=== PATIENT | male | born 1975 | race Caucasian/White ===

== ENCOUNTER 2023-09-27 09:54 | Emergency (ER) | payer MEDICARE, MEDICAID, SELFPAY ==
[2023-09-27 10:00] VITALS: PULSE 101; RESP 18; TEMP 37; O2SAT 95; BMI 47.5
--- NOTE | 2023-09-27 10:05 | ED_ITS ---
HPI - Nausea/Vomiting/Diarrhea General Chief complaint: Nausea/Vomiting/Diarrhea Stated complaint: FLU SYMPTOMS Time Seen by Provider: 09/27/23 09:57 Source: patient Mode of arrival: walk-in Limitations: no limitations History of Present Illness HPI Narrative: 48-year-old male presents for nausea vomiting and diarrhea which began this morning. He's had no fever or hematemesis. His has not been ill. He ate be ef stew but his didn't get sick and she needed as well. Related Data Home Medications Medication Instructions Recorded Confirmed albuterol sulfate 2.5 mg/3 mL mg 09/27/23 (0.083 %) solution for nebulization benztropine 1 mg tablet mg 09/27/23 cariprazine 6 mg capsule (Vraylar) mg 09/27/23 lamotrigine 150 mg tablet mg 09/27/23 levothyroxine 150 mcg tablet mcg 09/27/23 levothyroxine 200 mcg tablet mcg 09/27/23 meloxicam 15 mg tablet mg 09/27/23 mirtazapine 45 mg tablet mg 09/27/23 mometasone-formoterol HFA 100 inhalation 09/27/23 mcg-5 mcg/actuation aerosol inhaler (Dulera) omeprazole 20 mg capsule,delayed mg 09/27/23 release prazosin 5 mg capsule mg 09/27/23 quetiapine 100 mg tablet mg 09/27/23 quetiapine 200 mg tablet mg 09/27/23 quetiapine 50 mg tablet mg 09/27/23 semaglutide 1 mg/dose (4 mg/3 mL) mg subcut 09/27/23 subcutaneous pen injector (Ozempic) trazodone 100 mg tablet mg 09/27/23 zolpidem 5 mg tablet mg 09/27/23 Previous Rx's Medication Instructions Recorded ondansetron 4 mg disintegrating 4 mg PO Q6H PRN nausea and 09/27/23 tablet vomiting #20 tabs Allergies Allergy/AdvReac Type Severity Reaction Status Date / Time No Known Drug Allergies Allergy Verified 09/27/23 10:00 Review of Systems ROS Narrative A ten point review of systems is negative except as noted above. Exam Narrative Exam Narrative: Nurses note and vital signs reviewed and patient is not hypoxic. General: The patient appears well and in no apparent distress. Patient is resting comfortably on cart. Skin: Warm, dry, no pallor noted. There is no rash noted. Head: Normocephalic, atraumatic Eye: Normal conjunctiva, no drainage Ears, Nose, Mouth, and Throat: oral mucosa is moist. Nares patent. Cardiovascular: Regular Rate and Rhythm Respiratory: Patient is in no distress, no accessory muscle use, lungs are clear to auscultation, no wheezing, rales or rhonchi Back: non-tender GI: Normal bowel sounds, no tenderness to palpation, no masses appreciated. No rebound, guarding, or rigidity noted. Musculoskeletal: The patient has no evidence of calf tenderness, no pitting edema, symmetrical pulses noted bilaterally Neurological: A&O, normal speech Psychiatric: Cooperative Constitutional Vital Signs, click to edit/add: Last Vital Signs Temp 98.6 F 09/27/23 10:00 Pulse 85 09/27/23 11:19 Resp 18 09/27/23 11:19 BP 119/76 09/27/23 11:19 Pulse Ox 97 09/27/23 11:19 O2 Del Method Room Air 09/27/23 10:00 Course Vital Signs Vital signs: Vital Signs Temperature 98.6 F 09/27/23 10:00 Pulse Rate 101 H 09/27/23 10:00 Respiratory Rate 18 09/27/23 10:00 Pulse Oximetry 95 09/27/23 10:00 Oxygen Delivery Method Room Air 09/27/23 10:00 Temperature 98.6 F 09/27/23 10:00 Pulse Rate 85 09/27/23 11:19 Respiratory Rate 18 09/27/23 11:19 Blood Pressure 119/76 09/27/23 11:19 Pulse Oximetry 97 09/27/23 11:19 Oxygen Delivery Method Room Air 09/27/23 10:00 MDM - Nausea/Vomiting/Diarrhea MDM Narrative Medical decision making narrative: Covid an influenza test are negative. These were performed his request. WBC mildly elevated and he is feeling much better after being given IV fluids and IV Zofran and he is now tolerating by mouth liquids. I've no clinical suspicion of appendicitis. Treatment diagnosis and follow-up were discussed with the patient. Differential Diagnosis Differential diagnosis: Likely food poisoning, gastroenteritis and dehydration Lab Data Attestation: I reviewed the patient's lab results. Labs: Lab Results 09/27/23 09/27/23 Range/Units 10:09 10:15 WBC 15.2 H (4.0-11.0) 10^3/uL RBC 5.22 (4.70-6.10) 10^6/uL Hgb 14.7 (14.0-18.0) g/dL Hct 45.4 (42.0-54.0) % MCV 87.0 (80.0-94.0) fL MCH 28.2 (25.9-34.0) pg MCHC 32.4 (29.9-35.2) g/dL RDW 14.6 (11.0-15.0) % Plt Count 378 (150-450) 10^3/uL MPV 9.5 (9.5-13.5) fL Neut % (Auto) 82.5 H (43.0-75.0) % Lymph % (Auto) 8.7 L (20.5-60.0) % [place] % (Auto) 6.7 (1.7-12.0) % Eos % (Auto) 0.9 (0.9-7.0) % Baso % (Auto) 0.5 (0.2-2.0) % Neut # (Auto) 12.5 H (1.4-6.5) 10^3/uL Lymph # (Auto) 1.3 (1.2-3.8) 10^3/uL [place] # (Auto) 1.0 H (0.3-0.8) 10^3/uL Eos # (Auto) 0.1 (0.0-0.7) 10^3/uL Baso # (Auto) 0.1 (0.0-0.1) 10^3/uL Abs Immat Gran (auto) 0.10 H (0.00-0.03) 10^3/uL Imm/Tot Granulo (auto) 0.7 H (0.0-0.5) % Sodium 138 (136-145) mmol/L Potassium 4.0 (3.5-5.1) mmol/L Chloride 99 (98-107) mmol/L Carbon Dioxide 29.5 (21.0-32.0) mmol/L Anion Gap 13.5 BUN 16.0 (7.0-18.0) mg/dL Creatinine 1.16 (0.70-1.30) mg/dL Est GFR ( Amer) >60 (>=60) Est GFR (Non-Af Amer) >60 (>=60) BUN/Creatinine Ratio 13.8 Glucose 143 H (74-106) mg/dL Calcium 9.4 (8.5-10.1) mg/dL SARS-CoV-2 (PCR) Negative (NEGATIVE) Influenza Type A Ag Negative Influenza Type B Ag Negative Discharge Plan Discharge Chief Complaint: Nausea/Vomiting/Diarrhea Clinical Impression: Nausea & vomiting Patient Disposition: Home, Self-Care Time of Disposition Decision: 12:37 Condition: Good Mode of Transportation: Private Vehicle Prescriptions / Home Meds: New ondansetron 4 mg tablet,disintegrating 4 mg PO Q6H PRN (Reason: nausea and vomiting) Qty: 20 0RF No Action lamotrigine 150 mg tablet albuterol sulfate 2.5 mg /3 mL (0.083 %) solution for nebulization meloxicam 15 mg tablet quetiapine 200 mg tablet quetiapine 100 mg tablet prazosin 5 mg capsule trazodone 100 mg tablet levothyroxine 150 mcg tablet benztropine 1 mg tablet omeprazole 20 mg capsule,delayed release(DR/EC) mirtazapine 45 mg tablet levothyroxine 200 mcg tablet zolpidem 5 mg tablet quetiapine 50 mg tablet Dulera 100-5 mcg/actuation HFA aerosol inhaler INHALATION Vraylar 6 mg capsule Ozempic 1 mg/dose (4 mg/3 mL) pen injector SUBCUT Instructions: Acute Nausea and Vomiting (ED) Stand Alone Forms: Portal Instructions Referrals: MEGAN BIRD [Primary Care Provider] - 1 week
[2023-09-27] MEDS: ONDANSETRON PF 4 MG/2 ML VIAL IV (10:13)
[2023-09-27] MEDS: 0.9 % SODIUM CHLORIDE 1,000 ML 1000 ML IV (10:14)
[2023-09-27 10:18] LABS: Basophils Absolute Auto 0.1 10^3/uL (0.0-0.1); Basophils Percent Auto 0.5 % (0.2-2.0); Eosinophils Absolute Auto 0.1 10^3/uL (0.0-0.7); Eosinophils Percent Auto 0.9 % (0.9-7.0); Hematocrit 45.4 % (42.0-54.0); Hemoglobin 14.7 g/dL (14.0-18.0); Immature Granulocytes Pct Auto 0.7 % (0.0-0.5); Lymphocytes Absolute Auto 1.3 10^3/uL (1.2-3.8); Lymphocytes Percent Auto 8.7 % (20.5-60.0); Mean Corpuscular HGB Conc 32.4 g/dL (29.9-35.2); Mean Corpuscular Hemoglobin 28.2 pg (25.9-34.0); Mean Platelet Volume 9.5 fL (9.5-13.5); Monocytes Percent Auto 6.7 % (1.7-12.0); Neutrophils Absolute Auto 12.5 10^3/uL (1.4-6.5); Neutrophils Percent Auto 82.5 % (43.0-75.0); Platelet Count 378 10^3/uL (150-450); Red Blood Count 5.22 10^6/uL (4.70-6.10); Red Cell Distribution Width 14.6 % (11.0-15.0); White Blood Count 15.2 10^3/uL (4.0-11.0)
[2023-09-27 10:29] LABS: Anion Gap 13.5; BUN Creatinine Ratio 13.8; Calcium 9.4 mg/dL (8.5-10.1); Carbon Dioxide 29.5 mmol/L (21.0-32.0); Chloride 99 mmol/L (98-107); Estimated GFR (African America >60 (>=60); Estimated GFR (Non-African Ame >60 (>=60); Glucose 143 mg/dL (74-106); Sodium 138 mmol/L (136-145)
[2023-09-27 10:41] LABS: Influenza Virus A Antigen Negative; Influenza Virus B Antigen Negative; Internal Control Within Normal Limits; SARS-CoV-2 Ag NEGATIVE (NEGATIVE)
[2023-09-27 11:19] VITALS: BP 119/76; PULSE 85; RESP 18; O2SAT 97
[2023-09-27 13:17] LABS: SARS-CoV-2 NAA NOT DETECTED (NOT DETECTE)
== END 2023-09-27 12:49 | disposition home or self-care (01) ==
PROVIDERS: Emergency Provider Emergency Medicine; PCP Internal Medicine
DX: R11.2 Nausea with vomiting, unspecified (principal); Z20.822 Contact with and (suspected) exposure to COVID-19; Z79.899 Other long term (current) drug therapy; Z79.890 Hormone replacement therapy
CPT/HCPCS: 36415; 80048; 85025; 87635; 87804; 87811; 96361; 96374; 99284

== ENCOUNTER 2024-09-20 10:25 | Outpatient (OUT) | payer OTHER, SELFPAY ==
[2024-09-20 11:32] LABS: Free T4 0.36 ng/dL (0.76-1.46)
[2024-09-20 11:35] LABS: Thyroid Stimulating Hormone 62.852 uIU/mL (0.358-3.740)
[2024-09-21 04:07] LABS: Triiodothyronine (T3) 70 ng/dL (71-180)
== END 2024-09-20 10:26 | disposition home or self-care (01) ==
LOC: LAB 10:31
PROVIDERS: PCP Internal Medicine; Visit Provider Internal Medicine
DX: E06.3 Autoimmune thyroiditis (principal)
CPT/HCPCS: 36415; 84439; 84443; 84480

== ENCOUNTER 2024-11-01 20:51 | Outpatient (OUT) | payer OTHER, SELFPAY ==
--- OUTSIDE RECORDS SUMMARY | 2024-11-01 20:54 | XMS_ITS | CCD ---
Author Organization [facility] Inform ion [facility] Care Team Providers Care Sweat Box Attendant Name Role Phone MARGE, DR GUZMAN Primary Care Unavailable YUHAS, DR GUZMAN Attending Unavailable YUHAS, DR GUZMAN Admitting Unavailable YUHAS, DR GUZMAN Primary Care Unavailable YUHAS, DR GUZMAN Consulting Unavailable YUHAS, DR GUZMAN Attending Unavailable YUHAS, DR GUZMAN Admitting Unavailable [place], DR VAISHNAVI Mercado Consulting Unavailable Yuhas , Megan Bowman Primary Care Provider [phone] Megan Bird MD Primary Care Provider [phone] JOMAR MERCADO Attending Unavailable DOLCE, JOMAR Rodriguez Attending Unavailable DOLCE, JOMAR Rodriguez Attending Unavailable DOLCEJOMAR Referring Unavailable DOLCE, JOMAR Rodriguez Attending Unavailable DOLJASMINA, JOMAR Rodriguez Attending Unavailable Nabeel Alicea Attending Unavailab Nabeel Pena Admitting Unavailab moses LOPEZ STAFF Primary Care Unavailable YUHAS, MEGAN Bowman Attending Unavailable YUHAS, MEGAN L Referring Unavailable YUHAS, MEGAN L Primary Care Unavailable YUHAS, MEGAN Bowman Attending Unavailable CODIEHASMEGAN Referring Unavailable YUHAS, MEAGN L Primary Care Unavailable YUHAS, MEGAN L Primary Care Unavailable YUHAS, MEGAN L Referring Unavailable YUHAS, MEGAN L Attending Unavailable YUHAS, MEGAN L Referring Unavailable YUHAS, MEGAN L Primary Care Unavailable YUHAS, MEGAN L Referring Unavailable YUHAS, MEGAN L Primary Care Unavailable YUHAS, MEGAN L Referring Unavailable YUHAS, MEGAN L Primary Care Unavailable Allergies Allergy Classification Reported Allergen(s) Allergy Type Date of Onset Reaction(s) Facility (3 sources) Codeine; Translations: [CODEINE] Drug Allergy 5 [facility] (4 sources) Codeine Drug Allergy 3 Unknown [facility] (5 sources) Pollen; Translations: [POLLEN EXTRACTS] Propensity to adverse reactions to drug 3 [facility] Medications Current Medications Medication Drug Class(es) Dates Sig (Normalized) Sig (Original) albuterol 0.83 mg/ml inhalation solution (5 sources) beta2-Adrenergic Agonist Start: 12-10-2023 take 3 mL by inhalation four times daily as needed for wheezing albuterol (PROVENTIL,VENTOLIN ) 2.5 mg /3 mL (0.083 %) nebulizer solution Indications: Mild persistent asthma without complication Inhale 3 mL (2.5 mg total) by nebulization 4 (four) times a day as needed for wheezing. 84 mL 3 12/10/2023 Active Start: 10-10-2022 End: 10-29-2023 take 3 mL by inhalation four times daily albuterol (PROVENTIL,VENTOLIN) 2.5 mg /3 mL (0.083 %) nebulizer solution Indications: Mild persistent asthma without complication Inhale 3 mL (2.5 mg total) by nebulization 4 (four) times a day. 84 mL 1 10/29/2023 Active albuterol (2.5 M G/3ML) 0.083% nebulizer solution INHALE 1 (ONE) VIAL via NEBULIZER THREE TIMES DAILY NEEDED Inhalation for 10 0 Active benzonatate 200 mg oral capsule (1 source) Non-narcotic Antitussive Start: 10-29-2023 take 1 capsule by mouth three times daily as needed for cough benzonatate (TESSALON PERLES) 200 mg capsule Indications: Mild persistent asthma without complication Take 1 capsule (200 mg total) by mouth 3 (three) times a day as needed for cough. 20 capsule 0 10/29/2023 Active benztropine mesylate 1 mg oral tablet (4 sources) Anticholinergic, Antihistamine Start: 09-26-2022 benztropine (COGENTIN) 1 mg tablet 09/26/2022 Active cariprazine 6 mg oral capsule (4 sources) Atypical Antipsychotic Start: 09-26-2022 VRAYLAR 6 mg capsule 09/26/2022 Active 14 actuat fluticasone furoate 0.1 mg/actuat / vilanterol 0.025 mg/actuat dry powder inhaler (2 sources) Corticosteroid, beta2-Adrenergic Agonist Start: 06-16-2024 take 1 puff(s) by inhalation in the morning fluticasone furoate-vilanteroL (BREO ELLIPTA) 100-25 mcg/dose blister with device Indications: Mild persistent asthma, uncomplicated Inhale 1 puff in the morning. 90 each 1 06/16/2024 Active 60 actuat formoterol fumarate 0.005 mg/actuat / mometasone furoate 0.1 mg/actuat metered dose inhaler (2 sources) Corticosteroid, beta2-Adrenergic Agonist Start: 10-21-2023 take 2 puff(s) by mouth twice daily DULERA 100-5 mcg/actuation inhaler Indications: Mild persistent asthma, uncomplicated INHALE 2 PUFFS BY MOUTH TWICE DAILY 39 g 1 10/21/2023 Active take 2 puff(s) by inhalation in the morning Dulera 100-5 MCG/ACT inhaler Inhale 2 puffs in the morning and 2 puffs before bedtime. 0 Active ketoconazole 20 mg/ml medicated shampoo (4 sources) Azole Antifungal Start: 02-21-2023 ketoconazole (NIZOral) 2 % shampoo LATHER ON SCALP, LEAVE ON 3-5 MINUTES BEFORE RINSING. 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 0 07/29/2023 Active Start: 02-21-2023 take 1 tablet by juan th in the morning levothyroxine (Synthroid, Levoxyl) 200 MCG tablet Take 200 mcg by mouth in the morning. 0 02/21/2023 Active meloxicam 15 mg oral tablet (7 sources) Nonsteroidal Anti-inflammatory Drug Start: 10-14-2024 End: 10-20-2024 take 1 tablet by mouth once daily in the morning meloxicam (MOBIC) 15 mg tablet Indications: Pain in unspecified wrist TAKE ONE TABLET BY MOUTH DAILY AT 9 AM 90 tablet 1 10/20/2024 Active Start: 06-16-2024 End: 10-14-2024 take 1 tablet by mouth once daily in the morning meloxicam (MOBIC) 15 mg tablet Indications: Pain in unspecified wrist TAKE ONE TABLET BY MOUTH DAILY AT 9 AM 90 tablet 1 06/16/2024 10/14/2024 Discontinued (Reorder) Start: 02-21-2023 End: 11-19-2023 take 1 tablet by mouth in the morning meloxicam (Mobic) 15 MG tablet Indications: Pain in right ankle and joints of right foot TAKE 1 TABLET BY MOUTH IN THE MORNING 30 tablet 0 11/19/2023 Active mirtazapine 30 mg oral tablet (5 sources) Start: 09-18-2024 take 1 tablet by mouth once daily at bedtime mirtazapine (REMERON) 30 mg tablet TAKE 1 TABLET BY MOUTH DAILY before bedtime 09/18/2024 Active Start: 09-26-2022 mirtazapine (R EMERON) 45 MG tablet 09/26/2022 Active omeprazole 20 mg delayed release oral capsule (5 sources) Proton Pump Inhibitor Start: 10-14-2024 take 1 capsule by mouth once daily in the morning omeprazole (PriLOSEC) 20 mg capsule Indications: Gastro-esophageal reflux disease with esophagitis, without bleeding TAKE ONE CAPSULE BY MOUTH DAILY AT 9 AM 90 capsule 1 10/14/2024 Active Start: 06-16-2024 End: 10-14-2024 take 1 capsule by mouth once daily in the morning omeprazole (PriLOSEC) 20 mg capsule Indications: Gastro-esophageal reflux disease with esophagitis, without bleeding TAKE ONE CAPSULE BY MOUTH DAILY AT 9 AM 90 capsule 1 06/16/2024 10/14/2024 Discontinued (Reorder) Start: 08-20-2023 take 1 capsule by [facility] once daily omeprazole (PriLOSEC) 20 mg capsule Indications: Gastro-esophageal reflux disease with esophagitis, without bleeding TAKE 1 CAPSULE BY MOUTH DAILY 90 capsule 1 08/20/2023 Active Ozempic, 1 MG/DOSE, 4 MG/3ML solution pen-injector (1 source) Start: 02-21-2023 inject 1 mg by subcutaneous injection every week Ozempic, 1 MG/DOSE, 4 MG/3ML solution pen-injector INJECT 1mg SUBCUTANEOUSLY EVERY week 0 02/21/2023 Active prazosin 5 mg oral capsule (4 sources) alpha-Adrenergic Ernie Start: 09-26-2022 prazosin (MINIPRESS) 5 mg capsule 09/26/2022 Active QUEtiapine 200 mg oral tablet (4 sources) Atypical Antipsychotic Start: 02-21-2023 QUEtiapine (SEROquel) 200 MG tablet TAKE 1/2 (ONE-HALF) OF A TABLET BY MOUTH IN THE MORNING then TAKE 1 TABLET BY MOUTH at night 0 02/21/2023 Active Start: 09-26-2022 QUEtiapine (SE ROquel) 200 mg tablet 09/26/2022 Active semaglutide (OZEMPIC) 2 mg/dose (8 mg/3 mL) pen injector (3 sources) Start: 10-14-2024 inject 2 mg by subcutaneous injection every week semaglutide (OZEMPIC) 2 mg/dose (8 mg/3 mL) pen injector Indications: Impaired fasting glucose Inject 2 mg under the skin once a week. 9 mL 1 10/14/2024 Active Start: 06-21-2024 End: 10-14-2024 inject 2 mg by subcutaneous injection every week semaglutide (OZEMPIC) 2 mg/dose (8 mg/3 mL) pen injector Indications: Impaired fasting glucose Inject 2 mg under the skin once a week. 9 mL 1 06/21/2024 10/14/2024 Discontinued (Reorder) semaglutide 2 mg/dose (8 mg/3 mL) pen injector (1 source) Start: 07-28-2023 semaglutide 2 mg/dose (8 mg/3 mL) pen injector Indications: Impaired fasting glucose Inject 2 mg under the skin every 7 days. 0 07/28/2023 Active sertraline 100 mg oral tablet (4 sources) Serotonin Reuptake Inhibitor Start: 08-18-2023 take 2 tablets by mouth in the morning sertraline (ZOLOFT) 100 mg tablet Take 2 tablets (200 mg total) by mouth in the morning. 08/18/2023 Active Start: 02-21-2023 take 1 tablet by juan th in the morning sertraline (Zoloft) 100 MG tablet Take 100 mg by mouth in the morning. 0 02/21/2023 Active traZODone hydrochloride 100 mg oral tablet (3 sources) Serotonin Reuptake Inhibitor Start: 09-26-2022 traZODone (DESYREL) 100 mg tablet 09/26/2022 Active zolpidem tartrate 5 mg oral tablet (4 sources) gamma-Aminobutyri c Acid-ergic Agonist Start: 09-01-2022 take 1 tablet by mouth once daily zolpidem (AMBIEN) 5 mg tablet Take 1 tablet (5 mg total) by mouth nightly. 09/01/2022 Active Completed/Discontinued Medications Medication Drug Class(es) Dates Sig (Normalized) Sig (Original) dextromethorphan hydrobromide 2 mg/ml / guaiFENesin 20 mg/ml oral solution (1 source) Uncompetitive G-qshrqx-J-aspartat e Receptor Antagonist, Sigma-1 Agonist Start: 08-18-2023 End: 10-29-2023 take 5 mL by mouth every twelve hours dextromethorphan- guaiFENesin (ROBITUSSIN-DM) 10-100 mg/5 mL liquid Take 5 mL by mouth every 12 (twelve) hours. 120 mL 1 08/18/2023 10/29/2023 Discontinued (Therapy completed) diclofenac sodium 0.01 mg/mg topical gel (1 source) Nonsteroidal Anti-inflammatory Drug Start: 10-13-2022 End: 10-29-2023 diclofenac sodium (VOLTAREN) 1 % gel Indications: Strain of lumbar region, initial encounter APPLY 2 (TWO) grams TO THE AFFECTED AREA(S) IN THE MORNING then APPLY 2 (TWO) grams TO THE AFFECTED AREA(S) at noon then APPLY 2 (TWO) grams TO THE AFFECTED AREA(S) IN THE EVENING then APPLY 2 (TWO) grams TO THE AFFECTED AREA(S) BEFORE bedtime 100 g 1 10/13/2022 10/29/2023 Discontinued (Therapy completed) Problems Active Problems Problem Classification Problem Date Documented Date Episodic/Chronic Anxiety disorders (3 sources) Posttraumatic stress disorder; Translations: [Post-traumatic stress disorder, unspecified] Onset: 08-18-2023 08-18-2023 Chronic Asthma (5 sources) Uncomplicated mild persistent asthma; Translations: [Mild persistent asthma, uncomplicated] Onset: 10-09-2022 10-29-2023 Chronic Diabetes mellitus with complications (4 sources) Disorder of nervous system due to type 2 diabetes mellitus; Translations: [Type 2 diabetes mellitus with other diabetic neurological complication] Onset: 10-20-2024 10-20-2024 Chronic Diabetes mellitus without complication (1 source) Diabetes mellitus Onset: 10-29-2023 Chronic Disorders of lipid metabolism (3 sources) Hyperlipidemia; Translations: [Hyperlipidemia, unspecified] Onset: 05-05-2024 10-29-2023 Chronic Esophageal disorders (1 source) Gastro-esophageal reflux disease with esophagitis; Translations: [Gastro-esophageal reflux disease with esophagitis, without bleeding] 10-14-2024 Chronic Essential hypertension (3 sources) Essential hypertension; Translations: [Essential (primary) hypertension] Onset: 10-09-2022 10-09-2022 Chronic Immunizations and screening for infectious disease (2 sources) Patient encounter status; Translations: [Encounter for immunization] Onset: 10-20-2024 10-20-2024 Episodic Osteoarthritis (3 sources) Osteoarthritis of joint of left ankle; Translations: [Primary osteoarthritis, left ankle and foot] Onset: 09-01-2023 09-01-2023 Chronic Other connective tissue disease (1 source) Abnormal posture; Translations: [ABNORMAL POSTURE] Onset: 12-04-2022 Episodic Other nervous system disorders (1 source) Other chronic pain; Translations: [OTHER CHRONIC PAIN] Onset: 12-08-2022 Chronic Other nervous system disorders (1 source) Other abnormalities of gait and mobility; Translations: [OTHER ABNORMALITIES GAIT AND MOBILITY] Onset: 12-04-2022 Episodic Other nervous system disorders (1 source) Unspecified abnormalities of gait and mobility; Translations: [UNS ABNORMALITIES GAIT AND MOBILITY] Onset: 12-04-2022 Episodic Other non-traumatic joint disorders (1 source) Pain in left knee; Translations: [PAIN IN LEFT KNEE] Onset: 12-08-2022 Episodic Other non-traumatic joint disorders (5 sources) Pain in right knee; Translations: [PAIN IN RIGHT KNEE] Onset: 11-27-2022 Episodic Other non-traumatic joint disorders (1 source) Sinus tarsi syndrome; Translations: [Pain in right ankle and joints of right foot] 10-29-2023 Episodic Other non-traumatic joint disorders (1 source) Arthralgia of the ankle and/or foot; Translations: [Pain in right ankle and joints of right foot] 11-19-2023 Episodic Other non-traumatic joint disorders (2 sources) Pain in wrist; Translations: [Pain in unspecified wrist] 10-14-2024 Episodic Other non-traumatic joint disorders (1 source) Pain in unspecified wrist; Translations: [Pain in unspecified wrist] Onset: 10-20-2024 Episodic Other nutritional; endocrine; and metabolic disorders (5 sources) Drug-induced obesity; 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] Onset: 10-09-2022 10-29-2023 Chronic Other nutritional; endocrine; and metabolic disorders (1 source) Drug-induced obesity; 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] Onset: 10-29-2023 Chronic Other nutritional; endocrine; and metabolic disorders (1 source) Body mass index (BMI) 45.0-49.9, adult; Translations: [Body mass index (BMI) 45.0-49.9, adult] Onset: 10-29-2023 Chronic Residual codes; unclassified (1 source) Obstructive sleep apnea syndrome; Translations: [Obstructive sleep apnea (adult) (pediatric)] 10-20-2024 Chronic Residual codes; unclassified (1 source) Obstructive sleep apnea (adult) (pediatric); Translations: [Obstructive sleep apnea (adult) (pediatric)] Onset: 10-20-2024 Chronic Sprains and strains (5 sources) Strain of muscle, fascia and tendon of lower back, initial encounter; Translations: [Strain of muscle, fascia and tendon of lower back, subsequent encounter] Onset: 11-27-2022 Episodic Thyroid disorders (9 sources) 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; Translations: [Other specified hypothyroidism] Onset: 10-09-2022 10-29-2023 Chronic Unclassified (1 source) Obesity, class 3; Translations: [Obesity, class 3] Onset: 10-29-2023 Unclassified (1 source) 6 month check up Onset: 05-05-2024 Past or Other Problems Problem Classification Problem Date Documented Da te Episodic/Chronic Diabetes mellitus without complication (7 sources) Impaired fasting glycemia; Translations: [Impaired fasting glucose] Onset: 10-09-2022 10-29-2023 Episodic Mood disorders (3 sources) Mood disorders Onset: 08-18-2023 Resolved: 10-20-2024 08-18-2023 Other non-traumatic joint disorders (1 source) Pain in right ankle and joints of right foot; Translations: [Pain in right ankle and joints of right foot] Onset: 10-29-2023 Episodic Results Test Name Value Interpretation Reference Range Facility COMPREHENSIVE METABOLIC PANE [facility] 10-20-2024 Albumin [Mass/Vol] 4.3 g/dL Normal 3.2-5.3 [facility] Comment on above: Performed By: #### C MANJINDER NICE HA1C #### [facility] ([id number]) [address], [address] [place] [address] ALP [Catalytic activity/Vol] 71 U/L Normal 39-130 [facility] Comment on above: Performed By: #### C MANJINDER NICE HA1C #### [facility] ([id number]) [address], [address] [place] [address] ALT [Catalytic activity/Vol] 21 U/L Normal 0-40 [facility] Comment on above: Performed By: #### C MANJINDER NICE HA1C #### [facility] ([id number]) [address], [address] [place] [address] Anion gap [Moles/Vol] 7 mmol/L Normal 5-15 [facility] Comment on above: Performed By: #### C MANJINDER NICE, HA1C #### [facility] ([id number]) [address], [address] [place] [address] AST [Catalytic activity/Vol] 21 U/L Normal 0-41 [facility] Comment on above: Performed By: #### C MANJINDER NICE HA1C #### [facility] ([id number]) [address] [address] [place] [address] Bilirubin [Mass/Vol] 0.2 mg/dL Low 0.3-1.2 [facility] Comment on above: Performed By: #### C MANJINDER NICE HA1C #### [facility] ([id number]) [address] [address] [place] [address] Calcium [Mass/Vol] 9.5 mg/dL Normal 8.5-10.5 [facility] Comment on above: Performed By: #### C MANJINDER NICE HA1C #### [facility] ([id number]) [address] [address] [place] [address] Chloride [Moles/Vol] 102 mmol/L Normal 98-109 [facility] Comment on above: Performed By: #### C MANJINDER NICE HA1C #### [facility] ([id number]) [address] [address] [place] [address] CO2 [Moles/Vol] 32 mmol/L Normal 22-32 [facility] Comment on above: Performed By: #### C MANJINDER NICE HA1C #### [facility] ([id number]) [address] [address] [place] [address] Creatinine [Mass/Vol] 1.05 mg/dL Normal 0.60-1.30 [facility] Comment on above: Result Comment: METH OD TRACEABLE TO IDMS STANDARD Performed By: #### C MANJINDER NICE HA1C #### [facility] ([id number]) [address] [address] [place] [address] GFR/1.73 sq M.predicted among non-blacks MDRD (S/P/Bld) [Vol rate/Area] 86 mL/min/{1.73_m2} Normal >59 [facility] Comment on above: Result Comment: Reported eGFR is based on the CKD-EPI 2020 equation that does not use a race coefficient. Performed By: #### C MANJINDER NICE HA1C #### [facility] ([id number]) [address], [address] [place] [address] Glucose [Mass/Vol] 88 mg/dL Normal 65-99 [facility] Comment on above: Performed By: #### C MANJINDER NICE HA1C #### [facility] ([id number]) [address], [address] [place] [address] Potassium [Moles/Vol] 4.3 mmol/L Normal 3.5-5.0 [facility] Comment on above: Performed By: #### MANJINDER Jaimes MP, HA1C #### [facility] ([id number]) [address], [address] [place] [address] Protein [Mass/Vol] 7.8 g/dL Normal 6.0-8.0 [facility] Comment on above: Performed By: #### C MANJINDER NICE HA1C #### [facility] ([id number]) [address], [address] [place] [address] Sodium [Moles/Vol] 141 mmol/L Normal 134-146 [facility] Comment on above: Performed By: #### C MANJINDER NICE HA1C #### [facility] ([id number]) [address], [address] [place] [address] Urea nitrogen [Mass/Vol] 18 mg/dL Normal 5-23 [facility] Comment on above: Performed By: #### MANJINDER Jaimes MP, HA1C #### [facility] ([id number]) [address], [address] [place] [address] HGB A1C (GLYCO-HGB)on 2024 Glucose [Mass/Vol] 117 mg/dL Normal [facility] Comment on above: Performed By: #### Fiona NICE, 09529-6, THYR #### [facility] ([id number]) [address] [facility] [address] [place] [address] HbA1c (Bld) [Mass fraction] 5.7 % High 4.4-5.6 [facility] Comment on above: Result Comment: NOTE ADA Guidelines Result HgbA1c Normal : less than 5.7 % Prediabetes : 5.7 % to 6.4 % Diabetes : > 6.4 % Use with caution in patients with abnormal hemoglobin variants as the half-life of red blood cells and in vivo glycation rates are affected. Performed By: #### Fiona NICE, 73330-2, THYR #### [facility] ([id number]) [address], [address] [address] MICROALBUMIN - ALBUMIN:CREAT ININE URINE RATIOon 10-20-2024 ALB/CREAT RATIO NOT CALCULATED Normal 0.0-30.0 [facility] Comment on above: Result Comment: Result for Albumin/Creatinine Ratio cannot be reliably calculated because urine albumin and or urine creatinine is below the detection limit of the assay. Performed By: #### Fiona NICE, 71946-4, THYR #### [facility] ([id number]) [address], [address] [address] Albumin DL <= 20 mg/L (U) [Mass/Vol] mg/dL Normal 0.0-1.9 [facility] Comment on above: Performed By: #### Fiona NICE, 01174-2, THYR #### [facility] ([id number]) [address], [address] [address] URINE CREAT 138.17 mg/dL Normal [facility] Comment on above: Performed By: #### Fiona NICE, 36382-6, THYR #### [facility] ([id number]) [address], [address] [place] [address] THYROID PROFILEon 10-20-2024 Free T4 [Mass/Vol] 0.64 ng/dL Normal 0.61-1.60 [facility] Comment on above: Performed By: #### C MP, THYR, HA1C #### [facility] ([id number]) [address], [address] [place] [address] TSH 14.27 uIU/mL High 0.49-4.67 [facility] Comment on above: Performed By: #### C ARLET THYR, HA1C #### [facility] ([id number]) [address], [address] [place] [address] COMPREHENSIVE METABOLIC PANE Trung 05-05-2024 Albumin [Mass/Vol] 4.1 g/dL Normal 3.2-5.3 [facility] Comment on above: Performed By: #### C ARLET, 21215-5, THYR, HA1C #### [facility] ([id number]) [address], [address] [place] [address] ALP [Catalytic activity/Vol] 75 U/L Normal 39-130 [facility] Comment on above: Performed By: #### C ARLET, 03965-9, THYR, HA1C #### [facility] ([id number]) [address], [address] [place] [address] ALT [Catalytic activity/Vol] 23 U/L Normal 0-40 [facility] Comment on above: Performed By: #### C ARLET, 85836-8, THYR, HA1C #### [facility] ([id number]) [address], [address] [place] [address] Anion gap [Moles/Vol] 8 mmol/L Normal 5-15 [facility] Comment on above: Performed By: #### C ARLET, 76839-5, THYR, HA1C #### [place] [facility] ([id number]) [address], [address] [place] [address] AST [Catalytic activity/Vol] 18 U/L Normal 0-41 [facility] Comment on above: Performed By: #### C ARLET, 57667-8, THYR, HA1C #### [facility] ([id number]) [address], [address] [place] [address] Bilirubin [Mass/Vol] 0.3 mg/dL Normal 0.3-1.2 [facility] Comment on above: Performed By: #### C ARLET 76657-3, THYZaina, HA1C #### [facility] ([id number]) [address], [address] [place] [address] Calcium [Mass/Vol] 9.4 mg/dL Normal 8.5-10.5 [facility] Comment on above: Performed By: #### C ARLET, 46818-8, THYR, HAPaty #### [facility] ([id number]) [address], [address] [place] [address] Chloride [Moles/Vol] 105 mmol/L Normal 98-109 [facility] Comment on above: Performed By: #### C ARLET, 57843-4, THYR, HA1C #### [facility] ([id number]) [address], [address] [place] [address] CO2 [Moles/Vol] 27 mmol/L Normal 22-32 [facility] Comment on above: Performed By: #### C ARLET, 59383-3, THYR, HA1C #### [facility] ([id number]) [address], [address] [place] [address] Creatinine [Mass/Vol] 0.96 mg/dL Normal 0.60-1.30 [facility] [facility] Comment on above: Result Comment: METH OD TRACEABLE TO IDMS STANDARD Performed By: #### C ARLET, 76828-4, MANJINDER HAPaty #### [facility] ([id number]) [address], [address] [place] [address] eGFR (CKD-EPI) NON-RACE DEPENDENT >90 Normal >59 [facility] Comment on above: Result Comment: Reported eGFR is based on the CKD-EPI 2020 equation that does not use a race coefficient. Performed By: #### C ARLET, 81842-0, THYR, HA1C #### [facility] ([id number]) [address], [address] [place] [address] Glucose [Mass/Vol] 98 mg/dL Normal 65-99 [facility] Comment on above: Performed By: #### C ARLET, 17509-5, THYZaina, HA1C #### [facility] ([id number]) [address], [address] [place] [address] Potassium [Moles/Vol] 4.3 mmol/L Normal 3.5-5.0 [facility] Comment on above: Performed By: #### C ARLET, 73219-4, THYR, HA1C #### [facility] ([id number]) [address], [address] [place] [address] Protein [Mass/Vol] 7.3 g/dL Normal 6.0-8.0 [facility] Comment on above: Performed By: #### C ARLET, 48483-0, THYR, HA1C #### [facility] ([id number]) [address], [address] [place] [address] Sodium [Moles/Vol] 140 mmol/L Normal 134-146 [facility] Comment on above: Performed By: #### C ARLET, 29892-0, THYR, HA1C #### [facility] ([id number]) [address], [address] [place] [address] Urea nitrogen [Mass/Vol] 17 mg/dL Normal 5-23 [facility] Comment on above: Performed By: #### Fiona NICE, 59715-5, NAT DUNBAR #### [facility] ([id number]) [address] [address] HGB A1C (GLYCO-HGB)on 2023 Glucose [Mass/Vol] 117 mg/dL Normal [facility] Comment on above: Performed By: #### Fiona NICE, 75850-1, NAT DUNBAR #### [facility] ([id number]) [address] [address] HbA1c (Bld) [Mass fraction] 5.7 % High 4.4-5.6 [facility] Comment on above: Result Comment: NOTE ADA Guidelines Result HgbA1c Normal : less than 5.7 % Prediabetes : 5.7 % to 6.4 % Diabetes : > 6.4 % Use with caution in patients with abnormal hemoglobin variants as the half-life of red blood cells and in vivo glycation rates are affected. Performed By: #### Fiona NICE, 76329-4, NAT DUNBAR #### [facility] ([id number]) [address] [address] Lipid 1996 panelon Cholesterol [Mass/Vol] 143 mg/dL Low 150-200 [facility] Comment on above: Performed By: #### Fiona NICE, 69149-2, NAT DUNBAR #### [facility] ([id number]) [address] [address] Cholesterol in HDL [Mass/Vol] 35 mg/dL Low >39 [facility] Comment on above: Result Comment: HDL <40 mg/dL - High Risk HDL > or = 40mg/dL- Desirable HDL >60 mg/dL - Negative Risk Performed By: #### C ARLET, 59550-4, THYR, HAPaty #### [facility] ([id number]) [address], [address] [place] [address] Cholesterol in LDL [Mass/Vol] 67 mg/dL Normal <130 [facility] Comment on above: Result Comment: LDL <100 mg/dL - Desirable LDL >160 mg/dL - High Risk Performed By: #### Fiona NICE, 92665-4, THYR, HAPaty #### [facility] ([id number]) [address], [facility] [address] [place] [address] Cholesterol in VLDL [Mass/Vol] 41 mg/dL High 0-30 [facility] Comment on above: Performed By: #### Fiona NICE, 90125-4, THYR, HAPaty #### [facility] ([id number]) [address], [facility] [address] [place] [address] CHOLESTEROL:HDL 4.1 Normal 1.0-5.0 [facility] Comment on above: Performed By: #### Fiona NICE, 33958-2, THYR, HAPaty #### [facility] ([id number]) [address], [facility] [address] [place] [address] Triglyceride [Mass/Vol] 204 mg/dL High 27-150 [facility] Comment on above: Performed By: #### Fiona NICE, 61674-1, THYR, HA1C #### [facility] ([id number]) [address], [facility] [address] [place] [address] THYROID PROFILEon 05-05-2024 Free T4 [Mass/Vol] 1.52 ng/dL Normal 0.61-1.60 [facility] Comment on above: Performed By: #### Fiona NICE, 27671-3, THYR, HA1C #### [facility] ([id number]) [address], [address] [place] [address] TSH 0.05 uIU/mL Low 0.49-4.67 [facility] Comment on above: Performed By: #### C ARLET, 53798-3, THYR, HA1C #### [facility] ([id number]) [address], [address] [place] [address] COMPREHENSIVE METABOLIC PANE Trung 10-29-2023 Albumin [Mass/Vol] 4.1 g/dL Normal 3.2-5.3 [facility] Comment on above: Performed By: #### C ARLET, 56243-6, THYR #### [facility] ([id number]) [address], [address] [place] [address] ALP [Catalytic activity/Vol] 70 U/L Normal 39-130 [facility] Comment on above: Performed By: #### C ARLET, 33709-7, THYR #### [facility] ([id number]) [address], [address] [place] [address] ALT [Catalytic activity/Vol] 29 U/L Normal 0-40 [facility] Comment on above: Performed By: #### Fiona NICE, 20971-5, THYR #### [facility] ([id number]) [address], [address] [place] [address] Anion gap [Moles/Vol] 8 mmol/L Normal 5-15 [facility] Comment on above: Performed By: #### C ARLET, 21430-9, THYR #### [facility] ([id number]) [address], [address] [place] [address] AST [Catalytic activity/Vol] 21 U/L Normal 0-41 [facility] Comment on above: Performed By: #### Fiona NICE, 73468-0, THYR #### [facility] ([id number]) [address], [address] [place] [address] Bilirubin [Mass/Vol] 0.2 mg/dL Low 0.3-1.2 [facility] Comment on above: Performed By: #### Fiona NICE, 43064-7, THYR #### [facility] ([id number]) [address], [address] [place] [address] Calcium [Mass/Vol] 9.1 mg/dL Normal 8.5-10.5 [facility] Comment on above: Performed By: #### Fiona NICE, 29190-2, THYR #### [facility] ([id number]) [address], [address] [place] [address] Chloride [Moles/Vol] 103 mmol/L Normal 98-109 [facility] Comment on above: Performed By: #### Fiona NICE, 77983-3, THYR #### [facility] ([id number]) [address], [address] [place] [address] CO2 [Moles/Vol] 28 mmol/L Normal 22-32 [facility] Comment on above: Performed By: #### Fiona NICE, 86558-4, THYR #### [facility] ([id number]) [address], [address] [place] [address] Creatinine [Mass/Vol] 1.02 mg/dL Normal 0.60-1.30 [facility] Comment on above: Result Comment: METH OD TRACEABLE TO IDMS STANDARD Performed By: #### Fiona NICE, 55197-1, THYR #### [facility] ([id number]) [address], [address] [place] [address] GFR/1.73 sq M.predicted among non-blacks MDRD (S/P/Bld) [Vol rate/Area] 90 mL/min/{1.73_m2} Normal >59 [facility] Comment on above: Result Comment: Reported eGFR is based on the CKD-EPI 2020 equation that does not use a race coefficient. Performed By: #### Fiona NICE, 57889-7, THYR #### [facility] ([id number]) [address], [address] [place] [address] Glucose [Mass/Vol] 88 mg/dL Normal 65-99 [facility] Comment on above: Performed By: #### Fiona NICE, 17103-5, THYR #### [facility] ([id number]) [address], [address] [place] [address] Potassium [Moles/Vol] 4.0 mmol/L Normal 3.5-5.0 [facility] Comment on above: Performed By: #### Fiona NICE, 49143-0, THYR #### [facility] ([id number]) [address], [address] [place] [address] Protein [Mass/Vol] 7.2 g/dL Normal 6.0-8.0 [facility] Comment on above: Performed By: #### Fiona NICE 50819-2, THYR #### [facility] ([id number]) [address], [address] [place] [address] Sodium [Moles/Vol] 139 mmol/L Normal 134-146 [facility] Comment on above: Performed By: #### Fiona NICE 20208-2, THYR #### [facility] ([id number]) [address], [address] [place] [address] Urea nitrogen [Mass/Vol] 14 mg/dL Normal 5-23 [facility] Comment on above: Performed By: #### Fiona NICE, 18171-4, THYR #### [facility] ([id number]) [address], [address] [place] [address] Comprehensive metabolic pane trung 10-29-2023 Albumin [Mass/Vol] 4.1 g/dL 3.2 - 5.3 g/dL [facility] ALP [Catalytic activity/Vol] 70 U/L 39 - 130 U/L [facility] ALT No additional P-5'-P [Catalytic activity/Vol] 29 U/L 0 - 40 U/L [facility] Anion gap [Moles/Vol] 8 mmol/L 5 - 15 mmol/L [facility] AST [Catalytic activity/Vol] 21 U/L 0 - 41 U/L [facility] Bilirubin [Mass/Vol] 0.2 mg/dL Low 0.3 - 1 .2 mg/dL [facility] Calcium [Mass/Vol] 9.1 mg/dL 8.5 - 10. 5 mg/dL [facility] Chloride [Moles/Vol] 103 mmol/L 98 - 10 9 mmol/L [facility] CO2 [Moles/Vol] 28 mmol/L 22 - 32 mmol/L [facility] Creatinine [Mass/Vol] 1.02 mg/dL 0.60 - 1.30 mg/dL [facility] Comment on above: METHOD TRACEABLE TO [facility] STANDARD eGFR (CKD-EPI)non-race dependent 90 - PINF [facility] Comment on above: Reported eGFR is based on the CKD-EPI 2020 equation that does not use a race coefficient. Glucose [Mass/Vol] 88 mg/dL 65 - 99 mg/dL [facility] Potassium [Moles/Vol] 4.0 mmol/L 3.5 - 5.0 mmol/L [facility] Protein [Mass/Vol] 7.2 g/dL 6.0 - 8.0 g/dL [facility] Sodium [Moles/Vol] 139 mmol/L 134 - 146 mmol/L [facility] Urea nitrogen [Mass/Vol] 14 mg/dL 5 - 23 mg/dL [facility] HGB A1C (GLYCO-HGB)on 2023 Glucose [Mass/Vol] 126 mg/dL Normal [facility] Comment on above: Performed By: #### C ARLET, 84300-5, THYR #### [facility] ([id number]) [address] [facility], [address] [place] [address] HbA1c (Bld) [Mass fraction] 6.0 % High 4.4-5.6 [facility] Comment on above: Result Comment: NOTE ADA Guidelines Result HgbA1c Normal : less than 5.7 % Prediabetes : 5.7 % to 6.4 % Diabetes : > 6.4 % Use with caution in patients with abnormal hemoglobin variants as the half-life of red blood cells and in vivo glycation rates are affected. Performed By: #### C ARLET, 19160-3, THYR #### [facility] ([id number]) [address] [place] [address], [address] [place] [address] Lipid 1996 panelon 4 Cholesterol [Mass/Vol] 165 mg/dL 150 - 200 mg/dL [facility] Cholesterol in HDL [Mass/Vol] 43 mg/dL 39 - PINF mg/dL [facility] Comment on above: HDL <40 mg/dL - High Risk HDL > or = 40mg/dL- Desirable HDL >60 mg/dL - Negative Risk Cholesterol in LDL [Mass/Vol] 71 mg/dL NINF - 130 mg/dL [facility] Comment on above: LDL <100 mg/dL - Desirable LDL >160 mg/dL - High Risk Cholesterol in VLDL [Mass/Vol] 51 mg/dL High 0 - 30 mg/dL [facility] Cholesterol.total/Cho lesterol in HDL [Mass ratio] 3.8 {ratio} 1.0 - 5.0 [facility] Triglyceride [Mass/Vol] 257 mg/dL High 27 - 150 mg/dL [facility] Cholesterol [Mass/Vol] 165 mg/dL Normal 150-200 [facility] Comment on above: Performed By: #### C ARLET, 30695-7, THYR #### [facility] ([id number]) [address], [address] [place] [address] Cholesterol in HDL [Mass/Vol] 43 mg/dL Normal >39 [facility] Comment on above: Result Comment: HDL <40 mg/dL - High Risk HDL > or = 40mg/dL- Desirable HDL >60 mg/dL - Negative Risk Performed By: #### Fiona NICE, 92189-0, THYR #### [facility] ([id number]) [address], [address] [place] [address] Cholesterol in LDL [Mass/Vol] 71 mg/dL Normal <130 [facility] Comment on above: Result Comment: LDL <100 mg/dL - Desirable LDL >160 mg/dL - High Risk Performed By: #### Fiona NICE, 54954-1, THYR #### [facility] ([id number]) [address], [address] [place] [address] Cholesterol in VLDL [Mass/Vol] 51 mg/dL High 0-30 [facility] Comment on above: Performed By: #### Fiona NICE, 60178-8, THYR #### [facility] ([id number]) [address], [address] [place] [address] CHOLESTEROL:HDL 3.8 Normal 1.0-5.0 [facility] Comment on above: Performed By: #### Fiona NICE, 01677-9, THYR #### [facility] ([id number]) [address], [address] [place] [address] Triglyceride [Mass/Vol] 257 mg/dL High 27-150 [facility] Comment on above: Performed By: #### C ARLET, 36398-4, THYR #### [facility] ([id number]) [address], [address] [place] [address] No Panel Informationon 10-29 Interpretation and review of laboratory results Abnormal [facility] THYROID PROFILEon 10-29-2023 Free T4 [Mass/Vol] 0.80 ng/dL Normal 0.61-1.60 [facility] Comment on above: Performed By: #### C ARLET, 85687-5, THYR #### [facility] ([id number]) [address] [facility], [address] [place] [address] TSH 9.30 uIU/mL High 0.49-4.67 [facility] Comment on above: Performed By: #### C ARLET, 97313-3, THYR #### [facility] ([id number]) [address] [facility], [address] [place] [address] Thyroid profile includes TSH FT4on 10-29-2023 Free T4 [Mass/Vol] 0.80 ng/dL 0.61 - 1. 60 ng/dL [facility] Interpretation and review of laboratory results Abnormal [facility] TSH Qn 9.30 m[IU]/L [facility] XR LSPINE 2_3 VIEWSon 2022 XR LSPINE 2_3 VIEWS EXAMINATION: XR LSPINE 2_3 VIEWS HISTORY: Low back strain COMPARISON: No relevant comparison available. FINDINGS: BONES: Normal. No significant spondylosis, scoliosis, fracture, or visible bony lesion. DISC SPACES: Normal. No significant disc height narrowing, subluxation, or endplate abnormality. PARASPINOUS: Negative. No paraspinous abnormality is seen. OTHER: Negative. IMPRESSION: No acute disease. Electronically authenticated by: VAISHNAVI JOHNSON Date: 2022-12-04 18:08 Normal [facility] BASIC METABOLIC PANELon 05- BUN/CREATININE RATIO NOT APPLICABLE Normal 6-22 [facility] Comment on above: Performed By: #### 5 8984, 27841 #### [facility] of [address], [address] [place] [address] [employer] Worker Helper: Andrew Watts MD Calcium [Mass/Vol] 9.3 mg/dL Normal 8.6-10.3 [facility] Comment on above: Performed By: #### 5 8984, 22434 #### [facility] of [address], [address] [place] [address] [employer] Worker Helper: Andrew Watts MD Chloride [Moles/Vol] 106 mmol/L Normal 98-110 [facility] Comment on above: Performed By: #### 5 8984, 36486 #### [facility] of [place] [address] [employer] Work[employer] Helper: Andrew Watts MD CO2 [Moles/Vol] 25 mmol/L Normal 20-32 [facility] Comment on above: Performed By: #### 5 8984, 39202 #### [facility] of [address], [address] [place] [address] [employer] Worker Helper: Andrew Watts MD Creatinine [Mass/Vol] 1.09 mg/dL Normal 0.60-1.[address] [facility] Comment on above: Performed By: #### 5 8984, 05020 #### [facility] of [place] [address] [employer] Work[employer] Helper: Andrew Watts MD eGFR NON-AFR. JORDANIAN 80 mL/min/1.73m2 Normal > OR = 60 [facility] Comment on above: Performed By: #### 5 8984, 74816 #### [facility] of [address], [address] [place] [address] [employer] Worker Helper: Andrew Watts MD GFR/1.73 sq M.predicted among blacks MDRD (S/P/Bld) [Vol rate/Area] 93 mL/min/{1.73_m2} Normal > OR = 60 [facility] Comment on above: Performed By: #### 5 8984, 50203 #### [facility] of [place] [address] [employer] Work[employer] Helper: Andrew Watts MD Glucose [Mass/Vol] 102 mg/dL High 65-99 [facility] Comment on above: Result Comment: Fasting reference interval For someone without known diabetes, a glucose value between 100 and 125 mg/dL is consistent with prediabetes and should be confirmed with a follow-up test. Performed By: #### 5 8984, 92596 #### [facility] [address], [address] [place] [address] [employer] Worker Helper: Andrew Watts MD Potassium [Moles/Vol] 4.4 mmol/L Normal 3.5-5.[address] [facility] Comment on above: Performed By: #### 5 8984, 84588 #### [facility] [place] [address] [employer] Worker Helper: Andrew Watts MD Sodium [Moles/Vol] 138 mmol/L Normal 135-146 [facility] Comment on above: Performed By: #### 5 8984, 80248 #### [facility] [place] [address] [employer] Work[employer] Helper: Andrew Watts MD Urea nitrogen [Mass/Vol] 14 mg/dL Normal 7-25 [facility] Comment on above: Performed By: #### 5 8984, 52773 #### [facility] [place] [address] [employer] Worker Helper: Andrew Watts MD TSH+FREE T4on 02-21-2022 Free T4 [Mass/Vol] 1.2 ng/dL Normal 0.8-1.8 [facility] Comment on above: Order Comment: FASTI NG:YES FASTING: YES Performed By: #### 5 8984, 41135 #### [facility] [place] [address] [employer] Work[employer] Helper: Andrew Watts MD TSH Qn 1.95 m[IU]/L Normal 0.40-4.50 [facility] Comment on above: Order Comment: FASTI NG:YES FASTING: YES Performed By: #### 5 8984, 09062 #### [facility] of [address], [address] [place] [address] [employer] Worker Helper: Andrew Watts MD [facility] METABOLIC PANE [facility] 11-17-2021 Albumin [Mass/Vol] 4.2 g/dL Normal 3.6-5.1 [facility] Comment on above: Performed By: #### 1 0231, 7600 #### [facility] of [address], [address] [place] [address] [employer] Worker Helper: Andrew Watts MD Albumin/Globulin [Mass ratio] 1.4 {ratio} Normal 1.0-2.5 [facility] Comment on above: Performed By: #### 1 0231, 7600 #### [facility] of [address], [address] [place] [address] [employer] Worker Helper: Andrew Watts MD ALP [Catalytic activity/Vol] 77 U/L Normal 36-130 [facility] Comment on above: Performed By: #### 1 0231, 7600 #### [facility] of [address], [address] [place] [address] [employer] Worker Helper: Andrew Watts MD ALT [Catalytic activity/Vol] 51 U/L High 9-46 [facility] Comment on above: Performed By: #### 1 0231, 7600 #### [facility] of [address], [address] [place] [address] [employer] Worker Helper: Andrew Watts MD AST [Catalytic activity/Vol] 36 U/L Normal 10-40 [facility] Comment on above: Performed By: #### 1 0231, 7600 #### [facility] of [address], [address] [place] [address] [employer] Worker Helper: Andrew Watts MD Bilirubin [Mass/Vol] 0.4 mg/dL Normal 0.2-1.2 [facility] Comment on above: Performed By: #### 1 0231, 7600 #### [facility] of [address], [address] [place] [address] [employer] Worker Helper: Andrew Watts MD BUN/CREATININE RATIO NOT APPLICABLE Normal 6-22 [facility] Comment on above: Performed By: #### 1 0231, 7600 #### [facility] [place] [address] [employer] Worker Helper: Andrew Watts MD Calcium [Mass/Vol] 9.4 mg/dL Normal 8.6-10.3 [facility] Comment on above: Performed By: #### 1 023, 7600 #### [facility] of [address], [address] [place] [address] [employer] Worker Helper: Andrew Watts MD Chloride [Moles/Vol] 103 mmol/L Normal 98-110 [facility] Comment on above: Performed By: #### 1 023, 7600 #### [facility] [place] [address] [employer] Worker Helper: Andrew Watts MD CO2 [Moles/Vol] 29 mmol/L Normal 20-32 [facility] Comment on above: Performed By: #### 1 023, 7600 #### [facility] [place] [address] [employer] Worker Helper: Andrew Watts MD Creatinine [Mass/Vol] 0.95 mg/dL Normal 0.60-1.[address] [facility] Comment on above: Performed By: #### 1 023, 7600 #### [facility] [place] [address] [employer] Worker Helper: Andrew Watts MD eGFR NON-AFR. JORDANIAN 94 mL/min/1.73m2 Normal > OR = 60 [facility] Comment on above: Performed By: #### 1 0231, 7600 #### [facility] of [place] [address] [employer] Worker Helper: Andrew Watts MD GFR/1.73 sq M.predicted among blacks MDRD (S/P/Bld) [Vol rate/Area] 109 mL/min/{1.73_m2} Normal > OR = 60 [facility] Comment on above: Performed By: #### 1 023, 7600 #### [facility] [place] [address] [employer] Worker Helper: Andrew Watts MD Globulin (S) [Mass/Vol] 3.1 g/dL Normal 1.9-3.7 [facility] Comment on above: Performed By: #### 1 023, 7600 #### [facility] [place] [address] [employer] Worker Helper: Andrew Watts MD Glucose [Mass/Vol] 128 mg/dL High 65-99 [facility] Comment on above: Result Comment: Fasting reference interval For someone without known diabetes, a glucose value >125 mg/dL indicates that they may have diabetes and this should be confirmed with a follow-up test. Performed By: #### 1 023, 0 #### [facility] [place] [address] [employer] Worker Helper: Andrew Watts MD Potassium [Moles/Vol] 4.4 mmol/L Normal 3.5-5.[address] [facility] Comment on above: Performed By: #### 1 023, 7600 #### [facility] [place] [address] [employer] Worker Helper: Andrew Watts MD Protein [Mass/Vol] 7.3 g/dL Normal 6.1-8.1 [facility] Comment on above: Performed By: #### 1 023, 7600 #### [facility] [place] [address] [employer] Worker Helper: Andrew Watts MD Sodium [Moles/Vol] 139 mmol/L Normal 135-146 [facility] Comment on above: Performed By: #### 1 023, 7600 #### [facility] [place] [address] [employer] Worker Helper: Andrew Watts MD Urea nitrogen [Mass/Vol] 17 mg/dL Normal 7-25 [facility] Comment on above: Performed By: #### 1 0231, 7600 #### [facility] [address], [address] [place] [address] [employer] Worker Helper: Andrew Watts MD LIPID PANEL, [facility] 11-06 Cholesterol [Mass/Vol] 193 mg/dL Normal <200 [facility] Comment on above: Order Comment: FASTI NG:YES FASTING: YES Performed By: #### 1 0231, 7600 #### [facility] [address], [address] [place] [address] [employer] Worker Helper: Andrew Watts MD Cholesterol in HDL [Mass/Vol] 47 mg/dL Normal > OR = 40 [facility] Comment on above: Order Comment: FASTI NG:YES FASTING: YES Performed By: #### 1 023, 7600 #### [facility] [address], [address] [place] [address] [employer] Worker Helper: Andrew Watts MD Cholesterol in LDL [Mass/Vol] 110 mg/dL High [facility] Comment on above: Order Comment: FASTI NG:YES FASTING: YES Result Comment: Refe rence range: <100 Desirable range <100 mg/dL for primary prevention; <70 mg/dL for patients with CHD or diabetic patients with > or = 2 CHD risk factors. LDL-C is now calculated using the Hiram-Elia calculation, which is a validated novel method providing better accuracy than the Friedewald equation in the estimation of LDL-C. Hiram BAZAN et al. XIN. 2013;310(19): 5453-6680 (http://education.Maluuba.Xi3/faq/JUM948) Performed By: #### 1 023, 0 #### [facility] of [address], [address] [place] [address] [employer] Worker Helper: Andrew Watts MD Cholesterol.total/Cho lesterol in HDL [Mass ratio] 4.1 {ratio} Normal <5.0 [facility] Comment on above: Order Comment: FASTI NG:YES FASTING: YES Performed By: #### 1 0231, 7600 #### [facility] [address], [address] [place] [address] [employer] Worker Helper: Andrew Watts MD NON HDL CHOLESTEROL 146 mg/dL (calc) High <130 [facility] Comment on above: Order Comment: FASTI NG:YES FASTING: YES Result Comment: For patients with diabetes plus 1 major ASCVD risk factor, treating to a non-HDL-C goal of <100 mg/dL (LDL-C of <70 mg/dL) is considered a therapeutic option. Performed By: #### 1 0231, 7600 #### [facility] [place] [address] [employer] Worker Helper: Andrew Watts MD Triglyceride [Mass/Vol] 238 mg/dL High <150 [facility] Comment on above: Order Comment: FASTI NG:YES FASTING: YES Result Comment: If a non-fasting specimen was collected, consider repeat triglyceride testing on a fasting specimen if clinically indicated. Valerie et al. J. of Clin. Lipidol. 2015;9:129-169. Performed By: #### 1 0231, 7600 #### [facility] [address], [address] [place] [address] Terrazzo Worker Helper: Andrew Watts MD BASIC METABOLIC PANEL 08-3 BUN/CREATININE RATIO NOT APPLICABLE Normal 6-22 [facility] Comment on above: Performed By: #### 1 0165, 52830, 496 #### [facility] [place] [address] [employer]ra[employer] Worker Helper: Andrew Watts MD Calcium [Mass/Vol] 9.1 mg/dL Normal 8.6-10.3 [facility] Comment on above: Performed By: #### 1 0165, 03300, 496 #### [facility] [place] [address] [employer] Worker Helper: Andrew Watts MD Chloride [Moles/Vol] 104 mmol/L Normal 98-110 [facility] Comment on above: Performed By: #### 1 0165, 22284, 496 #### [facility] [address], [address] [place] [address] Terrazzo Worker Helper: Andrew Watts MD CO2 [Moles/Vol] 24 mmol/L Normal 20-32 [facility] Comment on above: Performed By: #### 1 0165, 23146, 496 #### [facility] [address], [address] [place] [address] Terrazzo Worker Helper: Andrew Watts MD Creatinine [Mass/Vol] 0.94 mg/dL Normal 0.60-1.[address] [facility] [address] [facility] Comment on above: Performed By: #### 1 0165, 67302, 496 #### [facility] [address], [address] [place] [address] Terrazzo Worker Helper: Andrew Watts MD eGFR NON-AFR. JORDANIAN 96 mL/min/1.73m2 Normal > OR = 60 [facility] Comment on above: Performed By: #### 1 0165, 79313, 496 #### [facility] [address], [address] [place] [address] Terrazzo Worker Helper: Andrew Watts MD GFR/1.73 sq M.predicted among blacks MDRD (S/P/Bld) [Vol rate/Area] 111 mL/min/{1.73_m2} Normal > OR = 60 [facility] Comment on above: Performed By: #### 1 0165, 62888, 496 #### [facility] [place] [address] [employer] Worker Helper: Andrew Watts MD Glucose [Mass/Vol] 114 mg/dL High 65-99 [facility] Comment on above: Result Comment: Fasting reference interval For someone without known diabetes, a glucose value between 100 and 125 mg/dL is consistent with prediabetes and should be confirmed with a follow-up test. Performed By: #### 1 0165, 86656, 496 #### [facility] [place] [address] [employer] Worker Helper: Andrew Watts MD Potassium [Moles/Vol] 4.5 mmol/L Normal 3.5-5.[address] [facility] [address] [facility] Comment on above: Performed By: #### 1 016, 36660, 496 #### [facility] [address], [address] [place] [address] [employer]ra[employer] Worker Helper: Andrew Watts MD Sodium [Moles/Vol] 139 mmol/L Normal 135-146 [facility] Comment on above: Performed By: #### 1 0165, 93376, 496 #### [facility] [address], [address] [place] [address] [employer]razzo Worker Helper: Andrew Watts MD Urea nitrogen [Mass/Vol] 18 mg/dL Normal 7-25 [facility] Comment on above: Performed By: #### 1 0165, 35475, 496 #### [facility] [address], [address] [place] [address] [employer]ra[employer] Worker Helper: Andrew Watts MD HEMOGLOBIN A1con 06-05-2021 HEMOGLOBIN A1c 5.8 % of total Hgb High <5.7 [facility] Comment on above: Result Comment: For someone without known diabetes, a hemoglobin A1c value between 5.7% and 6.4% is consistent with prediabetes and should be confirmed with a follow-up test. For someone with known diabetes, a value <7% indicates that their diabetes is well controlled. A1c targets should be individualized based on duration of diabetes, age, comorbid conditions, and other considerations. This assay result is consistent with an increased risk of diabetes. Currently, no consensus exists regarding use of hemoglobin A1c for diagnosis of diabetes for children. Performed By: #### 1 0165, 66069, 496 #### [facility] [address], [address] [place] [address] [employer]ra[employer] Worker Helper: Andrew Watts MD TSH+FREE T4on 06-05-2021 Free T4 [Mass/Vol] 1.2 ng/dL Normal 0.8-1.8 [facility] Comment on above: Order Comment: FASTI NG:YES FASTING: YES Performed By: #### 1 0165, 86791, 496 #### [facility] [address], [address] [place] [address] [employer]ra[employer] Worker Helper: Andrew Watts MD TSH Qn 2.88 m[IU]/L Normal 0.40-4.50 [facility] Comment on above: Order Comment: FASTI NG:YES FASTING: YES Performed By: #### 1 0165, 21239, 496 #### [facility] [address], [address] [place] [address] [employer]ra[employer] Worker Helper: Andrew Watts MD TSH+FREE T4on 03-09-2021 Free T4 [Mass/Vol] 1.3 ng/dL Normal 0.8-1.8 [facility] Comment on above: Performed By: #### 5 8984 #### [facility] [address], [address] [place] [address] Terrazzo Worker Helper: Andrew Watts MD TSH Qn 3.66 m[IU]/L Normal 0.40-4.50 [facility] Comment on above: Performed By: #### 5 8984 #### [facility] [address], [address] [place] [address] [employer] Worker Helper: Andrew Watts MD Coding Summary.on 06-03-2019 Coding Summary. CODING DATE: 06/03/2019 FINAL [facility] STATUS: Home (Routine DC) PAYOR: Medicaid EA DESCRIPTION 0604 CHEST PAIN ADMIT DX: REASON FOR VISIT DX: R07.9 Chest pain, unspecified FINAL DX: PRINCIPAL: R07.9 Chest pain, unspecified SECONDARY: K21.9 Gastro-esophageal reflux disease without esophagitis G47.30 Sleep apnea, unspecified J45.909 Unspecified asthma, uncomplicated E03.9 Hypothyroidism, unspecified Z87.891 Personal history of nicotine dependence PYMT PROC EAPG STAT DESCRIPTION DOCTOR NAME DATE NOTE: The code number assigned matches the documented diagnosis and / or procedure in the patient's chart. However, the narrative phrase printed from the coding software may appear abbreviated, or result in slightly different terminology. Coded By: Madonna Martinez CphT Date Saved: 06/03/2019 11:00 am Normal [facility] Coding Summary.on 04-21-2019 Coding Summary. CODING DATE: 04/21/2019 FINAL [facility] STATUS: Home (Routine DC) PAYOR: Medicaid EAPG DESCRIPTION 0496 MINOR PHARMACOTHERAPY 0490 INCIDENTAL TO MEDICAL, SIGNIFICANT PROCEDURE OR THERAPY VISIT 0495 MINOR CHEMOTHERAPY DRUGS 0435 CLASS I PHARMACOTHERAPY 0390 LEVEL I PATHOLOGY 0031 LEVEL II MUSCULOSKELETAL PROCEDURES EXCLUDING HAND AND FOOT 0035 LEVEL I FOOT PROCEDURES 0220 LEVEL II NERVOUS SYSTEM INJECTIONS, STIMULATIONS OR CRANIAL TAP 0380 ANESTHESIA ADMIT DX: REASON FOR VISIT DX: M25.371 Other instability, right ankle FINAL DX: PRINCIPAL: M25.371 Other instability, right ankle SECONDARY: M65.871 Other synovitis and tenosynovitis, right ankle and foot M60.261 Foreign body granuloma of soft tissue, not elsewhere classified, right lower leg Z18.89 Other specified retained foreign body fragments J45.909 Unspecified asthma, uncomplicated G47.30 Sleep apnea, unspecified K21.9 Gastro-esophageal reflux disease without esophagitis I10 Essential (primary) hypertension E06.3 Autoimmune thyroiditis G47.33 Obstructive sleep apnea (adult) (pediatric) PYMT PROC [facility] STAT DESCRIPTION DOCTOR NAME DATE [id number] Repair, secondary, Jomar Mercado DPM 04/15/2019 disrupted ligament, ankle, collateral (eg, Calabrese-Evans procedure) RT Right side (used to identify procedures performed on the right side of the body) 65210 0035 Synovectomy, tendon Jomar Mercado DPM 04/15/2019 sheath, foot; flexor RT Right side (used to identify procedures performed on the right side of the body) 11982 Injection, anesthetic Vincenzo Kim JR, DO 04/15/2019 agent; sciatic nerve, single RT Right side (used to identify procedures performed on the right side of the body) XP Separate practitioner, a service that is distinct because it was performed by a different practitioner [id number] 0380 Anesthesia for Vincenzo Kim JR, DO 04/15/2019 procedures on nerves, muscles, tendons, and fascia of lower leg, ankle, and foot; not otherwise specified NOTE: The code number assigned matches the documented diagnosis and / or procedure in the patient's chart. However, the narrative phrase printed from the coding software may appear abbreviated, or result in slightly different terminology. Revised Coded By: Fabiola Raymond Revised Date Saved: 04/21/2019 11:02 am Normal [facility] Main OR Intraoperative Recor agueda 04-19-2019 Main OR Intraoperative Record IntraOp Document Type FT Summary Primary Physician: Jomar Mercado DPM Finalized Date/Time: 04/19/19 11:26:10 Pt. Name: JOSE ROLDAN /Sex: 1975 Male Med Rec #: [id number] Physician: Jomar Mercado DPM Financial #: [id number] Pt. Type: A Room/Bed: Admit/Disch: 04/15/19 07:59:00 - 04/15/19 13:40:00 Institution: Case Times FT Entry 1 Patient Times In Room 04/15/19 10:01:00 Out Room 04/15/19 11:32:00 Procedure Times Start 04/15/19 10:32:00 Stop 04/15/19 11:27:00 Anesthesia Times Start 04/15/19 10:01:00 Stop 04/15/19 11:32:00 Block Timeout w/ 04/15/19 09:18:00 Anesthesia Last Modified By: Merari SILVA, CNOR, Lanie Oliveros 04/15/19 11:32:35 General Comments: 0911 PATIENT TRANSPORTED VIA CART ALL RAILS UP TO BLOCK ROOM BY SHIRA CASE. 0918 BLOCK TIMEOUT PERFOMED WITH DR KIM AND SHIRA CASE PRESENT. HR 95 SPO2 92% ON ROOM AIR. 0920 START OF BLOCK. 0928 END OF BLOCK. PATIENT TOLERATED WELL. 0929 PATIENT TRANSPORTED VIA CART ALL RAILS UP BACK TO ASU BY SHIRA CASE. SHIRA AGUDELO 04/19/19 chart open to review charges. Gracie Gage RN Case Attendance FT Entry 1 Entry 2 Entry 3 Case Attendee Mandy Hendrix DPM, Marc D Dolce DPM, Kareem R Role Performed Anesthesiologist Surgeon - Primary Surgeon - Assist 1 Drapery Supervisor Time In 04/15/19 10:01:00 04/15/19 10:01:00 04/15/19 10:01:00 Time Out 04/15/19 11:32:00 04/15/19 11:12:00 04/15/19 11:32:00 Procedure ANKLE LATERAL ANKLE LATERAL ANKLE LATERAL STABILIZATION(Right), STABILIZATION(Right), STABILIZATION(Right), ANKLE ANKLE ANKLE MANIPULATION(Right) MANIPULATION(Right) MANIPULATION(Right) Comments DR KIM SUPERVISING Last Modified By: Jessie RN, Kiki Roman RN, Kiki Hill RN 04/19/19 11:26:05 04/15/19 11:32:37 04/15/19 11:32:37 Entry 4 Entry 5 Entry 6 Case Attendee Gena CAMPOS, Lisha Prasad RN, Jaiden Roman RN, Kiki Jordan Role Performed Scrub - Primary Video Editing Intern - Primary Video Editing Intern - Primary Time In 04/15/19 10:01:00 04/15/19 10:01:00 04/15/19 10:01:00 Time Out 04/15/19 11:32:00 04/15/19 11:00:00 04/15/19 11:32:00 Procedure ANKLE LATERAL ANKLE LATERAL ANKLE LATERAL STABILIZATION(Right), STABILIZATION(Right), STABILIZATION(Right), ANKLE ANKLE ANKLE MANIPULATION(Right) MANIPULATION(Right) MANIPULATION(Right) Comments Last Modified By: Jessie RN, Kiki Roman RN, Kiki Roman RNKiki 04/15/19 11:32:37 04/15/19 11:32:37 04/15/19 11:32:37 Entry 7 Entry 8 Case Attendee Josue CAMPOS, Xu Gomez RN, Jaziel Bowman Role Performed Scrub - Primary Video Editing Intern - Relief Time In 04/15/19 10:01:00 04/15/19 11:00:00 Time Out 04/15/19 10:25:00 04/15/19 11:32:00 Procedure ANKLE LATERAL ANKLE LATERAL STABILIZATION(Right), STABILIZATION(Right), ANKLE ANKLE MANIPULATION(Right) MANIPULATION(Right) Comments assisting at start LUNCH RELIEF Last Modified By: Jessie SILVA, Kiki Hill RN 04/15/19 11:32:37 04/15/19 11:32:37 General Comments: [facility] - MAKEUP 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 SHIRA AGUDELOcrystal evaluator Protocols FT Pre-Care Text: Implements protective measures prior to operative or invasive procedure, confirms identity before the operative or invasive procedure, verifies operative procedure, surgical site, and laterality Entry 1 Procedure(s) ANKLE LATERAL Patient Identity Birthday, ID Band STABILIZATION(Right), Verified (select at Check, Patient ANKLE least 2): Participation MANIPULATION(Right) Consents / H and P Anesthesia Consent, Operative Site Present Verified HandP, Surgery/Procedure Marking Verified Consent Surgical Site Yes Laterality Verified Yes Verified Procedure Verified Yes Correct Patient Yes Position Verified Availability Equipment, Medication, Prep Dry n/a Verified (If X-ray Applicable) PreOp Antibiotic Yes Time Out Mandy Hendrix, Given Participants Faith CUADRA, Jomar Rodriguez, Faith CUADRA, Gena Zuleta CST, Shanice Christine RN, Jaiden Bowman, Kiki Roman RN Time Out Complete 04/15/19 10:28:00 Outcomes Met? Yes Last Modified By: Kiki Roman RN 04/15/19 11:19:30 Post-Care Text: The patient is free from signs and symptoms of injury caused by extraneous objects Allergy Information FT Pre-Care Text: Verifies allergies Entry 1 Allergies Reviewed? Yes Allergies Reviewed Self/Patient With Outcomes Met? Yes Last Modified By: Kiki Roman RN 04/15/19 10:37:28 Post-Care Text: The patient received appropriate medication(s) safely administered during the perioperative period Surgical Procedures FT Entry 1 Entry 2 Procedure Description Procedure ANKLE LATERAL ANKLE MANIPULATION STABILIZATION Modifiers Right Right Surgeon Description RIGHT ANKLE TENDON RIGHT ANKLE TENDON TRANSFER, RIGHT LATERAL TRANSFER, RIGHT LATERAL ANKLE STABILIZATION, ANKLE STABILIZATION, MANIPULATION MANIPULATION Primary Procedure Yes No Primary Surgeon Jomar Mercado DPM, DPM, Marc D Start 04/15/19 10:32:00 04/15/19 10:32:00 Stop 04/15/19 11:27:00 04/15/19 11:27:00 Anesthesia Type General General Surgical Service Podiatry Podiatry Wound Class 1 - Clean 1 - Clean Last Modified By: Kiki Roman RN, RN, Kimberly Y 04/15/19 11:32:20 04/15/19 11:32:20 General Case Data FT Pre-Care Text: Classifies surgical wound, implements aseptic technique, initiates traffic control Entry 1 Case Information OR OR 4 FT Case Level Level 4 Wound Class 1 - Clean Specialty Podiatry ASA Class 3 Preop Diagnosis RIGHT ANKLE INSTABILITY Postop Same As Preop Yes Postop Diagnosis RIGHT ANKLE INSTABILITY Outcomes Met? Yes Last Modified By: Kiki Roman RN 04/15/19 10:38:42 Post-Care Text: The patient is free from signs and symptoms of infection Skin Assessment (Pre Procedure) FT Pre-Care Text: Implements protective measures to prevent skin/ tissue injury due to thermal or mechanical sources Evaluates for signs and symptoms of physical injury to skin and tissue Entry 1 Skin Integrity Dry, Warm, Intact Skin Abnormality No Outcomes Met? Yes Last Modified By: Kiki Roman RN 04/15/19 10:51:33 Post-Care Text: The patient is free from signs and symptoms of injury caused by extraneous objects Patient Positioning FT Pre-Care Text: Identifies physical alterations that require additional precautions for procedure-specific positioning, verifies presence of prosthetics or corrective devices, positions the patient, evaluates the patient for signs and symptoms of injury as a result of positioning Entry 1 Procedure ANKLE LATERAL Body Position Supine STABILIZATION(Right), ANKLE MANIPULATION(Right) Feet Uncrossed? Yes Left Arm Position Extended on Padded Arm Board Right Arm Position Extended on Padded Arm Left Leg Position Extended Board Right Leg Position Extended Positioning Device Safety Strap, Pillow Under Head Large, Sandbag Press Points Checked Yes By Shanice SILVA, Martínez Johnson Nicole M, Barbee RN, Josue Ordoñez CST, Benjamin Outcomes Met? Yes Last Modified By: Kiki Roman RN 04/15/19 10:52:14 Post-Care Text: The patient is free from signs and symptoms of injury related to positioning General Comments: SANDBAG PLACED UNDER RIGHT HIP. SHIRA AGUDELO Patient Care Devices FT Pre-Care Text: Implements protective measures to prevent skin/ tissue injury due to thermal or mechanical sources Entry 1 Entry 2 Entry 3 Equipment Type CAUTERY UNIT[F] MISTRAL FORCED AIR MONITOR CHARGE SURGERY WARMING SYSTEM UNIT[F] [F] Equipment Number BOOM OR 4 M6 OR 4 Equipment Setting 35 CUT/ 35 COAG HIGH/43C Outcomes Met? Yes Yes Yes Last Modified By: Kiki Roman RN, RN, Kimberly Y Barbee RN, Kimberly Y 04/15/19 10:51:08 04/15/19 10:51:08 04/15/19 10:51:08 Entry 4 Entry 5 Entry 6 Equipment Type TOURNIQUET ILAN [F] SONOSITE ULTRASOUND GLIDESCOPE, UNIT[F] INTUBATING[F] Equipment Number D Equipment Setting 350 mmHg Outcomes Met? Yes Yes Yes Last Modified By: Kiki Roman RN, RN, Kimberly Y Barbee RN, Kimberly Y 04/15/19 10:51:08 04/15/19 10:51:08 04/15/19 10:51:08 Entry 7 Equipment Type MINI C-ARM[F] Equipment Number Equipment Setting Outcomes Met? Yes Last Modified By: Kiki Roman RN 04/15/19 10:53:48 Post-Care Text: The patient is free from signs and symptoms of injury caused by extraneous objects Transport To OR FT Pre-Care Text: Transports according to individual needs. Evaluates for signs and symptoms of skin and tissue injury as a result of transfer or transport Entry 1 Via Cart By Jaiden Prasad RN Safety Precautions Side Rails Up Outcomes Met? Yes Last Modified By: Kiki Roman RN 04/15/19 10:49:54 Post-Care Text: The patient is free from signs and symptoms of injury related to transfer/transport Cautery FT Pre-Care Text: Implements protective measures to prevent injury due to electrical sources, and evaluates for signs and symptoms of electrical injury Entry 1 ESU Identification ESU Type CAUTERY UNIT[F] Equipment Number BOOM OR 4 ESU Settings Cut 35 Coag 35 ESU Grounding Pad Site Left Thigh Hair Removal Pad No Site Pre Pad Site Clear and Intact Post Pad Site Clear and Intact Condition Condition Grounding Pad Xu Salas CST By Outcomes Met? Yes Last Modified By: Kiki Roman RN 04/15/19 10:49:44 Post-Care Text: The patient if free from signs and symptoms of electrical injury Counts Verification FT Pre-Care Text: Performs required counts Entry 1 Entry 2 Procedure(s) ANKLE LATERAL ANKLE LATERAL STABILIZATION(Right), STABILIZATION(Right), ANKLE ANKLE MANIPULATION(Right) MANIPULATION(Right) Type Initial Final Items Sponges, Sharps, Sponges, Sharps, Other/See Comments Other/See Comments Status Correct Correct Time 04/15/19 10:20:00 04/15/19 11:17:00 By Lisha Avery CST, Ruffing CST, Amy E, Barbee RN, Kimberly Y Woodworth RN, Jaziel Bowman Outcomes Met? Yes Yes Last Modified By: Kiki Roman RN, RN, Kimberly Y 04/15/19 10:43:03 04/15/19 11:17:22 Post-Care Text: The patient is free from signs and symptoms of injury caused by extraneous objects General Comments: OTHER/SEE COMMENTS - LOOPS X 2. SHIRA AGUDLEO Skin Prep FT Pre-Care Text: Performs skin preparations Entry 1 Procedure ANKLE LATERAL Prep Area right foot to upper STABILIZATION(Right), thigh (tourniquet) ANKLE MANIPULATION(Right) Prep Agents Betadine Scrub and Solution Hair Removal Methods Not Indicated By Xu Salas CST Outcomes Met? Yes Last Modified By: Kiki Roman RN 04/15/19 10:47:33 Post-Care Text: The patient is free from signs and symptoms of infection Departure From OR FT Pre-Care Text: Transports according to individual needs. Evaluates for signs and symptoms of skin and tissue injury as a result of transfer or transport. Entry 1 Via Cart Safety Precautions Side Rails Up PostOp Destination PACU Transported By Kiki Roman RN, Jason SILVA, Jaziel Bowman Patient Status Stable Skin. Condition Other/See Comments Description SKIN CONDITION SAME PREOP Airway Maintenance Oxygen in Use? Yes Airway Device Simple Mask Flow Rate 8 L Outcomes Met? Yes Last Modified By: Kiki Roman RN 04/15/19 11:59:25 Post-Care Text: The patient is free from signs and symptoms of injury related to transfer/transport General Comments: REPORT GIVEN TO PACU NURSE. SHIRA AGUDELO Dressing/Packing FT Pre-Care Text: Administers care to wound sites Entry 1 Type Dressing Items DRESSING ADAPTIC 3 X 3 [6112][F] Site and Details RIGHT ANKLE - adaptic Outcomes Met? Yes soaked in betadine, 4x4`s 3 inch dustin, 2 4incast padding, one step splint and double 4 jones Last Modified By: Kiki Roman RN 04/15/19 11:19:59 Post-Care Text: The patient is free from signs and symptoms of infection Medication Administration FT Pre-Care Text: Verifies allergies, administers prescribed medications and solutions, administers prescribed antibiotic therapy and immunizing agents as ordered, evaluates response to medications Administers prescribed medications and solutions Entry 1 Route of Admin Field Expiration Date Yes Verified Ordered By Jomar Mercado DPM Transcribed/To Jaiden Prasad RN Field By Administered By Jomar Mercado DPM Outcomes Met? Yes Last Modified By: Kiki Roman RN 04/15/19 10:36:40 Post-Care Text: The patient received appropriate medication(s) safely administered during the perioperative period For Palmer-Blair please see scanned medication reconcilliation form for medications used at the field during the procedure. Tourniquet FT Pre-Care Text: Implements protective measures to prevent skin/tissue injury due to mechanical sources Entry 1 Tourniquet Type TOURNIQUET CUFF NAV[employer] Setting 350 mmHg BLUE 44 X 4 [[id number]][F] Equipment Number D Placement Right Upper Thigh Cuff Size 44 Padding Under Cuff Yes Applied Applied By Jaiden Prasad RN Skin Assessment Unremarkable Before Inflation Skin Assessment Unremarkable After Inflation Tourniquet Times Inflated 04/15/19 10:29:00 Deflated 04/15/19 11:18:00 Total Time 48 minute(s) Outcomes Met? Yes Last Modified By: Kiki Roman RN 04/15/19 11:18:17 Post-Care Text: The patient is free from signs and symptoms of injury caused by extraneous objects Cultures and Specimens FT Pre-Care Text: Manages specimen handling and disposition Manages culture specimen collection Entry 1 Cultures Ordered No Specimens Ordered Yes Specimen Disposition Designated OR Area Frozen Section Times Outcomes Met? Yes Last Modified By: Kiki Roman RN 04/15/19 10:48:39 Post-Care Text: The patient is free from signs and symptoms of injury caused by extraneous objects The patient is free from signs and symptoms of infection General Comments: SPECIMEN ORDERED - RIGHT ANKLE SYNOVIUM AND SUTURE ANCHOR - SENT SEPARATE. BOTH TAKEN TO DESIGNATED OR AREA. SHIRA AGUDELO X-Rays and Images FT Pre-Care Text: Assess history of previous radiation exposure and implements protective measures Entry 1 X-Ray Type Mini C-Arm Contrast Used? No Cumulative 0.0188 Outcomes Met? Yes Dose/MGym2 Last Modified By: Kiki Roman RN 04/15/19 11:14:38 Post-Care Text: The patient is free from signs and symptoms of radiation injury Temperature Control Entry 1 Temperature Control BLANKET MISTRAL AIR Quantity 1 Aid TORSO [[id number]][F] Fluid/Hudson Unit Mistral warming system Setting HIGH/43C Body Site Upper anterior torso Last Modified By: Kiki Roman RN 04/15/19 10:36:21 Case Comments Finalized By: Kiki Roman RN Document Signatures Signed By: Kiki Roman RN 04/15/19 11:33 Kiki Roman RN 04/15/19 11:59 Merari SILVA, Lanie MARY 04/19/19 08:42 Merari SILVA, TYRA, Lanie Oliveros 04/19/19 08:53 Kiki Roman RN 04/19/19 11:26 Normal [facility] Operative Reporton 07- 9 Operative Report Date of Surgery: 04/15/2019 SURGEON: Vincenzo Kim Jr., D.O. PREOPERATIVE DIAGNOSIS: Control of postoperative pain POSTOPERATIVE DIAGNOSIS: Control of postoperative pain OPERATION: Right popliteal (sciatic) peripheral nerve block, utilizing ultrasound guidance and nerve stimulator ANESTHESIA: Local with monitored anesthesia care PROCEDURE: The patient was interviewed and examined. The anesthesia options were discussed for a popliteal (sciatic) nerve block for postoperative analgesia. The discussion included the procedure, risks, benefits, and alternatives to the procedure. The patient's questions were all answered and the patient elected to proceed with the sciatic nerve block for postoperative pain relief. The patient was placed on the monitors including electrocardiogram, noninvasive blood pressure machine and pulse oximetry. I.V. sedation was then administered with a total of Midazolam 2 mg. The lateral thigh area was prepped with Chloraprep and sterilely draped. The anatomy was identified with ultrasound and then under ultrasound guidance with concomitant use of a nerve stimulator the sciatic nerve was identified with a 21 gauge 100 mm Pajunk needle. Loss of twitch was observed at 0.5 milliamps. After attempted aspiration for blood a solution of an equal mixture of Naropin 0.5 and Xylocaine 2% containing 3 mg of Decadron, total volume of 20 mL was slowly injected with frequent aspirations without signs or symptoms of intravascular injection. After the procedure there were signs and symptoms that the block was becoming effective. The patient then proceeded to undergo general anesthesia for the proposed procedure. Vincenzo Kim Jr., Jennifer.O. lkr Dictated: 04/15/2019 #[id number] Typed: 04/15/2019 #[id number] cc: Vincenzo Kim Jr., Lizzie [facility] Comment on above: Result Comment: Elec tronically Signed By: Julio TURCIOS DO, Vincenzo Vela.br\Date and Time Signed: 04/17/19 09:47 EDT Operative Reporton Operative Report Date of Surgery: 04/15/2019 SURGEON: Jomar Mercado DPM,FACFAS BRAKE DRUM LATHE OPERATOR: Gokul Mercado DPM PREOPERATIVE DIAGNOSIS: 1. Lateral instability, right 2. Synovitis peroneal tendons 3. Foreign body suture, suture anchors right POSTOPERATIVE DIAGNOSIS: 1. Lateral instability, right 2. Synovitis peroneal tendons 3. Foreign body suture, suture anchor right OPERATION: 1. Lateral ankle stabilization with peroneal brevis tendon transfer, right; Des modification of the [place], right 2. Removal of foreign body suture, suture anchors, right 3. Synovectomy peroneal tendon, right 4. Manipulation of ankle under anesthesia, right ANESTHESIA: Popliteal block MATERIALS: 2-0 FiberWire, 3-0 Vicryl, 4-0 Vicryl, 2-0 Vicryl SPECIMEN: Soft tissue; suture, suture anchors HEMOSTASIS: Left thigh tourniquet inflated to 350 mm Hg DEEP VEIN THROMBOSIS PROPHYLAXIS: 40 mg Lovenox subcutaneous postoperatively, compression COMPLICATIONS: None INDICATIONS FOR PROCEDURE: The patient has had a lateral ankle stabilization procedure, internal brace performed by myself as well as Dr. Thomson. Dr. Thomson's procedure failed and he still has significant instability of the ankle as noted in the manipulation of the ankle under anesthesia. The ankle was placed in an anterior to posterior view, stressed and there was significant talar tilt noted. Anterior Drawer was difficult to elicit at that time. He still has quite amount of instability. He uses a brace. Has difficulty walking on uneven terrain. Has attempted more bracing, anti-inflammatory medications to no avail. Planning to perform the above stated procedure. All possible risks and complications were explained to the patient including but not limited to pain, swelling, numbness, tingling, infection, need for additional surgery, recurrence of the condition, deep vein thrombosis, development of complex regional pain syndrome. The patient understood all possible risks and complications and has consented for the above stated procedure. DESCRIPTION OF OPERATION: The patient was taken from the Preoperative Holding Area and placed on the Operating Room table in the supine position after the administration of a popliteal block. The right foot and leg were prepped and draped in the usual sterile manner. A well padded pneumatic thigh tourniquet was placed around the patient's high thigh but not yet inflated. An Esmarch bandage was used to exsanguinate the limb and the tourniquet was inflated to 350 mm Hg. Attention was directed to the lateral ankle region where a 12 cm curvilinear incision was made along the course of the peroneal brevis and longus tendon and carried onto the distal aspect of the peroneal brevis at is passes around the lateral malleoli. Dissection was carried down through the subcutaneous tissues where all superficial venous structures that were encountered were clamped and meticulously electrocauterized. All neurovascular structures were atraumatically retracted. Dissection was carried down to the level of the peroneal tendon sheath. It had significant synovitis and hypertrophic synovitis noted which was removed and sent for pathological examination. We incised the tendon sheath. We identified the peroneal brevis tendon. We tagged the peroneal longus tendon at this time. The peroneal brevis tendon appeared to be thin and there was not a significant amount of tendon in that region, however, it was enough to perform the transfer. At this time we addressed the lateral malleolar region where there was significant suture and suture anchors noted in that region. There was a free floating suture anchor noted which appeared to be granulomatous in nature and was sent for pathological examination. We reflected the periosteum dorsally from the lateral malleolus. At this time we created a drill hole 4.5 mm and using a 4.5 mm drill starting with small 2 mm drill and going to a 3 mm drill and ending up with a 4.5 mm drill from anterior to posterior. They were cannulated drills and this will allow our tendon to pass through this area. At this time we tenodesed the peroneal brevis and peroneal longus tendon. We transected the peroneal brevis tendon proximally and reflected the muscle belly from the underside of the peroneal brevis tendon. We then used a tendon passer to pass the peroneal brevis tendon through the drill hole from posterior to anterior. We maximally everted the foot and then sutured the distal portion of the peroneal brevis tendon to the remaining portion of the peroneal brevis tendon with maximum eversion noted of the ankle. This was used with 2-0 FiberWire. It was quite stable at that time. We copiously lavaged the area with Normal Sterile Saline. The ankle appeared to be quite stable. We then reapproximated the peroneal sheath over the longus tendon and we also reapproximated the peroneal retinaculum with 2-0 and 3-0 Vicryl. Subcutaneous tissues and deep structures were closed with 2-0 and 3-0 Vicryl respectively and the skin was closed with chris. Dressing consisted of Betadine soaked Adaptic, 4 x 4s, Dustin, Kerlix and a Evans posterior splint. The patient tolerated the procedure and anesthesia well, transferred to the Post-Anesthesia Care Unit with vital signs stable and vascular status intact. In the Post-Anesthesia Care Unit the patient was given both written and oral home going instructions and will follow up with me in the office in four days. Jomar Mercado DPM, FACFAS lkr Dictated: 04/15/2019 #[id number] Typed: 04/15/2019 #[id number] cc: Jomar Mercado DPM, FACFAS [facility] Comment on above: Result Comment: Elec tronically Signed By: Jomar Mercado DPM\.br\Date and Time Signed: 04/16/19 08:44 EDT Inpatient Patient Summaryon 04-15-2019 Inpatient Patient Summary [facility] Clinical Discharge Instructions PERSON INFORMATION Name: [facility] Admitting Physician: Jomar Mercado DPM Attending Physician: Jomar Mercado DPM PCP: MEGAN BIRD DO Discharge Diagnosis: Comment: PATIENT EDUCATION INFORMATION Instructions: Foot Cryocuff Patient Instructions - FT (CUSTOM); Faith - Post Operative Instructions (Revised 06/02/14) (Custom) Medication Leaflets: Follow up: With: Address: When: Jomar Mercado [facility], [facility], [facility] [address], [place] [address] 0 Business (1) Within 3 to 5 days Type Location Start Finish State Cardiology Follow Up (FT) FT.Cardiology Clinic 04/23/2019 2:45 PM 04/23/2019 3:00 PM Confirmed MEDICATION LIST Comment: [facility] Main OR PACU I Recordon 04-05 Main OR PACU I Record PACU Phase I Docum ent Type FT Summary Primary Physician: Jomar Mercado DPM Finalized Date/Time: 04/15/19 12:13:38 Pt. Name: JOSE ROLDAN./Sex: 1975 Male Med Rec #: [id number] Physician: Jomar Mercado DPM Financial #: [id number] Pt. Type: A Room/Bed: [facility] Admit/Disch: 04/15/19 07:59:08 - Institution: Case Times PACU I FT Pre-Care Text: Identifies barriers to communication and implements measures to provide psychological support Develops individualized plan of care, and ensures continuity of care Maintains patient's dignity and privacy, and maintains patient confidentiality Identifies and reports philosophical, cultural, and spiritual beliefs and values Identifies individual values and wishes concerning care Implements aseptic technique, and administers prescribed antibiotic therapy and immunizing agents as ordered Evaluates postoperative tissue perfusion Implements thermoregulation measures, and monitors body temperature Evaluates postoperative respiratory status Evaluates postoperative cardiac status Evaluates postoperative neurological status Assesses pain control, collaborated in initiating patient-controlled analgesia and implements alternative methods of pain control Verifies allergies, administers prescribed medications and solutions, evaluates response to medications Entry 1 In PACU I 04/15/19 11:33:00 Discharge from PACU 04/15/19 12:03:00 I Outcomes Met? Yes Last Modified By: Alanis Ghosh RN 04/15/19 12:13:36 Post-Care Text: The patient demonstrates knowledge of the expected response to the operative or invasive procedure The patient's care is consistent with the individualized perioperative plan of care The patient's right to privacy is maintained The patient's value system, lifestyle, ethnicity, and culture are considered, respected, and incorporated into the perioperative plan of care The patient participates in decisions affecting his or her perioperative plan of care The patient is free from signs and symptoms of infection The patient has wound/tissue perfusion consistent with or improved from baseline levels established preoperatively The patient is at or returning to normothermia at the conclusion of the immediate postoperative period The patient's respiratory function is consistent with or improved from baseline levels established preoperatively The patient's cardiovascular status is consistent with or improved from baseline levels established preoperatively The patient's cardiovascular status is consistent with or improved from baseline levels established preoperatively The patient demonstrates and/or reports adequate pain control throughout the perioperative period The patient received appropriate medication(s), safely administered during the perioperative period Acuity Level PACU I FT Entry 1 Start Time 04/15/19 11:33:00 Stop Time 04/15/19 12:03:00 Acuity Level Acuity Level I Last Modified By: Alanis Ghosh RN 04/15/19 12:13:14 Finalized By: Alanis Ghosh RN Document Signatures Signed By: Alanis Ghosh RN 04/15/19 12:13 Normal [facility] Main OR PACU II Recordon Main OR PACU II Record PACU Phase II Document Type FT Summary Primary Physician: Jomar Mercado DPM Finalized Date/Time: 04/15/19 13:49:29 Pt. Name: JOSE ROLDAN./Sex: 1975 Male Med Rec #: [id number] Physician: Jomar Mercado DPM Financial #: [id number] Pt. Type: A Room/Bed: [place] [address] Admit/Disch: 04/15/19 07:59:08 - Institution: Case Times PACU II FT Pre-Care Text: Identifies barriers to communication and implements measures to provide psychological support and determines knowledge level Develops individualized plan of care, and ensures continuity of care Maintains patient's dignity and privacy, and maintains patient confidentiality Identifies and reports philosophical, cultural, and spiritual beliefs and values Identifies individual values and wishes concerning care administers prescribed antibiotic therapy and immunizing agents as ordered, Evaluates postoperative tissue perfusion Implements thermoregulation measures, and monitors body temperature Evaluates postoperative respiratory status Evaluates postoperative cardiac status Evaluates postoperative neurological status Assesses pain control, collaborated in initiating patient-controlled analgesia and implements alternative methods of pain control Verifies allergies, administers prescribed medications and solutions, evaluates response to medications Entry 1 In PACU II 04/15/19 12:05:00 Discharge from PACU 04/15/19 13:40:00 II Outcomes Met? Yes Last Modified By: Eufemia Pelayo RN 04/15/19 13:49:25 Post-Care Text: The patient demonstrates knowledge of the expected response to the operative or invasive procedure The patient's care is consistent with the individualized perioperative plan of care The patient's right to privacy is maintained The patient's value system, lifestyle, ethnicity, and culture are considered, respected, and incorporated into the perioperative plan of care The patient participates in decisions affecting his or her perioperative plan of care. The patient is free from signs and symptoms of infection The patient has wound/tissue perfusion consistent with or improved from baseline levels established preoperatively The patient is at or returning to normothermia at the conclusion of the immediate postoperative period The patient's respiratory function is consistent with or improved from baseline levels established preoperatively The patient's cardiovascular status is consistent with or improved from baseline levels established preoperatively The patient's neurological status is consistent with or improved from baseline levels established preoperatively The patient demonstrates and/or reports adequate pain control throughout the perioperative period The patient received appropriate medication(s), safely administered during the perioperative period Finalized By: Eufemia Pelayo RN Document Signatures Signed By: Eufemia Pelayo RN 04/15/19 13:49 Normal [facility] Main OR Preoperative Recordo n 04-15-2019 Main OR Preoperative Record PreOp Document Type FT Summary Primary Physician: Jomar Mercado DPM Finalized Date/Time: 04/15/19 10:19:53 Pt. Name: JOSE ROLDAN/Sex: 1975 Male Med Rec #: [id number] Physician: Jomar Mercado DPM Financial #: [id number] Pt. Type: A Room/Bed: 10/06 Admit/Disch: 04/15/19 07:59:08 - Institution: Case Times PreOp FT Pre-Care Text: Verifies consent for planned procedure, identifies individual values and wishes concerning care, includes family members in perioperative teaching Entry 1 Patient Times. In Pre Surgery 04/15/19 08:10:00 Out Pre Surgery 04/15/19 09:59:00 Outcomes Met? Yes Last Modified By: Kiki Roman RN 04/15/19 10:19:48 Post-Care Text: The patient participates in decisions affecting his or her perioperative plan of care Finalized By: Kiki Roman RN Document Signatures Signed By: Kiki Roman RN 04/15/19 10:19 Normal [facility] Patient Education - Texton 0 04-15-2019 Patient Education - Text [place], [place] Jomar Mercado DPM, FACFAS POST OPERATIVE INSTRUCTIONS Keep bandage clean and dry and DO NOT REMOVE Keep foot elevated on white foam pillow Apply cryocuff to top of ankle, one hour on one hour off, until first office visit Non weight bearing on operative foot. Take pain medications as directed Do not be alarmed if you notice slight bleeding on the bandage, this is normal Report any increase in swelling to Dr. Mercado immediately Resume regular diet. Call the office if you develop: persistent bleeding temperature above 100 degrees persistent vomiting calf pain or shortness of breath redness or pus at operative site Call the office tomorrow for 1st post-operative dressing change appointment. If you have any problems or questions, feel free to call the doctor at: [phone] or [phone] Mercado paged. Patient signature Date Dr. Jomar Mercado DPM, FACFAS Date Revised: 11-13 Normal [facility] Progress Note-Physicianon Progress Note-Physician Patient: JOSE ROLDAN Age: 43 years Sex: Male : 1975 Associated Diagnoses: None Author: Vincenzo Kim JR, DO Preoperative Information Anesthesia history: Patient History: Pt./ family denies any personal or family hx of problems/difficulties with anesthesia.. Re-eval prior to induction: Inital eval reviewed: No significant interval change, NPO 10 hours.. Review of Systems Constitutional: See nursing assessment.. Cardiovascular: Cardiac risk assessment performed. Pt. denies any significant change in their cv hx.. Respiratory: Pt. denies any signicant change in their respiratory status.. Neurologic: Pt. denies any acute neurological changes.. Health Status Allergies: Allergic Reactions (Selected) Severe Codeine- Codeine and violent. Moderate Pollen- Hayfever., Allergies (2) Active Reaction codeine Violent Pollen Hayfever Current medications: (Selected) Inpatient Medications Ordered Cefazolin 3 gram IVPB: 3 gram = 100 mL, Soln-IV, IV Piggyback, PREOP, Routine, Start date 04/15/19 8:15:00 EDT, 200 mL/hr, Infuse over 30 minute(s) Dilaudid 2 mg Injection: 0.4 mg = 0.2 mL, Injection, IV Push, q4min PRN Pain for 8 hour(s), Stop date 04/15/19 16:39:00 EDT, Routine, Start date 04/15/19 8:40:00 EDT Lactated Ringers IV Praevena 1000 mL 1,000 mL: 1,000 mL, IV, 100 mL/hr, Routine, Start date 04/15/19 8:40:00 EDT, 10 hour(s), Total volume (mL): 1,000 Lactated Ringers IV Praveena 1000 mL 1,000 mL: 1,000 mL, IV, 150 mL/hr, Routine, Start date 04/15/19 8:15:00 EDT, 6.7 hour(s), Total volume (mL): 1,000 Phenergan 25 mg/mL Injection: 12.5 mg = 0.5 mL, Injection, IV Push, q2min PRN Other (see comment) for 2 dose(s), Stop date Limited # of times, Routine, Start date 04/15/19 8:40:00 EDT Prescriptions Prescribed aspirin 81 mg Oral EC Tab: 81 mg = 1 tab(s), Oral, Daily, X 30 day(s), # 30 tab(s), Refills(s) 0, Pharmacy: [facility] Documented Medications Documented Dulera 100 mcg-5 mcg/inh inhalation aerosol: 2 puff(s), Inhalation, BID, 13 gram, Refill(s) 0, Asthma ProAir HFA 90 mcg/inh inhalation aerosol: 2 puff(s), Inhalation, q4hr Shortness of breath or wheezing, Refill(s) 0, Asthma Vraylar 6 mg oral capsule: 6 mg = 1 cap(s), Oral, Daily, Refills(s) 0, Other (see comment) albuterol 0.083% Inh Praveena 3 mL UD: 2.5 mg = 3 mL, NEB, q6hr, PRN for wheezing, Asthma benztropine 1 mg Tab: 1 mg = 1 tab(s), Oral, BID, Refills(s) 0, Other (see comment) ciclopirox topical 8% solution: 1 igor, Topical, Bedtime, Refill(s) 0 lamotrigine 100 mg Tab: 100 mg = 1 tab(s), Oral, q5am, Refills(s) 0, Depression lamotrigine 200 mg Tab: 200 mg = 1 tab(s), Oral, Once a day (at bedtime), Refills(s) 0, Depression levothyroxine 175 mcg (0.175 mg) Tab: 175 microgram = 1 tab(s), Oral, Daily, Refills(s) 0, Thyroid lisinopril: 10 mg, Oral, Daily, High blood pressure meloxicam 15 mg Tab: 15 mg = 1 tab(s), Oral, Daily, Refills(s) 0, Inflammation mirtazapine 30 mg Tab: 30 mg = 1 tab(s), Oral, Once a day (at bedtime), Refills(s) 0, Depression omeprazole 20 mg Cap-DR: = 1 cap(s), Oral, Daily, Refills(s) 0, Control of stomach acid prazosin 2 mg oral capsule: 4 mg = 2 cap(s), Oral, Bedtime, Refills(s) 0, High blood pressure quetiapine 200 mg Tab: 100 mg = 0.5 tab(s), Oral, TID, Refills(s) 0, Depression traZODONE 100 mg Tab: 200 mg = 2 tab(s), Oral, Once a day (at bedtime), Refills(s) 0, Depression, Medications (5) Active Scheduled: (1) ceFAZolin 3 gram 100 mL, IV Piggyback, PREOP Continuous: (2) Lactated Ringers 1,000 mL 1,000 mL, IV, 150 mL/hr Lactated Ringers 1,000 mL 1,000 mL, IV, 100 mL/hr PRN: (2) HYDROmorphone 2 mg/mL Inj [F] 0.4 mg 0.2 mL, IV Push, q4min promethazine 25 mg/mL Inj [F] 12.5 mg 0.5 mL, IV Push, q2min Problem list: All Problems Apnea, sleep / SNOMED CT 931494144 / Confirmed Ankle instability / SNOMED CT 9781100 / Confirmed right Asthma / SNOMED CT 9999186760 / Confirmed Back pain / SNOMED CT 785246147 / Confirmed Acid reflux / SNOMED CT 8296288173 / Confirmed Pleurisy / SNOMED CT 683467441 / Confirmed Prediabetes / SNOMED CT 2890941931 / Confirmed Knee pain / SNOMED CT 727527341 / Confirmed Hypothyroidism / SNOMED CT 686811333 / Confirmed Chest pain / SNOMED CT 63616702 / Confirmed center of chest- feels like a bruise/ 4/10 on pain scale - reminds him of the pain he had when he had Pleurisy. Instructed to go to ER- wants to finish PST testing first stated pain down to 2/10, Active Problems (10) Acid reflux Ankle instability Apnea, sleep Asthma Back pain Chest pain Hypothyroidism Knee pain Pleurisy Prediabetes Histories Past Medical History: No active or resolved past medical history items have been selected or recorded. Family History: No family history items have been selected or recorded. Procedure history: 1. Brostrom repair with Arthrex internal brace, right on 12/19/2016 at 41 Years. Appendectomy ([id number]). bilateral carpal tunnel release. removal foreign body (bb) rt hand- cyst formedaround. cyst excision above right eye. excision rt neck cyst- benign. Social History Social & Psychosocial Habits Alcohol 12/09/2016 Risk Assessment: Denies Alcohol Use Comment: tomas - 04/05/2019 17:03 - Camacho Soraya SILVA Substance Abuse 12/09/2016 Risk Assessment: Denies Substance Abuse Comment: tomas - 04/05/2019 17:03 - Camacho Soraya SILVA Tobacco 12/09/2016 Risk Assessment: Denies Tobacco Use 04/05/2019 Tobacco Use: Never (less than 100 in l Comment: denies - 04/05/2019 17:03 - Camacho Soraya SILVA. Physical Examination Vital Signs (last 24 hrs) Last Charted Temp Oral 37.2 DegC (APR 15:18) Heart Rate Apical 96 bpm (APR 15:18) Resp Rate 20 br/min (APR 15:18) SBP 105 mmHg (APR 15:19) DBP 70 mmHg (APR 15:) SpO2 93 % (APR 15:18) Airway: Normal oral/pharyngeal anatomy.. Respiratory: Adequate air exchange.. Cardiovascular: Adequate perfusion and function. Review / Management Results review: No qualifying data available. Plan [place] [employer] (ASA) physical status classification: Class III. Anesthetic Preoperative Plan Anesthesia: General. , Regional ATTEMPT POPLITEAL BLOCK. ANATOMY MAY LIMIT ABILITY. Anesthetic plan, risks, benefits, and alternatives discussed with the patient and/or family. Pt. and/or family present and agree to proceed as planned.. Discussed the importance of abstaining from tobacco products, and offered counseling if desired. [facility] Comment on above: Result Comment: Elec tronically Signed By: Vincenzo Kim JR, DO\.br\Date and Time Signed: 04/15/19 09:07 EDT Progress Note-Physician Patient: JOSE ROLDAN Age: 43 years Sex: Male : 1975 Associated Diagnoses: None Author: Vincenzo Kim JR, DO Preoperative Information Anesthesia history: Patient History: Pt./ family denies any personal or family hx of problems/difficulties with anesthesia.. Re-eval prior to induction: Inital eval reviewed: No significant interval change, NPO 10 hours.. Review of Systems Constitutional: See nursing assessment.. Cardiovascular: Cardiac risk assessment performed. Pt. denies any significant change in their cv hx.. Respiratory: Pt. denies any signicant change in their respiratory status.. Neurologic: Pt. denies any acute neurological changes.. Health Status Allergies: Allergic Reactions (Selected) Severe Codeine- Codeine and violent. Moderate Pollen- Hayfever., Allergies (2) Active Reaction codeine Violent Pollen Hayfever Current medications: (Selected) Inpatient Medications Ordered Cefazolin 3 gram IVPB: 3 gram = 100 mL, Soln-IV, IV Piggyback, PREOP, Routine, Start date 04/15/19 8:15:00 EDT, 200 mL/hr, Infuse over 30 minute(s) Dilaudid 2 mg Injection: 0.4 mg = 0.2 mL, Injection, IV Push, q4min PRN Pain for 8 hour(s), Stop date 04/15/19 16:39:00 EDT, Routine, Start date 04/15/19 8:40:00 EDT Lactated Ringers IV Praveena 1000 mL 1,000 mL: 1,000 mL, IV, 100 mL/hr, Routine, Start date 04/15/19 8:40:00 EDT, 10 hour(s), Total volume (mL): 1,000 Lactated Ringers IV Praveena 1000 mL 1,000 mL: 1,000 mL, IV, 150 mL/hr, Routine, Start date 04/15/19 8:15:00 EDT, 6.7 hour(s), Total volume (mL): 1,000 Phenergan 25 mg/mL Injection: 12.5 mg = 0.5 mL, Injection, IV Push, q2min PRN Other (see comment) for 2 dose(s), Stop date Limited # of times, Routine, Start date 04/15/19 8:40:00 EDT Prescriptions Prescribed aspirin 81 mg Oral EC Tab: 81 mg = 1 tab(s), Oral, Daily, X 30 day(s), # 30 tab(s), Refills(s) 0, Pharmacy: [facility] #72 Documented Medications Documented Dulera 100 mcg-5 mcg/inh inhalation aerosol: 2 puff(s), Inhalation, BID, 13 gram, Refill(s) 0, Asthma ProAir HFA 90 mcg/inh inhalation aerosol: 2 puff(s), Inhalation, q4hr Shortness of breath or wheezing, Refill(s) 0, Asthma Vraylar 6 mg oral capsule: 6 mg = 1 cap(s), Oral, Daily, Refills(s) 0, Other (see comment) albuterol 0.083% Inh Praveena 3 mL UD: 2.5 mg = 3 mL, NEB, q6hr, PRN for wheezing, Asthma benztropine 1 mg Tab: 1 mg = 1 tab(s), Oral, BID, Refills(s) 0, Other (see comment) ciclopirox topical 8% solution: 1 igor, Topical, Bedtime, Refill(s) 0 lamotrigine 100 mg Tab: 100 mg = 1 tab(s), Oral, q5am, Refills(s) 0, Depression lamotrigine 200 mg Tab: 200 mg = 1 tab(s), Oral, Once a day (at bedtime), Refills(s) 0, Depression levothyroxine 175 mcg (0.175 mg) Tab: 175 microgram = 1 tab(s), Oral, Daily, Refills(s) 0, Thyroid lisinopril: 10 mg, Oral, Daily, High blood pressure meloxicam 15 mg Tab: 15 mg = 1 tab(s), Oral, Daily, Refills(s) 0, Inflammation mirtazapine 30 mg Tab: 30 mg = 1 tab(s), Oral, Once a day (at bedtime), Refills(s) 0, Depression omeprazole 20 mg Cap-DR: = 1 cap(s), Oral, Daily, Refills(s) 0, Control of stomach acid prazosin 2 mg oral capsule: 4 mg = 2 cap(s), Oral, Bedtime, Refills(s) 0, High blood pressure quetiapine 200 mg Tab: 100 mg = 0.5 tab(s), Oral, TID, Refills(s) 0, Depression traZODONE 100 mg Tab: 200 mg = 2 tab(s), Oral, Once a day (at bedtime), Refills(s) 0, Depression, Medications (5) Active Scheduled: (1) ceFAZolin 3 gram 100 mL, IV Piggyback, PREOP Continuous: (2) Lactated Ringers 1,000 mL 1,000 mL, IV, 150 mL/hr Lactated Ringers 1,000 mL 1,000 mL, IV, 100 mL/hr PRN: (2) HYDROmorphone 2 mg/mL Inj [F] 0.4 mg 0.2 mL, IV Push, q4min promethazine 25 mg/mL Inj [F] 12.5 mg 0.5 mL, IV Push, q2min Problem list: All Problems Apnea, sleep / SNOMED CT 449638622 / Confirmed Ankle instability / SNOMED CT 4707824 / Confirmed right Asthma / SNOMED CT 5949880294 / Confirmed Back pain / SNOMED CT 545759547 / Confirmed Acid reflux / SNOMED CT 5592551726 / Confirmed Pleurisy / SNOMED CT 578966072 / Confirmed Prediabetes / SNOMED CT 6358703074 / Confirmed Knee pain / SNOMED CT 921354841 / Confirmed Hypothyroidism / SNOMED CT 803543451 / Confirmed Chest pain / SNOMED CT 94980650 / Confirmed center of chest- feels like a bruise/ 4/10 on pain scale - reminds him of the pain he had when he had Pleurisy. Instructed to go to ER- wants to finish PST testing first stated pain down to 2/10, Active Problems (10) Acid reflux Ankle instability Apnea, sleep Asthma Back pain Chest pain Hypothyroidism Knee pain Pleurisy Prediabetes Histories Past Medical History: No active or resolved past medical history items have been selected or recorded. Family History: No family history items have been selected or recorded. Procedure history: 1. Brostrom repair with Arthrex internal brace, right on 12/19/2016 at 41 Years. Appendectomy ([id number]). bilateral carpal tunnel release. removal foreign body (bb) rt hand- cyst formedaround. cyst excision above right eye. excision rt neck cyst- benign. Social History Social & Psychosocial Habits Alcohol 12/09/2016 Risk Assessment: Denies Alcohol Use Comment: tomas - 04/05/2019 17:03 - Soraya Camacho RN Substance Abuse 12/09/2016 Risk Assessment: Denies Substance Abuse Comment: tomas - 04/05/2019 17:03 - Soraya Camacho RN Tobacco 12/09/2016 Risk Assessment: Denies Tobacco Use 04/05/2019 Tobacco Use: Never (less than 100 in l Comment: tomas - 04/05/2019 17:03 - Soraya Camacho RN. Physical Examination Vital Signs (last 24 hrs) Last Charted Temp Oral 37.2 DegC (APR 15 08:18) Heart Rate Apical 96 bpm (APR 15 08:18) Resp Rate 20 br/min (ALEXA 11 08:18) SBP 105 mmHg (APR 15:) DBP 70 mmHg (APR 15:) SpO2 93 % (APR 15:) Airway: Normal oral/pharyngeal anatomy.. Respiratory: Adequate air exchange.. Cardiovascular: Adequate perfusion and function. Review / Management Results review: No qualifying data available. Plan [place] [employer] (ASA) physical status classification: Class III. Anesthetic Preoperative Plan Anesthesia: General. . Anesthetic plan, risks, benefits, and alternatives discussed with the patient and/or family. Pt. and/or family present and agree to proceed as planned.. Discussed the importance of abstaining from tobacco products, and offered counseling if desired. Normal [facility] Comment on above: Result Comment: Elec tronically Signed By: Vincenzo Kim JR, DO.br\Date and Time Signed: 04/15/19 09:05 EDT Coding Summary.on 04-12-2019 Coding Summary. CODING DATE: 04/12/2019 FINAL [facility] STATUS: Home (Routine DC) PAYOR: Medicaid EAPG DESCRIPTION 0457 VENIPUNCTURE 0471 PLAIN FILM 0407 LEVEL II CLOTTING TESTS 0406 LEVEL I CLOTTING TESTS 0490 INCIDENTAL TO MEDICAL, SIGNIFICANT PROCEDURE OR THERAPY VISIT 0400 LEVEL I CHEMISTRY TESTS 0401 LEVEL II CHEMISTRY TESTS 0408 LEVEL I HEMATOLOGY TESTS 0403 ORGAN OR DISEASE ORIENTED PANELS 0081 ECHOCARDIOGRAPHY 0496 MINOR PHARMACOTHERAPY 0271 PHYSICAL THERAPY 0413 CARDIOGRAM 0080 EXERCISE TOLERANCE TESTS 0332 LEVEL III DIAGNOSTIC NUCLEAR MEDICINE 0450 OBSERVATION 0598 ANGINA PECTORIS & CORONARY ATHEROSCLEROSIS ADMIT DX: REASON FOR VISIT DX: R07.9 Chest pain, unspecified FINAL DX: PRINCIPAL: I20.0 Unstable angina SECONDARY: I10 Essential (primary) hypertension R06.09 Other forms of dyspnea E03.9 Hypothyroidism, unspecified F31.9 Bipolar disorder, unspecified F43.10 Post-traumatic stress disorder, unspecified J45.909 Unspecified asthma, uncomplicated K21.9 Gastro-esophageal reflux disease without esophagitis R73.03 Prediabetes E66.01 Morbid (severe) obesity due to excess calories Z68.41 Body mass index (BMI) 40.0-44.9, adult Z87.891 Personal history of nicotine dependence PYMT PROC EAPG STAT DESCRIPTION DOCTOR NAME DATE NOTE: The code number assigned matches the documented diagnosis and / or procedure in the patient's chart. However, the narrative phrase printed from the coding software may appear abbreviated, or result in slightly different terminology. Revised Coded By: Sharmila Coronado Revised Date Saved: 04/12/2019 10:22 am Normal [facility] NM Myocardial Spect Rest/Str ess 1 Dayon 04-12-2019 NM Myocardial Spect Rest/Stress 1 Day Exam Date/Time: 04/06/2019 16:00 EDT Reason for Exam: Chest pain Report MYOCARDIAL PERFUSION IMAGING STUDY: 04/06/2019 Two-day myocardial perfusion imaging study with Lexiscan. First day is 30.3 mCi of Technetium, second day is 30.3 mCi of Technetium. The raw data shows nonuniform distribution of radioisotope in a similar pattern as the rest and stress data. There is some inferior subdiaphragmatic activity which overlies the anterior wall. There is a similar pattern of nonuniform distribution of radioisotope during stress and rest. There is no significant difference. There is normal wall motion, and an ejection fraction of 68%. There is normal infusion of Lexiscan. IMPRESSION: A low risk study for significant ischemia, normal wall motion, normal ejection fraction. This is part of a two-part report comprised of: NM Myocardial Spect Multi Rest/Stress and NM ECG Dictation. Please read both reports for complete results. FINAL REPORT Signed (Electronic Signature): 04/12/2019 12:24 pm Signed by: Antonio Celis MD Transcribed by: gunner Technologist: LAUREN Technical Comments Rest Dose (mCi Tc99m Cardiolite): 30.3 Stress Dose (mCi Tc99M Cardiolite): 30.3 Normal [facility] Coding Summary.on 04-09-2019 Coding Summary. CODING DATE: 04/09/2019 FINAL [facility] STATUS: Still a Patient PAYOR: Medicaid EAPG DESCRIPTION 0408 LEVEL I HEMATOLOGY TESTS 0413 CARDIOGRAM 0457 VENIPUNCTURE 0402 BASIC CHEMISTRY TESTS 0400 LEVEL I CHEMISTRY TESTS ADMIT DX: REASON FOR VISIT DX: Z01.818 Encounter for other preprocedural examination FINAL DX: PRINCIPAL: Z01.818 Encounter for other preprocedural examination SECONDARY: PYMT PROC EAPG STAT DESCRIPTION DOCTOR NAME DATE NOTE: The code number assigned matches the documented diagnosis and / or procedure in the patient's chart. However, the narrative phrase printed from the coding software may appear abbreviated, or result in slightly different terminology. Coded By: Madonna Martinez CphT Date Saved: 04/09/2019 08:23 am [facility] NM Stress ECG Dictationon NM Stress ECG Dictation Exam Date/Time: 04/06/2019 13:33 EDT Reason for Exam: Chest pain Report LEXISCAN STRESS EK04/06/2019 INDICATION: Chest pain HEMODYNAMICS: Normotensive SYMPTOMS: None REST EKG: Resting EKG shows normal sinus rhythm with voltage criteria for left ventricular hypertrophy, heart rate of 88. STRESS EKG WITH LEXISCAN INFUSION: There are no ST or T wave changes consistent with ischemia. IMPRESSION: 1. Non-diagnostic, asymptomatic, unremarkable Lexiscan stress EKG. 2. Please see nuclear stress imaging results reported separately. This is part of a two-part report comprised of: NM Myocardial Spect Multi Rest/Stress and NM ECG Dictation. Please read both reports for complete results. FINAL REPORT Signed (Electronic Signature): 04/09/2019 8:00 am Signed by: Isreal Dorman MD Transcribed by: gunner Technologist: LAUREN [facility] Echo Transthoracic Completeo n 04-08-2019 Echo Transthoracic Complete Echocardiology Procedure Exam Date/Time Accession # Ordering Echo Transthoracic 04/06/2019 10:21 EDT [id number] SHELLEY ALONSO, Ronny Duncan Complete CPT code 18664 Reason for Exam (Echo Transthoracic Complete) Shortness of breath (SOB) Report Patient Height: 181 cm Patient Weight: 143 kg Blood Pressure: 141/93 1. LVIDd m(3.8-5.8cm)w(3.8-5.2 cm) 4.9 cm 2. LVIDs m(2.1-3.9cm)w(2.2-3.5 cm) 3.4 cm 3. IVSd m(0.6-1.0cm) 1.4 cm 4. LVPWd (0.6-1.0cm) 1.1 cm 5. LAs (2.7-4.0cm) 4.0 cm 6. LA Vol. Index (16-34 mL/m2) 19 mL/m2 7. AOd Root (3.0-3.4cm) 3.7 cm 8. AO Annulus (2.3-2.6cm) - cm 9. AO Sinus of Valsalva (3.0-3.4cm) - cm 10. AO Sinotubular Junction (2.6-2.9cm) - cm 11. Ascending Aorta (2.7-3.0cm) 3.6 cm 12. RVIDd (2.0-3.0cm) 2.3 cm 13. AoV Peak Gradient - mmHg 14. AoV Mean Gradient - mmHg 15. LVOT Diam - cm PROCEDURE : The study is a two-dimensional, M-Mode, color flow, complete Doppler study. ORDERING PHYSICIAN : Dr. Rosa INDICATION : Shortness of breath. M-MODE/2D/DOPPLER REPORT : 1. Study Quality: The technical quality is technically suboptimal. 2. Left Ventricle: Left ventricular size is within normal limits. Left ventricular systolic function is 55%. Left ventricular wall motion appears normal. Left ventricular wall thickness is normal. 3. Right Ventricle: The right ventricular size and systolic function appear normal. 4. Left Atrium: Left atrial size is within normal limits. 5. Right Atrium: Right atrial size appears normal. Echocardiology Procedure Exam Date/Time Accession # Ordering Dr. Echevarria Transthoracic 04/06/2019 10:21 EDT [id number] SHELLEY ALONSO, Ronny Duncan Complete Report 6. Mitral Valve: Mitral valve appears normal. There is no mitral valve stenosis. There is trace mitral valve regurgitation. Mitral valve inflow pattern is consistent with E/A reversal. 7. Aortic Valve: Aortic valve is not well visualized. No aortic valve insufficiency is noted. There is no aortic valve stenosis. 8. Tricuspid Valve: The tricuspid valve appears normal. There is no tricuspid valve stenosis. There is no tricuspid valve regurgitation. Right ventricular systolic pressure cannot be estimated due to incomplete TR jet. 9. Pulmonic Valve: Pulmonic valve is not well visualized. There is no pulmonic valve stenosis. There is no pulmonic valve insufficiency. 10. Pericardium: The pericardial space is free of fluid accumulation. 11. Aorta: The aortic root diameter is within normal limits. IMPRESSION/SUMMARY : 1. Normal left ventricular systolic function, left ventricular ejection fraction approximately 55%. 2. No significant valvular heart disease noted. 3. Technically difficult study. FINAL REPORT Signed (Electronic Signature): 04/08/2019 11:49 am Signed by: Isreal Dorman MD Transcribed by: gunner Technologist: SAMMY Javier [facility] Inpatient Clinical Summaryon 04-07-2019 Inpatient Clinical Summary [address] [address] Clinical Summary Person Information: Name: JOSE ROLDAN Age: 43 Years : 1975 12:00 AM Sex: Male PCP: MEGAN BIRD DO Marital Status: Phone: [phone] Race: White Ethnicity: Non- or Language: Italian Visit Id: Visit Reason: Chest pain; CHEST PAIN Speciality: Acuity: 3 Enc Type: Observation Med Service: Medical Arrival: 04/05/2019 4:31 PM Discharge: Dispo Type: Admitted as IP to this [facility] Address: [address] [place] [address] [address] [place] [id number] Provider Notes: Addendum by SHELLEY ALONSO, Ronny Duncan on April 06, 2019 14:38:39 EDT Diagnosis: 1:Chest pain; 2:Unstable angina; 3:Morbidly obese; 4:Dyspnea on exertion; 5:Bipolar disorder; 6:Hypertension; 7:Prediabetes; 8:No contraindication to deep vein thrombosis (DVT) prophylaxis Problems No Problems Documented Smoking Status: Never Smoker Functional Status: Sensory Deficits: Wears glasses History of Falls: Mobility Assistance Prior to Admission: Independent ADLs: Independent Current Level of Assistance for Self-Care/Mobility: Cognitive Status: Oriented x 3 Allergies codeine (codeine) (Violent) Pollen (Hayfever) Measurements: Height: 185 cm Weight: 143.8 kg Blood Pressure: 132 mmHg / 88 mmHg BMI: 41.52 kg/m2 Procedures No Procedures Documented Immunizations No Immunizations Documented This Visit Final Med List: albuterol (albuterol 0.083% Inh Praveena 3 mL UD) 3 Milliliter Inhalation every 6 hours as needed for wheezing. albuterol (ProAir HFA 90 mcg/inh inhalation aerosol) 2 Puffs Inhalation every 4 hours as needed Shortness of breath or wheezing. aspirin (aspirin 81 mg Oral EC Tab) 1 Tabs By Mouth every day for 30 Days. Refills: 0. benztropine (benztropine 1 mg Tab) 1 Tabs By Mouth 2 times a day. cariprazine (Vraylar 6 mg oral capsule) 1 Capsules By Mouth every day. ciclopirox topical (ciclopirox topical 8% solution) 1 Application. formoterol-mometasone (Dulera 100 mcg-5 mcg/inh inhalation aerosol) 2 Puffs Inhalation 2 times a day. lamotrigine (lamotrigine 100 mg Tab) 1 Tabs By Mouth at bedtime. lamotrigine (lamotrigine 200 mg Tab) 1 Tabs By Mouth once a day (at bedtime). levothyroxine (levothyroxine 175 mcg (0.175 mg) Tab) 1 Tabs By Mouth every day. meloxicam (meloxicam 15 mg Tab) 1 Tabs By Mouth every day. mirtazapine (mirtazapine 30 mg Tab) 1 Tabs By Mouth once a day (at bedtime). omeprazole (omeprazole 20 mg Cap-DR) 1 Capsules By Mouth every day. prazosin (prazosin 2 mg oral capsule) 2 Capsules By Mouth at bedtime. quetiapine (quetiapine 200 mg Tab) 0.5 Tabs By Mouth 3 times a day. trazodone (traZODONE 100 mg Tab) 2 Tabs By Mouth once a day (at bedtime). Care Team Members: Attending Physician: SHELLEY ALONSO, Ronny Duncan Consulting Physician: Isreal Dorman MD Referring Physician: Follow up: With: Address: When: Iseral Dorman [address] [place] [address] [employer] (1) 04/23/2019 2:45 PM With: Address: When: [place] [address] [employer] () 04/13/2019 11:40 AM Type Location Start [facility] 04/15/2019 12:45 PM 04/15/2019 1:45 PM Confirmed Cardiology Follow Up (FT) [facility] 04/23/2019 2:45 PM 04/23/2019 3:00 PM Confirmed Patient Education Information: Chest Pain (Nonspecific) Normal [facility] Inpatient Patient Summaryon 04-07-2019 Inpatient Patient Summary [address] [address] Patient Discharge Instructions PERSON INFORMATION Name: JAMARJOSE LAWSON Date of : 1975 12:00 AM Current Date: 04/07/19 16:17:07 PHYSICIANS Admitting Physician: Ronny ROSA MD Primary Care Physician: MEGAN BIDR DO PCP Comment: Discharge Diagnosis: 1:Chest pain; 2:Unstable angina; 3:Morbidly obese; 4:Dyspnea on exertion; 5:Bipolar disorder; 6:Hypertension; 7:Prediabetes; 8:No contraindication to deep vein thrombosis (DVT) prophylaxis Condition at Discharge: JOSE Rodrigues has been given the following list of follow-up instructions, prescriptions, and patient education materials: PATIENT FOLLOW-UP INFORMATION Diet: Calorie Controlled- 1800 Calorie Diet, Low Sodium- 2000 mg Discharge Activity: Discharge Restrictions: No restrictions Wound Care Instructions: Remove Your Dressing In Days Call Your Doctor For: Return to Work: IF UNABLE TO CONTACT YOUR PHYSICIAN AND YOU FEEL IT IS AN EMERGENCY, GO TO THE NEAREST EMERGENCY ROOM OR CALL 911 Home Treatment: CPAP Devices/Equipment: Cane, CPAP unit Special Services: Additional Instructions: Primary Care Physician to provide the following pending test results: None Follow up: With: Address: When: Isreal Dorman [address] [place] [id number] Business (1) 04/23/2019 2:45 PM With: Address: When: MEGAN BIRD [address] [place] [id number] Business (1) 04/13/2019 11:40 AM In the event that this physician does not participate in your insurance network, please consult with your insurance company to find a nearby participating provider. Type Location Start [facility] 04/15/2019 12:45 PM 04/15/2019 1:45 PM Confirmed Cardiology Follow Up (FT) FT[facility]Cardiology Clinic 04/23/2019 2:45 PM 04/23/2019 3:00 PM Confirmed Comment: JAMAR Patel THOMAS E, have received the attached patient education materials/instruction s and have verbalized understanding: Patient Signature Date Clinican/Nurse Signature Date HERE ARE THE MEDICATION CHANGES THAT OCCURRED DURING YOUR HOSPITAL STAY New Medications [facility], [address] [place], [place] [id number], [phone] aspirin (aspirin 81 mg Oral EC Tab) 1 Tabs By Mouth every day for 30 Days. Refills: 0. Last Dose: ____Next Dose: ____ Medications to Continue Taking That Have Changed Other Medications START: lamotrigine (lamotrigine 100 mg Tab) 1 Tabs By Mouth at bedtime. Last Dose: ____Next Dose: ____ START: lamotrigine (lamotrigine 200 mg Tab) 1 Tabs By Mouth once a day (at bedtime). Last Dose: ____Next Dose: ____ STOP: lamotrigine (lamotrigine 100 mg Tab) 1 Tabs By Mouth every day. Medications to Continue with No Changes Other Medications albuterol (albuterol 0.083% Inh Praveena 3 mL UD) 3 Milliliter Inhalation every 6 hours as needed for wheezing. Last Dose: ____Next Dose: ____ albuterol (ProAir HFA 90 mcg/inh inhalation aerosol) 2 Puffs Inhalation every 4 hours as needed Shortness of breath or wheezing. Last Dose: ____Next Dose: ____ benztropine (benztropine 1 mg Tab) 1 Tabs By Mouth 2 times a day., leg twitches Last Dose: ____Next Dose: ____ cariprazine (Vraylar 6 mg oral capsule) 1 Capsules By Mouth every day., bipolar Last Dose: ____Next Dose: ____ ciclopirox topical (ciclopirox topical 8% solution) 1 Application. Last Dose: ____Next Dose: ____ formoterol-mometasone (Dulera 100 mcg-5 mcg/inh inhalation aerosol) 2 Puffs Inhalation 2 times a day. Last Dose: ____Next Dose: ____ levothyroxine (levothyroxine 175 mcg (0.175 mg) Tab) 1 Tabs By Mouth every day. Last Dose: ____Next Dose: ____ meloxicam (meloxicam 15 mg Tab) 1 Tabs By Mouth every day. Last Dose: ____Next Dose: ____ mirtazapine (mirtazapine 30 mg Tab) 1 Tabs By Mouth once a day (at bedtime). Last Dose: ____Next Dose: ____ omeprazole (omeprazole 20 mg Cap-DR) 1 Capsules By Mouth every day. Last Dose: ____Next Dose: ____ prazosin (prazosin 2 mg oral capsule) 2 Capsules By Mouth at bedtime., also for PTSD Last Dose: ____Next Dose: ____ quetiapine (quetiapine 200 mg Tab) 0.5 Tabs By Mouth 3 times a day. Last Dose: ____Next Dose: ____ trazodone (traZODONE 100 mg Tab) 2 Tabs By Mouth once a day (at bedtime). Last Dose: ____Next Dose: ____ Comment: MEDICATION LIST PROVIDED FOR YOU IS A LIST OF YOUR CURRENT MEDICATIONS. PLEASE CARRY THIS WITH YOU AT ALL TIMES. albuterol (albuterol 0.083% Inh Praveena 3 mL UD) 3 Milliliter Inhalation every 6 hours as needed for wheezing. albuterol (ProAir HFA 90 mcg/inh inhalation aerosol) 2 Puffs Inhalation every 4 hours as needed Shortness of breath or wheezing. aspirin (aspirin 81 mg Oral EC Tab) 1 Tabs By Mouth every day for 30 Days. Refills: 0. benztropine (benztropine 1 mg Tab) 1 Tabs By Mouth 2 times a day. cariprazine (Vraylar 6 mg oral capsule) 1 Capsules By Mouth every day. ciclopirox topical (ciclopirox topical 8% solution) 1 Application. formoterol-mometasone (Dulera 100 mcg-5 mcg/inh inhalation aerosol) 2 Puffs Inhalation 2 times a day. lamotrigine (lamotrigine 100 mg Tab) 1 Tabs By Mouth at bedtime. lamotrigine (lamotrigine 200 mg Tab) 1 Tabs By Mouth once a day (at bedtime). levothyroxine (levothyroxine 175 mcg (0.175 mg) Tab) 1 Tabs By Mouth every day. meloxicam (meloxicam 15 mg Tab) 1 Tabs By Mouth every day. mirtazapine (mirtazapine 30 mg Tab) 1 Tabs By Mouth once a day (at bedtime). omeprazole (omeprazole 20 mg Cap-DR) 1 Capsules By Mouth every day. prazosin (prazosin 2 mg oral capsule) 2 Capsules By Mouth at bedtime. quetiapine (quetiapine 200 mg Tab) 0.5 Tabs By Mouth 3 times a day. trazodone (traZODONE 100 mg Tab) 2 Tabs By Mouth once a day (at bedtime). Pharmacy Information: Other: [facility] Comment: PATIENT EDUCATION INFORMATION Instructions: Chest Pain (Nonspecific) It is often hard to give a specific diagnosis for the cause of chest pain. There is always a chance that your pain could be related to something serious, such as a heart attack or a blood clot in the lungs. You need to follow up with your health care provider for further evaluation. CAUSES ? Heartburn. ? Pneumonia or bronchitis. ? Anxiety or stress. ? Inflammation around your heart (pericarditis) or lung (pleuritis or pleurisy). ? A blood clot in the lung. ? A collapsed lung (pneumothorax). It can develop suddenly on its own (spontaneous pneumothorax) or from trauma to the chest. ? Shingles infection (herpes zoster virus). The chest wall is composed of bones, muscles, and cartilage. Any of these can be the source of the pain. ? The bones can be bruised by injury. ? The muscles or cartilage can be strained by coughing or overwork. ? The cartilage can be affected by inflammation and become sore (costochondritis). DIAGNOSIS Lab tests or other studies may be needed to find the cause of your pain. Your health care provider may have you take a test called an ambulatory electrocardiogram (ECG). An ECG records your heartbeat patterns over a 24-hour period. You may also have other tests, such as: ? Transthoracic echocardiogram (TTE). During echocardiography, sound waves are used to evaluate how blood flows through your heart. ? Transesophageal echocardiogram (JAMI). ? Cardiac monitoring. This allows your health care provider to monitor your heart rate and rhythm in real time. ? Holter monitor. This is a portable device that records your heartbeat and can help diagnose heart arrhythmias. It allows your health care provider to track your heart activity for several days, if needed. ? Stress tests by exercise or by giving medicine that makes the heart beat faster. TREATMENT ? Treatment depends on what may be causing your chest pain. Treatment may include: ? Acid blockers for heartburn. ? Anti-inflammatory medicine. ? Pain medicine for inflammatory conditions. ? Antibiotics if an infection is present. ? You may be advised to change lifestyle habits. This includes stopping smoking and avoiding alcohol, caffeine, and chocolate. ? You may be advised to keep your head raised (elevated) when sleeping. This reduces the chance of acid going backward from your stomach into your esophagus. Most of the time, nonspecific chest pain will improve within 2?3 days with rest and mild pain medicine. HOME CARE INSTRUCTIONS ? If antibiotics were prescribed, take them as directed. Finish them even if you start to feel better. ? For the next few days, avoid physical activities that bring on chest pain. Continue physical activities as directed. ? Do not use any tobacco products, including cigarettes, chewing tobacco, or electronic cigarettes. ? Avoid drinking alcohol. ? Only take medicine as directed by your health care provider. ? Follow your health care provider's suggestions for further testing if your chest pain does not go away. ? Keep any follow-up appointments you made. If you do not go to an appointment, you could develop lasting (chronic) problems with pain. If there is any problem keeping an appointment, call to reschedule. SEEK MEDICAL CARE IF: ? Your chest pain does not go away, even after treatment. ? You have a rash with blisters on your chest. ? You have a fever. SEEK IMMEDIATE MEDICAL CARE IF: ? You have increased chest pain or pain that spreads to your arm, neck, jaw, back, or abdomen. ? You have shortness of breath. ? You have an increasing cough, or you cough up blood. ? You have severe back or abdominal pain. ? You feel nauseous or vomit. ? You have severe weakness. ? You faint. ? You have chills. This is an emergency. Do not wait to see if the pain will go away. Get medical help at once. Call your local emergency services (911 in [place] Do not drive yourself to the hospital. MAKE SURE YOU: ? Understand these instructions. ? Will watch your condition. ? Will get help right away if you are not doing well or get worse. Document Released: 07/02/2006 Document Revised: 09/27/2014 Document Reviewed: 04/27/2009 ExitCare? Patient Information ?2014 [employer]. This information is not intended to replace advice given to you by your health care provider. Make sure you discuss any questions you have with your health care provider. Medication Leaflets: Thank you for choosing [facility] Normal [facility] Interdisciplinary Note - Sanjay e Manageron 04-07-2019 INR Coag (Bld) [Relative time] Rounding with Dr. Lenka Jade CRM, El[facility], and Kitty SILVA with another patient. No family in room. Patient is alert and oriented and participates in plan of care. Whiteboard updated. Discussed will have 2nd part of stress test today, will wait cardiology recommendations. If stress test negative will dc home later today. Patient states Dr called in RX for FWW as he will have ankle surgery soon. Normal [facility] Auto Diffon 04-06-2019 Basophils/100 WBC (Bld) 0.3 % Normal 0.0-2.0 [facility] Comment on above: Order Comment: Order Added by Discern Expert. Performed By: #### 2 511879, 8887631, 4780657, [id number], 1775524, 5361982 #### [facility] [address] [place] [address] 76581 Basophils/Leukocytes Auto (Bld) [Pure # fraction] 0.0 E9/L Normal 0.0-0.2 [facility] Comment on above: Order Comment: Order Added by Discern Expert. Performed By: #### 2 449513, 9052412, 5390421, 52909345, 4621418, 6569522 #### [facility] [address] [place] [address] 04777 Eosinophils/100 WBC (Bld) 5.1 % Normal 0.0-8.0 [facility] Comment on above: Order Comment: Order Added by Ezio Expert. Performed By: #### 2 390112, 5768612, 5415970, 27176190, 8343232, 1016456 #### [facility] [address] [place] [address] 65340 Eosinophils/Leukocyte s Auto (Bld) [Pure # fraction] 0.4 E9/L Normal 0.0-0.5 [facility] Comment on above: Order Comment: Order Added by Ezio Expert. Performed By: #### 2 637367, 2576537, 5393084, 77933218, 4813113, 6423465 #### [facility] [address] [place] [address] 46180 Lymphocytes/100 WBC (Bld) 40.4 % Normal 14.0-50.0 [facility] Comment on above: Order Comment: Order Added by Ezio Expert. Performed By: #### 2 400823, 7058177, 9136939, 07219403, 7292707, 0408318 #### [facility] [address] [place] [address] 67509 Lymphocytes/Leukocyte s Auto (Bld) [Pure # fraction] 3.0 E9/L Normal 1.0-4.0 [facility] Comment on above: Order Comment: Order Added by Discern Expert. Performed By: #### 2 043053, 2082746, 5601684, 60595833, 4928835, 8626896 #### [facility] [address] [place] [address] 57711 Monocytes/100 WBC (Bld) 10.7 % Normal 4.0-14.0 [facility] Comment on above: Order Comment: Order Added by Discern Expert. Performed By: #### 2 651342, 4381230, 7679025, 42778580, 0800065, 5166468 #### [facility] [address] [place] [address] Monocytes/Leukocytes Auto (Bld) [Pure # fraction] 0.8 E9/L Normal 0.2-1.0 [facility] Comment on above: Order Comment: Order Added by Ezio Expert. Performed By: #### 2 082935, 7638590, 8659860, 96199929, 3228956, 8595519 #### [facility] [address] [place] [address] 18492 Neutrophils/100 WBC (Bld) 43.5 % Normal 36.0-75.0 [facility] Comment on above: Order Comment: Order Added by Discern Expert. Performed By: #### 2 584667, 0429037, 2800545, 88593526, 7479626, 6056140 #### [facility] [address] [place] [address] 26189 Neutrophils/Leukocyte s Auto (Bld) [Pure # fraction] 3.2 E9/L Normal 2.0-7.5 [facility] Comment on above: Order Comment: Order Added by Discern Expert. Performed By: #### 2 971200, 6417020, 6779894, 88657088, 9323373, 7517892 #### [facility] [address] [place] [address] 32058 BMPon 04-06-2019 Anion gap [Moles/Vol] 14 mmol/L Normal 6-16 [facility] Comment on above: Performed By: #### 2 454264, 7090746, 2630278, 80552200, 3598947, 1707558 #### [facility] [address] [place] [address] Calcium [Mass/Vol] 8.6 mg/dL Low 8.9-11.1 [facility] Comment on above: Performed By: #### 2 594614, 0575222, 6452292, 35646083, 6355395, 9920174 #### [facility] [address] [place] [address] Chloride [Moles/Vol] 107 mmol/L Normal 101-111 [facility] Comment on above: Performed By: #### 2 911842, 9649202, 1004592, 52400381, 0416547, 4568654 #### [facility] [address] [place] [address] CO2 [Moles/Vol] 24 mmol/L Normal 21-31 [facility] Comment on above: Performed By: #### 2 537403, 0396294, 5326416, 46371855, 9448925, 5578720 #### [facility] [address] [place] [address] Creatinine [Mass/Vol] 1.1 mg/dL Normal 0.5-1.3 [facility] Comment on above: Performed By: #### 2 901380, 4920956, 8041526, 07311498, 8669531, 1677984 #### [facility] [address] [place] [address] Glucose [Mass/Vol] 109 mg/dL Normal 55-199 [facility] Comment on above: Result Comment: If t his glucose result represents a fasting glucose, interpretation should refer to the following reference range: 55-99 mg/dL Performed By: #### 2 600161, 6874971, 0778993, 38059048, 8895964, 6996529 #### [facility] [address] [place] [address] Potassium [Moles/Vol] 3.9 mmol/L Normal 3.5-5.3 [facility] Comment on above: Performed By: #### 2 116750, 1089792, 0324460, 93778394, 1778371, 8271050 #### [facility] [address] [place] [address] Sodium [Moles/Vol] 141 mmol/L Normal 135-145 [facility] Comment on above: Performed By: #### 2 658669, 4762111, 4436771, 89032517, 1974535, 3426641 #### [facility] [address] [place] [address] Urea nitrogen [Mass/Vol] 18 mg/dL Normal 5-21 [facility] Comment on above: Performed By: #### 2 898797, 6937882, 6943695, 95170447, 0812622, 6699001 #### [facility] [address] [place] [address] 17697 Urea nitrogen/Creatinine [Mass ratio] 16 No Units Normal 10-20 [facility] Comment on above: Performed By: #### 2 614257, 7943840, 7351756, 62853926, 3392868, 5863785 #### [facility] [address] [place] [address] 75630 CBC w/ Auto Diffon 9 Erythrocyte distribution width (RBC) [Ratio] 14.7 % High 10.9-14.2 [facility] Comment on above: Performed By: #### 2 612105, 8830864, 2543220, 50680468, 0488407, 6785117 #### [facility] [address] [place] [address] Hematocrit (Bld) [Volume fraction] 42.4 % Normal 37.7-49.0 [facility] Comment on above: Performed By: #### 2 129185, 3023594, 5459612, 03050811, 4284364, 5206381 #### [facility] [address] [place] [address] Hemoglobin (Bld) [Mass/Vol] 14.3 g/dL Normal 13.5-17.5 [facility] Comment on above: Performed By: #### 2 186917, 5139176, 8578263, 27885213, 2614385, 4197189 #### [facility] [address] [place] [address] 71206 MCH (RBC) [Entitic mass] 29.1 pg Normal 27.0-34.0 [facility] Comment on above: Performed By: #### 2 007155, 6274514, 7032708, 90150694, 2995142, 0971432 #### [facility] [address] [place] [address] 61474 MCHC (RBC) [Mass/Vol] 33.8 g/dL Normal 33.3-35.7 [facility] Comment on above: Performed By: #### 2 006548, 8195096, 9037170, 95228314, 9353835, 3083456 #### [facility] [address] [place], [place] [address] MCV (RBC) [Entitic vol] 86.2 fL Normal 80.0-100.0 [facility] Comment on above: Performed By: #### 2 152324, 4819812, 6516577, 29695275, 2724145, 7192344 #### [facility] [address] [place] [address] 27513 Platelet mean volume (Bld) [Entitic vol] 8.1 fL Normal 6.4-10.8 [facility] Comment on above: Performed By: #### 2 631352, 0628288, 0129344, 20072297, 0628236, 7840394 #### [facility] [address] [place] [address] 82642 Platelets (Bld) [#/Vol] 356.0 E9/L Normal 150.0-500.0 [facility] Comment on above: Performed By: #### 2 070202, 6429253, 1206847, 38983460, 1090108, 6379239 #### [facility] [address] [place] [address] 99295 RBC (Bld) [#/Vol] 4.9 E12/L Normal 4.3-5.9 [facility] Comment on above: Performed By: #### 2 333575, 1621224, 5185734, 09864356, 2831239, 9932779 #### [facility] [address] [place] [address] WBC corrected for nucl RBC Auto (Bld) [#/Vol] 7.3 E9/L Normal 4.0-11.0 [facility] Comment on above: Performed By: #### 2 466785, 2664040, 8210185, 19380409, 0622039, 2538025 #### [facility] [address] [place] [address] Consultation Noteon 04-06-20 Consultation Note Patient: JOSE ROLDAN Age: 43 years Sex: Male : 1975 Associated Diagnoses: None Author: Lakia ALONSO, Isreal Nieves Chief Complaint 04/05/2019 19:32 EDT Chest pain in pre-surgery 04/05/2019 16:25 EDT Pt arrives from pre surgical testing for chest pain x 1 week. Pt states midsternal, feels like pleurisy . 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 Pt denies any other complaints. History of Present Illness Pt with recent onset of left parasternal chest pain. Seen in preop testing for same and to ER. Pt with dull 4/10 CP yesterday and relieved with NTG and returned 2/10. No cardiac hx. CP worse with activity such as walking and climbing stairs. Some respiratory component yesterday. Hx stress testing 4 yrs ago. EKG with LVH, non acute Troponin serially negative PmHX: XOL, HTN, obesity, Bipolar Soc: former smoker Family hx negative Review of Systems Constitutional: Negative. Eye: Negative. Ear/Nose/Mouth/Throat : Negative. Respiratory: Negative. Cardiovascular: Negative. Gastrointestinal: Negative. Genitourinary: Negative. Hematology/Lymphatics : Negative. Endocrine: Negative. Immunologic: Negative. Musculoskeletal: Negative. Integumentary: Negative. Neurologic: Negative. Psychiatric: Negative. All other systems are negative Health Status Allergies: Allergic Reactions (All) Severe Codeine- Codeine and violent. Moderate Pollen- Hayfever., Allergies (2) Active Reaction codeine Violent Pollen Hayfever Current medications: (Selected) Inpatient Medications Ordered Benztropine: Benztropine, Normal Patient Dose, Each, Oral, BID, Routine, Start date 04/05/19 23:00:00 EDT Dulera: Dulera, Normal Patient Dose, Inhalation, BID, Routine, Start date 04/06/19 9:00:00 EDT Lamotrigine: Lamotrigine, Normal Patient Dose, Each, Oral, Bedtime, Routine, Start date 04/05/19 23:00:00 EDT Lamotrigine: Lamotrigine, Normal Patient Dose, Each, Oral, Daily, Routine, Start date 04/06/19 9:00:00 EDT Levothyroxine: Levothyroxine, Normal Patient Dose, Each, Oral, qAM, Routine, Start date 04/06/19 6:30:00 EDT Lisinopril: Lisinopril, Normal Patient Dose, Each, Oral, Daily, Routine, Start date 04/06/19 9:00:00 EDT Meloxicam: Meloxicam, Normal Patient Dose, Each, Oral, Daily, Routine, Start date 04/06/19 9:00:00 EDT Milk of Magnesia 8% Susp-Oral: 30 mL, Susp-Oral, Oral, q6hr PRN Constipation, Routine, Start date 04/05/19 18:05:00 EDT Mirtazapine: Mirtazapine, Normal Patient Dose, Each, Oral, Bedtime, Routine, Start date 04/05/19 23:00:00 EDT Omeprazole: Omeprazole, Normal Patient Dose, Each, Oral, Daily, Routine, Start date 04/06/19 9:00:00 EDT Prazosin: Prazosin, Normal Patient Dose, Each, Oral, Bedtime, Routine, Start date 04/05/19 23:00:00 EDT Quetiapine: Quetiapine, Normal Patient Dose, Each, Oral, TID, Routine, Start date 04/06/19 8:00:00 EDT Senokot 8.6 mg Tab: 17.2 mg = 2 tab(s), Tab, Oral, BID PRN Other (see comment), Routine, Start date 04/05/19 18:05:00 EDT Trazodone: Trazodone, Normal Patient Dose, Each, Oral, Bedtime, Routine, Start date 04/05/19 23:00:00 EDT Vraylar: Vraylar, Normal Patient Dose, Each, Oral, Daily, Routine, Start date 04/06/19 9:00:00 EDT Zofran 4 mg/2 mL Injection: 4 mg = 2 mL, Injection, IV Push, q6hr PRN Nausea, Routine, Start date 04/05/19 18:05:00 EDT acetaminophen 325 mg Tab: 650 mg = 2 tab(s), Tab, Oral, q6hr PRN Pain, Routine, Start date 04/05/19 18:05:00 EDT aspirin 81 mg Oral EC Tab: 81 mg = 1 tab(s), Tab-EC, Oral, Daily, Routine, Start date 04/06/19 9:00:00 EDT heparin 5000 units/mL Inj: 5,000 unit(s) = 1 mL, Injection, SubCutaneous, BID, Routine, Start date 04/05/19 21:00:00 EDT hydrALAZINE 20 mg/mL Inj: 10 mg = 0.5 mL, Injection, IV Push, q6hr PRN Other (see comment), Routine, Start date 04/05/19 18:05:00 EDT morphine 2 mg/mL Inj: 2 mg = 1 mL, Injection, IV Push, q2hr PRN Chest pain for 5 day(s), Stop date 04/10/19 18:04:00 EDT, Routine, Start date 04/05/19 18:05:00 EDT nitroglycerin 0.4 mg sublingual Tab: 0.4 mg = 1 tab(s), Tab, SubLingual, q5min PRN Chest pain for 3 dose(s), Stop date Limited # of times, Routine, Start date 04/05/19 18:05:00 EDT nitroglycerin 0.4 mg sublingual Tab: 0.4 mg = 1 tab(s), Tab, SubLingual, q5min PRN Chest pain for 3 dose(s), Stop date Limited # of times, STAT, Start date 07/01/19 18:00:00 EDT, Hold for SBP < 110 Documented Medications Documented Dulera 100 mcg-5 mcg/inh inhalation aerosol: 2 puff(s), Inhalation, BID, 13 gram, Refill(s) 0, Asthma ProAir HFA 90 mcg/inh inhalation aerosol: 2 puff(s), Inhalation, q4hr Shortness of breath or wheezing, Refill(s) 0, Asthma Vraylar 6 mg oral capsule: 6 mg = 1 cap(s), Oral, Daily, Refills(s) 0, Other (see comment) albuterol 0.083% Inh Praveena 3 mL UD: 2.5 mg = 3 mL, Inhalation, q6hr, PRN for wheezing benztropine 1 mg Tab: 1 mg = 1 tab(s), Oral, BID, Refills(s) 0, Other (see comment) ciclopirox topical 8% solution: 1 igor, Refill(s) 0 lamotrigine 100 mg Tab: 100 mg = 1 tab(s), Oral, Bedtime, Refills(s) 0, Depression lamotrigine 200 mg Tab: 200 mg = 1 tab(s), Oral, Once a day (at bedtime), Refills(s) 0, Depression levothyroxine 175 mcg (0.175 mg) Tab: 175 microgram = 1 tab(s), Oral, Daily, Refills(s) 0, Thyroid meloxicam 15 mg Tab: 15 mg = 1 tab(s), Oral, Daily, Refills(s) 0, Inflammation mirtazapine 30 mg Tab: 30 mg = 1 tab(s), Oral, Once a day (at bedtime), Refills(s) 0, Depression omeprazole 20 mg Cap-DR: = 1 cap(s), Oral, Daily, Refills(s) 0, Control of stomach acid prazosin 2 mg oral capsule: 4 mg = 2 cap(s), Oral, Bedtime, Refills(s) 0, High blood pressure quetiapine 200 mg Tab: 100 mg = 0.5 tab(s), Oral, TID, Refills(s) 0, Depression traZODONE 100 mg Tab: 200 mg = 2 tab(s), Oral, Once a day (at bedtime), Refills(s) 0, Depression, Medications (23) Active Scheduled: (15) aspirin 81 mg Oral EC Tab [F] 81 mg 1 tab(s), Oral, Daily heparin 5,000 units/mL Inj [F] 5,000 unit(s) 1 mL, SubCutaneous, BID Patient Specific Meds Normal Patient Dose, Inhalation, BID Patient Specific Meds [F] Normal Patient Dose, Oral, BID Patient Specific Meds [F] Normal Patient Dose, Oral, Bedtime Patient Specific Meds [F] Normal Patient Dose, Oral, Bedtime Patient Specific Meds [F] Normal Patient Dose, Oral, Bedtime Patient Specific Meds [F] Normal Patient Dose, Oral, Bedtime Patient Specific Meds [F] Normal Patient Dose, Oral, Daily Patient Specific Meds [F] Normal Patient Dose, Oral, Daily Patient Specific Meds [F] Normal Patient Dose, Oral, TID Patient Specific Meds [F] Normal Patient Dose, Oral, Daily Patient Specific Meds [F] Normal Patient Dose, Oral, Daily Patient Specific Meds [F] Normal Patient Dose, Oral, qAM Patient Specific Meds [F] Normal Patient Dose, Oral, Daily Continuous: (0) PRN: (8) acetaminophen 325 mg Tab UD [F] 650 mg 2 tab(s), Oral, q6hr hydrALAZINE 20 mg/mL Inj [F] 10 mg 0.5 mL, IV Push, q6hr magnesium hydroxide 8% Oral Susp 30 mL [F] 30 mL, Oral, q6hr morphine 2 mg/mL preservative-free SOLN [F] 2 mg 1 mL, IV Push, q2hr nitroglycerin 0.4 mg sublingual Tab [F] 0.4 mg 1 tab(s), SubLingual, q5min nitroglycerin 0.4 mg sublingual Tab [F] 0.4 mg 1 tab(s), SubLingual, q5min ondansetron 2 mg/mL Inj [F] 4 mg 2 mL, IV Push, q6hr senna 8.6 mg Tab [F] 17.2 mg 2 tab(s), Oral, BID Problem list: All Problems Acid reflux / SNOMED CT 3753598980 / Confirmed Ankle instability / SNOMED CT 1818466 / Confirmed right Apnea, sleep / SNOMED CT 573103492 / Confirmed Asthma / SNOMED CT 6092151380 / Confirmed Back pain / SNOMED CT 083208338 / Confirmed Chest pain / SNOMED CT 79563057 / Confirmed center of chest- feels like a bruise/ 4/10 on pain scale - reminds him of the pain he had when he had Pleurisy. Instructed to go to ER- wants to finish PST testing first stated pain down to 2/10 Hypothyroidism / SNOMED CT 446935822 / Confirmed Knee pain / SNOMED CT 077744180 / Confirmed Pleurisy / SNOMED CT 319272410 / Confirmed Prediabetes / SNOMED CT 4080120618 / Confirmed, Active Problems (10) Acid reflux Ankle instability Apnea, sleep Asthma Back pain Chest pain Hypothyroidism Knee pain Pleurisy Prediabetes Histories Past Medical History: No active or resolved past medical history items have been selected or recorded. Family History: No family history items have been selected or recorded. Procedure history: 1. Brostrom repair with Arthrex internal brace, right on 12/19/2016 at 41 Years. Appendectomy ([id number]). bilateral carpal tunnel release. removal foreign body (bb) rt hand- cyst formedaround. cyst excision above right eye. excision rt neck cyst- benign. Social History Social & Psychosocial Habits Alcohol 12/09/2016 Risk Assessment: Denies Alcohol Use Comment: tomas - 04/05/2019 17:03 - Soraya Camacho RN Substance Abuse 12/09/2016 Risk Assessment: Denies Substance Abuse Comment: tomas - 04/05/2019 17:03 - Soraya Camacho RN Tobacco 12/09/2016 Risk Assessment: Denies Tobacco Use 04/05/2019 Tobacco Use: Never (less than 100 in l Comment: tomas - 04/05/2019 17:03 - Soraya Camacho RN . Physical Examination Vital Signs (last 24 hrs) Last Charted Temp Oral 36.7 DegC (APR 06 07:31) Heart Rate Peripheral 87 bpm (APR 05 19:38) Resp Rate 18 br/min (APR 06 07:) SBP H 141 mmHg (APR 06 07:31) DBP H 93 mmHg (APR 06 07:31) SpO2 95 % (APR 06 07:) Height 185 cm (APR 05 19:38) Weight 143.1 kg (APR 06 05:43) BMI 41.52 kg/m2 (APR 05 19:38) Measurements from flowsheet : Measurements 04/06/2019 05:43 EDT Weight Measured 143.1 kg 04/05/2019 19:38 EDT Height/Length Measured 185 cm [facility] Weight Calculated 79.52 kg BSA Measured 2.7 m2 Body Mass Index Measured 41.52 kg/m2 Weight Measured 142.1 kg 04/05/2019 19:32 EDT Height/Length Measured 183 cm Body Mass Index Measured 42.85 kg/m2 Weight Measured 143.5 kg 04/05/2019 16:25 EDT Height/Length Measured 183 cm Body Mass Index Measured 42.85 kg/m2 Weight Measured 143.5 kg 04/05/2019 15:47 EDT Height/Length Measured 181.5 cm Weight Measured 143.3 kg 04/05/2019 15:14 EDT Height/Length Measured 181.5 cm [facility] Weight Calculated 76.35 kg BSA Measured 2.69 m2 Body Mass Index Measured 43.5 kg/m2 Weight Measured 143.3 kg General: Alert and oriented, No acute distress. Eye: Pupils are equal, round and reactive to light, Extraocular movements are intact. HENT: Normocephalic. Neck: Supple, No jugular venous distention. Respiratory: Lungs are clear to auscultation. Cardiovascular: Normal rate, Regular rhythm, No murmur, No gallop. Gastrointestinal: Soft, Non-tender, Non-distended, Normal bowel sounds. Musculoskeletal No deformity. Integumentary: Intact. Neurologic: Alert, Oriented, No focal deficits. Psychiatric: Cooperative, Appropriate mood & affect. Review / Management Results review: Labs Most Recent Results Hgb 14.3 (APR 06) Hct 42.4 (APR 06) Cl 1.1 (APR 06) . Impression and Plan Chest pain: largely typical of angina pectoris. MAYANK. No objective ischemia. Offered pt ST vs cardiac cath and patient accept stress testing. Continue ASA daily. Recommend Lexiscan nuclear stress testing. Thank you Normal [facility] Comment on above: Result Comment: Elec tronically Signed By: Lakia ALONSO, Isreal Kevin\Date and Time Signed: 04/06/19 09:43 EDT ED Note-Physicianon 04-06-20 ED Note-Physician Basic Information Time Seen: Eduarda Israel, Lucila Chaparro 04/05/2019 16:50 Chief Complaint Pt arrives from pre surgical testing for chest pain x 1 week. Pt states midsternal, feels like pleurisy . 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 Pt denies any other complaints. History of Present Illness The patient is 43-year-old male, morbidly obese, who presented to the ED with chest pain. The patient points to the center of his chest. He describes the pain as dull. He states the pain has been present for past one week. The patient stated the pain has been constant. He rates the pain 3 out of 10. He states that the exertion makes the pain worse. He reports some sweating. Denies any nausea or vomiting. Denies any fever, denies any chills. The patient reports some cough with yellow sputum. Denies any shortness of breath. The patient denies any abdominal pain. He denies any other associated symptoms. The patient states that he was at the preadmission testing for bloodwork for right ankle surgery as an outpatient on April 15, and had told them about the chest pain and they sent him to the emergency room. Review of Systems Additional ROS info: Except as noted in the above Review of Systems and in the History of Present Illness all other systems have been reviewed and are negative or noncontributory. Physical Exam Vitals & Measurements T: 36.8 ?C (Oral) HR: 90(Monitored) RR: 16 BP: 146/94 SpO2: 94% HT: 183 cm WT: 143.5 kg BMI: 42.85 General: alert, no acute distress Skin: warm, dry Head: no trauma, normocephalic Neck: Trachea midline, no tenderness, supple Eye: normal conjunctiva, sclera clear ENMT: Oral mucosa moist, no pharyngeal erythema or exudate Cardiovascular: regular rate and rhythm Respiratory: Lungs CTA, respirations non labored, breath sounds equal Gastrointestinal: soft, non distended, no tenderness, no guarding Extremities: no deformity, no trauma, there is mild tenderness on the left calf. The circumference of the left and right calf are equal, 47 cm. Neurological: Alert and oriented, speech normal, no focal neuro deficits Psychiatric: cooperative, affect appropriate for age Medical Decision Making The patient presented with a chest pain which gets worse with exertion. The bloodwork reviewed. The chest x-ray shows no acute cardiopulmonary disease. The EKG shows no acute ischemic changes. The cases discussed with Dr. Dorman mill representative who recommends patient be admitted for unstable angina. The patient is given aspirin and nitroglycerin sublingual. The case is discussed with the hospitalist and the patient will be admitted to their services. Assessment/Plan 1. Chest pain (R07.9: Chest pain) 2. Unstable angina (I20.0: Unstable angina) Orders: aspirin, 162 mg = 2 tab(s), Tab-Chew, Oral, Once, Stop date 04/05/19 18:00:00 EDT, STAT, Start date 04/05/19 18:00:00 EDT nitroglycerin, 0.4 mg = 1 tab(s), Tab, SubLingual, q5min PRN Chest pain for 3 dose(s), Stop date Limited # of times, STAT, Start date 04/05/19 18:00:00 EDT, Hold for SBP < 110 D-Dimer ED Cardiac Monitoring ED Physician consult Hospitalist for continued care Oxygen Saturation Oxygen Therapy PT & PTT Saline Lock Insert Troponin 0 Hr. Troponin 3 Hr. Troponin 6 Hr. Troponin 9 Hr. XR Chest Single View Disposition Plan Patient Discharge Condition Stable Discharge Disposition Admitted to the hospital Discharge Prescription List Prescriptions No active prescription medications Follow-up No qualifying data available Problem List/Past Medical History Ongoing No qualifying data Historical No qualifying data Procedure/Surgical History 1. Brostrom repair with Arthrex internal brace, right (12/19/2016), Appendectomy, bilateral carpal tunnel release, cyst excision above right eye, excision rt neck cyst- benign, removal foreign body (bb) rt hand- cyst formedaround. Medications Inpatient aspirin 81 mg Chew Tab, 162 mg= 2 tab(s), Oral, Once nitroglycerin 0.4 mg sublingual Tab, 0.4 mg= 1 tab(s), SubLingual, q5min, PRN Home benztropine 1 mg Tab, 1 mg= 1 tab(s), Oral, BID Dulera 100 mcg-5 mcg/inh inhalation aerosol, 2 puff(s), Inhalation, BID lamotrigine 100 mg Tab, 100 mg= 1 tab(s), Oral, Daily lamotrigine 200 mg Tab, 200 mg= 1 tab(s), Oral, Once a day (at bedtime) levothyroxine 175 mcg (0.175 mg) Tab, 175 microgram= 1 tab(s), Oral, Daily meloxicam 15 mg Tab, 15 mg= 1 tab(s), Oral, Daily mirtazapine 30 mg Tab, 30 mg= 1 tab(s), Oral, Once a day (at bedtime) omeprazole 20 mg Cap-DR, 1 cap(s), Oral, Daily prazosin 2 mg oral capsule, 2 mg= 1 cap(s), Oral, BID ProAir HFA 90 mcg/inh inhalation aerosol, 2 puff(s), Inhalation, q4hr, PRN quetiapine 200 mg Tab, 100 mg= 0.5 tab(s), Oral, TID traZODONE 100 mg Tab, 200 mg= 2 tab(s), Oral, Once a day (at bedtime) Vraylar 6 mg oral capsule, 6 mg= 1 cap(s), Oral, Daily Allergies codeine (codeine, Violent) Pollen (Hayfever) Social History Alcohol - Denies Alcohol Use, 12/09/2016 Substance Abuse - Denies Substance Abuse, 12/09/2016 Tobacco - Denies Tobacco Use, 12/09/2016 Never (less than 100 in lifetime) Tobacco Use:., 04/05/2019 Lab Results PT: 11.6 second(s) (04/05/19 17:17:00 EDT) INR: 1 (04/05/19 17:17:00 EDT) PTT: 29.1 second(s) (04/05/19 17:17:00 EDT) D-Dimer: 297 ng/mL (04/05/19 17:17:00 EDT) Troponin: <0.03 (04/05/19 17:17:00 EDT) Diagnostic Results XR Chest Single View 04/05/19 17:32:48 IMPRESSION: NO RADIOGRAPHIC EVIDENCE OF ACTIVE DISEASE IN THE CHEST. CLINICAL HISTORY: MID STERNAL CHEST PAIN COMPARISONS: 12/09/2016 COMMENT: Portable chest x-ray demonstrates normal appearance of the heart and mediastinum. Lungs appear clear. Visualized osseous structures appear unremarkable. No significant change since the 12/09/2016 chest x-ray Signed By: Presley Jason MD EKG Results SINUS RHYTHM MINIMAL VOLTAGE CRITERIA FOR LVH, CONSIDER NORMAL VARIANT rate 83 BPM Normal [facility] Comment on above: Result Comment: Elec tronically Signed By: Hajdari M.D., Astrit H\.br\Date and Time Signed: 04/06/19 07:18 EDT Interdisciplinary Note - Sanjay e Manageron 04-06-2019 Interdisciplinary Note - Farm[employer] Rounds done at this time with Dr Rosa, Dipti WATKINS, [facility], and Es Rn in another pt room. White board updated, contact information given. DME, PCP, and insurance verified. pt alert and participates in care plan. diagnostics and labs reviewed. pt getting echo currently. pt needs outpatient stress test. Dr Dorman to consult for unstable angina. therapy to evaluate. obs admit. anticipated dc 04/06. CRM following. PT had worked with patient and he will need a FWW post ankle surgery in a week with Dr Mercado. pts wants the FWW taken care of while in the hospital, [facility] [place]. I spoke with Dr Cope office and they will send a script over on Friday when Dr Mercado returns. Normal [facility] Interdisciplinary Note - PTo n 04-06-2019 Interdisciplinary Note - PT PT Evaluation completed with an MA PAC score of 24/24. Pt functioning at [place] level at this time with no dizziness or chest pain. Pt does have an upcomming ankle surgery on 04/15/19 in which he would benefit from a FWW d/t he will be NWB on right LE. Pt would need a script for a FWW for his upcomming surgery Normal [facility] Lipid Panelon 04-06-2019 Cholesterol [Mass/Vol] 184 mg/dL Normal 120-200 [facility] Comment on above: Performed By: #### 2 106096, 7983713, 9947981, 10668899, 3812683, 2088915 #### [facility] [address] [place] [address] Cholesterol in HDL [Mass/Vol] 33 mg/dL [facility] Comment on above: Result Comment: HDL > or equal to 60 mg/dL: Low cardiovascular risk HDL < 40 mg/dL : High cardiovascular risk Performed By: #### 2 472150, 8749974, 6441418, 35500291, 2290886, 4928506 #### [facility] [address] [place] [address] Cholesterol in LDL [Mass/Vol] 120 mg/dL Normal <=129 [facility] Comment on above: Performed By: #### 2 313821, 1733380, 8349415, 59479653, 3583530, 1271753 #### [facility] [address] [place] [address] Cholesterol in VLDL [Mass/Vol] 40 mg/dL Normal 7-40 [facility] Comment on above: Performed By: #### 2 619496, 6558343, 5792231, 06671013, 6556816, 3490471 #### [facility] [address] [place] [address] Triglyceride [Mass/Vol] 201 mg/dL High <=149 [facility] Comment on above: Performed By: #### 2 627149, 5759632, 7787390, 84804904, 7558900, 5735407 #### [facility] [address] [place] [address] Patient Education - Texton 0 04-06-2019 Patient Education - Text Normal [facility] Troponin 6 Hr.on 04-06-2019 Troponin I.cardiac [Mass/Vol] ng/mL Normal <=0.03 [facility] Comment on above: Result Comment: New Troponin Assay 02/17/14 JENNIFER SC Cutoff value > or = 0.03 ng/mL in conjunction with clinical conditions of myocardial infarction. (www.[email or web address].org/guidelines) Performed By: #### 2 757053, 7757530, 4667887, 50443950, 3657477, 0059850 #### [facility] [address] [place] [address] Troponin 9 Hr.on 04-06-2019 Troponin I.cardiac [Mass/Vol] ng/mL Normal <=0.03 [facility] Comment on above: Result Comment: New Troponin Assay 02/17/14 JENNIFER SC Cutoff value > or = 0.03 ng/mL in conjunction with clinical conditions of myocardial infarction. (www.[email or web address].org/guidelines) Performed By: #### 2 274380, 0506871, 4728003, 51249211, 5589238, 5480751 #### [facility] [address] [place] [address] eGFRon 04-06-2019 GFR/1.73 sq M predicted among blacks MDRD (S/P/Bld) [Vol rate/Area] mL/min/{1.73_m2} Normal >=59 [facility] Comment on above: Order Comment: Order added by Discern Expert. Result Comment: eGFR is race adjusted. AA=. Performed By: #### 2 758738, 5637748, 5351480, 95959061, 3499197, 1453388 #### [facility] [address] [place] [address] GFR/1.73 sq M predicted among non-blacks MDRD (S/P/Bld) [Vol rate/Area] mL/min/{1.73_m2} Normal >=59 [facility] Comment on above: Order Comment: Order added by Discern Expert. Result Comment: Upper And Bottom Lacer Hand saida kidney disease could be indicated at eGFR's of less than 60 mL/min/1.73m2. Kidney failure is indicated at less than 15 mL/min/1.73m2. Performed By: #### 2 710650, 8060101, 7346404, 43962420, 6181948, 3510368 #### [facility] [address] [place] [address] BUNon 04-05-2019 Urea nitrogen [Mass/Vol] 16 mg/dL Normal 5-21 [facility] Comment on above: Performed By: #### 2 266124, 1257496, 2418260, 58259138, 2539357, 4313558 #### [facility] [address] [place] [address] CBC w/Indiceson 04-05-2019 Erythrocyte distribution width (RBC) [Ratio] 14.6 % High 10.9-14.2 [facility] Comment on above: Performed By: #### 2 969606, 2561450, 1448655, 24774868, 8899740, 5801003 #### [facility] [address] [place] [address] Hematocrit (Bld) [Volume fraction] 40.9 % Normal 37.7-49.0 [facility] Comment on above: Performed By: #### 2 564632, 9382904, 9475529, 41770958, 3322015, 6591466 #### [facility] [address] [place] [address] Hemoglobin (Bld) [Mass/Vol] 13.9 g/dL Normal 13.5-17.5 [facility] Comment on above: Performed By: #### 2 408617, 2138401, 6144657, 45423854, 3025809, 2678653 #### [facility] [address] [place] [address] MCH (RBC) [Entitic mass] 28.9 pg Normal 27.0-34.0 [facility] Comment on above: Performed By: #### 2 713289, 2487330, 7262976, 50805295, 2061504, 7931492 #### [facility] [address] [place] [address] MCHC (RBC) [Mass/Vol] 33.8 g/dL Normal 33.3-35.7 [facility] Comment on above: Performed By: #### 2 268806, 2100327, 5096765, 67255207, 5070570, 6800089 #### [facility] [address] [place] [address] MCV (RBC) [Entitic vol] 85.4 fL Normal 80.0-100.0 [facility] Comment on above: Performed By: #### 2 578648, 5413884, 7074283, 33733382, 1552868, 8104893 #### [facility] [address] [place] [address] Platelet mean volume (Bld) [Entitic vol] 7.5 fL Normal 6.4-10.8 [facility] Comment on above: Performed By: #### 2 879872, 5262947, 5943967, 98037161, 5439690, 8136034 #### [facility] [address] [place] [address] Platelets (Bld) [#/Vol] 372.0 E9/L Normal 150.0-500.0 [facility] Comment on above: Performed By: #### 2 796095, 2667385, 8615238, 14293048, 7688487, 2771779 #### [facility] [address] [place] [address] RBC (Bld) [#/Vol] 4.8 E12/L Normal 4.3-5.9 [facility] Comment on above: Performed By: #### 2 572861, 0252536, 9962345, 76062523, 0570546, 4193305 #### [facility] [address] [place] [address] WBC corrected for nucl RBC Auto (Bld) [#/Vol] 7.8 E9/L Normal 4.0-11.0 [facility] Comment on above: Performed By: #### 2 514532, 3804032, 9040830, 51958330, 9378016, 3605025 #### [facility] [address] [place] [address] Creatinineon 04-05-2019 Creatinine [Mass/Vol] 1.0 mg/dL Normal 0.5-1.3 [facility] Comment on above: Performed By: #### 2 067299, 1849364, 6575302, 59447429, 2068273, 4390511 #### [facility] [address] [place] [address] D-Dimeron 04-05-2019 Fibrin D-dimer FEU (PPP) [Mass/Vol] 297 ng/mL Normal 215-500 [facility] Comment on above: Result Comment: This D-Dimer assay may be used in conjunction with a non-high clinical pretest probability assessment to exclude deep-vein thrombosis(DVT). For exclusion of venous thrombosis or pulmonary embolism the analyte D-Dimer should not be used as an aid in patients with: Therapeutic dose anticoagulant therapy for >24 hours Fibrinolytic therapy within previous 7 days Trauma or surgery within previous 4 weeks Disseminated malignacies Aortic aneurysm Sepsis, severe infections, pneumonia, severe skin infections Liver cirrhosis Performed By: #### 2 083875, 3307797, 3293643, 01360889, 2020502, 2824237 #### [facility] [address] [place] [address] ED Clinical Summaryon 2018 ED Clinical Summary [address] [address] ED Clinical Summary Person Information Name: JOSE ROLDAN/[facility]_[place] Age: 43 Years : 1975 12:00 AM Sex: Male Language: Italian PCP: MEGAN BIRD DO Marital Status: Phone: [phone] Visit Id: Visit Reason: Chest pain; CHEST PAIN Speciality: Acuity: 3 Enc Type: Observation Med Service: Medical Arrival: 04/05/2019 4:31 PM Discharge: LOS: 000 02:27 Checkin: 04/05/2019 4:31 PM Checkout: 04/05/2019 6:58 PM Dispo Type: Admitted as IP to this [facility] EVENTS: Event Name Event Status Request Date/Time Start Date/Time Complete Date/Time Arrive Complete 04/05/2019 4:31 PM 04/05/2019 4:31 PM 04/05/2019 4:31 PM Document Home Meds Request 04/05/2019 4:31 PM Triage Complete 04/05/2019 4:31 PM 04/05/2019 4:55 PM 04/05/2019 4:55 PM Bed Assign Complete 04/05/2019 4:40 PM 04/05/2019 4:40 PM 04/05/2019 4:[address] Exam Complete 04/05/2019 4:40 PM 04/05/2019 4:50 PM 04/05/2019 4:50 PM RN Exam Complete 04/05/2019 4:40 PM 04/05/2019 5:03 PM 04/05/2019 5:03 PM Registration Complete 04/05/2019 4:50 PM 04/05/2019 5:26 PM 04/05/2019 5:26 PM EKG Cancel 04/05/2019 4:54 PM 04/05/2019 4:56 PM Pending Labs Request 04/05/2019 5:04 PM Lab Complete 04/05/2019 5:04 PM 04/05/2019 5:46 PM Patient Care Request 04/05/2019 5:04 PM RT Cancel 04/05/2019 5:04 PM 04/05/2019 6:54 PM X-Ray Complete 04/05/2019 5:04 PM 04/05/2019 5:14 PM 04/05/2019 5:23 PM Wet Read Request 04/05/2019 5:23 PM Reg Complete Request 04/05/2019 5:26 PM Meds Admin Request 04/05/2019 6:01 PM Consult Request 04/05/2019 6:01 PM Hospitalist Consult Request 04/05/2019 6:01 PM Patient Care Request 04/05/2019 6:06 PM Consult Request 04/05/2019 6:06 PM EKG Request 04/05/2019 6:06 PM Pending Labs Request 04/05/2019 6:06 PM Lab Request 04/05/2019 6:06 PM Meds Admin Request 04/05/2019 6:06 PM RT Request 04/05/2019 6:06 PM Bed Request Request 04/05/2019 6:06 PM Reg Bed Request Request 04/05/2019 6:06 PM Admit Request 04/05/2019 6:06 PM Echo Request 04/05/2019 6:25 PM Patient Care Request 04/05/2019 6:25 PM Pending Labs Request 04/05/2019 6:31 PM Patient Care Request 04/05/2019 6:33 PM Patient Care Request 04/05/2019 6:41 PM Patient Care Request 04/05/2019 6:41 PM Patient Care Request 04/05/2019 6:41 PM Patient Care Request 04/05/2019 6:41 PM ADDRESS: [facility] [place] [id number] PHYS DOC NOTES: MEDICAL INFORMATION: Prescriptions Given: PATIENT EDUCATION INFORMATION: Instructions: Follow up: DIAGNOSIS: 1:Chest pain; 2:Unstable angina; 3:Morbidly obese; 4:Dyspnea on exertion; 5:Bipolar disorder; 6:Hypertension; 7:Prediabetes; 8:No contraindication to deep vein thrombosis (DVT) prophylaxis Normal [facility] ED Clinical Summary [place] [id number] ED Clinical Summary Person Information Name: JOSE ROLDAN/[facility]_[place] Age: 43 Years : 1975 12:00 AM Sex: Male Language: Italian PCP: NONE, XXXX Marital Status: Visit Id: Visit Reason: Chest pain; PRE SURG TESTING Speciality: Acuity: Enc Type: Outpatient Med Service: Pre-Admission Testing Arrival: 04/05/2019 3:12 PM Discharge: 04/05/2019 4:49 PM LOS: 000 01:37 Checkin: 04/05/2019 3:12 PM Checkout: 04/05/2019 4:49 PM Dispo Type: Still a Patient EVENTS: Event Name Event Status Request Date/Time Start Date/Time Complete Date/Time Arrive Complete 04/05/2019 3:12 PM 04/05/2019 3:12 PM 04/05/2019 3:12 PM Document Home Meds Request 04/05/2019 3:12 PM Triage Request 04/05/2019 3:12 PM EKG Complete 04/05/2019 4:25 PM 04/05/2019 4:27 PM Registration Complete 04/05/2019 4:31 PM 04/05/2019 4:31 PM 04/05/2019 4:31 PM Reg Complete Request 04/05/2019 4:31 PM Bed Assign Complete 04/05/2019 4:40 PM 04/05/2019 4:40 PM 04/05/2019 4:[address] Exam Request 04/05/2019 4:40 PM RN Exam Request 04/05/2019 4:40 PM Discharge Complete 04/05/2019 4:49 PM 04/05/2019 4:49 PM 04/05/2019 4:49 PM Transfer Complete 04/05/2019 4:49 PM 04/05/2019 4:49 PM 04/05/2019 4:49 PM ADDRESS: [place] [phone] [facility] DOC NOTES: MEDICAL INFORMATION: Prescriptions Given: Home Meds Display benztropine (benztropine 1 mg Tab) 1 mg = 1 tab(s), Oral, BID, Refills(s) 0, Other (see comment) cariprazine (Vraylar 6 mg oral capsule) 6 mg = 1 cap(s), Oral, Daily, Refills(s) 0, Other (see comment) lamotrigine (lamotrigine 100 mg Tab) 100 mg = 1 tab(s), Oral, Daily, Refills(s) 0, Depression lamotrigine (lamotrigine 200 mg Tab) 200 mg = 1 tab(s), Oral, Once a day (at bedtime), Refills(s) 0, Depression meloxicam (meloxicam 15 mg Tab) 15 mg = 1 tab(s), Oral, Daily, Refills(s) 0, Inflammation mirtazapine (mirtazapine 30 mg Tab) 30 mg = 1 tab(s), Oral, Once a day (at bedtime), Refills(s) 0, Depression prazosin (prazosin 2 mg oral capsule) 2 mg = 1 cap(s), Oral, BID, Refills(s) 0, High blood pressure quetiapine (quetiapine 200 mg Tab) 100 mg = 0.5 tab(s), Oral, TID, Refills(s) 0, Depression trazodone (traZODONE 100 mg Tab) 200 mg = 2 tab(s), Oral, Once a day (at bedtime), Refills(s) 0, Depression PATIENT EDUCATION INFORMATION: Instructions: Follow up: DIAGNOSIS: Normal [facility] ED Note-Nursingon 04-05-2019 ED Note-Nursing Pt. arrives via presurgery testing for chest pain. Pt. had labwork ordered. Presurgery told registration not to make a new FIN for him d/t having these orders pending. Pt. LOS looks like 1.5 hours in ED . Informed Kathrine Vicente RN about this. Informed to make new FIN and d/c this FIN so LOS and EKG times are not skewed. Normal [facility] ED Patient Education Noteon 04-05-2019 ED Patient Education Note Normal [facility] ED Patient Education Note Normal [facility] ED Patient Summaryon 019 ED Patient Summary [place] [id number] Patient Discharge Instructions Person Information Name: JOSE ROLDAN Age: 43 Years Arrival Date: 04/05/2019 4:31 PM Discharge Diagnosis: 1:Chest pain; 2:Unstable angina; 3:Morbidly obese; 4:Dyspnea on exertion; 5:Bipolar disorder; 6:Hypertension; 7:Prediabetes; 8:No contraindication to deep vein thrombosis (DVT) prophylaxis Primary Care Physician: MEGAN BIRD DO Provider Information Primary Provider: Lucila Lerner M.D. Advanced Sap Hana Architect:None The exam and treatment you received in the Emergency Department were for an urgent problem and are not intended as complete care. It is important that you follow up with a doctor, nurse practitioner, or physician?s clerical dentist assistant for ongoing care. If your symptoms become worse or you do not improve as expected and you are unable to reach your usual health care provider, you should return to the Emergency Department. We are available 24 hours a day. JOSE ROLDAN has been given the following list of patient education materials, prescriptions and follow-up instructions: Follow-up Instructions: In the event that this physician does not participate in your insurance network, please consult with your insurance company to find a nearby participating provider. Patient Education Materials: A MESSAGE TO ALL PATIENTS REGARDING OPIOIDS PRESCRIPTION OPIOIDS: WHAT YOU NEED TO KNOW Prescription opioids can be used to help relieve rusyhazr-pd-[id number] pain and are often prescribed following a surgery or injury, or for certain health conditions. These medications can be an important part of the treatment but also come with serious risks. It is important to work with your healthcare provider to make sure you are getting the safest, most effective care. WHAT ARE THE RISKS AND SIDE EFFECTS OF OPIOID USE? Prescription opioids carry serious risks of addiction and overdose, especially with prolonged use. An opioid overdose, often marked by slowed breathing, can cause sudden . The use of prescription opioids can have a number of side effects as well, even when taken as directed: ? Tolerance?meaning you might need to take more of the medication for the same pain relief ? Physical dependence?meaning you have symptoms of withdrawal when a medication is stopped ? Increased sensitivity to pain ? Constipation ? Nausea, vomiting, and dry mouth ? Sleepiness and dizziness ? Confusion ? Depression ? Low levels of testosterone that can result in lower sex drive, energy, and strength ? Itching and sweating RISKS ARE GREATER WITH: ? History of drug misuse, substance use disorder, or overdose ? Mental health conditions (such as depression or anxiety) ? Sleep apnea ? Older age (65 years and older) ? Avoid alcohol while taking prescription opioids. Also, unless specifically advised by your health care provider, medications to avoid include: ? Benzodiazepines (such as Xanax or Valium) ? Muscle relaxants (such as Soma or Flexeril) ? Hypnotics (such as Ambien or Lunesta) ? Other prescription opioids KNOW YOUR OPTIONS Talk to your health care provider about ways to manage your pain that don?t involve prescription opioids. Some of these options may actually work better and have fewer risks and side effects. Options may include: ? Pain relievers such as acetaminophen, ibuprofen, and naproxen ? Some medication that are also used for depression or seizures ? Physical therapy and exercise ? Cognitive behavioral therapy, a psychological, goal-directed approach, in which patients learn how to modify physical, behavioral, and emotional triggers of pain and stress. IF YOU ARE PRESCRIBED OPIOIDS FOR PAIN: ? Never take opioids in greater amounts or more often than prescribed. ? Follow up with your primary health care provider. o Work together to create a plan on how to manage your pain. o Talk about ways to help manage your pain that don?t involve prescription opioids. o Talk about any and all concerns and side effects. ? Help prevent misuse and abuse o Never sell or share prescription opioids. o Never use another person?s prescription opioids. ? Store prescription opioids in a secure place and out of reach of others (this may include visitors, children, friends, and family). ? Safely dispose of unused prescription opioids: Find your community drug take-back program or your pharmacy mail-back program, or flush them down the toilet, following guidance from the Food and Drug Administration (www.fda.gov/Drugs/Re sourcesForYou). ? Visit www.cdc.gov/drugoverd ose to learn about the risks of opioids abuse and overdose. ? If you believe you may be struggling with addiction, tell your health patient care representative and ask for guidance or call SAMHSA?S National Helpline at 7-675-487-NHDP. v Source: [place] Department of Health and Human Services/Center for Disease Control & Prevention [facility] Medications Given: Medication Dose Route aspirin 162.00 mg Oral nitroglycerin 0.40 mg SubLingual Medication Information: Medications to Continue with No Changes Other Medications albuterol (ProAir HFA 90 mcg/inh inhalation aerosol) 2 Puffs Inhalation every 4 hours as needed Shortness of breath or wheezing. benztropine (benztropine 1 mg Tab) 1 Tabs By Mouth 2 times a day. cariprazine (Vraylar 6 mg oral capsule) 1 Capsules By Mouth every day. formoterol-mometasone (Dulera 100 mcg-5 mcg/inh inhalation aerosol) 2 Puffs Inhalation 2 times a day. lamotrigine (lamotrigine 100 mg Tab) 1 Tabs By Mouth every day. lamotrigine (lamotrigine 200 mg Tab) 1 Tabs By Mouth once a day (at bedtime). levothyroxine (levothyroxine 175 mcg (0.175 mg) Tab) 1 Tabs By Mouth every day. meloxicam (meloxicam 15 mg Tab) 1 Tabs By Mouth every day. mirtazapine (mirtazapine 30 mg Tab) 1 Tabs By Mouth once a day (at bedtime). omeprazole (omeprazole 20 mg Cap-DR) 1 Capsules By Mouth every day. prazosin (prazosin 2 mg oral capsule) 1 Capsules By Mouth 2 times a day. quetiapine (quetiapine 200 mg Tab) 0.5 Tabs By Mouth 3 times a day. trazodone (traZODONE 100 mg Tab) 2 Tabs By Mouth once a day (at bedtime). Comment: Pharmacy Information: Thank you for choosing [facility] Patient Education Materials: JAMAR Patel THOMAS E , have received the following patient education materials/instruction s and have verbalized understanding: Patient Education Materials: Follow-up Instructions: Prescriptions: Patient Signature Date Clinician/Nurse Signature Date 04/05/19 18:58:35 Normal [facility] ED Patient Summary [place] [id number] Patient Discharge Instructions Person Information Name: JOSE ROLDAN Age: 43 Years Arrival Date: 04/05/2019 3:12 PM Discharge Diagnosis: Primary Care Physician: NONE, XXXX Provider Information Primary Provider: Advanced Sap Hana Architect:None The exam and treatment you received in the Emergency Department were for an urgent problem and are not intended as complete care. It is important that you follow up with a doctor, nurse practitioner, or physician?s clerical dentist assistant for ongoing care. If your symptoms become worse or you do not improve as expected and you are unable to reach your usual health care provider, you should return to the Emergency Department. We are available 24 hours a day. JAMAR JOSE Nieves has been given the following list of patient education materials, prescriptions and follow-up instructions: Follow-up Instructions: In the event that this physician does not participate in your insurance network, please consult with your insurance company to find a nearby participating provider. Patient Education Materials: A MESSAGE TO ALL PATIENTS REGARDING OPIOIDS PRESCRIPTION OPIOIDS: WHAT YOU NEED TO KNOW Prescription opioids can be used to help relieve [id number]-hfdbjs pain and are often prescribed following a surgery or injury, or for certain health conditions. These medications can be an important part of the treatment but also come with serious risks. It is important to work with your healthcare provider to make sure you are getting the safest, most effective care. WHAT ARE THE RISKS AND SIDE EFFECTS OF OPIOID USE? Prescription opioids carry serious risks of addiction and overdose, especially with prolonged use. An opioid overdose, often marked by slowed breathing, can cause sudden . The use of prescription opioids can have a number of side effects as well, even when taken as directed: ? Tolerance?meaning you might need to take more of the medication for the same pain relief ? Physical dependence?meaning you have symptoms of withdrawal when a medication is stopped ? Increased sensitivity to pain ? Constipation ? Nausea, vomiting, and dry mouth ? Sleepiness and dizziness ? Confusion ? Depression ? Low levels of testosterone that can result in lower sex drive, energy, and strength ? Itching and sweating RISKS ARE GREATER WITH: ? History of drug misuse, substance use disorder, or overdose ? Mental health conditions (such as depression or anxiety) ? Sleep apnea ? Older age (65 years and older) ? Avoid alcohol while taking prescription opioids. Also, unless specifically advised by your health care provider, medications to avoid include: ? Benzodiazepines (such as Xanax or Valium) ? Muscle relaxants (such as Soma or Flexeril) ? Hypnotics (such as Ambien or Lunesta) ? Other prescription opioids KNOW YOUR OPTIONS Talk to your health care provider about ways to manage your pain that don?t involve prescription opioids. Some of these options may actually work better and have fewer risks and side effects. Options may include: ? Pain relievers such as acetaminophen, ibuprofen, and naproxen ? Some medication that are also used for depression or seizures ? Physical therapy and exercise ? Cognitive behavioral therapy, a psychological, goal-directed approach, in which patients learn how to modify physical, behavioral, and emotional triggers of pain and stress. IF YOU ARE PRESCRIBED OPIOIDS FOR PAIN: ? Never take opioids in greater amounts or more often than prescribed. ? Follow up with your primary health care provider. o Work together to create a plan on how to manage your pain. o Talk about ways to help manage your pain that don?t involve prescription opioids. o Talk about any and all concerns and side effects. ? Help prevent misuse and abuse o Never sell or share prescription opioids. o Never use another person?s prescription opioids. ? Store prescription opioids in a secure place and out of reach of others (this may include visitors, children, friends, and family). ? Safely dispose of unused prescription opioids: Find your community drug take-back program or your pharmacy mail-back program, or flush them down the toilet, following guidance from the Food and Drug Administration (www.fda.gov/Drugs/Re sourcesForYou). ? Visit www.cdc.gov/drugoverd ose to learn about the risks of opioids abuse and overdose. ? If you believe you may be struggling with addiction, tell your health patient care representative and ask for guidance or call [facility]?S National Helpline at 3-066-370-QEWS. z Source: [place] Department of Health and Human Services/Center for Disease Control & Prevention [facility] Medications Given: Medication Dose Route No medications found. Medication Information: Medications to Continue Taking That Have Changed Other Medications START: quetiapine (quetiapine 200 mg Tab) 0.5 Tabs By Mouth 3 times a day. Medications to Continue with No Changes Other Medications albuterol (ProAir HFA 90 mcg/inh inhalation aerosol) 2 Puffs Inhalation every 4 hours as needed Shortness of breath or wheezing. benztropine (benztropine 1 mg Tab) 1 Tabs By Mouth 2 times a day. cariprazine (Vraylar 6 mg oral capsule) 1 Capsules By Mouth every day. formoterol-mometasone (Dulera 100 mcg-5 mcg/inh inhalation aerosol) 2 Puffs Inhalation 2 times a day. lamotrigine (lamotrigine 100 mg Tab) 1 Tabs By Mouth every day. lamotrigine (lamotrigine 200 mg Tab) 1 Tabs By Mouth once a day (at bedtime). levothyroxine (levothyroxine 175 mcg (0.175 mg) Tab) 1 Tabs By Mouth every day. meloxicam (meloxicam 15 mg Tab) 1 Tabs By Mouth every day. mirtazapine (mirtazapine 30 mg Tab) 1 Tabs By Mouth once a day (at bedtime). omeprazole (omeprazole 20 mg Cap-DR) 1 Capsules By Mouth every day. prazosin (prazosin 2 mg oral capsule) 1 Capsules By Mouth 2 times a day. trazodone (traZODONE 100 mg Tab) 2 Tabs By Mouth once a day (at bedtime). Comment: Pharm[facility] Information[facility] you for choosing [facility] Patient Education Materials: JAMAR Patel THOMAS E , have received the following patient education materials/instruction s and have verbalized understanding: Patient Education Materials: Follow-up Instructions: Prescriptions: Patient Signature Date Clinician/Nurse Signature Date 04/05/19 16:50:00 Normal [facility] Glucoseon 04-05-2019 Glucose [Mass/Vol] 108 mg/dL Normal 55-199 [facility] Comment on above: Performed By: #### 2 [id number], [id number] #### [facility] [address] [place] [address] [id number] 04-05-2019 HbA1c (Bld) [Mass fraction] 6.1 % High <=5.9 [facility] Comment on above: Order Comment: Add-o n if possible Performed By: #### 2 [id number], [id number] #### [facility] [address] [place] [address] History and Physicalon 04-05 History and Physical Basic Information Accompanied by: Family member Source of History: Self Present at Bedside: Family member Referral Source: Self History Limitation: None Chief Complaint Pt arrives from pre surgical testing for chest pain x 1 week. Pt states midsternal, feels like pleurisy . 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 Pt denies any other complaints. History of Present Illness 43-year-old morbidly obese male with past medical history of asthma, bipolar disorder, depression, PTSD, hypertension, prediabetes presents for preadmission testing for right ankle surgery. During the evaluation patient was complaining about chest pain and was sent to emergency department. Patient states pain is ongoing and constant for past 1 week. He reports occasional increase in pain with activity along with dyspnea on exertion. He has gained about 40 pounds in last 3 months with lack of physical activity and change in his psychiatric medications. Pain is localized squeezing type and not radiating anyplace. He relates it two out of 10 consistently. Patient's initial set of cardiac enzymes were negative. Construction Administrator was consult did via phone and and he is concerned about unstable angina and recommended that patient gets admitted to the hospitalist for further evaluation. Review of Systems Constitutional: no fever, no chills, no sweats, no weakness Respiratory: moderate shortness of breath, no cough, no orthopnea, no wheezing Cardiovascular: mild chest pain, no palpitations, no edema Additional ROS info: Except as noted in the above Review of Systems and in the History of Present Illness all other systems have been reviewed and are negative or noncontributory. Physical Exam Vitals & Measurements T: 36.8 ?C (Oral) HR: 90(Monitored) RR: 16 BP: 146/94 SpO2: 94% WT: 143.5 kg General: alert, no acute distress ENMT: TM's clear, oral mucosa moist, no pharyngeal erythema or exudate Cardiovascular: regular rate and rhythm, normal peripheral perfusion Respiratory: Lungs CTA, respirations non labored. No pain on palpation Abdomen: Soft, nontender, without rebound or rigidity, positive bowel sounds Extremities: no deformity, no trauma Neurological: oriented x 4, LOC appropriate for age, CN II-XII intact, motor strength equal & normal bilaterally, sensation equal & normal bilaterally, speech normal Lab Results PT: 11.6 second(s) (04/05/19 17:17:00 EDT) INR: 1 (04/05/19 17:17:00 EDT) PTT: 29.1 second(s) (04/05/19 17:17:00 EDT) D-Dimer: 297 ng/mL (04/05/19 17:17:00 EDT) Troponin: <0.03 (04/05/19 17:17:00 EDT) Images XR Chest Single View 04/05/19 17:32:48 IMPRESSION: NO RADIOGRAPHIC EVIDENCE OF ACTIVE DISEASE IN THE CHEST. CLINICAL HISTORY: MID STERNAL CHEST PAIN COMPARISONS: 12/09/2016 COMMENT: Portable chest x-ray demonstrates normal appearance of the heart and mediastinum. Lungs appear clear. Visualized osseous structures appear unremarkable. No significant change since the 12/09/2016 chest x-ray Signed By: Presley Jason MD Assessment/Plan 43-year-old morbidly obese male with past medical history of asthma, bipolar disorder, depression, PTSD, hypertension, prediabetes presented for chest pain evaluation from preadmission testing for right ankle surgery. 1. Chest pain(R07.9: Chest pain) Atypical in nature EKG shows no ischemic changes Admit as observation As I do not anticipate patient will require greater than 2 midnight stay Aspirin 81 mg daily Risk factor stratification Telemetry Nothing by mouth past midnight Trend cardiac enzymes Check echocardiogram 2. Unstable angina(I20.0: Unstable angina) As per mill representative Clinically unclear ? Stress test versus left heart catheterization Nothing by mouth past midnight Cardiology consultation 3. Morbidly obese(E66.01: Morbidly obese) Diet and exercise recommended 4. Dyspnea on exertion(R06.09: Dyspnea on exertion) Likely secondary to rapid weight gain Checking echocardiogram 5. Bipolar disorder(F31.9: Bipolar disorder) Continue chronic medications once verified 6. Hypertension(I10: Hypertension) Continue with lisinopril 7. Prediabetes(R73.03: Prediabetes) Check A1c Accu-Chek with sliding scale insulin 8. No contraindication to deep vein thrombosis (DVT) prophylaxis(Z78.9: No contraindication to deep vein thrombosis (DVT) prophylaxis) Subcutaneous heparin twice a day Full code Plan discussed with patient and at bedside This report was transcribed using voice recognition software. Every effort was made to ensure accuracy, however, inadvertently computerized public address system installer mistakes may be present. Ronny Rosa Hospitalist Problem List/Past Medical History Ongoing No qualifying data Historical No qualifying data Procedure/Surgical History 1. Brostrom repair with Arthrex internal brace, right (12/19/2016), Appendectomy, bilateral carpal tunnel release, cyst excision above right eye, excision rt neck cyst- benign, removal foreign body (bb) rt hand- cyst formedaround. Medications Inpatient acetaminophen 325 mg Tab, 650 mg= 2 tab(s), Oral, q6hr, PRN aspirin 81 mg Oral EC Tab, 81 mg= 1 tab(s), Oral, Daily heparin 5000 units/mL Inj, 5000 unit(s)= 1 mL, SubCutaneous, BID hydrALAZINE 20 mg/mL Inj, 10 mg= 0.5 mL, IV Push, q6hr, PRN Milk of Magnesia 8% Susp-Oral, 30 mL, Oral, q6hr, PRN morphine 2 mg/mL Inj, 2 mg= 1 mL, IV Push, q2hr, PRN nitroglycerin 0.4 mg sublingual Tab, 0.4 mg= 1 tab(s), SubLingual, q5min, PRN nitroglycerin 0.4 mg sublingual Tab, 0.4 mg= 1 tab(s), SubLingual, q5min, PRN Senokot 8.6 mg Tab, 17.2 mg= 2 tab(s), Oral, BID, PRN Zofran 4 mg/2 mL Injection, 4 mg= 2 mL, IV Push, q6hr, PRN Home benztropine 1 mg Tab, 1 mg= 1 tab(s), Oral, BID Dulera 100 mcg-5 mcg/inh inhalation aerosol, 2 puff(s), Inhalation, BID lamotrigine 100 mg Tab, 100 mg= 1 tab(s), Oral, Daily lamotrigine 200 mg Tab, 200 mg= 1 tab(s), Oral, Once a day (at bedtime) levothyroxine 175 mcg (0.175 mg) Tab, 175 microgram= 1 tab(s), Oral, Daily meloxicam 15 mg Tab, 15 mg= 1 tab(s), Oral, Daily mirtazapine 30 mg Tab, 30 mg= 1 tab(s), Oral, Once a day (at bedtime) omeprazole 20 mg Cap-DR, 1 cap(s), Oral, Daily prazosin 2 mg oral capsule, 2 mg= 1 cap(s), Oral, BID ProAir HFA 90 mcg/inh inhalation aerosol, 2 puff(s), Inhalation, q4hr, PRN quetiapine 200 mg Tab, 100 mg= 0.5 tab(s), Oral, TID traZODONE 100 mg Tab, 200 mg= 2 tab(s), Oral, Once a day (at bedtime) Vraylar 6 mg oral capsule, 6 mg= 1 cap(s), Oral, Daily Allergies codeine (codeine, Violent) Pollen (Hayfever) Social History Alcohol - Denies Alcohol Use, 12/09/2016 Substance Abuse - Denies Substance Abuse, 12/09/2016 Tobacco - Denies Tobacco Use, 12/09/2016 Never (less than 100 in lifetime) Tobacco Use:., 04/05/2019 Normal [facility] Comment on above: Result Comment: Elec tronically Signed By: SHELLEY ALONSO, Ronny Duncan\.br\Date and Time Signed: 04/05/19 18:32 EDT [place] 04-05-2019 Anion gap [Moles/Vol] 12 mmol/L Normal 6-16 [facility] Comment on above: Performed By: #### 2 [id number], [id number], [id number], [id number], [id number], [id number] #### [facility] [address] [place] [address] Chloride [Moles/Vol] 107 mmol/L Normal 101-111 [facility] Comment on above: Performed By: #### 2 [id number], 3532404, [id number], [id number], [id number], [id number] #### [facility] [address] [facility] [place] [address] CO2 [Moles/Vol] 24 mmol/L Normal 21-31 [facility] Comment on above: Performed By: #### 2 585411, [id number], 7307945, [id number], [id number], [id number] #### [facility] [address] [place] [address] Potassium [Moles/Vol] 4.0 mmol/L Normal 3.5-5.3 [facility] Comment on above: Performed By: #### 2 272236, 6483028, 3410029, [id number], 3602710, [id number] #### [facility] [address] [place] [address] Sodium [Moles/Vol] 139 mmol/L Normal 135-145 [facility] Comment on above: Performed By: #### 2 [id number], 8109819, 8622206, [id number], 7554375, [id number] #### [facility] [address] [place] [address] PT & PTTon 04-05-2019 aPTT Coag (PPP) [Time] 29.1 second(s) Normal 25.1-36.5 [facility] Comment on above: Result Comment: Hepa rin therapeutic range (represented by Anti-Factor Xa activity of 0.2 - 0.4 U/mL) corresponds to PTT of 56.6 - 109.0 sec. Performed By: #### 2 745292, 4576931, 5527216, [id number], 4936512, 6259764 #### [facility] [address] [place] [address] INR Coag (PPP) [Relative time] 1.0 {INR} [facility] Comment on above: Result Comment: INR results are specifically intended to assess patients stabilized on long-term Anticoagulation therapy suggested INR?s ?Less Intensive Anticoagulation? 2.0 ? 3.0 Conventional Range 3.0 ? 4.5 Performed By: #### 2 669357, 1927606, 2257238, [id number], 3644715, 5596899 #### [facility] [address] [place] [address] PT Coag (PPP) [Time] 11.6 second(s) Normal 10.2-12.9 [facility] Comment on above: Performed By: #### 2 028292, [id number], 0186577, [id number], 5012209, 2355698 #### [facility] [address] [place] [address] Pre-Arrival Noteon 9 Pre-Arrival Note Pre-Arrival Summary Name: pre surg- chest pain, Current Date: 04/05/2019 16:18:44 EDT Gender: Male Date of : Age: Pre-Arrival Type: EMS ETA: 04/05/2019 16:45:00 EDT Primary Care Physician: Presenting Problem: chest pain Pre-Arrival User: Dafne Smith RN Referring Source: Location: [place] Completion Date/Time: 04/05/19 16:15:00 [facility] Emergency Department Pre-Hospital Report Form Vital Signs: Pre-Hospital Report: Treatment in Route: Response to Treatment: Misc. Issues: Normal [facility] Troponin 0 Hr.on 04-05-2019 Troponin I.cardiac [Mass/Vol] ng/mL Normal <=0.03 [facility] Comment on above: Result Comment: New Troponin Assay 02/17/14 JENNIFER SC Cutoff value > or = 0.03 ng/mL in conjunction with clinical conditions of myocardial infarction. (www.escardio.org/guidelines) Performed By: #### 2 [id number], 2773808, 5199645, [id number], 6894940, [id number] #### [facility] [address] [place] [address] Troponin 3 Hr.on 04-05-2019 Troponin I.cardiac [Mass/Vol] ng/mL Normal <=0.03 [facility] Comment on above: Result Comment: New Troponin Assay 02/17/14 JENNIFER SC Cutoff value > or = 0.03 ng/mL in conjunction with clinical conditions of myocardial infarction. (www.escardio.org/guidelines) Performed By: #### 2 [id number], 7479272, 9173776, [id number], 7393972, 4277960 #### [facility] [address] [place] [address] XR Chest Single Viewon 04-05 XR Chest Single View Exam Date/Time: 04/05/2019 17:23 EDT Reason for Exam: Chest pain Report IMPRESSION: NO RADIOGRAPHIC EVIDENCE OF ACTIVE DISEASE IN THE CHEST. CLINICAL HISTORY: MID STERNAL CHEST PAIN COMPARISONS: 12/09/2016 COMMENT: Portable chest x-ray demonstrates normal appearance of the heart and mediastinum. Lungs appear clear. Visualized osseous structures appear unremarkable. No significant change since the 12/09/2016 chest x-ray FINAL REPORT Dictated: 04/05/2019 5:29 pm Presley Jason MD Signed (Electronic Signature): 04/05/2019 5:29 pm Signed by: Presley Jason MD Transcribed by: LISA Technologist: PATRICIA Normal [facility] eGFRon 04-05-2019 GFR/1.73 sq M predicted among blacks MDRD (S/P/Bld) [Vol rate/Area] mL/min/{1.73_m2} Normal >=59 [facility] Comment on above: Order Comment: Order added by Discern Expert. Result Comment: eGFR is race adjusted. AA=. Performed By: #### 2 [id number], 1556674, 4248891, [id number], [id number], [id number] #### [facility] [address] [place] [address] GFR/1.73 sq M predicted among non-blacks MDRD (S/P/Bld) [Vol rate/Area] mL/min/{1.73_m2} Normal >=59 [facility] Comment on above: Order Comment: Order added by Discern Expert. Result Comment: Upper And Bottom Lacer Hand saida kidney disease could be indicated at eGFR's of less than 60 mL/min/1.73m2. Kidney failure is indicated at less than 15 mL/min/1.73m2. Performed By: #### 2 [id number], 6010460, 0739091, [id number], [id number], [id number] #### [facility] [address] [place] [address] Vital Signs Date Time Vital Sign Value Performing Clinician Facility 10-20-2024 15:24-0500 Body height 179.8 cm Megan Bird DO Work Phone: [facility] 10-20-2024 15:24-0500 Body mass index (BMI) [Ratio] 48.61 kg/m2 Megan Bird DO Work Phone: [facility] 10-20-2024 15:24-0500 Body temperature 97.39 [degF] Megan Bird DO Work Phone: [facility] 10-20-2024 15:24-0500 Body weight 157.22 kg Megan Lopezs DO Work Phone: [facility] 10-20-2024 15:24-0500 Diastolic blood pressure 60 mm[Hg] Megan Lopezs DO Work Phone: [facility] 10-20-2024 15:24-0500 Heart rate 101 /min Megan Bird DO Work Phone: [facility] 10-20-2024 15:24-0500 Respiratory rate 20 /min Megan Bird DO Work Phone: [facility] 10-20-2024 15:24-0500 SaO2% (BldA) [Mass fraction] 97 % Megan Bird DO Work Phone: [facility] 10-20-2024 15:24-0500 Systolic blood pressure 136 mm[Hg] Megan Lopezs DO Work Phone: [facility] 10-29-2023 13:10-0500 Body height 180.3 cm Megan Lopezs DO Work Phone: [facility] 10-29-2023 13:10-0500 Body mass index (BMI) [Ratio] 50.23 kg/m2 Megan Bird DO Work Phone: [facility] 10-29-2023 13:10-0500 Body temperature 97.81 [degF] Megan Lopezs DO Work Phone: [facility] 10-29-2023 13:10-0500 Body weight 163.29 kg Megan Lopezs DO Work Phone: [facility] 10-29-2023 13:10-0500 Diastolic blood pressure 62 mm[Hg] Megan Lopezs DO Work Phone: [facility] 10-29-2023 13:10-0500 Heart rate 87 /min Megan Bird DO Work Phone: [facility] 10-29-2023 13:10-0500 Respiratory rate 22 /min Megan Bird DO Work Phone: [facility] 10-29-2023 13:10-0500 SaO2% (BldA) [Mass fraction] 95 % Megan Bird DO Work Phone: [facility] 10-29-2023 13:10-0500 Systolic blood pressure 118 mm[Hg] Megan Bird DO Work Phone: [facility] Encounters Encounter Date Encounter Type Care Provider Facility Start: 10-20-2024 End: 10-20-2024 ambulatory [facility] Start: 10-20-2024 End: 10-20-2024 Office outpatient visit 25 minutes Megan Bird DO Work Phone: [facility] Comment on above: 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 ([facility]) (Primary Dx); SONIA (obstructive sleep apnea); 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; Class 3 drug-induced obesity with serious comorbidity and body mass index (BMI) of 45.0 to 49.9 in adult ([facility]); Pain in unspecified wrist; Encounter for immunization Start: 10-20-2024 End: 10-20-2024 ambulatory [facility] Start: 10-18-2024 ambulatory Nabeel Spencer acility:[facility] Start: 10-14-2024 End: 10-14-2024 Refill Krysta Awad [facility] - [facility] Comment on above: Impaired fasting glu cose; Pain in unspecified wrist; Gastro-esophageal reflux disease with esophagitis, without bleeding Start: 05-05-2024 End: 05-05-2024 ambulatory [facility] Start: 05-05-2024 End: 05-05-2024 ambulatory [facility] Start: 05-03-2024 End: 05-03-2024 ambulatory JOMAR D DOLCE Not Available Start: 02-20-2024 End: 02-20-2024 ambulatory JOMAR D DOLCE Not Available Start: 12-12-2023 End: 12-12-2023 ambulatory JOMAR D DOLCE Not Available Start: 11-19-2023 Refill Jomar D Dolce D PM FACFAS Work Phone: [facility] Comment on above: Pain in right ankle and joints of right foot Start: 10-29-2023 End: 10-29-2023 ambulatory [facility] Start: 10-29-2023 End: 10-29-2023 ambulatory [facility] Start: 10-29-2023 End: 10-29-2023 Office outpatient visit 25 minutes Megan Bird DO Work Phone: [facility] Comment on above: Impaired fasting glu cose (Primary Dx); Mild persistent asthma without complication; Class 3 drug-induced obesity with serious comorbidity and body mass index (BMI) of 45.0 to 49.9 in adult ([facility]); 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; Sinus tarsitis of right foot; Hyperlipidemia, unspecified hyperlipidemia type Start: 09-24-2023 End: 09-24-2023 ambulatory JOMAR D DOLCE Not Available Start: 08-20-2023 End: 08-20-2023 ambulatory JOMAR D DOLCE Not Available Start: 12-04-2022 End: 12-05-[address] MEGAN BIRD Facility:[facility] Start: 11-27-2022 End: 12-13-[address] MEGAN BIRD Facility:[facility] Procedures Date Procedure Procedure Detail Performing Clinician Start: 10-20-2024 Adult depression screening assessment Megan Bird DO Work Phone: Start: 05-17-2024 Diabetic retinal eye exam Megan Bird DO Work Phone: Start: 05-05-2024 Adult depression screening assessment Krysta Awad CMA Start: 08-18-2023 Adult depression screening assessment Megan Bird DO Work Phone: Plan of Treatment Date Care Activity Detail Author Start: 03-20-2032 DTaP,Tdap and Td Vaccines (2 - Td or Tdap) DTaP,Tdap and Td Vaccines (2 - Td or Tdap) [facility] Start: 03-20-2032 DTaP,Tdap and Td Vaccines (3 - Td or Tdap) DTaP,Tdap and Td Vaccines (3 - Td or Tdap) [facility] Start: 10-20-2025 Adult BMI Screening Adult BMI Screen ing [facility] Start: 10-20-2025 Depression Screening Depression Scre ening [facility] Start: 10-20-2025 Tobacco Screening Tobacco Screening [facility] Start: 05-17-2025 Glaucoma screening Diabetic Op hthalmology Exam [facility] Start: 05-05-2025 Adult BMI Screening Adult BMI Screen ing [facility] Start: 05-05-2025 Depression Screening Depression Scre ening [facility] Start: 05-05-2025 Tobacco Screening Tobacco Screening [facility] Start: 10-29-2024 Adult BMI Screening Adult BMI Screen ing [facility] Start: 10-29-2024 Tobacco Screening Tobacco Screening [facility] Start: 10-20-2024 End: 10-20-2024 Patient encounter procedure 10/20/2024 3:30 PM EST Office Visit [facility] - [facility] Medicine [address] [place] [address] Megan Bird, DO [address] [place] [address] [facility] Start: 08-18-2024 Depression Screening Depression Scre ening [facility] Start: 06-06-2024 COVID-19 Vaccine ( season) COVID-19 Vaccine ( season) [facility] Start: 06-06-2024 Influenza vaccination Influenza Vacc ine [facility] Start: 12-25-2023 End: 12-25-2023 Patient encounter procedure 12/25/2023 3:30 PM EDT Office Visit [facility] - Family Medicine [address] [place] [id number] [facility] - [facility] Start: 12-12-2023 End: 12-12-2023 Patient encounter procedure 12/12/2023 11:00 AM EST Office Visit [facility] [address] [place] [id number] Jomar Mercado, DPM FACFAS [address] [facility] [place] [address] [facility] Start: 2023 Administration of varicella zoster vaccine Zoster (Shingles) Vaccine ([facility] of 2) [facility] Start: 06-06-2023 Influenza vaccination Influenza Vacc ine [facility] Start: 1991 Adult BMI Follow Up Plan Adult BMI F ollow Up Plan [facility] Start: 1991 Diabetic foot examination Diabetic Foot Exam [facility] Start: 1973 Urine screening for protein Urine Microalbumin [facility] End: 10-20-2025 Comprehensive metabolic 2000 panel - Serum or Plasma Comprehensive metabolic panel Lab Routine Type II diabetes mellitus with neurological manifestations ([facility]) 1 Occurrences starting 10/20/2024 until 10/20/2025 [employer] Work Phone: Comment on above: 1 Occurrences starti ng 10/20/2024 until 10/20/2025 End: 10-29-2024 Hemoglobin A1c/Hemoglobin.total in Blood Hemoglobin A1c Lab Routine Impaired fasting glucose 1 Occurrences starting 10/29/2023 until 10/29/2024 [employer] Work Phone: Comment on above: 1 Occurrences starti ng 10/29/2023 until 10/29/2024 Hemoglobin A1c/Hemoglobin.total in Blood Hemoglobin A1c Lab Routine Impaired fasting glucose 10/29/2023 10:08 PM EST [facility] End: 10-20-2025 Hemoglobin A1c/Hemoglobin.total in Blood Hemoglobin A1c Lab Routine Type II diabetes mellitus with neurological manifestations ([facility]) 1 Occurrences starting 10/20/2024 until 10/20/2025 [facility] Comment on above: 1 Occurrences starti ng 10/20/2024 until 10/20/2025 End: 10-29-2024 Microalbumin - Albumin: Creatinine Urine Ratio Microalbumin - Albumin: Creatinine Urine Ratio Lab Routine Impaired fasting glucose 1 Occurrences starting 10/29/2023 until 10/29/2024 [facility] Comment on above: 1 Occurrences starti ng 10/29/2023 until 10/29/2024 End: 10-20-2025 Microalbumin - Albumin: Creatinine Urine Ratio Microalbumin - Albumin: Creatinine Urine Ratio Lab Routine Type II diabetes mellitus with neurological manifestations ([facility]) 1 Occurrences starting 10/20/2024 until 10/20/2025 [facility] Comment on above: 1 Occurrences starti ng 10/20/2024 until 10/20/2025 End: 10-20-2025 Thyroid profile includes TSH FT4 Thyroid profile includes TSH FT4 Lab Routine 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 [id number] 2024 Unknown [id number] 2023 Medicare [id number] 2023 Self-pay 2022 Medicare [id number] 2022 Medicare [id number] 2021 Medicaid [facility]ICAID [facility] [id number] 2021-Present [phone] [address] [place] [address] Medicaid [id number] 2017 Unknown [id number] 1973 Unknown [id number] 1973 Unknown [id number] [id number] 1973 Unknown [id number] [id number] 1973 Unknown [id number] [id number] 1973 Unknown [id number] [id number] 1973 Unknown [id number] [id number] 1973 Unknown [id number] [id number] 1973 Unknown [id number] [id number] 1973 Unknown [id number] [id number] 1973 Unknown [id number] [id number] 1973 Unknown [id number] [id number] 1973 Unknown [id number] [id number] 1973 Unknown [id number] [id number] 1959 Medicaid [id number] Unknown [id number] Social History Date Type Detail Facility Start: 10-10-2022 End: 04-04-2023 Tobacco smoking status NHIS Ex-smoker [facility] History of tobacco use Current smoker [facility] History of tobacco use Cigarette Smoker [facility] Start: 10-10-2022 End: 04-04-2023 Tobacco use and exposure Smokeless tobacco non-user [facility] Start: 10-29-2023 End: 10-20-2024 Alcohol intake Ex-drinker (finding) [facility] Start: 11-16-2020 End: 10-29-2023 History of Social function [facility] Start: 11-16-2020 End: 10-29-2023 Tobacco use panel [facility] tem Adolescent depressio n screening assessment 16 [facility] Start: 1975 Sex Assigned At Not on file [facility] Start: 09-24-2023 Alcohol intake Lifetime non-d chasity (finding) [facility] Start: 03-13-2023 Alcohol Comment caffeine: 2-3 cups per day [facility] Start: 09-27-2015 Sex Male (finding) [facility] Clinical Notes 12-04-2022 to 10-20-2024 Megan Bird, DO - 10/20/2024 3:30 PM ESTTelephone Encounter - Krysta Awad, [facility] - 10/14/2024 8:49 AM ESTTelephone Encounter - Krysta Awad, [facility] - 10/14/2024 8:49 AM EST Note Date & Type Note Facility 10-20-2024 History of Presen t illness Narrative IM PROGRESS NOTE Patient - Jose Roldan Age - 49 y.o. - 1975 [id number] ASSESSMENT & PLAN 1. Type II diabetes mellitus with neurological manifestations ([facility]) (Primary) -goals of treatment reviewed with the patient. -currently using Ozempic 2 mg weekly -patient assistance for Ozempic initiated today. -lab work to evaluate efficacy of current treatment - Comprehensive metabolic panel; Future - Hemoglobin A1c; Future - Microalbumin - Albumin: Creatinine Urine Ratio; Future 2. SONIA (obstructive sleep apnea) -longstanding problem which is controlled with his nightly use of CPAP machine -machine has required servicing, and it appears to be 5 years old -Rx for new CPAP machine and supplies written today 3. 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 -his most recent lab work was reviewed and found to be inadequate -will repeat F T4 and TSH with current dose of levothyroxine 225 mcg daily 4. Class 3 drug-induced obesity with serious comorbidity and body mass index (BMI) of 45.0 to 49.9 in adult ([facility]) -not much change since last visit -continue monitoring and adjusting thyroid replacement as needed -continue G LP 1 agent 5. Pain in unspecified wrist -refill meloxicam - meloxicam (MOBIC) 15 mg tablet; TAKE ONE TABLET BY MOUTH DAILY AT 9 AM Dispense: 90 tablet; Refill: 1 6. Encounter for immunization -flu vaccination today - FLU VACCINE TS (6MOS UP)(PF) 45 MCG(15MCG X3)/0.5 ML IM SYRINGE - Immunization, In Clinic,; Inject into the appropriate muscle once for 1 dose. Sign this order to satisfy the OSBOP Positive ID requirements for immunization orders. Subjective 49-year-old male presents for recheck on several medical problems. -SONIA. Is using his mask nightly. He can not sleep without it. He definitely derives benefit from using. He did have to have the machine serviced within the past year because it was not functioning correctly. He is due for new supplies, and maybe due for a new CPAP machine as well. -needs to review his current thyroid dosing. Most recently his free T4 was low, and TSH was elevated, but had not been taking his thyroid supplement. He is now back on levothyroxine 225 mcg daily. -his joints have been bothering him more, but he ran out of meloxicam. Is requesting a refill. There have been no new injuries or changes to his arthritis treatment. -asthma has been well controlled without any flare-ups requiring albuterol. Is taking Breo 1 puff daily routinely. A review of systems was negative except for the following: General: weight gain Psychiatric: concentration difficulties, depression, and sleep disturbances Endocrine: Having difficulties regulating his thyroid supplement Musculoskeletal: gait disturbance, joint pain, and joint stiffness. Exam BP 136/60 (BP Site: Left Arm, BP Postition: Sitting, BP CUFF SIZE: L (13-17 inches)) Pulse 101 Temp 36.3 C (97.4 F) (Oral) Resp 20 Ht 179.8 cm (5' 10.8 ) Wt (!) 157.2 kg (346 lb 9.6 oz) SpO2 97% BMI 48.61 kg/m Physical Exam Vitals reviewed. 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 Constitutional: General: He is not in acute distress. Appearance: He is well-developed. He is obese. He is not toxic-appearing. HENT: Head: Normocephalic. Right Ear: External ear normal. Left Ear: External ear normal. Nose: No congestion or rhinorrhea. Mouth/Throat: Mouth: Mucous membranes are moist. Eyes: General: No scleral icterus. Neck: Vascular: No carotid bruit. Cardiovascular: Rate and Rhythm: Normal rate. Heart sounds: No murmur heard. No gallop. Pulmonary: Effort: Pulmonary effort is normal. Breath sounds: No wheezing or rales. Comments: Peak flow performed in office today 530 L/minute Abdominal: Palpations: Abdomen is soft. Musculoskeletal: General: Tenderness (CMC joint bilateral wrists) present. Right lower leg: No edema (Trace at ankle). Left lower leg: No edema (Trace at ankle). Comments: Right ankle frozen Skin: General: Skin is warm and dry. Coloration: Skin is not jaundiced. Findings: No bruising. Neurological: Mental Status: He is alert and oriented to person, place, and time. Motor: No weakness. Coordination: Coordination normal. Deep Tendon Reflexes: Reflexes are normal and symmetric. Psychiatric: Mood and Affect: Mood normal. Behavior: Behavior normal. Comments: Flat affect Meds Current Outpatient Medications: albuterol (PROVENTIL,VENTOLIN) 2.5 mg /3 mL (0.083 %) nebulizer solution, Inhale 3 mL (2.5 mg total) by nebulization 4 (four) times a day as needed for wheezing., Disp: 84 mL, Rfl: 3 benztropine (COGENTIN) 1 mg tablet, , Disp: , Rfl: fluticasone furoate-vilanteroL (BREO ELLIPTA) 100-25 mcg/dose blister with device, Inhale 1 puff in the morning., Disp: 90 each, Rfl: 1 ketoconazole (NIZORAL) 2 % shampoo, , Disp: , Rfl: lamoTRIgine (LaMICtal) 150 mg tablet, , Disp: , Rfl: levothyroxine (SYNTHROID) 150 MCG tablet, Take 1.5 tablets (225 mcg total) by mouth in the morning., Disp: 60 tablet, Rfl: 1 mirtazapine (REMERON) 30 mg tablet, TAKE 1 TABLET BY MOUTH DAILY before bedtime, Disp: , Rfl: mirtazapine (REMERON) 45 MG tablet, , Disp: , Rfl: omeprazole (PriLOSEC) 20 mg capsule, TAKE ONE CAPSULE BY MOUTH DAILY AT 9 AM, Disp: 90 capsule, Rfl: 1 prazosin (MINIPRESS) 5 mg capsule, , Disp: , Rfl: QUEtiapine (SEROquel) 200 mg tablet, , Disp: , Rfl: semaglutide (OZEMPIC) 2 mg/dose (8 mg/3 mL) pen injector, Inject 2 mg under the skin once a week., Disp: 9 mL, Rfl: 1 sertraline (ZOLOFT) 100 mg tablet, Take 2 tablets (200 mg total) by mouth in the morning., Disp: , Rfl: traZODone (DESYREL) 100 mg tablet, , Disp: , Rfl: VRAYLAR 6 mg capsule, , Disp: , Rfl: zolpidem (AMBIEN) 5 mg tablet, Take 1 tablet (5 mg total) by mouth nightly., Disp: , Rfl: Immunization, In Clinic,, Inject into the appropriate muscle once for 1 dose. Sign this order to satisfy the OSBOP Positive ID requirements for immunization orders., Disp: , Rfl: meloxicam (MOBIC) 15 mg tablet, TAKE ONE TABLET BY MOUTH DAILY AT 9 AM, Disp: 90 tablet, Rfl: 1 Lab Results Other Testing No results found. Megan Bird DO., [facility] Office: [phone] documented in this encounter [facility] 10-14-2024 Miscellaneous Notes Formattin g of this note might be different from the original. Pt called and would like refills on pended medications. Pharmacy is listed and correct documented in this encounter [facility] 10-14-2024 Telephone encount er Note Pt called and would like refills on pended medications. Pharmacy is listed and correct [facility] 10-29-2023 History of Presen t illness Narrative IM PROGRESS NOTE Patient - Jose Roldan Age - 48 y.o. - 1975 ASSESSMENT & PLAN 1. Impaired fasting glucose -last A1c 5.6% -currently on semaglutide 1 mg weekly -repeat A1c assess need for higher dose of semaglutide - Comprehensive metabolic panel; Future - Hemoglobin A1c; Future - Microalbumin - Albumin: Creatinine Urine Ratio; Future 2. Mild persistent asthma without complication -peak flow in office today 530 L/minute -down slightly but not terrible -encouraged patient to start using his Dulera MDI daily as prescribed. -for any excess symptoms, may use his albuterol nebulizer to 4 times daily -prescription for Benzonate for symptom relief - albuterol (PROVENTIL,VENTOLIN) 2.5 mg /3 mL (0.083 %) nebulizer solution; Inhale 3 mL (2.5 mg total) by nebulization 4 (four) times a day. Dispense: 84 mL; Refill: 1 - benzonatate (TESSALON PERLES) 200 mg capsule; Take 1 capsule (200 mg total) by mouth 3 (three) times a day as needed for cough. Dispense: 20 capsule; Refill: 0 3. Class 3 drug-induced obesity with serious comorbidity and body mass index (BMI) of 45.0 to 49.9 in adult ([facility]) -weight all the same perhaps up slightly -has metabolic syndrome secondary to his antipsychotic and mood stabilizing agents -will continue to work with patient on diet, and medical treatment of the obesity with semaglutide 4. 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 -repeat TFTs to evaluate efficacy of current supplementation - Thyroid profile includes TSH FT4; Future 5. Sinus tarsitis of right foot -ongoing problem with pain and limiting his functional capacity -referral to aquatic therapy increase strength balance and stamina - Ambulatory referral to Aquatic Therapy (Non[facility]); Future 6. Hyperlipidemia, unspecified hyperlipidemia type -currently on no medications -given his diabetes/IFG, need to assess need for stat - Lipid profile; Future Subjective DIABETIC VISIT This is a follow up of a pre-existing problem. Patient self monitoring includes finger stick BG checkin time/day. Ranges 100 -140 mg/dL Patient experiences hypoglycemia None. Patient symptoms of hyperglycemia include: none. Current prescribed diet is consistent carbohydrate. Patient is not following the prescribed diet plan. Home activity includes: Exercise is limited by orthopedic condition(s): fused ankle, lumbar spinal stenosis.. Patient does not experience numbness or burning in their hands or feet. Patient does not have vision changes. Last eye exam was: 2022 Patient BP monitoring is done sporadically, and can't recall values. Patient reports: taking medications as instructed, no medication side effects noted, patient does not perform home BP monitoring, no chest pain on exertion, no dyspnea on exertion, no swelling of ankles, no orthostatic dizziness or lightheadedness, no palpitations, and no intermittent claudication symptoms Issues affecting compliance with diabetic self management include: Trouble obtaining the semaglutide 2 mg dose. Is still using 1 mg as previously prescribed. In addition, has been more depressed. His mother over [place] which was unexpected. A review of systems was negative except for the following: General: weight gain Psychiatric: concentration difficulties, depression, and saw Psychiatry yesterday. No changes were made to his medications but is 5 different mood stabilizers. Respiratory: Has had some increased cough congestion for the past several weeks. He reports he is not using his Dulera routinely. Normally using it once or twice a week. Has not been using his albuterol nebulizer for any breakthrough symptoms either. Musculoskeletal: gait disturbance, joint pain, joint stiffness, and tried to walk 300 [place] the [place] to [place], and was barely able to make it because of joint pain. Exam BP 118/62 Pulse 87 Temp 36.6 C (97.8 F) Resp 22 Ht 180.3 cm (5' 10.98 ) Wt (!) 163.3 kg (360 lb) SpO2 95% BMI 50.23 kg/m Physical Exam Vitals reviewed. Exam conducted with a parole director present (). Constitutional: General: He is not in acute distress. Appearance: He is well-developed. He is obese. He is not toxic-appearing. HENT: Head: Normocephalic. Right Ear: Tympanic membrane, ear canal and external ear normal. Left Ear: Tympanic membrane, ear canal and external ear normal. Nose: Congestion present. No rhinorrhea. Mouth/Throat: Mouth: Mucous membranes are moist. Eyes: General: No scleral icterus. Neck: Vascular: No carotid bruit. Cardiovascular: Rate and Rhythm: Normal rate. Heart sounds: No murmur heard. No gallop. Pulmonary: Effort: Pulmonary effort is normal. Breath sounds: No wheezing or rales. Comments: Peak flow performed in office today 530 L/minute Abdominal: Palpations: Abdomen is soft. Musculoskeletal: General: Tenderness (Right ankle) present. Right lower leg: No edema. Left lower leg: No edema. Comments: Right ankle frozen Skin: General: Skin is warm and dry. Coloration: Skin is not jaundiced. Findings: No bruising. Neurological: Mental Status: He is alert and oriented to person, place, and time. Motor: No weakness. Coordination: Coordination normal. Deep Tendon Reflexes: Reflexes are normal and symmetric. Psychiatric: Mood and Affect: Mood normal. Behavior: Behavior normal. Comments: Flat affect Left: Pulses Posterior Tibial: present Vibratory sensation normal Filament test present Right: Pulses Posterior Tibial: present Vibratory sensation normal Filament test present Meds Current Outpatient Medications: benztropine (COGENTIN) 1 mg tablet, , Disp: , Rfl: DULERA 100-5 mcg/actuation inhaler, INHALE 2 PUFFS BY MOUTH TWICE DAILY, Disp: 39 g, Rfl: 1 ketoconazole (NIZORAL) 2 % shampoo, , Disp: , Rfl: lamoTRIgine (LaMICtal) 150 mg tablet, , Disp: , Rfl: levothyroxine (SYNTHROID, LEVOTHROID) 150 MCG tablet, Take 2 tablets (300 mcg total) by mouth in the morning., Disp: , Rfl: meloxicam (MOBIC) 15 mg tablet, TAKE 1 TABLET BY MOUTH DAILY, Disp: 90 tablet, Rfl: 1 mirtazapine (REMERON) 45 MG tablet, , Disp: , Rfl: omeprazole (PriLOSEC) 20 mg capsule, TAKE 1 CAPSULE BY MOUTH DAILY, Disp: 90 capsule, Rfl: 1 prazosin (MINIPRESS) 5 mg capsule, , Disp: , Rfl: QUEtiapine (SEROquel) 200 mg tablet, , Disp: , Rfl: semaglutide 2 mg/dose (8 mg/3 mL) pen injector, Inject 2 mg under the skin every 7 days., Disp: , Rfl: sertraline (ZOLOFT) 100 mg tablet, Take 2 tablets (200 mg total) by mouth in the morning., Disp: , Rfl: traZODone (DESYREL) 100 mg tablet, , Disp: , Rfl: VRAYLAR 6 mg capsule, , Disp: , Rfl: zolpidem (AMBIEN) 5 mg tablet, Take 1 tablet (5 mg total) by mouth nightly., Disp: , Rfl: albuterol (PROVENTIL,VENTOLIN) 2.5 mg /3 mL (0.083 %) nebulizer solution, Inhale 3 mL (2.5 mg total) by nebulization 4 (four) times a day., Disp: 84 mL, Rfl: 1 benzonatate (TESSALON PERLES) 200 mg capsule, Take 1 capsule (200 mg total) by mouth 3 (three) times a day as needed for cough., Disp: 20 capsule, Rfl: 0 Lab Results No visits with results within 1 Month(s) from this visit. Latest known visit with results is: Hospital Outpatient Visit on 07/28/2023 Component Date Value Ref Range Status TSH 07/28/2023 6.44 (H) 0.49 - 4.67 uIU/mL Final T4, free 07/28/2023 0.67 0.61 - 1.60 ng/dL Final Other Testing No results found. Megan Bird DO., [facility] Office: [phone] documented in this encounter [facility] 12-04-2022 Note PROCEDURE: XR KNEE R T 1_2 V COMPARISON: None. HISTORY: Pain of right knee joint FINDINGS: BONES:No fracture, acute abnormality, or significant arthropathy. Corticated calcific density identified along the medial femoral condyle, remote injury favored. SOFT TISSUES:Negative. No visible soft tissue swelling. EFFUSION:None visible. OTHER: Negative. 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 Hyperlipidemia, unspecified hyperlipidemia type [facility] Pain in right ankle and joints of right foot documented in this encounter [facility]* Diagnosis Impaired fasting glucose Pain in unspecified wrist Gastro-esophageal reflux disease with esophagitis, without bleeding documented [facility] Diagnosis Type II diabetes mellitus with neurological manifestations ([facility])- Primary Type II or unspecified type diabetes mellitus with neurological manifestations, not stated as uncontrolled SONIA (obstructive sleep apnea) Obstructive sleep apnea (adult) (pediatric) 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 and body mass index (BMI) of 45.0 to 49.9 in adult ([facility]) Pain in unspecified wrist Encounter for immunization documented in this [facility] filedocumented in this encounter [facility] SystemInstructionsNot on filedocumented in this encounter [facility] Summary Purpose Family History No Family History Records FoundNo Family History Records FoundNo Family History Records FoundNo Family History Records FoundNo Family History Records FoundNo Family History Records FoundNo Family History Records Found Advance Directives No Advanced Directives Records FoundNo Advanced Directives Records FoundNo Advanced Directives Records FoundNo Advanced Directives Records FoundNo Advanced Directives Records FoundNo Advanced Directives Records FoundNo Advanced Directives Records Found Procedure Findings Note Patient: JOSE ROLDAN RN: [id number] Age: 43 years Sex: Male : 1975 Associated Diagnoses: None Author: Vincenzo Kim JR, DO Postoperative Information Post Operative Note: Post Anesthesia Care Unit. Anesthetic utilized: General, Monitored anesthesia care. Health Status Allergies: Allergic Reactions (Selected) Severe Codeine- Codeine and violent. Moderate Pollen- Hayfever. Current medications: (Selected) Prescriptions Prescribed aspirin 81 mg Oral EC Tab: 81 mg = 1 tab(s), Oral, Daily, X 30 day(s), # 30 tab(s), Refills(s) 0, Pharmacy: [id number] Documented Medications Documented Dulera 100 mcg-5 mcg/inh inhalation aerosol: 2 puff(s), Inhalation, BID, 13 gram, Refill(s) 0, Asthma ProAir HFA 90 mcg/inh inhalation aerosol: 2 puff(s), Inhalation, q4hr Shortness of breath or wheezing, Refill(s) 0, Asthma Ventolin HFA 90 mcg/inh Aerosol: 2 puff(s), Inhalation, q4hr Shortness of breath or wheezing Vraylar 6 mg oral capsule: 6 mg = 1 cap(s), Oral, Daily (more content not included)... Note Admission Information Admitt ing Physician - SHELLEY ALONSO, Ronny Duncan Consulting Physician - Lakia ALONSO, Yadiel Hospital Course 43-year-old morbidly obese male with history of asthma/bipolar disorder/depression who presented for preadmission testing for his right ankle surgery and complained of chest pain. His description of the chest pain was atypical for an anginal episode, patient was admitted for ACS rule out and had negative troponins ?3. Cardiology was also consulted who recommended doing a stress test. And the result was LOW RISK. Patient did not have any further episodes of chest pain during my examination and is happy to go home today. This report was transcribed using voice recognition software. Every effort was made to ensure accuracy, however, inadvertently computerized public address system installer mistakes may be present. Physical Exam Vitals & Measurements T: 37 ?C (Oral) TMIN: 36.4 ?C (Oral) TMAX: 37 ?C (Oral) HR: 84(Monitored) RR: 16 BP: 132/88 SpO2: 96% WT: 143.8 kg Discharge Plan 1. Chest (more content not included)... Hospital Course Note Admission Information Admitt ing Physician - SHELLEY ALONSO, Ronny Duncan Consulting Physician - Lakia ALONSO, Isreal Nieves Hospital Course 43-year-old morbidly obese male with history of asthma/bipolar disorder/depression who presented for preadmission testing for his right ankle surgery and complained of chest pain. His description of the chest pain was atypical for an anginal episode, patient was admitted for ACS rule out and had negative troponins ?3. Cardiology was also consulted who recommended doing a stress test. And the result was LOW RISK. Patient did not have any further episodes of chest pain during my examination and is happy to go home today. This report was transcribed using voice recognition software. Every effort was made to ensure accuracy, however, inadvertently computerized public address system installer mistakes may be present. Physical Exam Vitals & Measurements T: 37 ?C (Oral) TMIN: 36.4 ?C (Oral) TMAX: 37 ?C (Oral) HR: 84(Monitored) RR: 16 BP: 132/88 SpO2: 96% WT: 143.8 kg Discharge Plan 1. Chest (more content not included)... Reason for Referral Specialty Diagnoses / Procedures Referred By Cassandra gandhi Referred To Contact Diagnoses Sinus tarsitis of right foot Megan Bird, DO [address] [place] [address] [facility] [address] [place] [address] Referral ID Status Reason Start Date Expiration Date V isits Requested Visits Authorized [id number] Pending Review 10/29/2023 10/28/2024 1 1 Additional Source Comments (unrecognized sect ion and content) No Status Records FoundNo Status Records FoundNo Status Records FoundNo Status Records FoundNo Status Records FoundNo Status Records FoundNo Status Records Found INFORMATION SOURCE (unrecogn ized section and content) DATE CREATED AUTHOR 06/04/2019 Spencer Hernandezus [facility] DATE CREATED AUTHOR AUTHOR'S ORGANIZ ATION 02/23/2022 [facility] DATE CREATED AUTHOR AUTHOR'S ORGANIZ ATION 01/11/2023 [facility] DATE CREATED AUTHOR AUTHOR'S ORGANIZ ATION 05/04/2024 [facility] EPIC DATE CREATED AUTHOR AUTHOR'S ORGANIZ ATION 10/22/2024 [facility] DATE CREATED AUTHOR AUTHOR'S ORGANIZ ATION 10/23/2024 [facility] DATE CREATED AUTHOR AUTHOR'S ORGANIZ ATION 10/24/2024 [facility] Reason for Visit (unrecogniz ed section and content) Reason Comments Diabetes Reason Comments Med Refill Reason Comments thyroid blood work check/cold congestion -2 weeks green [facility] Care Teams (unrecognized sec tion and content) Sweat Box Attendant Relationship Specialty Start Date End Date Megan Bird DO [address] [place] [address] PCP - General Internal Medicine 09/04/22 Swe[employer] Box Attendant Relationship Specialty Start Date End Date Megan Bird MD [address] [place] [address] PCP - General Internal Medicine 04/04/23 Swe[employer] Box Attendant Relationship Specialty Start Date End Date Megan Bird DO [address] [place] [address] PCP - General Internal Medicine 09/04/22 Swe[employer] Box Attendant Relationship Specialty Start Date End Date Megan Bird DO [address] [place] [address] PCP - General Internal Medicine 09/04/22 FOR RECORDS PERTAINING TO PATIENTS WHO ARE OR HAVE BEEN ENROLLED IN A CHEMICAL DEPENDENCY/SUBSTANCEABUSE PROGRAM, SOME INFORMATION MAY BE OMITTED. This clinical summary was aggregated from multiple sources. Caution should be exercised in using it in the provision of clinical care. This summary normalizes information from multiple sources, and as a consequence, information in this document may materially change the coding, format and clinical context of patient data. In addition, data may be omitted in some cases. CLINICAL DECISIONS SHOULD BE BASED ON THE PRIMARY CLINICAL RECORDS. [facility]. provides no warranty or guarantee of the accuracy or completeness of information in this document.
== END 2024-11-01 20:52 | disposition home or self-care (01) ==
LOC: SLEEP 20:51
PROVIDERS: PCP Internal Medicine; Visit Provider Internal Medicine
DX: G47.33 Obstructive sleep apnea (adult) (pediatric) (principal)
CPT/HCPCS: 95810

== ENCOUNTER 2024-11-08 20:54 | Outpatient (OUT) | payer OTHER, SELFPAY ==
--- OUTSIDE RECORDS SUMMARY | 2024-11-08 20:56 | XMS_ITS | CCD ---
Author Organization [facility] Inform ion [facility] Care Team Providers Care Shade Maker Name Role Phone MARGE, DR GUZMAN Primary Care Unavailable YUHAS, DR GUZMAN Attending Unavailable YUHAS, DR GUZMAN Admitting Unavailable YUHAS, DR GUZMAN Primary Care Unavailable YUHAS, DR GUZMAN Consulting Unavailable YUHAS, DR GUZMAN Attending Unavailable YUHAS, DR GUZMAN Admitting Unavailable MEDIAPOLIS, DR VAISHNAVI Mercado Consulting Unavailable Yuhas , Megan Bowman Primary Care Provider Megan Bird MD Primary Care Provider [phone] JOMAR MERCADO Attending Unavailable DOLCE, JOMAR Rodriguez [...] Bowman Attending Unavailable CODIEHASMEGAN Referring Unavailable YUHAS, MEGAN L Primary Care Unavailable YUHAS, MEGAN L Primary Care Unavailable YUHAS, MEGAN L Referring Unavailable YUHAS, MEGAN L Attending Unavailable YUHAS, MEGNA L Referring Unavailable YUHAS, MEGAN L Primary Care Unavailable YUHAS, MEGAN L Referring Unavailable YUHAS, MEGAN L Primary Care Unavailable YUHAS, MEGAN L Referring Unavailable YUHAS, MEGAN L Primary Care Unavailable Allergies Allergy Classification Reported Allergen(s) Allergy Type Date of Onset Reaction(s) Facility (3 sources) Codeine; Translations: [CODEINE] Drug Allergy 5 [facility] (4 sources) Codeine Drug Allergy 3 [...] (Reorder) Start: 08-20-2023 take 1 capsule by [facility] once daily omeprazole (PriLOSEC) 20 mg capsule [...] 20 mg/ml oral solution (1 source) Uncompetitive A-wedrzq-Y-aspartat e Receptor Antagonist, Sigma-1 Agonist Start: 08-18-2023 [...] Interpretation Reference Range Facility COMPREHENSIVE METABOLIC PANE [facility] 10-20-2024 Albumin [Mass/Vol] 4.3 g/dL Normal 3.2-5.3 [facility] Comment on above: Performed By: #### C MANJINDER NICE HA1C #### [facility] ([id number]) [address], [address] [place] [address] ALP [Catalytic activity/Vol] 71 U/L Normal 39-130 [facility] Comment on above: Performed By: #### C MANJINDER NICE HA1C #### [facility] ([id number]) [address], [address] [place] [address] ALT [Catalytic activity/Vol] 21 U/L Normal 0-40 [facility] Comment on above: Performed By: #### C MANJINDER NICE HA1C #### [facility] ([id number]) [address], [address] [place] [address] Anion gap [Moles/Vol] 7 mmol/L Normal 5-15 [facility] Comment on above: Performed By: #### C MANJINDER NICE, HA1C #### [facility] ([id number]) [address], [address] [place] [address] AST [Catalytic activity/Vol] 21 U/L Normal 0-41 [facility] Comment on above: Performed By: #### C MANJINDER NICE HA1C #### [facility] ([id number]) [address] [address] [place] [address] Bilirubin [Mass/Vol] 0.2 mg/dL Low 0.3-1.2 [facility] Comment on above: Performed By: #### C MANJINDER NICE HA1C #### [facility] ([id number]) [address] [address] [place] [address] Calcium [Mass/Vol] 9.5 mg/dL Normal 8.5-10.5 [facility] Comment on above: Performed By: #### C MANJINDER NICE HA1C #### [facility] ([id number]) [address] [address] [place] [address] Chloride [Moles/Vol] 102 mmol/L Normal 98-109 [facility] Comment on above: Performed By: #### C MANJINDER NICE HA1C #### [facility] ([id number]) [address] [address] [place] [address] CO2 [Moles/Vol] 32 mmol/L Normal 22-32 [facility] Comment on above: Performed By: #### C MANJINDER NICE HA1C #### [facility] ([id number]) [address] [address] [place] [address] Creatinine [Mass/Vol] 1.05 mg/dL Normal 0.60-1.30 [facility] Comment on above: Result Comment: METH OD TRACEABLE TO IDMS STANDARD Performed By: #### C MANJINDER NICE HA1C #### [facility] ([id number]) [address] [address] [place] [address] GFR/1.73 sq M.predicted among non-blacks MDRD (S/P/Bld) [Vol rate/Area] 86 mL/min/{1.73_m2} Normal >59 [facility] Comment on above: Result Comment: Reported eGFR is based on the CKD-EPI 2020 equation that does not use a race coefficient. Performed By: #### C MANJINDER NICE HA1C #### [facility] ([id number]) [address], [address] [place] [address] Glucose [Mass/Vol] 88 mg/dL Normal 65-99 [facility] Comment on above: Performed By: #### C MANJINDER NICE HA1C #### [facility] ([id number]) [address], [address] [place] [address] Potassium [Moles/Vol] 4.3 mmol/L Normal 3.5-5.0 [facility] Comment on above: Performed By: #### MANJINDER Jaimes MP, HA1C #### [facility] ([id number]) [address] [place] [address] Protein [Mass/Vol] 7.8 g/dL Normal 6.0-8.0 [facility] Comment on above: Performed By: #### C MANJINDER NICE HA1C #### [facility] ([id number]) [address], [address] [place] [address] Sodium [Moles/Vol] 141 mmol/L Normal 134-146 [facility] Comment on above: Performed By: #### C MANJINDER NICE HA1C #### [facility] ([id number]) [address], [address] [place] [address] Urea nitrogen [Mass/Vol] 18 mg/dL Normal 5-23 [facility] Comment on above: Performed By: #### MANJINDER Jaimes MP, HA1C #### [facility] ([id number]) [address], [address] [place] [address] HGB A1C (GLYCO-HGB)on 2024 Glucose [Mass/Vol] 117 mg/dL Normal [facility] Comment on above: Performed By: #### Fiona NICE, 48035-4, THYR #### [facility] ([id number]) [address] [facility] [address] [place] [address] HbA1c (Bld) [Mass fraction] 5.7 % High 4.4-5.6 [facility] Comment on above: Result Comment: NOTE ADA Guidelines Result HgbA1c Normal : less than 5.7 % Prediabetes : 5.7 % to 6.4 % Diabetes : > 6.4 % Use with caution in patients with abnormal hemoglobin variants as the half-life of red blood cells and in vivo glycation rates are affected. Performed By: #### Fiona NICE, 48665-3, THYR #### [facility] ([id number]) [address], [address] [address] MICROALBUMIN - ALBUMIN:CREAT ININE URINE RATIOon 10-20-2024 ALB/CREAT RATIO NOT CALCULATED Normal 0.0-30.0 [facility] Comment on above: Result Comment: Result for Albumin/Creatinine Ratio cannot be reliably calculated because urine albumin and or urine creatinine is below the detection limit of the assay. Performed By: #### Fiona NICE, 35022-8, THYR #### [facility] ([id number]) [address], [address] [address] Albumin DL <= 20 mg/L (U) [Mass/Vol] mg/dL Normal 0.0-1.9 [facility] Comment on above: Performed By: #### Fiona NICE, 52727-0, THYR #### [facility] ([id number]) [address] [facility] [address] URINE CREAT 138.17 mg/dL Normal [facility] Comment on above: Performed By: #### Fiona NICE, 34743-9, THYR #### [facility] ([id number]) [address], [address] [place] [address] THYROID PROFILEon 10-20-2024 Free T4 [Mass/Vol] 0.64 ng/dL Normal 0.61-1.60 [facility] Comment on above: Performed By: #### C MP, THYR, HA1C #### [facility] ([id number]) [address], [address] [place] [address] TSH 14.27 uIU/mL High 0.49-4.67 [facility] Comment on above: Performed By: #### C ARLET THYR, HA1C #### [facility] ([id number]) [address], [address] [place] [address] COMPREHENSIVE METABOLIC PANE Trung 05-05-2024 Albumin [Mass/Vol] 4.1 g/dL Normal 3.2-5.3 [facility] Comment on above: Performed By: #### C ARLET, 17459-8, THYR, HA1C #### [facility] ([id number]) [address], [address] [place] [address] ALP [Catalytic activity/Vol] 75 U/L Normal 39-130 [facility] Comment on above: Performed By: #### C ARLET, 82333-9, THYR, HA1C #### [facility] ([id number]) [address], [address] [place] [address] ALT [Catalytic activity/Vol] 23 U/L Normal 0-40 [facility] Comment on above: Performed By: #### C ARLET, 05057-8, THYR, HA1C #### [facility] ([id number]) [address], [address] [place] [address] Anion gap [Moles/Vol] 8 mmol/L Normal 5-15 [facility] Comment on above: Performed By: #### C ARLET, 41076-7, THYR, HA1C #### [facility] ([id number]) [address], [address] [place] [address] AST [Catalytic activity/Vol] 18 U/L Normal 0-41 [facility] Comment on above: Performed By: #### C ARLET, 18869-7, THYR, HA1C #### [facility] ([id number]) [address], [address] [place] [address] Bilirubin [Mass/Vol] 0.3 mg/dL Normal 0.3-1.2 [facility] Comment on above: Performed By: #### C ARLET 56829-2, THYZaina, HA1C #### [facility] ([id number]) [address], [address] [place] [address] Calcium [Mass/Vol] 9.4 mg/dL Normal 8.5-10.5 [facility] Comment on above: Performed By: #### C ARLET, 09756-9, THYR, HAPaty #### [facility] ([id number]) [address], [address] [place] [address] Chloride [Moles/Vol] 105 mmol/L Normal 98-109 [facility] Comment on above: Performed By: #### C ARLET, 06496-6, THYR, HA1C #### [facility] ([id number]) [address], [address] [place] [address] CO2 [Moles/Vol] 27 mmol/L Normal 22-32 [facility] Comment on above: Performed By: #### C ARLET, 33251-2, THYR, HA1C #### [facility] ([id number]) [address], [address] [place] [address] Creatinine [Mass/Vol] 0.96 mg/dL Normal 0.60-1.30 [facility] Comment on above: Result Comment: METH OD TRACEABLE TO IDMS STANDARD Performed By: #### C ARLET, 03417-7, MANJINDER HAPaty #### [facility] ([id number]) [address], [address] [place] [address] eGFR (CKD-EPI) NON-RACE DEPENDENT >90 Normal >59 [facility] Comment on above: Result Comment: Reported eGFR is based on the CKD-EPI 2020 equation that does not use a race coefficient. Performed By: #### C ARLET, 15763-0, THYR, HA1C #### [facility] ([id number]) [address], [address] [place] [address] Glucose [Mass/Vol] 98 mg/dL Normal 65-99 [facility] Comment on above: Performed By: #### C ARLET, 28102-7, THYZaina, HA1C #### [facility] ([id number]) [address], [address] [place] [address] Potassium [Moles/Vol] 4.3 mmol/L Normal 3.5-5.0 [facility] Comment on above: Performed By: #### C ARLET, 10655-9, THYR, HA1C #### [facility] ([id number]) [address], [address] [place] [address] Protein [Mass/Vol] 7.3 g/dL Normal 6.0-8.0 [facility] Comment on above: Performed By: #### C ARLET, 08405-3, THYR, HA1C #### [facility] ([id number]) [address], [address] [place] [address] Sodium [Moles/Vol] 140 mmol/L Normal 134-146 [facility] Comment on above: Performed By: #### C ARLET, 59716-7, THYR, HA1C #### [facility] ([id number]) [address], [address] [place] [address] Urea nitrogen [Mass/Vol] 17 mg/dL Normal 5-23 [facility] Comment on above: Performed By: #### Fiona NICE, 24893-7, NAT DUNBAR #### [facility] ([id number]) [address] [address] HGB A1C (GLYCO-HGB)on 2023 Glucose [Mass/Vol] 117 mg/dL Normal [facility] Comment on above: Performed By: #### Fiona NICE, 00889-6, NAT DUBNAR #### [facility] ([id number]) [address] [address] HbA1c (Bld) [Mass fraction] 5.7 % High 4.4-5.6 [facility] Comment on above: Result Comment: NOTE ADA Guidelines Result HgbA1c Normal : less than 5.7 % Prediabetes : 5.7 % to 6.4 % Diabetes : > 6.4 % Use with caution in patients with abnormal hemoglobin variants as the half-life of red blood cells and in vivo glycation rates are affected. Performed By: #### Fiona NICE, 55242-4, NAT DUNBAR #### [facility] ([id number]) [address] [address] Lipid 1996 panelon Cholesterol [Mass/Vol] 143 mg/dL Low 150-200 [facility] Comment on above: Performed By: #### Fiona NICE, 21934-1, NAT DUNBAR #### [facility] ([id number]) [address] [address] Cholesterol in HDL [Mass/Vol] 35 mg/dL Low >39 [facility] Comment on above: Result Comment: HDL <40 mg/dL - High Risk HDL > or = 40mg/dL- Desirable HDL >60 mg/dL - Negative Risk Performed By: #### C ARLET, 79084-6, THYR, HAPaty #### [facility] ([id number]) [address], [address] [place] [address] Cholesterol in LDL [Mass/Vol] 67 mg/dL Normal <130 [facility] Comment on above: Result Comment: LDL <100 mg/dL - Desirable LDL >160 mg/dL - High Risk Performed By: #### Fiona NICE, 19146-1, THYR, HAPaty #### [facility] ([id number]) [address], [facility] [address] [place] [address] Cholesterol in VLDL [Mass/Vol] 41 mg/dL High 0-30 [facility] Comment on above: Performed By: #### Fiona NICE, 12254-0, THYR, HAPaty #### [facility] ([id number]) [address], [facility] [address] [place] [address] CHOLESTEROL:HDL 4.1 Normal 1.0-5.0 [facility] Comment on above: Performed By: #### Fiona NICE, 35819-6, THYR, HAPaty #### [facility] ([id number]) [address], [facility] [address] [place] [address] Triglyceride [Mass/Vol] 204 mg/dL High 27-150 [facility] Comment on above: Performed By: #### Fiona NICE, 91098-4, THYR, HA1C #### [facility] ([id number]) [address], [facility] [address] [place] [address] THYROID PROFILEon 05-05-2024 Free T4 [Mass/Vol] 1.52 ng/dL Normal 0.61-1.60 [facility] Comment on above: Performed By: #### Fiona NICE, 63712-3, THYR, HA1C #### [facility] ([id number]) [address], [address] [place] [address] TSH 0.05 uIU/mL Low 0.49-4.67 [facility] Comment on above: Performed By: #### C ARLET, 47976-6, THYR, HA1C #### [facility] ([id number]) [address], [address] [place] [address] COMPREHENSIVE METABOLIC PANE Trung 10-29-2023 Albumin [Mass/Vol] 4.1 g/dL Normal 3.2-5.3 [facility] Comment on above: Performed By: #### C ARLET, 76909-8, THYR #### [facility] ([id number]) [address], [address] [place] [address] ALP [Catalytic activity/Vol] 70 U/L Normal 39-130 [facility] Comment on above: Performed By: #### C ARLET, 55502-5, THYR #### [facility] ([id number]) [address], [address] [place] [address] ALT [Catalytic activity/Vol] 29 U/L Normal 0-40 [facility] Comment on above: Performed By: #### Fiona NICE, 29900-8, THYR #### [facility] ([id number]) [address], [address] [place] [address] Anion gap [Moles/Vol] 8 mmol/L Normal 5-15 [facility] Comment on above: Performed By: #### C ARLET, 23787-4, THYR #### [facility] ([id number]) [address], [address] [place] [address] AST [Catalytic activity/Vol] 21 U/L Normal 0-41 [facility] Comment on above: Performed By: #### Fiona NICE, 63331-2, THYR #### [facility] ([id number]) [address], [address] [place] [address] Bilirubin [Mass/Vol] 0.2 mg/dL Low 0.3-1.2 [facility] Comment on above: Performed By: #### Fiona NICE, 67056-0, THYR #### [facility] ([id number]) [address], [address] [place] [address] Calcium [Mass/Vol] 9.1 mg/dL Normal 8.5-10.5 [facility] Comment on above: Performed By: #### Fiona NICE, 63784-5, THYR #### [facility] ([id number]) [address], [address] [place] [address] Chloride [Moles/Vol] 103 mmol/L Normal 98-109 [facility] Comment on above: Performed By: #### Fiona NICE, 81661-1, THYR #### [facility] ([id number]) [address], [address] [place] [address] CO2 [Moles/Vol] 28 mmol/L Normal 22-32 [facility] Comment on above: Performed By: #### Fiona NICE, 70898-3, THYR #### [facility] ([id number]) [address], [address] [place] [address] Creatinine [Mass/Vol] 1.02 mg/dL Normal 0.60-1.30 [facility] Comment on above: Result Comment: METH OD TRACEABLE TO IDMS STANDARD Performed By: #### Fiona NICE, 88606-5, THYR #### [facility] ([id number]) [address], [address] [place] [address] GFR/1.73 sq M.predicted among non-blacks MDRD (S/P/Bld) [Vol rate/Area] 90 mL/min/{1.73_m2} Normal >59 [facility] Comment on above: Result Comment: Reported eGFR is based on the CKD-EPI 2020 equation that does not use a race coefficient. Performed By: #### Fiona NICE, 69769-1, THYR #### [facility] ([id number]) [address], [address] [place] [address] Glucose [Mass/Vol] 88 mg/dL Normal 65-99 [facility] Comment on above: Performed By: #### Fiona NICE, 23891-4, THYR #### [facility] ([id number]) [address] [place] [address] Potassium [Moles/Vol] 4.0 mmol/L Normal 3.5-5.0 [facility] Comment on above: Performed By: #### Fiona NICE, 20807-3, THYR #### [facility] ([id number]) [address] [place] [address] Protein [Mass/Vol] 7.2 g/dL Normal 6.0-8.0 [facility] Comment on above: Performed By: #### Fiona NICE 50333-8, THYR #### [facility] ([id number]) [address] [place] [address] Sodium [Moles/Vol] 139 mmol/L Normal 134-146 [facility] Comment on above: Performed By: #### Fiona NICE 15329-7, THYR #### [facility] ([id number]) [address], [address] [place] [address] Urea nitrogen [Mass/Vol] 14 mg/dL Normal 5-23 [facility] Comment on above: Performed By: #### Fiona NICE, 74071-9, THYR #### [facility] ([id number]) [address], [address] [place] [address] Comprehensive metabolic pane trung 10-29-2023 Albumin [Mass/Vol] 4.1 g/dL 3.2 - 5.3 g/dL [facility] ALP [Catalytic activity/Vol] 70 U/L 39 - 130 U/L [facility] ALT No additional P-5'-P [Catalytic activity/Vol] 29 U/L 0 - 40 U/L [facility] Anion gap [Moles/Vol] 8 mmol/L 5 - 15 mmol/L [facility] AST [Catalytic activity/Vol] 21 U/L 0 - 41 U/L [facility] Bilirubin [Mass/Vol] 0.2 mg/dL Low 0.3 - 1 .2 mg/dL [facility] Calcium [Mass/Vol] 9.1 mg/dL 8.5 - 10. 5 mg/dL [facility] Chloride [Moles/Vol] 103 mmol/L 98 - 10 9 mmol/L [facility] CO2 [Moles/Vol] 28 mmol/L 22 - 32 mmol/L [facility] Creatinine [Mass/Vol] 1.02 mg/dL 0.60 - 1.30 mg/dL [facility] Comment on above: METHOD TRACEABLE TO [facility] STANDARD eGFR (CKD-EPI)non-race dependent 90 - PINF [facility] Comment on above: Reported eGFR is based on the CKD-EPI 2020 equation that does not use a race coefficient. Glucose [Mass/Vol] 88 mg/dL 65 - 99 mg/dL [facility] Potassium [Moles/Vol] 4.0 mmol/L 3.5 - 5.0 mmol/L [facility] Protein [Mass/Vol] 7.2 g/dL 6.0 - 8.0 g/dL [facility] Sodium [Moles/Vol] 139 mmol/L 134 - 146 mmol/L [facility] Urea nitrogen [Mass/Vol] 14 mg/dL 5 - 23 mg/dL [facility] HGB A1C (GLYCO-HGB)on 2023 Glucose [Mass/Vol] 126 mg/dL Normal [facility] Comment on above: Performed By: #### C ARLET, 11344-7, THYR #### [facility] ([id number]) [address], [address] [place] [address] HbA1c (Bld) [Mass fraction] 6.0 % High 4.4-5.6 [facility] Comment on above: Result Comment: NOTE ADA Guidelines Result HgbA1c Normal : less than 5.7 % Prediabetes : 5.7 % to 6.4 % Diabetes : > 6.4 % Use with caution in patients with abnormal hemoglobin variants as the half-life of red blood cells and in vivo glycation rates are affected. Performed By: #### C ARLET, 72254-4, THYR #### [facility] ([id number]) [address] [place] [address], [address] [place] [address] Lipid 1996 panelon 4 Cholesterol [Mass/Vol] 165 mg/dL 150 - 200 mg/dL [facility] Cholesterol in HDL [Mass/Vol] 43 mg/dL 39 - PINF mg/dL [facility] Comment on above: HDL <40 mg/dL - High Risk HDL > or = 40mg/dL- Desirable HDL >60 mg/dL - Negative Risk Cholesterol in LDL [Mass/Vol] 71 mg/dL NINF - 130 mg/dL [facility] Comment on above: LDL <100 mg/dL - Desirable LDL >160 mg/dL - High Risk Cholesterol in VLDL [Mass/Vol] 51 mg/dL High 0 - 30 mg/dL [facility] Cholesterol.total/Cho lesterol in HDL [Mass ratio] 3.8 {ratio} 1.0 - 5.0 [facility] Triglyceride [Mass/Vol] 257 mg/dL High 27 - 150 mg/dL [facility] Cholesterol [Mass/Vol] 165 mg/dL Normal 150-200 [facility] Comment on above: Performed By: #### C ARLET, 90921-3, THYR #### [facility] ([id number]) [address], [address] [place] [address] Cholesterol in HDL [Mass/Vol] 43 mg/dL Normal >39 [facility] Comment on above: Result Comment: HDL <40 mg/dL - High Risk HDL > or = 40mg/dL- Desirable HDL >60 mg/dL - Negative Risk Performed By: #### Fiona NICE, 54245-5, THYR #### [facility] ([id number]) [address], [address] [place] [address] Cholesterol in LDL [Mass/Vol] 71 mg/dL Normal <130 [facility] Comment on above: Result Comment: LDL <100 mg/dL - Desirable LDL >160 mg/dL - High Risk Performed By: #### Fiona NICE, 33288-9, THYR #### [facility] ([id number]) [address], [address] [place] [address] Cholesterol in VLDL [Mass/Vol] 51 mg/dL High 0-30 [facility] Comment on above: Performed By: #### Fiona NICE, 33251-8, THYR #### [facility] ([id number]) [address], [address] [place] [address] CHOLESTEROL:HDL 3.8 Normal 1.0-5.0 [facility] Comment on above: Performed By: #### Fiona NICE, 62271-0, THYR #### [facility] ([id number]) [address], [address] [place] [address] Triglyceride [Mass/Vol] 257 mg/dL High 27-150 [facility] Comment on above: Performed By: #### C ARLET, 13551-1, THYR #### [facility] ([id number]) [address], [address] [place] [address] No Panel Informationon 10-29 Interpretation and review of laboratory results Abnormal [facility] THYROID PROFILEon 10-29-2023 Free T4 [Mass/Vol] 0.80 ng/dL Normal 0.61-1.60 [facility] Comment on above: Performed By: #### C ARLET, 79996-0, THYR #### [facility] ([id number]) [address] [place] [address] TSH 9.30 uIU/mL High 0.49-4.67 [facility] Comment on above: Performed By: #### C ARLET, 96710-6, THYR #### [facility] ([id number]) [address] [place] [address] Thyroid profile includes TSH FT4on 10-29-2023 Free T4 [Mass/Vol] 0.80 ng/dL 0.61 - 1. 60 ng/dL [facility] Interpretation and review of laboratory results Abnormal [facility] TSH Qn 9.30 m[IU]/L High [facility] XR LSPINE 2_3 VIEWSon 2022 XR LSPINE [...] by: VAISHNAVI JOHNSON Date: 2022-12-04 18:08 Normal [facility] BASIC METABOLIC PANELon 05- BUN/CREATININE RATIO NOT APPLICABLE Normal 6-22 [facility] Comment on above: Performed By: #### 5 [id number], [id number] #### [facility] of [address], [address] [place] [address] Collar Tacker: Andrew Watts MD Calcium [Mass/Vol] 9.3 mg/dL Normal 8.6-10.3 [facility] Comment on above: Performed By: #### 5 [id number], [id number] #### [facility] of [address], [address] [place] [address] Collar Tacker: Andrew Watts MD Chloride [Moles/Vol] 106 mmol/L Normal 98-110 [facility] Comment on above: Performed By: #### 5 [id number], [id number] #### [facility] of [place] [address] Collar Tacker: Andrew Watts MD CO2 [Moles/Vol] 25 mmol/L Normal 20-32 [facility] Diagnostics Comment on above: Performed By: #### 5 8984, 10673 #### [facility] of [address], [address] [place] [address] Collar Tacker: Andrew Watts MD Creatinine [Mass/Vol] 1.09 mg/dL Normal 0.60-1.[address] [facility] Comment on above: Performed By: #### 5 8984, 88373 #### [facility] of [place] [address] Collar Tacker: Andrew Watts MD eGFR NON-AFR. KENYAN 80 mL/min/1.73m2 Normal > OR = 60 [facility] Comment on above: Performed By: #### 5 8984, 01106 #### [facility] of [address], [address] [place] [address] Collar Tacker: Andrew Watts MD GFR/1.73 sq M.predicted among blacks MDRD (S/P/Bld) [Vol rate/Area] 93 mL/min/{1.73_m2} Normal > OR = 60 [facility] Comment on above: Performed By: #### 5 8984, 71369 #### [facility] of [place] [address] Collar Tacker: Andrew Watts MD Glucose [Mass/Vol] 102 mg/dL High 65-99 [facility] Comment on above: Result Comment: Fasting reference interval For someone without known diabetes, a glucose value between 100 and 125 mg/dL is consistent with prediabetes and should be confirmed with a follow-up test. Performed By: #### 5 8984, 06097 #### [facility] [address], [address] [place] [address] Collar Tacker: Andrew Watts MD Potassium [Moles/Vol] 4.4 mmol/L Normal 3.5-5.3 [facility] st Diagnostics Comment on above: Performed By: #### 5 8984, 55746 #### [facility] [place] [address] Collar Tacker: Andrew Watts MD Sodium [Moles/Vol] 138 mmol/L Normal 135-146 [facility] Comment on above: Performed By: #### 5 8984, 14514 #### [facility] [place] [address] Collar Tacker: Andrew Watts MD Urea nitrogen [Mass/Vol] 14 mg/dL Normal 7-25 [facility] Comment on above: Performed By: #### 5 8984, 38864 #### [facility] [place] [address] Collar Tacker: Andrew Watts MD TSH+FREE T4on 02-21-2022 Free T4 [Mass/Vol] 1.2 ng/dL Normal 0.8-1.8 [facility] Comment on above: Order Comment: FASTI NG:YES FASTING: YES Performed By: #### 5 8984, 34483 #### [facility] [place] [address] Collar Tacker: Andrew Watts MD TSH Qn 1.95 m[IU]/L Normal 0.40-4.50 [facility] Comment on above: Order Comment: FASTI NG:YES FASTING: YES Performed By: #### 5 8984, 10130 #### [facility] of [address], [address] [place] [address] Collar Tacker: Andrew Watts MD [facility] 11-17-2021 Albumin [Mass/Vol] 4.2 g/dL Normal 3.6-5.1 [facility] Comment on above: Performed By: #### 1 0231, 7600 #### [facility] of [address], [address] [place] [address] Collar Tacker: Andrew Watts MD Albumin/Globulin [Mass ratio] 1.4 {ratio} Normal 1.0-2.5 [facility] Comment on above: Performed By: #### 1 0231, 7600 #### [facility] of [address], [address] [place] [address] Collar Tacker: Andrew Watts MD ALP [Catalytic activity/Vol] 77 U/L Normal 36-130 [facility] Comment on above: Performed By: #### 1 0231, 7600 #### [facility] of [address], [address] [place] [address] Collar Tacker: Andrew Watts MD ALT [Catalytic activity/Vol] 51 U/L High 9-46 [facility] Comment on above: Performed By: #### 1 0231, 7600 #### [facility] of [address], [address] [place] [address] Collar Tacker: Andrew Watts MD AST [Catalytic activity/Vol] 36 U/L Normal 10-40 [facility] Comment on above: Performed By: #### 1 0231, 7600 #### [facility] of [address], [address] [place] [address] Collar Tacker: Andrew Watts MD Bilirubin [Mass/Vol] 0.4 mg/dL Normal 0.2-1.2 Ques t Diagnostics Comment on above: Performed By: #### 1 0231, 7600 #### [facility] of [address], [address] [place] [address] Collar Tacker: Andrew Watts MD BUN/CREATININE RATIO NOT APPLICABLE Normal 6-22 [facility] Comment on above: Performed By: #### 1 0231, 7600 #### [facility] [place] [address] Collar Tacker: Andrew Watts MD Calcium [Mass/Vol] 9.4 mg/dL Normal 8.6-10.3 [facility] Comment on above: Performed By: #### 1 023, 7600 #### [facility] of [address], [address] [place] [address] Collar Tacker: Andrew Watts MD Chloride [Moles/Vol] 103 mmol/L Normal 98-110 Ques t Diagnostics Comment on above: Performed By: #### 1 023, 7600 #### [facility] [place] [address] Collar Tacker: Andrew Watts MD CO2 [Moles/Vol] 29 mmol/L Normal 20-32 [facility] Comment on above: Performed By: #### 1 023, 7600 #### [facility] [place] [address] Collar Tacker: Andrew Watts MD Creatinine [Mass/Vol] 0.95 mg/dL Normal 0.60-1.[address] [facility] Comment on above: Performed By: #### 1 023, 7600 #### [facility] [place] [address] Collar Tacker: Andrew Watts MD eGFR NON-AFR. KENYAN 94 mL/min/1.73m2 Normal > OR = 60 [facility] Comment on above: Performed By: #### 1 0231, 7600 #### [facility] of [place] [address] Collar Tacker: Andrew Watts MD GFR/1.73 sq M.predicted among blacks MDRD (S/P/Bld) [Vol rate/Area] 109 mL/min/{1.73_m2} Normal > OR = 60 [facility] Comment on above: Performed By: #### 1 023, 7600 #### [facility] [place] [address] Collar Tacker: Andrew Watts MD Globulin (S) [Mass/Vol] 3.1 g/dL Normal 1.9-3.7 [facility] Comment on above: Performed By: #### 1 023, 7600 #### [facility] [place] [address] Collar Tacker: Andrew Watts MD Glucose [Mass/Vol] 128 mg/dL High 65-99 [facility] Comment on above: Result Comment: Fasting reference interval For someone without known diabetes, a glucose value >125 mg/dL indicates that they may have diabetes and this should be confirmed with a follow-up test. Performed By: #### 1 023, 0 #### [facility] [place] [address] Collar Tacker: Andrew Watts MD Potassium [Moles/Vol] 4.4 mmol/L Normal 3.5-5.3 [facility] st Diagn[facility] Comment on above: Performed By: #### 1 023, 7600 #### [facility] [place] [address] Collar Tacker: Andrew Watts MD Protein [Mass/Vol] 7.3 g/dL Normal 6.1-8.1 [facility] Comment on above: Performed By: #### 1 023, 7600 #### [facility] [place] [address] Collar Tacker: Andrew Watts MD Sodium [Moles/Vol] 139 mmol/L Normal 135-146 [facility] Comment on above: Performed By: #### 1 023, 7600 #### [facility] [place] [address] Collar Tacker: Andrew Watts MD Urea nitrogen [Mass/Vol] 17 mg/dL Normal 7-25 [facility] Comment on above: Performed By: #### 1 0231, 7600 #### [facility] [address], [address] [place] [address] Collar Tacker: Andrew Watts MD LIPID PANEL, [facility] 11-06 Cholesterol [Mass/Vol] 193 mg/dL Normal <200 [facility] Comment on above: Order Comment: FASTI NG:YES FASTING: YES Performed By: #### 1 0231, 7600 #### [facility] [address], [address] [place] [address] Collar Tacker: Andrew Watts MD Cholesterol in HDL [Mass/Vol] 47 mg/dL Normal > OR = 40 [facility] Comment on above: Order Comment: FASTI NG:YES FASTING: YES Performed By: #### 1 023, 7600 #### [facility] [address], [address] [place] [address] Collar Tacker: Andrew Watts MD Cholesterol in LDL [Mass/Vol] [...] LDL-C. Hiram BAZAN et al. XIN. 2013;310(19): 1494-2977 (http://education.[facility].Straight [email or web address] English/faq/RDP550) Performed By: #### 1 023, 0 #### [facility] of [address], [address] [place] [address] Collar Tacker: Andrew Watts MD Cholesterol.total/Cho lesterol in HDL [Mass ratio] 4.1 {ratio} Normal <5.0 [facility] Comment on above: Order Comment: FASTI NG:YES FASTING: YES Performed By: #### 1 0231, 7600 #### [facility] [address], [address] [place] [address] Collar Tacker: Andrew Watts MD NON HDL CHOLESTEROL 146 mg/dL (calc) High <130 [facility] Comment on above: Order Comment: FASTI NG:YES FASTING: YES Result Comment: For patients with diabetes plus 1 major ASCVD risk factor, treating to a non-HDL-C goal of <100 mg/dL (LDL-C of <70 mg/dL) is considered a therapeutic option. Performed By: #### 1 0231, 7600 #### [facility] [place] [address] Collar Tacker: Andrew Watts MD Triglyceride [Mass/Vol] 238 mg/dL High <150 [facility] Comment on above: Order Comment: FASTI NG:YES FASTING: YES Result Comment: If a non-fasting specimen was collected, consider repeat triglyceride testing on a fasting specimen if clinically indicated. Valerie et al. J. of Clin. Lipidol. 2015;9:129-169. Performed By: #### 1 0231, 7600 #### [facility] [address], [address] [place] [address] Collar Tacker: Andrew Watts MD BASIC METABOLIC PANEL 08-3 BUN/CREATININE RATIO NOT APPLICABLE Normal 6-22 [facility] Comment on above: Performed By: #### 1 0165, 62862, 496 #### [facility] [place] [address] Collar Tacker: Andrew Watts MD Calcium [Mass/Vol] 9.1 mg/dL Normal 8.6-10.3 [facility] Comment on above: Performed By: #### 1 0165, 59396, 496 #### [facility] [place] [address] Collar Tacker: Andrew Watts MD Chloride [Moles/Vol] 104 mmol/L Normal 98-110 Ques t Diagnostics Comment on above: Performed By: #### 1 0165, 54350, 496 #### [facility] [address], [address] [place] [address] Collar Tacker: Andrew Watts MD CO2 [Moles/Vol] 24 mmol/L Normal 20-32 [facility] Comment on above: Performed By: #### 1 0165, 88625, 496 #### [facility] [address], [address] [place] [address] Collar Tacker: Anderw Watts MD Creatinine [Mass/Vol] 0.94 mg/dL Normal 0.60-1.35 [facility] st Diagnostics Comment on above: Performed By: #### 1 0165, 74341, 496 #### [facility] [address], [address] [place] [address] Collar Tacker: Andrew Watts MD eGFR NON-AFR. KENYAN 96 mL/min/1.73m2 Normal > OR = 60 [facility] Comment on above: Performed By: #### 1 0165, 28322, 496 #### [facility] [address], [address] [place] [address] Collar Tacker: Andrew Watts MD GFR/1.73 sq M.predicted among blacks MDRD (S/P/Bld) [Vol rate/Area] 111 mL/min/{1.73_m2} Normal > OR = 60 [facility] Comment on above: Performed By: #### 1 0165, 34882, 496 #### [facility] [place] [address] Collar Tacker: Andrew Watts MD Glucose [Mass/Vol] 114 mg/dL High 65-99 [facility] Comment on above: Result Comment: Fasting reference interval For someone without known diabetes, a glucose value between 100 and 125 mg/dL is consistent with prediabetes and should be confirmed with a follow-up test. Performed By: #### 1 0165, 14219, 496 #### [facility] [place] [address] Collar Tacker: Andrew Watts MD Potassium [Moles/Vol] 4.5 mmol/L Normal 3.5-5.3 [facility] st Diagnostics Comment on above: Performed By: #### 1 016, 66057, 496 #### [facility] [address], [address] [place] [address] Collar Tacker: Andrew Watts MD Sodium [Moles/Vol] 139 mmol/L Normal 135-146 [facility] Comment on above: Performed By: #### 1 0165, 10419, 496 #### [facility] [address], [address] [place] [address] Collar Tacker: Andrew Watts MD Urea nitrogen [Mass/Vol] 18 mg/dL Normal 7-25 [facility] Comment on above: Performed By: #### 1 0165, 94378, 496 #### [facility] [address], [address] [place] [address] Collar Tacker: Andrew Watts MD HEMOGLOBIN A1con 06-05-2021 HEMOGLOBIN [...] for children. Performed By: #### 1 0165, 57085, 496 #### [facility] [address], [address] [place] [address] Collar Tacker: Andrew Watts MD TSH+FREE T4on 06-05-2021 Free T4 [Mass/Vol] 1.2 ng/dL Normal 0.8-1.8 [facility] Comment on above: Order Comment: FASTI NG:YES FASTING: YES Performed By: #### 1 0165, 56378, 496 #### [facility] [address], [address] [place] [address] Collar Tacker: Andrew Watts MD TSH Qn 2.88 m[IU]/L Normal 0.40-4.50 [facility] Comment on above: Order Comment: FASTI NG:YES FASTING: YES Performed By: #### 1 0165, 43966, 496 #### [facility] [address], [address] [place] [address] Collar Tacker: Andrew Watts MD TSH+FREE T4on 03-09-2021 Free T4 [Mass/Vol] 1.3 ng/dL Normal 0.8-1.8 [facility] Comment on above: Performed By: #### 5 8984 #### [facility] [address], [address] [place] [address] Collar Tacker: Andrew Watts MD TSH Qn 3.66 m[IU]/L Normal 0.40-4.50 [facility] Comment on above: Performed By: #### 5 8984 #### [facility] [address], [address] [place] [address] Collar Tacker: Andrew Watts MD Coding Summary.on 06-03-2019 Coding Summary. CODING DATE: 06/03/2019 FINAL [facility] STATUS: Home (Routine DC) PAYOR: Medicaid EA [...] CphT Date Saved: 06/03/2019 11:00 am Normal [facility] Coding Summary.on 04-21-2019 Coding Summary. CODING DATE: 04/21/2019 FINAL [facility] STATUS: Home (Routine DC) PAYOR: Medicaid EAPG [...] Obstructive sleep apnea (adult) (pediatric) PYMT PROC [facility] STAT DESCRIPTION DOCTOR NAME DATE [id number] Repair, secondary, Jomar Mercado DPM 04/15/2019 disrupted ligament, ankle, collateral (eg, Calabrese-Evans procedure) RT Right side (used to identify procedures performed on the right side of the body) 52424 0035 Synovectomy, tendon Jomar Mercado DPM 04/15/2019 sheath, foot; flexor RT Right side (used to identify procedures performed on the right side of the body) 65145 Injection, anesthetic Vincenzo Kim JR, DO 04/15/2019 agent; sciatic nerve, single RT Right side (used to identify procedures performed on the right side of the body) XP Separate practitioner, a service that is distinct because it was performed by a different practitioner 23926 0380 Anesthesia for Vincenzo Kim JR, DO [...] Revised Date Saved: 04/21/2019 11:02 am Normal [facility] Main OR Intraoperative Recor agueda 04-19-2019 Main OR Intraoperative Record IntraOp Document Type FT Summary Primary Physician: Jomar Mercado DPM Finalized Date/Time: 04/19/19 11:26:10 Pt. Name: JOSE ROLDAN /Sex: 1975 Male Med Rec #: [id number] Physician: Jomar Mercado DPM Financial #: [id number] Pt. Type: A Room/Bed: Admit/Disch: 04/15/19 07:59:00 [...] Surgeon - Primary Surgeon - Assist 1 Hybrid Derivatives Trader Time In 04/15/19 10:01:00 04/15/19 10:01:00 04/15/19 [...] Kiki Jordan Role Performed Scrub - Primary Telecommunications Facility Examiner - Primary Telecommunications Facility Examiner - Primary Time In 04/15/19 10:01:00 04/15/19 [...] Jaziel Bowman Role Performed Scrub - Primary Telecommunications Facility Examiner - Relief Time In 04/15/19 10:01:00 04/15/19 11:00:00 Time Out 04/15/19 10:25:00 04/15/19 11:32:00 Procedure ANKLE LATERAL ANKLE LATERAL STABILIZATION(Right), STABILIZATION(Right), ANKLE ANKLE MANIPULATION(Right) MANIPULATION(Right) Comments assisting at start LUNCH RELIEF Last Modified By: Jessie SILVA, Kiki Hill RN 04/15/19 11:32:37 04/15/19 11:32:37 General Comments: LARISA CONNER [facility] - MASK LAYOUT DESIGNER - OBSERVING. SHIRA AGUDELOmaterials planning analyst Protocols FT Pre-Care Text: Implements protective measures [...] Outcomes Met? Yes Last Modified By: Kiki Roamn RN 04/15/19 10:49:44 Post-Care Text: The patient [...] OTHER/SEE COMMENTS - LOOPS X 2. SHIRA AGUDELO Skin Prep FT Pre-Care Text: Performs skin [...] safely administered during the perioperative period For [place] please see scanned medication reconcilliation form for medications used at the field during the procedure. Tourniquet FT Pre-Care Text: Implements protective measures to prevent skin/tissue injury due to mechanical sources Entry 1 Tourniquet Type TOURNIQUET [employer] Setting 350 mmHg BLUE 44 X 4 [[id number]][F] Equipment Number D Placement Right Upper Thigh [...] BLANKET MISTRAL AIR Quantity 1 Aid TORSO [[id number]][F] Fluid/[place] Unit Mistral warming system Setting HIGH/43C Body Site Upper anterior torso Last Modified By: Kiki Roman RN 04/15/19 10:36:21 Case Comments Finalized By: Kiki Roman RN Document Signatures Signed By: Kiki Roman RN 04/15/19 11:33 Kiki Roman RN 04/15/19 11:59 Merari SILVA, Lanie MARY 04/19/19 08:42 Merari SILVA, TYRA, Lanie Oliveros 04/19/19 08:53 Kiki Roman RN 04/19/19 11:26 Normal [facility] Operative Reporton 07- 9 Operative Report [...] Vincenzo Kim Jr., Jennifer.O. lkr Dictated: 04/15/2019 #[id number] Typed: 04/15/2019 #[id number] cc: Vincenzo Kim Jr., Lizzie [facility] Comment on above: Result Comment: Elec tronically Signed By: Julio TURCIOS DO, Vincenzo Vela.br\Date and Time Signed: 04/17/19 09:47 EDT Operative Reporton Operative Report Date of Surgery: 04/15/2019 SURGEON: Jomar Mercado DPM,FACFAS CRIMINAL JUSTICE FACULTY: Gokul Mercado DPM PREOPERATIVE DIAGNOSIS: 1. Lateral [...] Jomar Mercado DPM, FACFAS lkr Dictated: 04/15/2019 #[id number] Typed: 04/15/2019 #[id number] cc: Jomar Mercado DPM, FACFAS [facility] Comment on above: Result Comment: Elec tronically Signed By: Jomar Mercado DPM\.br\Date and Time Signed: 04/16/19 08:44 EDT Inpatient Patient Summaryon 04-15-2019 Inpatient Patient Summary [facility] Clinical Discharge Instructions PERSON INFORMATION Name: [facility]AN [facility] Admitting Physician: Jomar Mercado DPM Attending Physician: Jomar Mercado DPM PCP: MEGAN BIRD DO Discharge Diagnosis: Comment: PATIENT EDUCATION INFORMATION Instructions: Foot Cryocuff Patient Instructions - FT (CUSTOM); Faith - Post Operative Instructions (Revised 06/02/14) (Custom) Medication Leaflets: Follow up: With: Address: When: Jomar Mercado [facility], [facility], [facility] [address], [place] [address] 0 Business (1) Within 3 to 5 days Type Location Start Finish State Cardiology Follow Up (FT) FT.Cardiology Clinic 04/23/2019 2:45 PM 04/23/2019 3:00 PM Confirmed MEDICATION LIST Comment: [facility] Main OR PACU I Recordon 04-05 Main OR PACU I Record PACU Phase I Docum ent Type FT Summary Primary Physician: Jomar Mercado DPM Finalized Date/Time: 04/15/19 12:13:38 Pt. Name: JOSE ROLDAN./Sex: 1975 Male Med Rec #: [id number] Physician: Jomar Mercado DPM Financial #: [id number] Pt. Type: A Room/Bed: [facility] Admit/Disch: 04/15/19 07:59:08 - Institution: Case [...] By: Alanis Ghosh RN 04/15/19 12:13 Normal [facility] Main OR PACU II Recordon Main OR PACU II Record PACU Phase II Document Type FT Summary Primary Physician: Jomar Mercado DPM Finalized Date/Time: 04/15/19 13:49:29 Pt. Name: JOSE ROLDAN./Sex: 1975 Male Med Rec #: [id number] Physician: Jomar Mercado DPM Financial #: [id number] Pt. Type: A Room/Bed: [place] [address] Admit/Disch: 04/15/19 07:59:08 - Institution: Case Times [...] By: Eufemia Pelayo RN 04/15/19 13:49 Normal [facility] Main OR Preoperative Recordo n 04-15-2019 Main OR Preoperative Record PreOp Document Type FT Summary Primary Physician: Jomar Mercado DPM Finalized Date/Time: 04/15/19 10:19:53 Pt. Name: JOSE ROLDAN/Sex: 1975 Male Med Rec #: [id number] Physician: Jomar Mercado DPM Financial #: [id number] Pt. Type: A Room/Bed: 10/06 Admit/Disch: 04/15/19 [...] By: Kiki Roman RN 04/15/19 10:19 Normal [facility] Patient Education - Texton 0 04-15-2019 Patient Education - Text [place], [place] Jomar Mercado DPM, FACFAS POST OPERATIVE [...] feel free to call the doctor at: [phone] or [phone] Mercado paged. Patient signature Date Dr. Jomar Mercado DPM, FACFAS Date Revised: 11-13 Normal [facility] Progress Note-Physicianon Progress Note-Physician Patient: JOSE [...] day(s), # 30 tab(s), Refills(s) 0, Pharmacy: 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 Appendectomy ([id number]). bilateral carpal tunnel release. removal foreign body [...] Results review: No qualifying data available. Plan [place] [employer] Anesthesiologists (ASA) physical status classification: Class III. Anesthetic Preoperative Plan Anesthesia: General. , Regional ATTEMPT POPLITEAL BLOCK. ANATOMY MAY LIMIT ABILITY. Anesthetic plan, risks, benefits, and alternatives discussed with the patient and/or family. Pt. and/or family present and agree to proceed as planned.. Discussed the importance of abstaining from tobacco products, and offered counseling if desired. [facility] Comment on above: Result Comment: Elec [...] day(s), # 30 tab(s), Refills(s) 0, Pharmacy: [facility] #72 Documented Medications Documented Dulera 100 mcg-5 [...] All Problems Apnea, sleep / SNOMED CT 736564664 / Confirmed Ankle instability / SNOMED CT 7925512 / Confirmed right Asthma / SNOMED CT 3578724825 / Confirmed Back pain / SNOMED CT 423564205 / Confirmed Acid reflux / SNOMED CT 2030514888 / Confirmed Pleurisy / SNOMED CT 884922701 / Confirmed Prediabetes / SNOMED CT 4897031558 / Confirmed Knee pain / SNOMED CT 456159330 / Confirmed Hypothyroidism / SNOMED CT 387281223 / Confirmed Chest pain / SNOMED CT 73705962 / Confirmed center of chest- feels like [...] right on 12/19/2016 at 41 Years. Appendectomy ([id number]). bilateral carpal tunnel release. removal foreign body [...] Results review: No qualifying data available. Plan [place] [employer] Anesthesiologists (ASA) physical status classification: Class III. Anesthetic Preoperative Plan Anesthesia: General. . Anesthetic plan, risks, benefits, and alternatives discussed with the patient and/or family. Pt. and/or family present and agree to proceed as planned.. Discussed the importance of abstaining from tobacco products, and offered counseling if desired. Normal [facility] Comment on above: Result Comment: Elec tronically Signed By: Vincenzo Kim JR, DO.br\Date and Time Signed: 04/15/19 09:05 EDT Coding Summary.on 04-12-2019 Coding Summary. CODING DATE: 04/12/2019 FINAL [facility] STATUS: Home (Routine DC) PAYOR: Medicaid EAPG [...] Revised Date Saved: 04/12/2019 10:22 am Normal [facility] NM Myocardial Spect Rest/Str ess 1 [...] Stress Dose (mCi Tc99M Cardiolite): 30.3 Normal [facility] Coding Summary.on 04-09-2019 Coding Summary. CODING DATE: 04/09/2019 FINAL [facility] STATUS: Still a Patient PAYOR: Medicaid EAPG [...] Martinez CphT Date Saved: 04/09/2019 08:23 am [facility] NM Stress ECG Dictationon NM Stress [...] Dorman MD Transcribed by: gunner Technologist: LAUREN [facility] Echo Transthoracic Completeo n 04-08-2019 Echo Transthoracic Complete Echocardiology Procedure Exam Date/Time Accession # Ordering Echo Transthoracic 04/06/2019 10:21 EDT [id number] SHELLEY ALONSO, Ronny Duncan Complete CPT code 26352 Reason for Exam (Echo Transthoracic Complete) Shortness [...] Ordering Dr. Echevarria Transthoracic 04/06/2019 10:21 EDT [id number] SHELLEY ALONSO, Ronny Duncan Complete Report 6. [...] MD Transcribed by: gunner Technologist: SAMMY Javier [facility] Inpatient Clinical Summaryon 04-07-2019 Inpatient Clinical Summary [address] [address] Clinical Summary Person Information: Name: JOSE ROLDAN Age: 43 Years : 1975 12:00 AM Sex: Male PCP: MEGAN BIRD DO Marital Status: Phone: [phone] Race: White Ethnicity: Non- or Language: Canadian Visit Id: Visit Reason: Chest pain; CHEST PAIN Speciality: Acuity: 3 Enc Type: Observation Med Service: Medical Arrival: 04/05/2019 4:31 PM Discharge: Dispo Type: Admitted as IP to this [facility] Address: [address] [place] [address] [address] [place] [id number] Provider Notes: Addendum by SHELLEY ALONSO, Ronny [...] Referring Physician: Follow up: With: Address: When: Isreal Dorman [address] [place] [address] [employer] (1) 04/23/2019 2:45 PM With: Address: When: [place] [address] [employer] () 04/13/2019 11:40 AM Type Location Start [facility] Surgery [facility] Surgical Services 04/15/2019 12:45 PM 04/15/2019 1:45 PM Confirmed Cardiology Follow Up (FT) [facility] 04/23/2019 2:45 PM 04/23/2019 3:00 PM Confirmed Patient Education Information: Chest Pain (Nonspecific) Normal [facility] Inpatient Patient Summaryon 04-07-2019 Inpatient Patient Summary [address] [address] Patient Discharge Instructions PERSON INFORMATION Name: JAMARJOSE LAWSON Date of : 1975 12:00 AM Current Date: 04/07/19 16:17:07 PHYSICIANS Admitting Physician: Ronny ROSA MD Primary Care Physician: MEGAN BIRD DO PCP Comment: Discharge Diagnosis: 1:Chest pain; [...] Follow up: With: Address: When: Isreal Dorman [address] [place] [address] Business (1) 04/23/2019 2:45 PM With: Address: When: MEGAN BIRD [address] [place] [address] Business (1) 04/13/2019 11:40 AM In the event that this physician does not participate in your insurance network, please consult with your insurance company to find a nearby participating provider. Type Location Start [facility] Surgery [facility] Surgical Services 04/15/2019 12:45 PM 04/15/2019 1:45 PM Confirmed Cardiology Follow Up (FT) FT.[facility]iology Clinic 04/23/2019 2:45 PM 04/23/2019 3:00 PM Confirmed Comment: JAMAR Patel THOMAS E, have received the attached patient education materials/instruction s and have verbalized understanding: Patient Signature Date Clinican/Nurse Signature Date HERE ARE THE MEDICATION CHANGES THAT OCCURRED DURING YOUR HOSPITAL STAY New Medications [facility], [address] [place], [place] [id number], [phone] aspirin (aspirin 81 mg Oral EC Tab) [...] Document Reviewed: 04/27/2009 ExitCare? Patient Information ?2014 [employer]. This information is not intended to replace advice given to you by your health care provider. Make sure you discuss any questions you have with your health care provider. Medication Leaflets: Thank you for choosing [facility] Normal [facility] Interdisciplinary Note - Sanjay e Manageron 04-07-2019 INR Coag (Bld) [Relative time] Rounding with Dr. Lenka Jade CRM, Elfego [facility], and Kitty SILVA with another patient. No family in room. Patient is alert and oriented and participates in plan of care. Whiteboard updated. Discussed will have 2nd part of stress test today, will wait cardiology recommendations. If stress test negative will dc home later today. Patient states Dr called in RX for FWW as he will have ankle surgery soon. Normal [facility] Auto Diffon 04-06-2019 Basophils/100 WBC (Bld) 0.3 % Normal 0.0-2.0 [facility] Comment on above: Order Comment: Order Added by Discern Expert. Performed By: #### 2 941304, 3134478, 6699696, 18438729, 3802754, 8961244 #### [facility] Laboratory [address] [place] [address] Basophils/Leukocytes Auto (Bld) [Pure # fraction] 0.0 E9/L Normal 0.0-0.2 [facility] Comment on above: Order Comment: Order Added by Discern Expert. Performed By: #### 2 210754, 4573437, 9542978, 62849019, 5545889, 3931783 #### [facility] [address] [place] [address] Eosinophils/100 WBC (Bld) 5.1 % Normal 0.0-8.0 [facility] Comment on above: Order Comment: Order Added by Ezio Expert. Performed By: #### 2 154338, 9301539, 3037785, 67271076, 5938837, 2524226 #### [facility] [address] [place] [address] Eosinophils/Leukocyte s Auto (Bld) [Pure # fraction] 0.4 E9/L Normal 0.0-0.5 [facility] Comment on above: Order Comment: Order Added by Ezio Expert. Performed By: #### 2 551386, 1348730, 8042257, 18968621, 6038444, 1561821 #### [facility] [address] [place] [address] Lymphocytes/100 WBC (Bld) 40.4 % Normal 14.0-50.0 [facility] Comment on above: Order Comment: Order Added by Ezio Expert. Performed By: #### 2 118591, 9013804, 9801508, 20623829, 5020887, 2823754 #### [facility] [address] [place] [address] Lymphocytes/Leukocyte s Auto (Bld) [Pure # fraction] 3.0 E9/L Normal 1.0-4.0 [facility] Comment on above: Order Comment: Order Added by Discern Expert. Performed By: #### 2 145642, 6127028, 3518622, 95621589, 9762923, 4161358 #### [facility] [address] [place] [address] Monocytes/100 WBC (Bld) 10.7 % Normal 4.0-14.0 [facility] Comment on above: Order Comment: Order Added by Discern Expert. Performed By: #### 2 988832, 2745528, 1109697, 32144325, 7283490, 5615001 #### [facility] [address] [place] [address] Monocytes/Leukocytes Auto (Bld) [Pure # fraction] 0.8 E9/L Normal 0.2-1.0 [facility] Comment on above: Order Comment: Order Added by Ezio Expert. Performed By: #### 2 764178, 5945588, 1787614, 14110535, 5724057, 9893981 #### [facility] [address] [place] [address] Neutrophils/100 WBC (Bld) 43.5 % Normal 36.0-75.0 [facility] Comment on above: Order Comment: Order Added by Discern Expert. Performed By: #### 2 019590, 2781537, 9450012, 12119709, 8037788, 7025662 #### [facility] [address] [place] [address] Neutrophils/Leukocyte s Auto (Bld) [Pure # fraction] 3.2 E9/L Normal 2.0-7.5 [facility] Comment on above: Order Comment: Order Added by Discern Expert. Performed By: #### 2 779372, 5379599, 5045730, 61254934, 8552078, 6613188 #### [facility] [address] [place] [address] BMPon 04-06-2019 Anion gap [Moles/Vol] 14 mmol/L Normal 6-16 [facility] Comment on above: Performed By: #### 2 786082, 9627400, 6926330, 25706938, 8016664, 5478004 #### [facility] [address] [place] [address] Calcium [Mass/Vol] 8.6 mg/dL Low 8.9-11.1 [facility] Comment on above: Performed By: #### 2 050105, 7775596, 5857095, 99245541, 0558006, 7887078 #### [facility] [address] [place] [address] Chloride [Moles/Vol] 107 mmol/L Normal 101-111 [facility] Comment on above: Performed By: #### 2 478573, 9832501, 3758966, 78894294, 4768299, 8705076 #### [facility] [address] [place] [address] CO2 [Moles/Vol] 24 mmol/L Normal 21-31 [facility] Comment on above: Performed By: #### 2 844917, 7695439, 2497977, 98928679, 4518890, 7982053 #### [facility] [address] [place] [address] Creatinine [Mass/Vol] 1.1 mg/dL Normal 0.5-1.3 [facility] Comment on above: Performed By: #### 2 145368, 1496281, 0201849, 14834894, 5609611, 2509498 #### [facility] [address] [place] [address] Glucose [Mass/Vol] 109 mg/dL Normal 55-199 [facility] Comment on above: Result Comment: If t his glucose result represents a fasting glucose, interpretation should refer to the following reference range: 55-99 mg/dL Performed By: #### 2 722935, 4445027, 0250710, 65233700, 4582337, 8087409 #### [facility] [address] [place] [address] Potassium [Moles/Vol] 3.9 mmol/L Normal 3.5-5.3 [facility] Comment on above: Performed By: #### 2 342821, 8195369, 0975554, 39467309, 3326032, 9699347 #### [facility] [address] [place] [address] Sodium [Moles/Vol] 141 mmol/L Normal 135-145 [facility] Comment on above: Performed By: #### 2 306504, 0294767, 7387207, 08691916, 6171328, 1494932 #### [facility] [address] [place] [address] Urea nitrogen [Mass/Vol] 18 mg/dL Normal 5-21 [facility] Comment on above: Performed By: #### 2 219261, 3190877, 5259588, 59285470, 9160249, 6559128 #### [facility] [address] [place] [address] Urea nitrogen/Creatinine [Mass ratio] 16 No Units Normal 10-20 [facility] Comment on above: Performed By: #### 2 752867, 1886024, 7470828, 14325962, 1339705, 1450188 #### [facility] [address] [place] [address] CBC w/ Auto Diffon 9 Erythrocyte distribution width (RBC) [Ratio] 14.7 % High 10.9-14.2 [facility] Comment on above: Performed By: #### 2 957992, 2847676, 3318326, 18974707, 8184207, 0670761 #### [facility] [address] [place] [address] Hematocrit (Bld) [Volume fraction] 42.4 % Normal 37.7-49.0 [facility] Comment on above: Performed By: #### 2 708653, 2895609, 8807883, 43566734, 5505440, 3161445 #### [facility] [address] [place] [address] Hemoglobin (Bld) [Mass/Vol] 14.3 g/dL Normal 13.5-17.5 [facility] Comment on above: Performed By: #### 2 420615, 2710956, 4845848, 53739053, 1112951, 8635005 #### [facility] [address] [place] [address] MCH (RBC) [Entitic mass] 29.1 pg Normal 27.0-34.0 [facility] Comment on above: Performed By: #### 2 817045, 8870913, 1510539, 50487604, 7853993, 1323045 #### [facility] [address] [place] [address] MCHC (RBC) [Mass/Vol] 33.8 g/dL Normal 33.3-35.7 [facility] Comment on above: Performed By: #### 2 100449, 5058007, 9879218, 01746344, 8024871, 6810869 #### [facility] [address] [place], [place] [address] MCV (RBC) [Entitic vol] 86.2 fL Normal 80.0-100.0 [facility] Comment on above: Performed By: #### 2 498255, 3776564, 2683723, 97965537, 2641689, 8988728 #### [facility] [address] [place] [address] Platelet mean volume (Bld) [Entitic vol] 8.1 fL Normal 6.4-10.8 [facility] Comment on above: Performed By: #### 2 442530, 8991892, 6086109, 33428244, 7955925, 9974105 #### [facility] [address] [place] [address] Platelets (Bld) [#/Vol] 356.0 E9/L Normal 150.0-500.0 [facility] Comment on above: Performed By: #### 2 412131, 9934009, 0014595, 08030988, 0507286, 6150117 #### [facility] [address] [place] [address] RBC (Bld) [#/Vol] 4.9 E12/L Normal 4.3-5.9 [facility] Comment on above: Performed By: #### 2 742764, 2053008, 8548593, 51488793, 9656450, 8360696 #### [facility] [address] [place] [address] WBC corrected for nucl RBC Auto (Bld) [#/Vol] 7.3 E9/L Normal 4.0-11.0 [facility] Comment on above: Performed By: #### 2 086010, 6031784, 1155217, 34573737, 9446187, 2609986 #### [facility] [address] [place] [address] Consultation Noteon 04-06-20 Consultation Note Patient: JOSE ROLDAN Age: 43 years Sex: Male : 1975 Associated Diagnoses: None Author: Lakia ALONSO, Isreal Nieves Chief Complaint 04/05/2019 19:32 EDT Chest pain in pre-surgery 04/05/2019 16:25 EDT Pt arrives from pre surgical testing for chest pain x 1 week. Pt states midsternal, feels like pleurisy . 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 Pt denies any [...] All Problems Acid reflux / SNOMED CT 3314320022 / Confirmed Ankle instability / SNOMED CT 9892879 / Confirmed right Apnea, sleep / SNOMED CT 519277999 / Confirmed Asthma / SNOMED CT 6233773325 / Confirmed Back pain / SNOMED CT 568875652 / Confirmed Chest pain / SNOMED CT 41189196 / Confirmed center of chest- feels like a bruise/ 4/10 on pain scale - reminds him of the pain he had when he had Pleurisy. Instructed to go to ER- wants to finish PST testing first stated pain down to 2/10 Hypothyroidism / SNOMED CT 101990966 / Confirmed Knee pain / SNOMED CT 388245780 / Confirmed Pleurisy / SNOMED CT 444961705 / Confirmed Prediabetes / SNOMED CT 4230522841 / Confirmed, Active Problems (10) Acid reflux [...] right on 12/19/2016 at 41 Years. Appendectomy ([id number]). bilateral carpal tunnel release. removal foreign body [...] 04/05/2019 19:38 EDT Height/Length Measured 185 cm Keaton Body Weight Calculated 79.52 kg BSA Measured [...] 04/05/2019 15:14 EDT Height/Length Measured 181.5 cm Keaton Body Weight Calculated 76.35 kg BSA Measured [...] [employer] nuclear stress testing. Thank you Normal [facility] Comment on above: Result Comment: Elec tronically Signed By: Lakia ALONSO, Isreal Kevin\Date and Time Signed: 04/06/19 09:43 EDT ED Note-Physicianon 04-06-20 ED Note-Physician Basic Information Time Seen: Eduarda Israel, Lucila Chaparro 04/05/2019 16:50 Chief Complaint Pt arrives from pre surgical testing for chest pain x 1 week. Pt states midsternal, feels like pleurisy . 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 Pt denies any [...] changes. The cases discussed with Dr. Dorman slater apprentice who recommends patient be admitted for unstable [...] CONSIDER NORMAL VARIANT rate 83 BPM Normal [facility] Comment on above: Result Comment: Elec tronically Signed By: Hajdari M.D., Astrit H\.br\Date and Time Signed: 04/06/19 07:18 EDT Interdisciplinary Note - Sanjay e Manageron 04-06-2019 Interdisciplinary Note - Food And Drug Inspector Rounds done at this time with Dr Rosa, Dipti WATKINS, [facility], and Es Rn in another pt room. [...] hospital, they use [facility] in [place]. I spoke with Dr Cope office and they will send a script over on Friday when Dr Mercado returns. Normal [facility] Interdisciplinary Note - PTo n 04-06-2019 Interdisciplinary Note - PT PT Evaluation completed with an MA PAC score of 24/24. Pt functioning at [facility] level at this time with no dizziness or chest pain. Pt does have an upcomming ankle surgery on 04/15/19 in which he would benefit from a FWW d/t he will be NWB on right LE. Pt would need a script for a FWW for his upcomming surgery Normal [facility] Lipid Panelon 04-06-2019 Cholesterol [Mass/Vol] 184 mg/dL Normal 120-200 [facility] Comment on above: Performed By: #### 2 224009, 5891962, 8928727, 92998477, 9716124, 0195336 #### [facility] [address] [place] [address] Cholesterol in HDL [Mass/Vol] 33 mg/dL [facility] Comment on above: Result Comment: HDL > or equal to 60 mg/dL: Low cardiovascular risk HDL < 40 mg/dL : High cardiovascular risk Performed By: #### 2 450458, 9411603, 8537574, 36999392, 0207216, 1480144 #### [facility] [address] [place] [address] Cholesterol in LDL [Mass/Vol] 120 mg/dL Normal <=129 [facility] Comment on above: Performed By: #### 2 623124, 3888356, 1586756, 13478299, 3904070, 0878753 #### [facility] [address] [place] [address] Cholesterol in VLDL [Mass/Vol] 40 mg/dL Normal 7-40 [facility] Comment on above: Performed By: #### 2 393718, 8930130, 5732594, 40311636, 3241410, 1860857 #### [facility] [address] [place] [address] Triglyceride [Mass/Vol] 201 mg/dL High <=149 [facility] Comment on above: Performed By: #### 2 570780, 1080122, 0556487, 16554019, 1583769, 7205243 #### [facility] [address] [place] [address] Patient Education - Texton 0 04-06-2019 Patient Education - Text Normal [facility] Troponin 6 Hr.on 04-06-2019 Troponin I.cardiac [Mass/Vol] ng/mL Normal <=0.03 [facility] Comment on above: Result Comment: New Troponin Assay 02/17/14 JENNIFER DC Cutoff value > or = 0.03 ng/mL in conjunction with clinical conditions of myocardial infarction. (www.escardio.org/guidelines) Performed By: #### 2 414591, 8972272, 7686121, 60854454, 2212144, 8850592 #### [facility] [address] [place] [address] Troponin 9 Hr.on 04-06-2019 Troponin I.cardiac [Mass/Vol] ng/mL Normal <=0.03 [facility] Comment on above: Result Comment: New Troponin Assay 02/17/14 JENNIFER DC Cutoff value > or = 0.03 ng/mL in conjunction with clinical conditions of myocardial infarction. (www.escardio.org/guidelines) Performed By: #### 2 617633, 4395419, 4400201, 69624911, 5103053, 8633476 #### [facility] [address] [place] [address] eGFRon 04-06-2019 GFR/1.73 sq M predicted among blacks MDRD (S/P/Bld) [Vol rate/Area] mL/min/{1.73_m2} Normal >=59 [facility] Comment on above: Order Comment: Order added by Discern Expert. Result Comment: eGFR is race adjusted. AA=. Performed By: #### 2 664656, 1428376, 7428387, 00732782, 2207604, 5660348 #### [facility] [address] [place] [address] GFR/1.73 sq M predicted among non-blacks MDRD (S/P/Bld) [Vol rate/Area] mL/min/{1.73_m2} Normal >=59 [facility] Comment on above: Order Comment: Order added by Discern Expert. Result Comment: Washing Machine Operator saida kidney disease could be indicated at eGFR's of less than 60 mL/min/1.73m2. Kidney failure is indicated at less than 15 mL/min/1.73m2. Performed By: #### 2 698508, 0084448, 0312923, 45790518, 6701966, 4394462 #### [facility] [address] [place] [address] BUNon 04-05-2019 Urea nitrogen [Mass/Vol] 16 mg/dL Normal 5-21 [facility] Comment on above: Performed By: #### 2 042871, 8860045, 2385191, 46669954, 9526432, 5639192 #### [facility] [address] [place] [address] CBC w/Indiceson 04-05-2019 Erythrocyte distribution width (RBC) [Ratio] 14.6 % High 10.9-14.2 [facility] Comment on above: Performed By: #### 2 202934, 0030810, 5642597, 66631186, 1193380, 8868802 #### [facility] [address] [place] [address] Hematocrit (Bld) [Volume fraction] 40.9 % Normal 37.7-49.0 [facility] Comment on above: Performed By: #### 2 867091, 1190974, 2347661, 89203134, 4391210, 3216859 #### [facility] [address] [place] [address] Hemoglobin (Bld) [Mass/Vol] 13.9 g/dL Normal 13.5-17.5 [facility] Comment on above: Performed By: #### 2 837533, 8882480, 7930575, 68961896, 8017388, 2646208 #### [facility] [address] [place] [address] MCH (RBC) [Entitic mass] 28.9 pg Normal 27.0-34.0 [facility] Comment on above: Performed By: #### 2 043115, 9883388, 7250881, 50184780, 7307165, 8390660 #### [facility] [address] [place] [address] MCHC (RBC) [Mass/Vol] 33.8 g/dL Normal 33.3-35.7 [facility] Comment on above: Performed By: #### 2 028843, 8127705, 0573477, 29271194, 0895423, 4447321 #### [facility] [address] [place] [address] MCV (RBC) [Entitic vol] 85.4 fL Normal 80.0-100.0 [facility] Comment on above: Performed By: #### 2 270555, 0996013, 9261869, 40166922, 9838287, 3806725 #### [facility] [address] [place] [address] Platelet mean volume (Bld) [Entitic vol] 7.5 fL Normal 6.4-10.8 [facility] Comment on above: Performed By: #### 2 767738, 6527799, 0788413, 65112303, 9681561, 6859913 #### [facility] [address] [place] [address] Platelets (Bld) [#/Vol] 372.0 E9/L Normal 150.0-500.0 [facility] Comment on above: Performed By: #### 2 077522, 8436883, 5014963, 06027237, 2837014, 9288358 #### [facility] [address] [place] [address] RBC (Bld) [#/Vol] 4.8 E12/L Normal 4.3-5.9 [facility] Comment on above: Performed By: #### 2 884959, 0910459, 7786008, 73305739, 7422205, 9215087 #### [facility] [address] [place] [address] WBC corrected for nucl RBC Auto (Bld) [#/Vol] 7.8 E9/L Normal 4.0-11.0 [facility] Comment on above: Performed By: #### 2 882276, 9139415, 7842447, 70378041, 5983097, 4990083 #### [facility] [address] [place] [address] Creatinineon 04-05-2019 Creatinine [Mass/Vol] 1.0 mg/dL Normal 0.5-1.3 [facility] Comment on above: Performed By: #### 2 658429, 5456018, 5707406, 68591932, 2282547, 8277363 #### [facility] [address] [place] [address] D-Dimeron 04-05-2019 Fibrin D-dimer FEU (PPP) [Mass/Vol] 297 ng/mL Normal 215-500 [facility] Comment on above: Result Comment: This [...] infections Liver cirrhosis Performed By: #### 2 042689, 8973271, 2657502, 73743858, 3961893, 0903175 #### [facility] [address] [place] [address] ED Clinical Summaryon 2018 ED Clinical Summary [address] [address] ED Clinical Summary Person Information Name: JOSE ROLDAN/[facility]_Bouse Age: 43 Years : 1975 12:00 AM Sex: Male Language: Canadian PCP: MEGAN BIRD DO Marital Status: Phone: [phone] Visit Id: Visit Reason: Chest pain; CHEST PAIN Speciality: Acuity: 3 Enc Type: Observation Med Service: Medical Arrival: 04/05/2019 4:31 PM Discharge: LOS: 000 02:27 Checkin: 04/05/2019 4:31 PM Checkout: 04/05/2019 6:58 PM Dispo Type: Admitted as IP to this [facility] EVENTS: Event Name Event Status Request Date/Time [...] Patient Care Request 04/05/2019 6:41 PM ADDRESS: [facility] [place] [phone] PHYS DOC NOTES: MEDICAL INFORMATION: Prescriptions Given: PATIENT EDUCATION INFORMATION: Instructions: Follow up: DIAGNOSIS: 1:Chest pain; 2:Unstable angina; 3:Morbidly obese; 4:Dyspnea on exertion; 5:Bipolar disorder; 6:Hypertension; 7:Prediabetes; 8:No contraindication to deep vein thrombosis (DVT) prophylaxis Normal [facility] ED Clinical Summary [place] [id number] ED Clinical Summary Person Information Name: JOSE ROLDAN/[facility]_Marciano Age: 43 Years : 1975 12:00 AM Sex: Male Language: Canadian PCP: NONE, XXXX Marital Status: Visit Id: [...] PM 04/05/2019 4:49 PM ADDRESS: [place] [phone] [facility] DOC NOTES: MEDICAL INFORMATION: Prescriptions Given: Home [...] EDUCATION INFORMATION: Instructions: Follow up: DIAGNOSIS: Normal [facility] ED Note-Nursingon 04-05-2019 ED Note-Nursing Pt. [...] and EKG times are not skewed. Normal [facility] ED Patient Education Noteon 04-05-2019 ED Patient Education Note Normal [facility] ED Patient Education Note Normal [facility] ED Patient Summaryon 019 ED Patient Summary [place] [id number] Patient Discharge Instructions Person Information Name: JOSE ROLDAN Age: 43 Years Arrival Date: 04/05/2019 4:31 PM Discharge Diagnosis: 1:Chest pain; 2:Unstable angina; 3:Morbidly obese; 4:Dyspnea on exertion; 5:Bipolar disorder; 6:Hypertension; 7:Prediabetes; 8:No contraindication to deep vein thrombosis (DVT) prophylaxis Primary Care Physician: MEGAN BIRD DO Provider Information Primary Provider: Lucila Lerner M.D. Advanced Public Safety Officer:None The exam and treatment you received in the Emergency Department were for an urgent problem and are not intended as complete care. It is important that you follow up with a doctor, nurse practitioner, or physician?s pastry assistant for ongoing care. If your symptoms [...] opioids can be used to help relieve hpvudulr-pw-[id number] pain and are often prescribed following a [...] be struggling with addiction, tell your health career coach and ask for guidance or call [employer]?S National Helpline at 9-790-883-XVWK. v Source: [place] Department of Health and Human Services/Center for Disease Control & Prevention [facility] Medications Given: Medication Dose Route [...] Comment: Pharmacy Information: Thank you for choosing [facility] Patient Education Materials: JAMAR Patel THOMAS E , have received the following patient education materials/instruction s and have verbalized understanding: Patient Education Materials: Follow-up Instructions: Prescriptions: Patient Signature Date Clinician/Nurse Signature Date 04/05/19 18:58:35 Normal [facility] ED Patient Summary [place] [id number] Patient Discharge Instructions Person Information Name: JOSE ROLDAN Age: 43 Years Arrival Date: 04/05/2019 3:12 PM Discharge Diagnosis: Primary Care Physician: NONE, XXXX Provider Information Primary Provider: Advanced Public Safety Officer:None The exam and treatment you received in the Emergency Department were for an urgent problem and are not intended as complete care. It is important that you follow up with a doctor, nurse practitioner, or physician?s pastry assistant for ongoing care. If your symptoms [...] opioids can be used to help relieve tikoiacs-he-rlkbec pain and are often prescribed following a [...] be struggling with addiction, tell your health career coach and ask for guidance or call [facility]?S National Helpline at 0-143-469-WLMO. y Source: US Department of Health and Human Services/Center for Disease Control & Prevention [facility] Medications Given: Medication Dose Route [...] Date Clinician/Nurse Signature Date 04/05/19 16:50:00 Normal [facility] Glucoseon 04-05-2019 Glucose [Mass/Vol] 108 mg/dL Normal 55-199 [facility] Comment on above: Performed By: #### 2 [id number], [id number], [id number], [id number], 3892625, [id number] #### [facility] [address] [place] [address] [id number] 04-05-2019 HbA1c (Bld) [Mass fraction] 6.1 % High <=5.9 [facility] Comment on above: Order Comment: Add-o n if possible Performed By: #### 2 [id number], [id number], 4747127, [id number], 2599975, [id number] #### [facility] [address] [place] [address] History and Physicalon 04-05 History and Physical Basic Information Accompanied by: Family member Source of History: Self Present at Bedside: Family member Referral Source: Self History Limitation: None Chief Complaint Pt arrives from pre surgical testing for chest pain x 1 week. Pt states midsternal, feels like pleurisy . 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 Pt denies any [...] initial set of cardiac enzymes were negative. Hooker Inspector was consult did via phone and and [...] 2. Unstable angina(I20.0: Unstable angina) As per slater apprentice Clinically unclear ? Stress test versus left [...] made to ensure accuracy, however, inadvertently computerized flying ii instructor mistakes may be present. Ronny Rosa Hospitalist [...] 100 in lifetime) Tobacco Use:., 04/05/2019 Normal [facility] Comment on above: Result Comment: Elec tronically Signed By: SHELLEY ALONSO, Ronny Duncan\.br\Date and Time Signed: 04/05/19 18:32 EDT Jameson 04-05-2019 Anion gap [Moles/Vol] 12 mmol/L Normal 6-16 [facility] Comment on above: Performed By: #### 2 [id number], 2768776, 1282704, 22838615, [id number], [id number] #### [facility] [address] [place] [address] Chloride [Moles/Vol] 107 mmol/L Normal 101-111 [facility] Comment on above: Performed By: #### 2 137943, 6059725, 8592865, 75953113, 7884227, 6462384 #### [facility] [address] [place] [address] CO2 [Moles/Vol] 24 mmol/L Normal 21-31 [facility] Comment on above: Performed By: #### 2 734388, 7993596, 4712902, [id number], 7459835, 3081458 #### [facility] [address] [place] [address] Potassium [Moles/Vol] 4.0 mmol/L Normal 3.5-5.3 [facility] Comment on above: Performed By: #### 2 685607, 3705394, 9182974, 87418010, 3858856, 3997995 #### [facility] [address] [place] [address] Sodium [Moles/Vol] 139 mmol/L Normal 135-145 [facility] Comment on above: Performed By: #### 2 809959, 2598812, 0408038, 27055414, 9042418, 3877733 #### [facility] [address] [place] [address] PT & PTTon 04-05-2019 aPTT Coag (PPP) [Time] 29.1 second(s) Normal 25.1-36.5 [facility] Comment on above: Result Comment: Hepa rin therapeutic range (represented by Anti-Factor Xa activity of 0.2 - 0.4 U/mL) corresponds to PTT of 56.6 - 109.0 sec. Performed By: #### 2 866863, 9218219, 9821398, 65797162, 1671845, 7449495 #### [facility] [address] [place] [address] INR Coag (PPP) [Relative time] 1.0 {INR} [facility] Comment on above: Result Comment: INR results are specifically intended to assess patients stabilized on long-term Anticoagulation therapy suggested INR?s ?Less Intensive Anticoagulation? 2.0 ? 3.0 Conventional Range 3.0 ? 4.5 Performed By: #### 2 299514, 4263175, 2667547, 91154754, 9912109, 7331751 #### [facility] [address] [place] [address] PT Coag (PPP) [Time] 11.6 second(s) Normal 10.2-12.9 [facility] Comment on above: Performed By: #### 2 980819, 2254462, 2630223, 08254873, 3460330, 0715233 #### [facility] [address] [place] [address] Pre-Arrival Noteon 9 Pre-Arrival Note Pre-Arrival Summary Name: pre surg- chest pain, Current Date: 04/05/2019 16:18:44 EDT Gender: Male Date of : Age: Pre-Arrival Type: EMS ETA: 04/05/2019 16:45:00 EDT Primary Care Physician: Presenting Problem: chest pain Pre-Arrival User: Dafne Smith RN Referring Source: Location: PA Completion Date/Time: 04/05/19 16:15:00 [facility] Emergency Department Pre-Hospital Report Form Vital Signs: Pre-Hospital Report: Treatment in Route: Response to Treatment: Misc. Issues: Normal [facility] Troponin 0 Hr.on 04-05-2019 Troponin I.cardiac [Mass/Vol] ng/mL Normal <=0.03 [facility] Comment on above: Result Comment: New Troponin Assay 02/17/14 JENNIFER DC Cutoff value > or = 0.03 ng/mL in conjunction with clinical conditions of myocardial infarction. (www.escardio.org/guidelines) Performed By: #### 2 105778, 4866073, 7381244, 65581384, 0363703, 8717358 #### [facility] [address] [place] [address] Troponin 3 Hr.on 04-05-2019 Troponin I.cardiac [Mass/Vol] ng/mL Normal <=0.03 [facility] Comment on above: Result Comment: New Troponin Assay 02/17/14 JENNIFER DC Cutoff value > or = 0.03 ng/mL in conjunction with clinical conditions of myocardial infarction. (www.escardio.org/guidelines) Performed By: #### 2 930075, 0598698, 7731857, 53568478, 0642944, 4546969 #### [facility] [address] [place] [address] XR Chest Single Viewon 04-05 XR Chest [...] MD Transcribed by: LISA Technologist: PATRICIA Normal [facility] eGFRon 04-05-2019 GFR/1.73 sq M predicted among blacks MDRD (S/P/Bld) [Vol rate/Area] mL/min/{1.73_m2} Normal >=59 [facility] Comment on above: Order Comment: Order added by Discern Expert. Result Comment: eGFR is race adjusted. AA=. Performed By: #### 2 941382, 8159960, 3672609, 92791063, 1637661, 9483112 #### [facility] [address] [place] [address] GFR/1.73 sq M predicted among non-blacks MDRD (S/P/Bld) [Vol rate/Area] mL/min/{1.73_m2} Normal >=59 [facility] Comment on above: Order Comment: Order added by Discern Expert. Result Comment: Washing Machine Operator saida kidney disease could be indicated at eGFR's of less than 60 mL/min/1.73m2. Kidney failure is indicated at less than 15 mL/min/1.73m2. Performed By: #### 2 863638, 9761592, 8161715, 62214420, 6958254, 1331515 #### [facility] [address] [place] [address] Vital Signs Date Time Vital Sign Value Performing Clinician Facility 10-20-2024 15:24-0500 Body height 179.8 cm Megan Bird DO Work Phone: [facility] 10-20-2024 15:24-0500 Body mass index (BMI) [Ratio] 48.61 kg/m2 Megan Bird DO Work Phone: [facility] 10-20-2024 15:24-0500 Body temperature 97.39 [degF] Megan Bird DO Work Phone: [facility] 10-20-2024 15:24-0500 Body weight 157.22 kg Megan Lopezs DO Work Phone: [facility] 10-20-2024 15:24-0500 Diastolic blood pressure 60 mm[Hg] Megan Lopezs DO Work Phone: [facility] 10-20-2024 15:24-0500 Heart rate 101 /min Megan Bird DO Work Phone: [facility] 10-20-2024 15:24-0500 Respiratory rate 20 /min Megan Bird DO Work Phone: [facility] 10-20-2024 15:24-0500 SaO2% (BldA) [Mass fraction] 97 % Megan Bird DO Work Phone: [facility] 10-20-2024 15:24-0500 Systolic blood pressure 136 mm[Hg] Megan Lopezs DO Work Phone: [facility] 10-29-2023 13:10-0500 Body height 180.3 cm Megan Lopezs DO Work Phone: [facility] 10-29-2023 13:10-0500 Body mass index (BMI) [Ratio] 50.23 kg/m2 eMgan Bird DO Work Phone: [facility] 10-29-2023 13:10-0500 Body temperature 97.81 [degF] Megan Lopezs DO Work Phone: [facility] 10-29-2023 13:10-0500 Body weight 163.29 kg Megan Lopezs DO Work Phone: [facility] 10-29-2023 13:10-0500 Diastolic blood pressure 62 mm[Hg] Megan Lopezs DO Work Phone: [facility] 10-29-2023 13:10-0500 Heart rate 87 /min Megan Bird DO Work Phone: [facility] 10-29-2023 13:10-0500 Respiratory rate 22 /min Megan Bird DO Work Phone: [facility] 10-29-2023 13:10-0500 SaO2% (BldA) [Mass fraction] 95 % Megan Bird DO Work Phone: [facility] 10-29-2023 13:10-0500 Systolic blood pressure 118 mm[Hg] Megan Bird DO Work Phone: [facility] Encounters Encounter Date Encounter Type Care Provider Facility Start: 10-20-2024 End: 10-20-2024 ambulatory [facility] Start: 10-20-2024 End: 10-20-2024 Office outpatient visit 25 minutes Megan Bird DO Work Phone: [facility] Internal Medicine - Family Medicine Comment on above: 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 ([facility]) (Primary Dx); SONIA (obstructive sleep apnea); 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; Class 3 drug-induced obesity with serious comorbidity and body mass index (BMI) of 45.0 to 49.9 in adult ([facility]); Pain in unspecified wrist; Encounter for immunization Start: 10-20-2024 End: 10-20-2024 ambulatory [facility] Start: 10-18-2024 ambulatory Nabeel Spencer acility:[facility] Start: 10-14-2024 End: 10-14-2024 Refill Krysta Awad [facility] Internal Medicine - Family Medicine Comment on above: Impaired fasting glu cose; Pain in unspecified wrist; Gastro-esophageal reflux disease with esophagitis, without bleeding Start: 05-05-2024 End: 05-05-2024 ambulatory [facility] Start: 05-05-2024 End: 05-05-2024 ambulatory [facility] Start: 05-03-2024 End: 05-03-2024 [...] right foot Start: 10-29-2023 End: 10-29-2023 ambulatory [facility] Start: 10-29-2023 End: 10-29-2023 ambulatory [facility] Start: 10-29-2023 End: 10-29-2023 Office outpatient visit 25 minutes Megan Bird DO Work Phone: [facility] Internal [facility] - [facility] Comment on above: Impaired fasting glu cose (Primary Dx); Mild persistent asthma without complication; Class 3 drug-induced obesity with serious comorbidity and body mass index (BMI) of 45.0 to 49.9 in adult ([facility]); 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; Sinus tarsitis [...] Td Vaccines (2 - Td or Tdap) [facility] Start: 03-20-2032 DTaP,Tdap and Td Vaccines (3 - Td or Tdap) DTaP,Tdap and Td Vaccines (3 - Td or Tdap) [facility] Start: 10-20-2025 Adult BMI Screening Adult BMI Screen ing [facility] Start: 10-20-2025 Depression Screening Depression Scre ening [facility] Start: 10-20-2025 Tobacco Screening Tobacco Screening [facility] Start: 05-17-2025 Glaucoma screening Diabetic Op hthalmology Exam [facility] Start: 05-05-2025 Adult BMI Screening Adult BMI Screen ing [facility] Start: 05-05-2025 Depression Screening Depression Scre ening [facility] Start: 05-05-2025 Tobacco Screening Tobacco Screening [facility] Start: 10-29-2024 Adult BMI Screening Adult BMI Screen ing [facility] Start: 10-29-2024 Tobacco Screening Tobacco Screening [facility] Start: 10-20-2024 End: 10-20-2024 Patient encounter procedure 10/20/2024 3:30 PM EST Office Visit [facility] Internal [facility] - [facility] Medicine [address] [place] [address] Megan Bird, DO [address] [place] [address] [facility] Start: 08-18-2024 Depression Screening Depression Scre ening [facility] Start: 06-06-2024 COVID-19 Vaccine ( season) COVID-19 Vaccine ( season) [facility] Start: 06-06-2024 Influenza vaccination Influenza Vacc ine [facility] Start: 12-25-2023 End: 12-25-2023 Patient encounter procedure 12/25/2023 3:30 PM EDT Office Visit [facility] Internal [facility] - [facility] Medicine [address] [place] [address] [facility] - [facility] Start: 12-12-2023 End: 12-12-2023 Patient encounter procedure 12/12/2023 11:00 AM EST Office Visit [facility] [address] [facility] [place] [phone] Jomar Mercado, DPM FACFAS [address] [facility] [place] [address] [facility] Start: 2023 Administration of varicella zoster vaccine Zoster (Shingles) [facility] Start: 06-06-2023 Influenza vaccination Influenza Vacc ine [facility] Start: 1991 Adult BMI Follow Up Plan Adult BMI F ollow Up Plan [facility] Start: 1991 Diabetic foot examination Diabetic Foot Exam [facility] Start: 1973 Urine screening for protein Urine Microalbumin [facility] End: 10-20-2025 Comprehensive metabolic 2000 panel - Serum or Plasma Comprehensive metabolic panel Lab Routine Type II diabetes mellitus with neurological manifestations ([facility]) 1 Occurrences starting 10/20/2024 until 10/20/2025 [employer] Work Phone: Comment on above: 1 Occurrences starti ng 10/20/2024 until 10/20/2025 End: 10-29-2024 Hemoglobin A1c/Hemoglobin.total in Blood Hemoglobin A1c Lab Routine Impaired fasting glucose 1 Occurrences starting 10/29/2023 until 10/29/2024 [employer] [facility] Work Phone: Comment on above: 1 Occurrences starti ng 10/29/2023 until 10/29/2024 Hemoglobin A1c/Hemoglobin.total in Blood Hemoglobin A1c Lab Routine Impaired fasting glucose 10/29/2023 10:08 PM EST [facility] End: 10-20-2025 Hemoglobin A1c/Hemoglobin.total in Blood Hemoglobin A1c Lab Routine Type II diabetes mellitus with neurological manifestations ([facility]) 1 Occurrences starting 10/20/2024 until 10/20/2025 [facility] Comment on above: 1 Occurrences starti ng 10/20/2024 until 10/20/2025 End: 10-29-2024 Microalbumin - Albumin: Creatinine Urine Ratio Microalbumin - Albumin: Creatinine Urine Ratio Lab Routine Impaired fasting glucose 1 Occurrences starting 10/29/2023 until 10/29/2024 [facility] Comment on above: 1 Occurrences starti ng 10/29/2023 until 10/29/2024 End: 10-20-2025 Microalbumin - Albumin: Creatinine Urine Ratio Microalbumin - Albumin: Creatinine Urine Ratio Lab Routine Type II diabetes mellitus with neurological manifestations ([facility]) 1 Occurrences starting 10/20/2024 until 10/20/2025 [facility] Comment on above: 1 Occurrences starti ng 10/20/2024 until 10/20/2025 End: 10-20-2025 Thyroid profile includes TSH FT4 Thyroid profile includes TSH FT4 Lab Routine 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 2024 Unknown [id number] 2023 Medicare [id number] 2023 Self-pay 2022 Medicare [id number] 2022 Medicare [id number] 2021 Medicaid MEDICAID [facility] [id number] 2021-Present [phone] [address] [place] [address] Medicaid [id number] 2017 Unknown [id number] 1973 Unknown [id number] [id number] 1973 Unknown [id number] [id number] 1973 Unknown [id number] [id number] 1973 Unknown [id number] 2.16.840.1.144808.3.579.2.1259 1973 Unknown [id number] 2.16.840.1.857524.3.579.2.1259 1973 Unknown [id number] 2.16.840.1.309446.3.579.2.1259 1973 Unknown [id number] 2.16.840.1.774842.3.579.2.1259 1973 Unknown [id number] 2.16.840.1.897477.3.579.2.1286 1973 Unknown [id number] 2.16.840.1.468533.3.579.2.1286 1973 Unknown [id number] 2.16.840.1.790954.3.579.2.1286 1973 Unknown [id number] [id number] 1973 Unknown [id number] 2.16.840.1.968394.3.579.2.1286 1973 Unknown [id number] [id number] 1959 Medicaid [id number] Unknown [id number] Social History Date Type Detail Facility Start: 10-10-2022 End: 04-04-2023 Tobacco smoking status NHIS Ex-smoker [facility] History of tobacco use Current smoker [facility] History of tobacco use Cigarette Smoker P [facility] Start: 10-10-2022 End: 04-04-2023 Tobacco use and exposure Smokeless tobacco non-user [facility] Start: 10-29-2023 End: 10-20-2024 Alcohol intake Ex-drinker (finding) [facility] Start: 11-16-2020 End: 10-29-2023 History of Social function [facility] Start: 11-16-2020 End: 10-29-2023 Tobacco use panel [facility] tem Adolescent depressio n screening assessment 16 [facility] Start: 1975 Sex Assigned At Not on file P [facility] Start: 09-24-2023 Alcohol intake Lifetime non-d chasity (finding) [facility] Start: 03-13-2023 Alcohol Comment caffeine: 2-3 cups per day [facility] Start: 09-27-2015 Sex Male (finding) [facility] Clinical Notes 12-04-2022 to 10-20-2024 Megan Bird, DO - 10/20/2024 3:30 PM ESTTelephone Encounter - Krysta Awad, [facility] - 10/14/2024 8:49 AM ESTTelephone Encounter - Krysta Awad, [facility] - 10/14/2024 8:49 AM EST Note Date & Type Note Facility 10-20-2024 History of Presen t illness Narrative IM PROGRESS NOTE Patient - Jose Roldan Age - 49 y[facility] 1975 [id number]ESS[facility] & PLAN 1. Type II diabetes mellitus with neurological manifestations ([facility]) (Primary) -goals of treatment reviewed with the [...] (BMI) of 45.0 to 49.9 in adult ([facility]) -not much change since last visit -continue [...] BMI 48.61 kg/m Physical Exam Vitals reviewed. Transfer Table Operator Helper present: . Constitutional: General: He is not [...] Testing No results found. Megan Bird DO., [facility] Office: [phone] documented in this encounter [facility] 10-14-2024 Miscellaneous Notes Formattin g of this note might be different from the original. Pt called and would like refills on pended medications. Pharmacy is listed and correct documented in this encounter [facility] 10-14-2024 Telephone encount er Note Pt called and would like refills on pended medications. Pharmacy is listed and correct [facility] 10-29-2023 History of Presen t illness Narrative [...] (BMI) of 45.0 to 49.9 in adult ([facility]) -weight all the same perhaps [...] Exam Vitals reviewed. Exam conducted with a wastewater treatment supervisor present (). Constitutional: General: He is not [...] Testing No results found. Megan Bird DO., [facility] Office: [phone] documented in this encounter [facility] 12-04-2022 Note PROCEDURE: XR KNEE R T 1_2 V COMPARISON: None. HISTORY: Pain of right knee joint FINDINGS: BONES:No fracture, acute abnormality, or significant arthropathy. Corticated calcific density identified along the medial femoral condyle, remote injury favored. SOFT TISSUES:Negative. No visible soft tissue swelling. EFFUSION:None visible. OTHER: Negative. 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 Sinus tarsitis of right foot Hyperlipidemia, unspecified hyperlipidemia type documented in this encounter [facility] Diagnosis Pain in right ankle and joints of right foot documented in this encounter [facility]* Diagnosis Impaired fasting glucose Pain in unspecified wrist Gastro-esophageal reflux disease with esophagitis, without bleeding documented [facility] this [facility] Diagnosis Type II diabetes mellitus with neurological manifestations ([facility])- Primary Type II or unspecified type diabetes mellitus with neurological manifestations, not stated as uncontrolled SONIA (obstructive sleep apnea) Obstructive sleep apnea (adult) (pediatric) 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 and body mass index (BMI) of 45.0 to 49.9 in adult ([facility]) Pain in unspecified wrist Encounter for immunization documented in this encounter [facility] on filedocumented in this encounter [facility]ructionsNot on filedocumented in this encounter [facility] Summary Purpose Family History No [...] day(s), # 30 tab(s), Refills(s) 0, Pharmacy: [facility] Documented Medications Documented Dulera 100 mcg-5 [...] made to ensure accuracy, however, inadvertently computerized flying ii instructor mistakes may be present. Physical Exam Vitals [...] made to ensure accuracy, however, inadvertently computerized flying ii instructor mistakes may be present. Physical Exam Vitals [...] right foot Megan Bird, DO [address] [place] [address] [facility] [address] [place] [address] Referral ID Status Reason Start Date Expiration Date V isits Requested Visits Authorized [id number] Pending Review 10/29/2023 10/28/2024 1 1 Additional Source Comments (unrecognized sect ion and content) No Status Records FoundNo Status Records FoundNo Status Records FoundNo Status Records FoundNo Status Records FoundNo Status Records FoundNo Status Records Found INFORMATION SOURCE (unrecogn ized section and content) DATE CREATED AUTHOR 06/04/2019 [facility] DATE CREATED AUTHOR AUTHOR'S ORGANIZ ATION 02/23/2022 [facility] DATE CREATED AUTHOR AUTHOR'S ORGANIZ ATION 01/11/2023 [facility] DATE CREATED AUTHOR AUTHOR'S ORGANIZ ATION 05/04/2024 [facility] DATE CREATED AUTHOR AUTHOR'S ORGANIZ ATION 10/22/2024 [facility] DATE CREATED AUTHOR AUTHOR'S ORGANIZ ATION 10/23/2024 [facility] DATE CREATED AUTHOR AUTHOR'S ORGANIZ ATION 10/24/2024 [facility] Reason for Visit (unrecogniz ed section and content) Reason Comments Diabetes Reason Comments Med Refill Reason Comments thyroid blood work check/cold congestion -2 weeks green phlem Care Teams (unrecognized sec tion and content) Shade [employer] Relationship Specialty Start Date End Date Megan Bird DO [address] [place] [address] PCP - General Internal Medicine 09/04/22 Shade Maker Relationship Specialty Start Date End Date Megan Bird MD [address] [place] [address] PCP - General Internal Medicine 04/04/23 Shade Maker Relationship Specialty Start Date End Date Megan Bird DO [address] [place] [address] PCP - General Internal Medicine 09/04/22 Shade Maker Relationship Specialty Start Date End Date Megan Bird DO [address] [place] [address] PCP - General Internal Medicine 09/04/22 FOR [...] BE BASED ON THE PRIMARY CLINICAL RECORDS. [facility] [facility]. provides no warranty or guarantee of the accuracy or completeness of information in this document.
== END 2024-11-08 20:55 | disposition home or self-care (01) ==
LOC: SLEEP 20:54
PROVIDERS: PCP Internal Medicine; Visit Provider Internal Medicine
DX: G47.33 Obstructive sleep apnea (adult) (pediatric) (principal)
CPT/HCPCS: 95811

== ENCOUNTER 2025-04-07 14:19 | Outpatient (OUT) | payer OTHER, SELFPAY ==
--- NOTE | 2025-04-07 14:30 | XR_ITS ---
[facility] [place] [id number] Patient Name: JOSE ROLDAN MRN: [id number] date: 1975 Sex: M Assigned Patient Location: RAD Current Patient Location: [facility] Accession/Order Number: [id number] Exam Date: 04/07/2025 14:47 Report Date: 04/07/2025 14:47 At the request of: MEGAN BIRD Procedure: XR wrist RT min 3V RIGHT WRIST - 3 views CLINICAL HISTORY: Primary Osteoarthritis COMPARISON: None. FINDINGS: No focal soft tissue abnormality or acute bony process. Joint spaces appear maintained. XR/XR wrist RT min 3V IMPRESSION: NO ACUTE BONY PROCESS. Impression dictated by: Gian Watts Jr., DGautamOGautam 04/07/2025 2:47 PM Dictation Location: [place] [address] Electronically authenticated by: [id number] Y Date: 04/07/2025 14:47
--- OUTSIDE RECORDS SUMMARY | 2025-04-07 15:02 | XMS_ITS | CCD ---
Author Organization [facility] Care Team Providers Care Creative Strategist Name Role Phone MARGE, DR GUZMAN Primary Care Unavailable YUHALashae, DR GUZMAN Attending Unavailable YUHAS, DR GUZMAN Admitting Unavailable YUHAS, DR GUZMAN Primary Care Unavailable YUHAS, DR GUZMAN Consulting Unavailable YUHAS, DR GUZMAN Attending Unavailable YUHAS, DR GUZMAN Admitting Unavailable WEST, DR VAISHNAVI Mercado Consulting Unavailable Karenhas Megan ALONSO Primary Care Provider JOMAR MERCADO Attending Unavailable DOLJOMAR FREEDMAN Attending Unavailable DOLJASMINA, JOMAR Rodriguez Attending Unavailable DOLCEJOMAR Referring Unavailable DOLCEJOMAR Attending Unavailable DOLCE, JOMAR Rodriguez Attending Unavailable Yuhas DOMegan Primary Care Provider MEGAN BIRD Referring Unavailable YUHAS, MEGAN Bowman Primary Care Unavailable YUHAS, MEGAN L Referring Unavailable YUHAS, MEGAN L Primary Care Unavailable YUHAS, MEGAN L Referring Unavailable YUHAS, MEGAN L Primary Care Unavailable Yuhas DO Megan L Primary Care Provider MEGAN BIRD Attending Unavailable YUHAS, MEGAN Bowman Referring Unavailable YUHAS, MEGAN L Primary Care Unavailable YUHAS, MEGAN L Attending Unavailable YUHAS, MEGAN L Referring Unavailable YUHAS, MEGAN L Primary Care Unavailable YUHAS, MEGAN L Attending Unavailable YUHAS, MEGAN L Referring Unavailable YUHAS, MEGAN L Primary Care Unavailable YUHAS, MEGAN L Attending Unavailable YUHAS, MEGAN L Referring Unavailable YUHAS, MEGAN L Primary Care Unavailable Nabeel Alicea Admitting Unavailab le Nabeel Alicea Attending Unavailab le NON STAFF Primary Care Unavailable Allergies Allergy Classification Reported Allergen(s) Allergy Type Date of Onset Reaction(s) Facility (3 sources) Codeine; Translations: [CODEINE] Drug Allergy 5 [facility] Repository (14 sources) Codeine Drug Allergy 3 Unknown [facility] Work Phone: (15 sources) Pollen; Translations: [POLLEN EXTRACTS] Propensity to adverse reactions to drug 3 [facility] Medications Current Medications Medication Drug Class(es) Dates Sig (Normalized) Sig (Original) albuterol 0.83 mg/ml inhalation solution (15 sources) beta2-Adrenergic Agonist Start: 12-10-2023 take 3 [...] DAILY NEEDED Inhalation for 10 0 Active benztropine mesylate 1 mg oral tablet (14 sources) Anticholinergic, Antihistamine Start: 09-26-2022 benztropine (COGENTIN) 1 mg tablet 09/26/2022 Active cariprazine 6 mg oral capsule (14 sources) Atypical Antipsychotic Start: 09-26-2022 VRAYLAR 6 mg capsule 09/26/2022 Active 14 actuat fluticasone furoate 0.1 mg/actuat / vilanterol 0.025 mg/actuat dry powder inhaler (8 sources) Corticosteroid, beta2-Adrenergic Agonist Start: 06-16-2024 take 1 puff(s) by inhalation in the morning fluticasone furoate-vilantero L (BREO ELLIPTA) 100-25 mcg/dose blister with device Indications: Mild persistent asthma, uncomplicated Inhale 1 puff in the morning. 90 each 1 06/16/2024 Active ketoconazole 20 mg/ml medicated shampoo (14 sources) Azole Antifungal Start: 02-21-2023 ketoconazole (NIZOral) 2 % shampoo LATHER ON SCALP, LEAVE ON 3-5 MINUTES BEFORE RINSING. 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 0 07/29/2023 Active Start: 02-21-2023 take 1 tablet by juan in the morning levothyroxine (Synthroid, Levoxyl) 200 MCG tablet Take 200 mcg by mouth in the morning. 0 02/21/2023 Active meloxicam 15 mg oral tablet (20 sources) Nonsteroidal Anti-inflammatory Drug Start: 02-21-2023 End: 10-20-2024 take 1 tablet by mouth once daily in the morning meloxicam (MOBIC) 15 mg tablet Indications: Pain in unspecified wrist TAKE ONE TABLET BY MOUTH DAILY AT 9 AM 90 tablet 1 10/20/2024 Active mirtazapine 30 mg oral tablet (19 sources) Start: 09-18-2024 mirtazapine (REMERON) 30 mg tablet 09/18/2024 Active Start: 09-26-2022 End: 03-16-2025 mirtazapine (REMERON) 45 MG tablet 09/26/2022 03/16/2025 Discontinued (Dose adjustment) omeprazole 20 mg delayed release oral capsule (16 sources) Proton Pump Inhibitor Start: 12-10-2023 End: 10-14-2024 take 1 capsule by mouth once daily in the morning omeprazole (PriLOSEC) 20 mg capsule Indications: Gastro-esophageal reflux disease with esophagitis, without bleeding TAKE ONE CAPSULE BY MOUTH DAILY AT 9 AM 90 capsule 1 10/14/2024 Active Start: 08-20-2023 take 1 capsule by mo ut once daily omeprazole (PriLOSEC) 20 mg capsule [...] 02/21/2023 Active prazosin 5 mg oral capsule (14 sources) alpha-Adrenergic Ernie Start: 09-26-2022 prazosin (MINIPRESS) 5 mg capsule 09/26/2022 Active QUEtiapine 50 mg oral tablet (15 sources) Atypical Antipsychotic Start: 03-15-2025 QUEtiapine (SEROquel) 50 mg tablet 03/15/2025 Active Start: 02-21-2023 QUEtiapine (SE ROquel) 200 MG tablet TAKE 1/2 (ONE-HALF) OF A TABLET BY MOUTH IN THE MORNING then TAKE 1 TABLET BY MOUTH at night 0 02/21/2023 Active Start: 09-26-2022 QUEtiapine (SE ROquel) 200 mg tablet 09/26/2022 Active semaglutide (OZEMPIC) 2 mg/dose (8 mg/3 mL) pen injector (9 sources) Start: 12-09-2024 inject 2 mg by subcutaneous injection every week semaglutide (OZEMPIC) 2 mg/dose (8 mg/3 mL) pen injector Indications: Type II diabetes mellitus with neurological manifestations (CMS-HCC) Inject 2 mg under the skin once a week. 12 mL 12/09/2024 Active Start: 10-20-2024 End: 12-09-2024 inject 2 mg by subcutaneous injection every week semaglutide (OZEMPIC) 2 mg/dose (8 mg/3 mL) pen injector Indications: Impaired fasting glucose Inject 2 mg under the skin once a week. 12 mL 10/20/2024 12/09/2024 Discontinued (Reorder) Start: 10-14-2024 inject 2 mg by subcu taneous injection every week semaglutide (OZEMPIC) 2 mg/dose [...] 9 mL 1 06/21/2024 10/14/2024 Discontinued (Reorder) Start: 06-21-2024 inject 2 mg by subcu taneous injection every week semaglutide (OZEMPIC) 2 mg/dose (8 mg/3 mL) pen injector Indications: Impaired fasting glucose Inject 2 mg under the skin once a week. 9 mL 1 06/21/2024 Active semaglutide 2 mg/dose (8 mg/ 3 mL) pen injector (4 sources) Start: 12-22-2023 End: 03-25-2024 semaglutide 2 mg/dose (8 mg/ 3 mL) pen injector Indications: Impaired fasting glucose Inject 2 mg under the skin every 7 days. 6 mL 1 12/22/2023 03/25/2024 Discontinued Start: 12-22-2023 semaglutide 2 mg/dose (8 mg/3 mL) pen injector Indications: Impaired fasting glucose Inject 2 mg under the skin every 7 days. 6 mL 1 12/22/2023 Active Start: 07-28-2023 semaglutide 2 mg/dose (8 mg/3 mL) pen injector Indications: Impaired fasting glucose Inject 2 mg under the skin every 7 days. 0 07/28/2023 Active sertraline 100 mg oral tablet (14 sources) Serotonin Reuptake Inhibitor Start: 08-18-2023 take [...] Active traZODone hydrochloride 100 mg oral tablet (13 sources) Serotonin Reuptake Inhibitor Start: 09-26-2022 traZODone (DESYREL) 100 mg tablet 09/26/2022 Active zolpidem tartrate 10 mg oral tablet (15 sources) gamma-Aminobutyric Acid-ergic Agonist Start: 02-15-2025 zolpidem (AMBIEN) 10 mg tablet Take 1 tablet (10 mg total) by mouth. 02/15/2025 Active Start: 09-01-2022 End: 03-16-2025 zolpidem (AMBIEN) 5 mg table t Take 2 tablets (10 mg total) by mouth nightly. 1 tab 10 mg 09/01/2022 03/16/2025 Discontinued (Dose adjustment) Start: 11-27-2022 take 1 tablet by juan th once daily zolpidem (AMBIEN) 5 mg tablet Take 1 tablet (5 mg total) by mouth nightly. 09/01/2022 Active Completed/Discontinued Medications Medication Drug Class(es) Dates Sig (Normalized) Sig (Original) benzonatate 200 mg oral capsule (4 sources) Non-narcotic Antitussive Start: 10-29-2023 End: 05-05-2024 take 1 capsule by mouth three times daily as needed for cough benzonatate (TESSALON PERLES) 200 mg capsule Indications: Mild persistent asthma without complication Take 1 capsule (200 mg total) by mouth 3 (three) times a day as needed for cough. 20 capsule 10/29/2023 05/05/2024 Discontinued (Therapy completed) dextromethorphan hydrobromide 2 mg/ml / guaiFENesin 20 mg/ml oral solution (2 sources) Uncompetitive X-twlvkp-R-asparta te Receptor Antagonist, Sigma-1 Agonist Start: 08-18-2023 End: 10-29-2023 take 5 mL by mouth every twelve hours dextromethorphan-g uaiFENesin (ROBITUSSIN-DM) 10-100 mg/5 mL liquid Take 5 mL by mouth every 12 (twelve) hours. 120 mL 1 08/18/2023 10/29/2023 Discontinued (Therapy completed) diclofenac sodium 0.01 mg/mg topical gel (2 sources) Nonsteroidal Anti-inflammatory Drug Start: 10-13-2022 End: 10-29-2023 [...] g 1 10/13/2022 10/29/2023 Discontinued (Therapy completed) 60 actuat formoterol fumarate 0.005 mg/actuat / mometasone furoate 0.1 mg/actuat metered dose inhaler (8 sources) Corticosteroid, beta2-Adrenergic Agonist Start: 12-10-2023 End: 06-16-2024 take 2 puff(s) by mouth twice daily mometasone-formote rol (DULERA) 100-5 mcg/actuation inhaler Indications: Mild persistent asthma, uncomplicated INHALE 2 PUFFS BY MOUTH TWICE DAILY 39 g 1 12/10/2023 06/16/2024 Discontinued Start: 04-22-2023 End: 10-21-2023 take 2 puff(s) by mouth twice daily DULERA 100-5 mcg/actuation inhaler Indications: Mild persistent asthma, uncomplicated INHALE 2 PUFFS BY MOUTH TWICE DAILY 39 g 1 10/21/2023 Active take 2 puff(s) by in halation in the morning Dulera 100-5 MCG/ACT inhaler Inhale 2 puffs in the morning and 2 puffs before bedtime. 0 Active OZEMPIC 2 mg/dose (8 mg/3 mL ) pen injector (4 sources) Start: 03-25-2024 End: 06-21-2024 OZEMPIC 2 mg/dose (8 mg/3 mL ) pen injector Indications: Impaired fasting glucose {BULK] INJECT 2MG UNDER THE SKIN EVERY 7 DAYS 6 mL 1 03/25/2024 06/21/2024 Discontinued (Reorder) Start: 03-25-2024 OZEMPIC 2 mg/d ose (8 mg/3 mL) pen injector Indications: Impaired fasting glucose {BULK] INJECT 2MG UNDER THE SKIN EVERY 7 DAYS 6 mL 1 03/25/2024 Active Problems Active Problems Problem Classification Problem Date Documented Date Episodic/Chronic Anxiety disorders (13 sources) Posttraumatic stress disorder; Translations: [Post-traumatic stress disorder, unspecified] Onset: 08-18-2023 08-18-2023 Chronic Asthma (20 sources) Uncomplicated mild persistent asthma; Translations: [Mild persistent asthma, uncomplicated] Onset: 10-09-2022 10-09-2022 Chronic Diabetes mellitus with complications (9 sources) Disorder of nervous system due to type 2 diabetes mellitus; Translations: [Type 2 diabetes mellitus with other diabetic neurological complication] Onset: 10-20-2024 10-20-2024 Chronic Diabetes mellitus without complication (3 sources) Type 2 diabetes mellitus; Translations: [Type 2 diabetes mellitus without complications] Onset: 10-20-2024 03-16-2025 Chronic Disorders of lipid metabolism (4 sources) Hyperlipidemia; Translations: [Hyperlipidemia, unspecified] Onset: 05-05-2024 10-29-2023 Chronic Esophageal disorders (2 sources) Gastro-esophageal reflux disease with esophagitis; Translations: [Gastro-esophageal reflux disease with esophagitis, without bleeding] 10-14-2024 Chronic Essential hypertension (13 sources) Essential hypertension; Translations: [Essential (primary) hypertension] Onset: 10-09-2022 10-09-2022 Chronic Osteoarthritis (16 sources) Osteoarthritis of joint of left ankle; Translations: [Primary osteoarthritis, left ankle and foot] Onset: 09-01-2023 09-01-2023 Chronic Other connective tissue disease (1 source) Abnormal posture; Translations: [ABNORMAL POSTURE] Onset: 12-04-2022 Episodic Other connective tissue disease (1 source) Plantar fasciitis of right foot; Translations: [Plantar fascial fibromatosis] 12-09-2024 Episodic Other nervous system disorders (1 source) [...] foot] 11-19-2023 Episodic Other non-traumatic joint disorders (4 sources) Pain in wrist; Translations: [Pain in unspecified wrist] 10-14-2024 Episodic Other nutritional; endocrine; and metabolic disorders (15 sources) Drug-induced obesity; Translations: [Class 3 drug-induced obesity with serious comorbidity and body mass index (BMI) of 45.0 to 49.9 in adult] Onset: 10-09-2022 10-29-2023 Chronic Other nutritional; endocrine; and metabolic disorders (1 source) Drug-induced obesity; 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] Onset: 10-29-2023 Chronic Other nutritional; endocrine; and metabolic disorders (1 source) Body mass index (BMI) 45.0-49.9, adult; Translations: [Body mass index (BMI) 45.0-49.9, adult] Onset: 10-29-2023 Chronic Other screening for suspected conditions (not mental disorders or infectious disease) (1 source) Encounter for screening for malignant neoplasm of colon; Translations: [Encounter for screening for malignant neoplasm of colon] Onset: 03-16-2025 Episodic Residual codes; unclassified (1 source) Obstructive sleep [...] subsequent encounter] Onset: 11-27-2022 Episodic Thyroid disorders (20 sources) 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; Translations: [Autoimmune thyroiditis] Onset: 10-09-2022 10-09-2022 Chronic Unclassified (1 source) Obesity, class 3; Translations: [Obesity, class 3] Onset: 10-29-2023 Unclassified (1 source) 6 month check up Onset: 05-05-2024 Past or Other Problems Problem Classification Problem Date Documented Da te Episodic/Chronic Diabetes mellitus without complication (20 sources) Impaired fasting glycemia; Translations: [Impaired fasting glucose] Onset: 10-09-2022 10-14-2024 Episodic Immunizations and screening for infectious disease (3 sources) Patient encounter status; Translations: [Encounter for immunization] Onset: 10-20-2024 10-20-2024 Episodic Mood disorders (13 sources) Mood disorders Onset: 05-05-2024 Resolved: 03-16-2025 05-05-2024 Other connective tissue disease (1 source) Plantar fascial fibromatosis; Translations: [Plantar fascial fibromatosis] Onset: 12-09-2024 Episodic Other non-traumatic joint disorders (1 source) Sinus tarsi syndrome; Translations: [Pain in right ankle and joints of right foot] 10-29-2023 Episodic Other non-traumatic joint disorders (1 source) Pain in unspecified wrist; Translations: [Pain in unspecified wrist] Onset: 10-20-2024 Episodic Results Test Name Value Interpretation Reference Range Facility COMPREHENSIVE METABOLIC PANE Trung 03-16-2025 Albumin [Mass/Vol] 4.4 g/dL Normal 3.2-5.3 [facility] Comment on above: Performed By: #### C MP #### [facility] ([facility]) [address] [place] [address] VIR ALP [Catalytic activity/Vol] 69 U/L Normal 39-130 [facility] Comment on above: Performed By: #### C MP #### [facility] ([facility]) [address] [place] [address] VIR ALT [Catalytic activity/Vol] 23 U/L Normal <=40 [facility] Comment on above: Performed By: #### C MP #### [facility] ([facility]) [address] [place] [address] VIR Anion gap [Moles/Vol] 8 mmol/L Normal 5-15 [facility] Comment on above: Performed By: #### C MP #### [facility] ([facility]) [address] [place] [address] VIR AST [Catalytic activity/Vol] 20 U/L Normal <=41 [facility] Comment on above: Performed By: #### C MP #### [facility] ([facility]) [address] [place] [address] VIR Bilirubin [Mass/Vol] 0.3 mg/dL Normal 0.3-1.2 [facility] Comment on above: Performed By: #### C MP #### [facility] ([facility]) [address] [place] [address] VIR Calcium [Mass/Vol] 9.3 mg/dL Normal 8.5-10.5 [facility] Comment on above: Performed By: #### C MP #### [facility] ([facility]) [address] [place] [address] VIR Chloride [Moles/Vol] 104 mmol/L Normal 98-109 [facility] Comment on above: Performed By: #### C MP #### [facility] ([facility]) [address] [place] [address] VIR CO2 [Moles/Vol] 28 mmol/L Normal 22-32 [facility] Comment on above: Performed By: #### C MP #### [facility] ([facility]) [address] [place] [address] VIR Creatinine [Mass/Vol] 1.08 mg/dL Normal 0.60-1.30 [facility] Comment on above: Result Comment: METH OD TRACEABLE TO IDMS STANDARD Performed By: #### C MP #### [facility] ([facility]) [address] [place] [address] VIR GFR/1.73 sq M.predicted among non-blacks MDRD (S/P/Bld) [Vol rate/Area] 83 mL/min/{1.73_m2} Normal >=60 [facility] Comment on above: Result Comment: Repo rted eGFR is based on the CKD-EPI 1 equation that does not use a race coefficient. Performed By: #### C MP #### [facility] ([facility]) [address] [place] [address] VIR Glucose [Mass/Vol] 116 mg/dL High 65-99 [facility] Comment on above: Performed By: #### C MP #### [facility] ([facility]) [address] [place] [address] VIR Potassium [Moles/Vol] 4.0 mmol/L Normal 3.5-5.0 [facility] Comment on above: Performed By: #### C MP #### [facility] ([facility]) [address] [place] [address] VIR Protein [Mass/Vol] 7.5 g/dL Normal 6.0-8.0 [facility] Comment on above: Performed By: #### C MP #### [facility] ([facility]) [address] [place] [address] VIR Sodium [Moles/Vol] 140 mmol/L Normal 134-146 [facility] Comment on above: Performed By: #### C MP #### [facility] ([facility]) [address] [place] [address] VIR Urea nitrogen [Mass/Vol] 13 mg/dL Normal 5-23 [facility] Comment on above: Performed By: #### C MP #### [facility] ([facility]) [address] [place] [address] VIR Comprehensive metabolic pane trung 03-16-2025 Albumin [Mass/Vol] 4.4 g/dL 3.2 - 5.3 g/dL [facility] ALP [Catalytic activity/Vol] 69 U/L 39 - 130 U/L [facility] ALT No additional P-5'-P [Catalytic activity/Vol] 23 U/L NINF - 40 U/L [facility] Anion gap [Moles/Vol] 8 mmol/L 5 - 15 mmol/L [facility] AST [Catalytic activity/Vol] 20 U/L NINF - 41 U/L [facility] Bilirubin [Mass/Vol] 0.3 mg/dL 0.3 - 1 .2 mg/dL [facility] Calcium [Mass/Vol] 9.3 mg/dL 8.5 - 10. 5 mg/dL [facility] Chloride [Moles/Vol] 104 mmol/L 98 - 10 9 mmol/L [facility] CO2 [Moles/Vol] 28 mmol/L 22 - 32 mmol/L [facility] Creatinine [Mass/Vol] 1.08 mg/dL 0.60 - 1.30 mg/dL [facility] Comment on above: METHOD TRACEABLE TO IDMS STANDARD EGFR Non-Race Dependent 83 - PINF [facility] Comment on above: Reported eGFR is bas ed on the CKD-EPI 2020 equation that does not use a race coefficient. Glucose [Mass/Vol] 116 mg/dL High 65 - 99 mg/dL [facility] Potassium [Moles/Vol] 4 mmol/L 3.5 - 5.0 mmol/L [facility] Protein [Mass/Vol] 7.5 g/dL 6.0 - 8.0 g/dL [facility] Sodium [Moles/Vol] 140 mmol/L 134 - 146 mmol/L [facility] Urea nitrogen [Mass/Vol] 13 mg/dL 5 - 23 mg/dL [facility] HEMOGLOBIN A1Con 03-16-2025 Glucose [Mass/Vol] 117 mg/dL Normal [facility] Comment on above: Performed By: #### H A1C #### [facility] ([facility]) [address] [place] [address] VIR HbA1c (Bld) [Mass fraction] 5.7 % High 4.4-5.6 [facility] Comment on above: Result Comment: ADA Guidelines Result HgbA1c Normal : less than 5.7 % Prediabetes : 5.7 % to 6.4 % Diabetes : > 6.4 % Use with caution in patients with abnormal hemoglobin variants as the half-life of red blood cells and in vivo glycation rates are affected. Performed By: #### H A1C #### [facility] ([facility]) [address] [place] [address] VIR Hemoglobin A1con 03-16-2025 Average glucose Estimated from glycated hemoglobin (Bld) [Mass/Vol] 117 mg/dL [facility] HbA1c (Bld) [Mass fraction] 5.7 % High 4.4 - 5.6 % [facility] Comment on above: ADA Guidelines Result HgbA1c Normal : less than 5.7 % Prediabetes : 5.7 % to 6.4 % Diabetes : > 6.4 % Use with caution in patients with abnormal hemoglobin variants as the half-life of red blood cells and in vivo glycation rates are affected. Interpretation and review of laboratory results Abnormal [facility] LIPID PROFILEon 03-16-2025 Cholesterol [Mass/Vol] 173 mg/dL Normal 150-200 [facility] Comment on above: Performed By: #### L IPR #### [facility] ([facility]) [address] [place] [address] VIR Cholesterol in HDL [Mass/Vol] 40 mg/dL Normal >39 [facility] Comment on above: Result Comment: HDL <40 mg/dL - High Risk HDL > or = 40mg/dL- Desirable HDL >60 mg/dL - Negative Risk Performed By: #### L IPR #### [facility] ([facility]) [address] [place] [address] VIR Cholesterol in LDL [Mass/Vol] 69 mg/dL Normal <130 [facility] Comment on above: Result Comment: LDL <100 mg/dL - Desirable LDL >160 mg/dL - High Risk Performed By: #### L IPR #### [facility] ([facility]) [address] [place] [address] VIR CHOLESTEROL:HDL 4.3 Normal 1.0-5.0 [facility] Comment on above: Performed By: #### L IPR #### [facility] ([facility]) [address] [place] [address] VIR Triglyceride [Mass/Vol] 319 mg/dL High 27-150 [facility] Comment on above: Performed By: #### L IPR #### [facility] ([facility]) [address] [place] [address] VIR VERY LOW LIPOPROTEIN 64 mg/dL High 0-30 [facility] Comment on above: Performed By: #### L IPR #### [facility] ([facility]) [address] [place] [address] VIR Lipid profileon 03-16-2025 Cholesterol [Mass/Vol] 173 mg/dL 150 - 200 mg/dL [facility] Cholesterol in HDL [Mass/Vol] 40 mg/dL 39 - PINF mg/dL [facility] Comment on above: HDL <40 mg/dL - High Risk HDL > or = 40mg/dL- Desirable HDL >60 mg/dL - Negative Risk Cholesterol in HDL [Mass/Vol] 4.3 mg/dL 1.0 - 5.0 [facility] Cholesterol in LDL [Mass/Vol] 69 mg/dL NINF - 130 mg/dL [facility] Comment on above: LDL <100 mg/dL - Jose Eduardo irable LDL >160 mg/dL - High Risk Cholesterol in VLDL [Mass/Vol] 64 mg/dL High 0 - 30 mg/dL [facility] Triglyceride [Mass/Vol] 319 mg/dL High 27 - 150 mg/dL [facility] No Panel Informationon 03-16 Interpretation and review of laboratory results Abnormal [facility] COMPREHENSIVE METABOLIC PANE Trung 12-09-2024 Albumin [Mass/Vol] 4.4 g/dL Normal 3.2-5.3 [facility] Comment on above: Performed By: #### C ARLET, THYR #### [facility] ([id number]) [address] [place] [address] ALP [Catalytic activity/Vol] 74 U/L Normal 39-130 [facility] Comment on above: Performed By: #### Fiona NICE, THYR #### [facility] ([id number]) [address], [address] [place] [address] ALT [Catalytic activity/Vol] 20 U/L Normal 0-40 [facility] Comment on above: Performed By: #### C ARLET, THYR #### [facility] ([id number]) [address], [address] [place] [address] Anion gap [Moles/Vol] 8 mmol/L Normal 5-15 [facility] Comment on above: Performed By: #### C ARLET, THYR #### [facility] ([id number]) [address], [address] [place] [address] AST [Catalytic activity/Vol] 21 U/L Normal 0-41 [facility] Comment on above: Performed By: #### C ARLET, THYR #### [facility] ([id number]) [address] [place] [address] Bilirubin [Mass/Vol] 0.3 mg/dL Normal 0.3-1.2 [facility] Comment on above: Performed By: #### C ARLET, THYR #### [facility] ([id number]) [address], [facility] [address] [place] [address] Calcium [Mass/Vol] 9.6 mg/dL Normal 8.5-10.5 [facility] Comment on above: Performed By: #### C ARLET, THYR #### [facility] ([id number]) [address], [address] [place] [address] Chloride [Moles/Vol] 102 mmol/L Normal 98-109 [facility] Comment on above: Performed By: #### C ARLET, THYR #### [facility] ([id number]) [address], [address] [place] [address] CO2 [Moles/Vol] 29 mmol/L Normal 22-32 [facility] Comment on above: Performed By: #### Fiona NICE, THYR #### [facility] ([id number]) [address], [address] [place] [address] Creatinine [Mass/Vol] 0.94 mg/dL Normal 0.60-1.30 [facility] Comment on above: Result Comment: METH OD TRACEABLE TO IDMS STANDARD Performed By: #### Fiona NICE, THYR #### [facility] ([id number]) [address] [place] [address] eGFR (CKD-EPI) NON-RACE DEPENDENT >90 Normal >59 [facility] Comment on above: Result Comment: Reported eGFR is based on the CKD-EPI 2020 equation that does not use a race coefficient. Performed By: #### C ARLET, THYR #### [facility] ([id number]) [address] [place] [address] Glucose [Mass/Vol] 115 mg/dL High 65-99 [facility] Comment on above: Performed By: #### C ARLET, THYR #### [facility] ([id number]) [address] [place] [address] Potassium [Moles/Vol] 4.1 mmol/L Normal 3.5-5.0 [facility] Comment on above: Performed By: #### C ARLET, THYR #### [facility] ([id number]) [address] [address] [place] [address] Protein [Mass/Vol] 7.7 g/dL Normal 6.0-8.0 [facility] Comment on above: Performed By: #### C ARLET, THYR #### [facility] ([id number]) [address], [address] [place] [address] Sodium [Moles/Vol] 139 mmol/L Normal 134-146 [facility] Comment on above: Performed By: #### C ARLET, THYR #### [facility] ([id number]) [address], [address] [place] [address] Urea nitrogen [Mass/Vol] 14 mg/dL Normal 5-23 [facility] Comment on above: Performed By: #### C ARLET, THYR #### [facility] ([id number]) [address], [address] [place] [address] THYROID PROFILEon 12-09-2024 Free T4 [Mass/Vol] 0.81 ng/dL Normal 0.61-1.60 [facility] Comment on above: Performed By: #### C ARLET, THYR #### [facility] ([id number]) [address], [address] [place] [address] TSH 3.80 uIU/mL Normal 0.49-4.67 [facility] Comment on above: Performed By: #### C MANJINDER NICE #### [facility] ([id number]) [address], [address] [place] [address] COMPREHENSIVE METABOLIC PANE Trung 10-20-2024 Albumin [Mass/Vol] 4.3 g/dL Normal 3.2-5.3 [facility] Comment on above: Performed By: #### C MANJINDER NICE HA1C #### [facility] ([id number]) [address], [address] [place] [address] ALP [Catalytic activity/Vol] 71 U/L Normal 39-130 [facility] Comment on above: Performed By: #### C MANJINDER NICE HA1C #### [facility] ([id number]) [address], [address] [place] [address] ALT [Catalytic activity/Vol] 21 U/L Normal 0-40 [facility] Comment on above: Performed By: #### C MANJINDER NICE HA1C #### [facility] ([id number]) [address], [address] [place] [address] Anion gap [Moles/Vol] 7 mmol/L Normal 5-15 [facility] Comment on above: Performed By: #### MANJINDER Jaimes MP HA1C #### [facility] ([id number]) [address], [address] [place] [address] AST [Catalytic activity/Vol] 21 U/L Normal 0-41 [facility] Comment on above: Performed By: #### C MANJINDER NICE HA1C #### [facility] ([id number]) [address], [address] [place] [address] Bilirubin [Mass/Vol] 0.2 mg/dL Low 0.3-1.2 [facility] Comment on above: Performed By: #### C MANJINDER NICE, HA1C #### [facility] ([id number]) [address], [address] [place] [address] Calcium [Mass/Vol] 9.5 mg/dL Normal 8.5-10.5 [facility] Comment on above: Performed By: #### C ARLET THYZaina, HA1C #### [facility] ([id number]) [address], [address] [place] [address] Chloride [Moles/Vol] 102 mmol/L Normal 98-109 [facility] Comment on above: Performed By: #### C MANJINDER NICE, HA1C #### [facility] ([id number]) [address] [place] [address] CO2 [Moles/Vol] 32 mmol/L Normal 22-32 [facility] Comment on above: Performed By: #### C MANJINDER NICE, HA1C #### [facility] ([id number]) [address], [address] [place] [address] Creatinine [Mass/Vol] 1.05 mg/dL Normal 0.60-1.30 [facility] Comment on above: Result Comment: METH OD TRACEABLE TO IDMS STANDARD Performed By: #### C MANJINDER NICE, HA1C #### [facility] ([id number]) [address], [address] [place] [address] GFR/1.73 sq M.predicted among non-blacks MDRD (S/P/Bld) [Vol rate/Area] 86 mL/min/{1.73_m2} Normal >59 [facility] Comment on above: Result Comment: Reported eGFR is based on the CKD-EPI 2020 equation that does not use a race coefficient. Performed By: #### C ARLET THYR, HA1C #### [facility] ([id number]) [address], [address] [place] [address] Glucose [Mass/Vol] 88 mg/dL Normal 65-99 [facility] Comment on above: Performed By: #### C MANJINDER NICE HA1C #### [facility] ([id number]) [address], [address] [place] [address] Potassium [Moles/Vol] 4.3 mmol/L Normal 3.5-5.0 [facility] Comment on above: Performed By: #### C MANJINDER NICE HA1C #### [facility] ([id number]) [address], [address] [place] [address] Protein [Mass/Vol] 7.8 g/dL Normal 6.0-8.0 [facility] Comment on above: Performed By: #### C MANJINDER NICE HA1C #### [facility] ([id number]) [address], [address] [place] [address] Sodium [Moles/Vol] 141 mmol/L Normal 134-146 [facility] Comment on above: Performed By: #### C MANJINDER NICE HA1C #### [facility] ([id number]) [address], [address] [place] [address] Urea nitrogen [Mass/Vol] 18 mg/dL Normal 5-23 [facility] Comment on above: Performed By: #### C MANJINDER NICE HA1C #### [facility] ([id number]) [address], [address] [place] [address] HGB A1C (GLYCO-HGB)on 2024 Glucose [Mass/Vol] 117 mg/dL Normal [facility] Comment on above: Performed By: #### C MANJINDER NICE HA1C #### [facility] ([id number]) [address], [address] [place] [address] HbA1c (Bld) [Mass fraction] 5.7 % High 4.4-5.6 [facility] Comment on above: Result Comment: NOTE ADA Guidelines Result HgbA1c Normal : less than 5.7 % Prediabetes : 5.7 % to 6.4 % Diabetes : > 6.4 % Use with caution in patients with abnormal hemoglobin variants as the half-life of red blood cells and in vivo glycation rates are affected. Performed By: #### C MANJINDER NICE HA1C #### [facility] ([id number]) [address] [place] [address] MICROALBUMIN - ALBUMIN:CREAT ININE URINE RATIOon 10-20-2024 ALB/CREAT RATIO NOT CALCULATED Normal 0.0-30.0 [facility] Comment on above: Result Comment: Result for Albumin/Creatinine Ratio cannot be reliably calculated because urine albumin and or urine creatinine is below the detection limit of the assay. Performed By: #### M ALBU #### [facility] ([id number]) [address], [address] [place] [address] Albumin DL <= 20 mg/L (U) [Mass/Vol] mg/dL Normal 0.0-1.9 [facility] Comment on above: Performed By: #### M ALBU #### [facility] ([id number]) [address], [address] [place] [address] URINE CREAT 138.17 mg/dL Normal [facility] Comment on above: Performed By: #### M ALBU #### [facility] ([id number]) [address], [address] [place] [address] THYROID PROFILEon 10-20-2024 Free T4 [Mass/Vol] 0.64 ng/dL Normal 0.61-1.60 [facility] Comment on above: Performed By: #### C MANJINDER NICE, HA1C #### [facility] ([id number]) [address], [address] [place] [address] TSH 14.27 uIU/mL High 0.49-4.67 [facility] Comment on above: Performed By: #### C MANJINDER NICE, HAPaty #### [facility] ([id number]) [address], [address] [place] [address] COMPREHENSIVE METABOLIC PANE Trung 05-05-2024 Albumin [Mass/Vol] 4.1 g/dL Normal 3.2-5.3 [facility] Comment on above: Performed By: #### C ARLET, 11693-5, THYR, HA1C #### [facility] ([id number]) [address], [address] [place] [address] ALP [Catalytic activity/Vol] 75 U/L Normal 39-130 [facility] Comment on above: Performed By: #### Fiona NICE 17396-4, THYZaina, HAPaty #### [facility] ([id number]) [address], [address] [place] [address] ALT [Catalytic activity/Vol] 23 U/L Normal 0-40 [facility] Comment on above: Performed By: #### C ARLET, 85847-6, THYR, HA1C #### [facility] ([id number]) [address], [address] [place] [address] Anion gap [Moles/Vol] 8 mmol/L Normal 5-15 [facility] Comment on above: Performed By: #### C ARLET, 15840-3, THYR, HA1C #### [facility] ([id number]) [address], [address] [place] [address] AST [Catalytic activity/Vol] 18 U/L Normal 0-41 [facility] Comment on above: Performed By: #### C ARLET, 73225-2, THYR, HA1C #### [facility] ([id number]) [address], [address] [place] [address] Bilirubin [Mass/Vol] 0.3 mg/dL Normal 0.3-1.2 [facility] Comment on above: Performed By: #### C ARLET, 98005-3, THYZaina, HAPaty #### [facility] ([id number]) [address] [place] [address] Calcium [Mass/Vol] 9.4 mg/dL Normal 8.5-10.5 [facility] Comment on above: Performed By: #### C ARLET, 99265-2, THYR, HAPaty #### [facility] ([id number]) [address], [address] [place] [address] Chloride [Moles/Vol] 105 mmol/L Normal 98-109 [facility] Comment on above: Performed By: #### C ARLET, 42371-4, THYZaina, HAPaty #### [facility] ([id number]) [address], [address] [place] [address] CO2 [Moles/Vol] 27 mmol/L Normal 22-32 [facility] Comment on above: Performed By: #### C ARLET, 29090-0, THYZaina, HAPaty #### [facility] ([id number]) [address], [address] [place] [address] Creatinine [Mass/Vol] 0.96 mg/dL Normal 0.60-1.30 [facility] Comment on above: Result Comment: METH OD TRACEABLE TO IDMS STANDARD Performed By: #### C ARLET, 02545-9, MANJINDER, HAPaty #### [facility] ([id number]) [address] [place] [address] eGFR (CKD-EPI) NON-RACE DEPENDENT >90 Normal >59 [facility] Comment on above: Result Comment: Reported eGFR is based on the CKD-EPI 2020 equation that does not use a race coefficient. Performed By: #### C ARLET, 47677-5, THYaZina, HAPaty #### [facility] ([id number]) [address], [address] [place] [address] Glucose [Mass/Vol] 98 mg/dL Normal 65-99 [facility] Comment on above: Performed By: #### C ARLET, 15407-5, THYR, HA1C #### [facility] ([id number]) [address], [address] [place] [address] Potassium [Moles/Vol] 4.3 mmol/L Normal 3.5-5.0 [facility] Comment on above: Performed By: #### C ARLET, 44342-2, THYR, HA1C #### [facility] ([id number]) [address] [place] [address] Protein [Mass/Vol] 7.3 g/dL Normal 6.0-8.0 [facility] Comment on above: Performed By: #### C ARLET, 99619-0, THYR, HA1C #### [facility] ([id number]) [address] [place] [address] Sodium [Moles/Vol] 140 mmol/L Normal 134-146 [facility] Comment on above: Performed By: #### C ARLET, 43338-2, THYR, HA1C #### [facility] ([id number]) [address], [address] [place] [address] Urea nitrogen [Mass/Vol] 17 mg/dL Normal 5-23 [facility] Comment on above: Performed By: #### C ARLET, 93998-0, THYR, HA1C #### [facility] ([id number]) [address] [place] [address] HGB A1C (GLYCO-HGB)on 2023 Glucose [Mass/Vol] 117 mg/dL Normal [facility] Comment on above: Performed By: #### Fiona NICE, 85667-9, THYR, HA1C #### [facility] ([id number]) [address], [address] [place] [address] HbA1c (Bld) [Mass fraction] 5.7 % High 4.4-5.6 [facility] Comment on above: Result Comment: NOTE ADA Guidelines Result HgbA1c Normal : less than 5.7 % Prediabetes : 5.7 % to 6.4 % Diabetes : > 6.4 % Use with caution in patients with abnormal hemoglobin variants as the half-life of red blood cells and in vivo glycation rates are affected. Performed By: #### Fiona NICE 97321-6, NAT DUNBAR #### [facility] ([id number]) [address] [place] [address] Lipid 1996 panelon 4 Cholesterol [Mass/Vol] 143 mg/dL Low 150-200 [facility] Comment on above: Performed By: ###[place], [address]-3, NAT DUNBAR #### [facility] ([id number]) [address], [address] [place] [address] Cholesterol in HDL [Mass/Vol] 35 mg/dL Low >39 [facility] Comment on above: Result Comment: HDL <40 mg/dL - High Risk HDL > or = 40mg/dL- Desirable HDL >60 mg/dL - Negative Risk Performed By: ###[place], [address]-1, MANJINDER, HAPaty #### [facility] ([id number]) [address], [address] [address] Cholesterol in LDL [Mass/Vol] 67 mg/dL Normal <130 [facility] Comment on above: Result Comment: LDL <100 mg/dL - Desirable LDL >160 mg/dL - High Risk Performed By: #### C ARLET, 62400-8, THYR, HA1C #### [facility] ([id number]) [address] [address] [place] [address] Cholesterol in VLDL [Mass/Vol] 41 mg/dL High 0-30 [facility] Comment on above: Performed By: #### C ARLET, 65167-8, THYR, HA1C #### [facility] ([id number]) [address] [address] [place] [address] CHOLESTEROL:HDL 4.1 Normal 1.0-5.0 [facility] Comment on above: Performed By: #### C ARLET, 18400-1, THYR, HA1C #### [facility] ([id number]) [address], [facility] [address] [place] [address] Triglyceride [Mass/Vol] 204 mg/dL High 27-150 [facility] Comment on above: Performed By: #### C ARLET, 42050-0, THYR, HA1C #### [facility] ([id number]) [address] [address] [place] [address] THYROID PROFILEon 05-05-2024 Free T4 [Mass/Vol] 1.52 ng/dL Normal 0.61-1.60 [facility] Comment on above: Performed By: #### C ARLET, 96105-4, THYR, HA1C #### [facility] ([id number]) [address] [address] [place] [address] TSH 0.05 uIU/mL Low 0.49-4.67 [facility] Comment on above: Performed By: #### C ARLET, 90872-2, THYR, HA1C #### [facility] ([id number]) [address] [address] [place] [address] Comprehensive metabolic pane trung 10-29-2023 Albumin [Mass/Vol] 4.1 g/dL 3.2 - 5.3 g/dL [facility] ALP [Catalytic activity/Vol] 70 U/L 39 - 130 U/L [facility] ALT No additional P-5'-P [Catalytic activity/Vol] 29 U/L 0 - 40 U/L [facility] Anion gap [Moles/Vol] 8 mmol/L 5 - 15 mmol/L [facility] AST [Catalytic activity/Vol] 21 U/L 0 - 41 U/L [facility] Bilirubin [Mass/Vol] 0.2 mg/dL Low 0.3 - 1 .2 mg/dL [facility] Calcium [Mass/Vol] 9.1 mg/dL 8.5 - 10. 5 mg/dL [facility] Chloride [Moles/Vol] 103 mmol/L 98 - 10 9 mmol/L [facility] CO2 [Moles/Vol] 28 mmol/L 22 - 32 mmol/L [facility] Creatinine [Mass/Vol] 1.02 mg/dL 0.60 - 1.30 mg/dL [facility] Comment on above: METHOD TRACEABLE TO [facility] STANDARD eGFR (CKD-EPI)non-race dependent 90 - PINF [facility] Comment on above: Reported eGFR is based on the CKD-EPI 2020 equation that does not use a race coefficient. Glucose [Mass/Vol] 88 mg/dL 65 - 99 mg/dL [facility] Potassium [Moles/Vol] 4.0 mmol/L 3.5 - 5.0 mmol/L [facility] Protein [Mass/Vol] 7.2 g/dL 6.0 - 8.0 g/dL [facility] Sodium [Moles/Vol] 139 mmol/L 134 - 146 mmol/L [facility] Urea nitrogen [Mass/Vol] 14 mg/dL 5 - 23 mg/dL [facility] Lipid 1996 panelon Cholesterol [Mass/Vol] 165 mg/dL 150 - 200 mg/dL [facility] Cholesterol in HDL [Mass/Vol] 43 mg/dL 39 - PINF mg/dL [facility] Comment on above: HDL <40 mg/dL - High Risk HDL > or = 40mg/dL- Desirable HDL >60 mg/dL - Negative Risk Cholesterol in LDL [Mass/Vol] 71 mg/dL NINF - 130 mg/dL [facility] Comment on above: LDL <100 mg/dL - Desirable LDL >160 mg/dL - High Risk Cholesterol in VLDL [Mass/Vol] 51 mg/dL High 0 - 30 mg/dL [facility] Cholesterol.total/Cho lesterol in HDL [Mass ratio] 3.8 {ratio} 1.0 - 5.0 [facility] Triglyceride [Mass/Vol] 257 mg/dL High 27 - 150 mg/dL [facility] No Panel Informationon 10-29 Interpretation and review of laboratory results Abnormal [facility] Thyroid profile includes TSH FT4on 10-29-2023 Free T4 [Mass/Vol] 0.80 ng/dL 0.61 - 1. 60 ng/dL [facility] Interpretation and review of laboratory results Abnormal [facility] TSH Qn 9.30 m[IU]/L High [facility] XR LSPINE 2_3 VIEWSon 2022 XR LSPINE [...] by: VAISHNAVI JOHNSON Date: 2022-12-04 18:08 Normal [facility] BASIC METABOLIC PANELon 05- BUN/CREATININE RATIO NOT APPLICABLE Normal 6-22 [facility] Comment on above: Performed By: #### [id number] #### [facility] of [place] [address] [employer]: Andrew Watts MD Calcium [Mass/Vol] 9.3 mg/dL Normal 8.6-10.3 [facility] Comment on above: Performed By: #### [id number] #### [facility] of [address], [address] [place] [address] [employer] Operator: Andrew Watts MD Chloride [Moles/Vol] 106 mmol/L Normal 98-110 [facility] Comment on above: Performed By: #### 5 8984, 29128 #### [facility] [place] [address] Crew Boat Operator: Andrew Watts MD CO2 [Moles/Vol] 25 mmol/L Normal 20-32 [facility] Comment on above: Performed By: #### 5 8984, 18906 #### [facility] [place] [address] Crew Boat Operator: Andrew Watts MD Creatinine [Mass/Vol] 1.09 mg/dL Normal 0.60-1.[address] [facility] Comment on above: Performed By: #### 5 8984, 95136 #### [facility] [place] [address] Crew Boat Operator: Andrew Watts MD eGFR NON-AFR. CHINESE 80 mL/min/1.73m2 Normal > OR = 60 [facility] Comment on above: Performed By: #### 5 8984, 70969 #### [facility] [place] [address] Crew Boat Operator: Andrew Watts MD GFR/1.73 sq M.predicted among blacks MDRD (S/P/Bld) [Vol rate/Area] 93 mL/min/{1.73_m2} Normal > OR = 60 [facility] Comment on above: Performed By: #### 5 8984, 19904 #### [facility] [place] [address] Crew Boat Operator: Andrew Watts MD Glucose [Mass/Vol] 102 mg/dL High 65-99 [facility] Comment on above: Result Comment: Fasting reference interval For someone without known diabetes, a glucose value between 100 and 125 mg/dL is consistent with prediabetes and should be confirmed with a follow-up test. Performed By: #### 5 8984, 40751 #### [facility] [address], [address] [place] [address] Crew Boat Operator: Andrew Watts MD Potassium [Moles/Vol] 4.4 mmol/L Normal 3.5-5.3 [facility] st [facility] Comment on above: Performed By: #### 5 8984, 10762 #### [facility] [place] [address] Crew Boat Operator: Andrew Watts MD Sodium [Moles/Vol] 138 mmol/L Normal 135-146 [facility] Comment on above: Performed By: #### 5 8984, 40909 #### [facility] [place] [address] Crew Boat Operator: Andrew Watts MD Urea nitrogen [Mass/Vol] 14 mg/dL Normal 7-25 [facility] Comment on above: Performed By: #### 5 8984, 97709 #### [facility] [place] [address] Crew Boat Operator: Andrew Watts MD TSH+FREE T4on 02-21-2022 Free T4 [Mass/Vol] 1.2 ng/dL Normal 0.8-1.8 [facility] Comment on above: Order Comment: FASTI NG:YES FASTING: YES Performed By: #### 5 8984, 51893 #### [facility] [place] [address] Crew Boat Operator: Andrew Watts MD TSH Qn 1.95 m[IU]/L Normal 0.40-4.50 [facility] Comment on above: Order Comment: FASTI NG:YES FASTING: YES Performed By: #### 5 8984, 20510 #### [facility] [address], [address] [place] [address] Crew Boat Operator: Andrew Watts MD COMPREHENSIVE METABOLIC PANE [facility] 11-17-2021 Albumin [Mass/Vol] 4.2 g/dL Normal 3.6-5.1 [facility] Comment on above: Performed By: #### 1 0231, 7600 #### [facility] [address], [address] [place] [address] Crew Boat Operator: Andrew Watts MD Albumin/Globulin [Mass ratio] 1.4 {ratio} Normal 1.0-2.5 [facility] Comment on above: Performed By: #### 1 0231, 7600 #### [facility] [address], [address] [place] [address] Crew Boat Operator: Andrew Watts MD ALP [Catalytic activity/Vol] 77 U/L Normal 36-130 [facility] Comment on above: Performed By: #### 1 0231, 7600 #### [facility] [address], [address] [place] [address] Crew Boat Operator: Andrew Watts MD ALT [Catalytic activity/Vol] 51 U/L High 9-46 [facility] Comment on above: Performed By: #### 1 0231, 7600 #### [facility] [address], [address] [place] [address] Crew Boat Operator: Andrew Watts MD AST [Catalytic activity/Vol] 36 U/L Normal 10-40 [facility] Comment on above: Performed By: #### 1 0231, 7600 #### [facility] [address], [address] [place] [address] Crew Boat Operator: Andrew Watts MD Bilirubin [Mass/Vol] 0.4 mg/dL Normal 0.2-1.2 [facility] Comment on above: Performed By: #### 1 0231, 7600 #### [facility] [address], [address] [place] [address] Crew Boat Operator: Andrew Watts MD BUN/CREATININE RATIO NOT APPLICABLE Normal 6-22 [facility] Comment on above: Performed By: #### 1 023, 7600 #### [facility] [place] [address] Crew Boat Operator: Andrew Watts MD Calcium [Mass/Vol] 9.4 mg/dL Normal 8.6-10.3 [facility] Comment on above: Performed By: #### 1 023, 7600 #### [facility] [place] [address] Crew Boat Operator: Andrew Watts MD Chloride [Moles/Vol] 103 mmol/L Normal 98-110 [facility] Comment on above: Performed By: #### 1 023, 7600 #### [facility] [place] [address] Crew Boat Operator: Andrew Watts MD CO2 [Moles/Vol] 29 mmol/L Normal 20-32 [facility] Comment on above: Performed By: #### 1 023, 7600 #### [facility] [place] [address] Crew Boat Operator: Andrew Watts MD Creatinine [Mass/Vol] 0.95 mg/dL Normal 0.60-1.[address] [facility] Comment on above: Performed By: #### 1 023, 7600 #### [facility] [place] [address] Crew Boat Operator: Andrew Watts MD eGFR NON-AFR. CHINESE 94 mL/min/1.73m2 Normal > OR = 60 [facility] Comment on above: Performed By: #### 1 0231, 7600 #### [facility] [place] [address] Crew Boat Operator: Andrew Watts MD GFR/1.73 sq M.predicted among blacks MDRD (S/P/Bld) [Vol rate/Area] 109 mL/min/{1.73_m2} Normal > OR = 60 [facility] Comment on above: Performed By: #### 1 230, 7600 #### [facility] [place] [address] Crew Boat Operator: Andrew Watts MD Globulin (S) [Mass/Vol] 3.1 g/dL Normal 1.9-3.7 [facility] Comment on above: Performed By: #### 1 230, 7600 #### [facility] [place] [address] Crew Boat Operator: Andrew Watts MD Glucose [Mass/Vol] 128 mg/dL High 65-99 [facility] Comment on above: Result Comment: Fasting reference interval For someone without known diabetes, a glucose value >125 mg/dL indicates that they may have diabetes and this should be confirmed with a follow-up test. Performed By: #### 1 230, 7599 #### [facility] [place] [address] Crew Boat Operator: Andrew Watts MD Potassium [Moles/Vol] 4.4 mmol/L Normal 3.5-5.3 [facility] st [facility] Comment on above: Performed By: #### 1 230, 7600 #### [facility] [place] [address] Crew Boat Operator: Andrew Watts MD Protein [Mass/Vol] 7.3 g/dL Normal 6.1-8.1 [facility] Comment on above: Performed By: #### 1 230, 7600 #### [facility] [place] [address] Crew Boat Operator: Andrew Watts MD Sodium [Moles/Vol] 139 mmol/L Normal 135-146 [facility] Comment on above: Performed By: #### 1 023, 7600 #### [facility] [place] [address] Crew Boat Operator: Andrew Watts MD Urea nitrogen [Mass/Vol] 17 mg/dL Normal 7-25 [facility] Comment on above: Performed By: #### 1 0231, 7600 #### [facility] [address], [address] [place] [address] Crew Boat Operator: Andrew Watts MD LIPID PANEL, [facility] [place] 11-06 Cholesterol [Mass/Vol] 193 mg/dL Normal <200 [facility] Comment on above: Order Comment: FASTI NG:YES FASTING: YES Performed By: #### 1 0231, 7600 #### [facility] [address], [address] [place] [address] Crew Boat Operator: Andrew Watts MD Cholesterol in HDL [Mass/Vol] 47 mg/dL Normal > OR = 40 [facility] Comment on above: Order Comment: FASTI NG:YES FASTING: YES Performed By: #### 1 023, 7600 #### [facility] [address], [address] [place] [address] Crew Boat Operator: Andrew Watts MD Cholesterol in LDL [Mass/Vol] [...] LDL-C. Hiram BAZAN et al. XIN. 2013;310(19): 7407-4061 (http://education.[employer].Paladion/faq/WLI745) Performed By: #### 1 0231, 0 #### [facility] [address], [address] [place] [address] Crew Boat Operator: Andrew Watts MD Cholesterol.total/Cho lesterol in HDL [Mass ratio] 4.1 {ratio} Normal <5.0 [facility] Comment on above: Order Comment: FASTI NG:YES FASTING: YES Performed By: #### 1 0231, 7600 #### [facility] [address], [address] [place] [address] Crew Boat Operator: Andrew Watts MD NON HDL CHOLESTEROL 146 mg/dL (calc) High <130 [facility] Comment on above: Order Comment: FASTI NG:YES FASTING: YES Result Comment: For patients with diabetes plus 1 major ASCVD risk factor, treating to a non-HDL-C goal of <100 mg/dL (LDL-C of <70 mg/dL) is considered a therapeutic option. Performed By: #### 1 0231, 7600 #### [facility] [address], [address] [place] [address] Crew Boat Operator: Andrew Watts MD Triglyceride [Mass/Vol] 238 mg/dL High <150 [facility] Comment on above: Order Comment: FASTI NG:YES FASTING: YES Result Comment: If a non-fasting specimen was collected, consider repeat triglyceride testing on a fasting specimen if clinically indicated. Valerie et al. J. of Clin. Lipidol. 2015;9:129-169. Performed By: #### 1 0231, 7600 #### [facility] [address], [address] [place] [address] Crew Boat Operator: Andrew Watts MD BASIC METABOLIC PANEL 05-08 BUN/CREATININE RATIO NOT APPLICABLE Normal 6-22 [facility] Comment on above: Performed By: #### 1 0165, 78849, 496 #### [facility] [place] [address] Crew Boat Operator: Andrew Watts MD Calcium [Mass/Vol] 9.1 mg/dL Normal 8.6-10.3 [facility] Comment on above: Performed By: #### 1 0165, 14449, 496 #### [facility] [place] [address] Crew Boat Operator: Andrew Watts MD Chloride [Moles/Vol] 104 mmol/L Normal 98-110 [facility] Comment on above: Performed By: #### 1 0165, 90142, 496 #### [facility] [address], [address] [place] [address] Crew Boat Operator: Andrew Watts MD CO2 [Moles/Vol] 24 mmol/L Normal 20-32 [facility] Comment on above: Performed By: #### 1 0165, 18522, 496 #### [facility] [address], [address] [place] [address] Crew Boat Operator: Andrew Watts MD Creatinine [Mass/Vol] 0.94 mg/dL Normal 0.60-1.35 [facility] st Diagn[facility] Comment on above: Performed By: #### 1 0165, 36355, 496 #### [facility] [place] [address] Crew Boat Operator: Andrew Watts MD eGFR NON-AFR. CHINESE 96 mL/min/1.73m2 Normal > OR = 60 [facility] Comment on above: Performed By: #### 1 0165, 63048, 496 #### [facility] [address], [address] [place] [address] Crew Boat Operator: Andrew Watts MD GFR/1.73 sq M.predicted among blacks MDRD (S/P/Bld) [Vol rate/Area] 111 mL/min/{1.73_m2} Normal > OR = 60 [facility] Comment on above: Performed By: #### 1 0165, 39531, 496 #### [facility] [place] [address] Crew Boat Operator: Andrew Watts MD Glucose [Mass/Vol] 114 mg/dL High 65-99 [facility] Comment on above: Result Comment: Fasting reference interval For someone without known diabetes, a glucose value between 100 and 125 mg/dL is consistent with prediabetes and should be confirmed with a follow-up test. Performed By: #### 1 0165, 96488, 496 #### [facility] [address], [address] [place] [address] Crew Boat Operator: nAdrew Watts MD Potassium [Moles/Vol] 4.5 mmol/L Normal 3.5-5.[address] [facility] Comment on above: Performed By: #### 1 0165, 76454, 496 #### [facility] [address], [address] [place] [address] Crew Boat Operator: Andrew Watts MD Sodium [Moles/Vol] 139 mmol/L Normal 135-146 [facility] Comment on above: Performed By: #### 1 0165, 21820, 496 #### [facility] [address], [address] [place] [address] Crew Boat Operator: Andrew Watts MD Urea nitrogen [Mass/Vol] 18 mg/dL Normal 7-25 [facility] Comment on above: Performed By: #### 1 0165, 02272, 496 #### [facility] [address], [address] [place] [address] Crew Boat Operator: Andrew Watts MD HEMOGLOBIN A1con 06-05-2021 HEMOGLOBIN [...] for children. Performed By: #### 1 0165, 51838, 496 #### [facility] [address], [address] [place] [address] Crew Boat Operator: Andrew Watts MD TSH+FREE T4on 06-05-2021 Free T4 [Mass/Vol] 1.2 ng/dL Normal 0.8-1.8 [facility] Comment on above: Order Comment: FASTI NG:YES FASTING: YES Performed By: #### 1 0165, 76682, 496 #### [facility] [address], [address] [place] [address] Crew Boat Operator: Andrew Watts MD TSH Qn 2.88 m[IU]/L Normal 0.40-4.50 [facility] Comment on above: Order Comment: FASTI NG:YES FASTING: YES Performed By: #### 1 0165, 20234, 496 #### [facility] [address], [address] [place] [address] Crew Boat Operator: Andrew Watts MD TSH+FREE T4on 03-09-2021 Free T4 [Mass/Vol] 1.3 ng/dL Normal 0.8-1.8 [facility] Comment on above: Performed By: #### 5 8984 #### [facility] [address], [address] [place] [address] Crew Boat Operator: Andrew Watts MD TSH Qn 3.66 m[IU]/L Normal 0.40-4.50 [facility] Comment on above: Performed By: #### 5 8984 #### [facility] [address], [address] [place] [address] Crew Boat Operator: Andrew Watts MD Coding Summary.on 06-03-2019 Coding Summary. CODING DATE: 06/03/2019 FINAL [facility] STATUS: Home (Routine DC) PAYOR: Medicaid [...] CphT Date Saved: 06/03/2019 11:00 am Normal [facility] Coding Summary.on 04-21-2019 Coding Summary. CODING DATE: 04/21/2019 FINAL [facility] STATUS: Home (Routine DC) PAYOR: Medicaid [...] Obstructive sleep apnea (adult) (pediatric) PYMT PROC [facility] STAT DESCRIPTION DOCTOR NAME DATE 01391 003 Repair, secondary, Jomar Mercado DPM 04/15/2019 disrupted ligament, ankle, collateral (eg, Calabrese-Evans procedure) RT Right side (used to identify procedures performed on the right side of the body) 68600 [id number] Synovectomy, tendon Jomar Mercado DPM 04/15/2019 sheath, foot; flexor RT Right side (used to identify procedures performed on the right side of the body) 21855 Injection, anesthetic Vincenzo Kim JR, DO 04/15/2019 agent; sciatic nerve, single RT Right side (used to identify procedures performed on the right side of the body) XP Separate practitioner, a service that is distinct because it was performed by a different practitioner [id number] Anesthesia for Joaquín Kim JR, DOolas 04/15/2019 procedures on nerves, muscles, tendons, and [...] Revised Date Saved: 04/21/2019 11:02 am Normal [facility] Main OR Intraoperative Recor agueda 04-19-2019 Main OR Intraoperative Record IntraOp Document Type FT Summary Primary Physician: Jomar Mercado DPM Finalized Date/Time: 04/19/19 11:26:10 Pt. Name: JOSE ROLDAN Lizbeth Bhardwaj./Sex: 1975 Male Med Rec #: [id number] Physician: Jomar Mercado DPM Financial #: [id number] Pt. Type: A Room/Bed: [place] [address] Admit/Disch: 04/15/19 07:59:00 - 04/15/19 13:40:00 Institution: Case Times FT Entry 1 Patient Times In Room 04/15/19 10:01:00 Out Room 04/15/19 11:32:00 Procedure Times Start 04/15/19 10:32:00 Stop 04/15/19 11:27:00 Anesthesia Times Start 04/15/19 10:01:00 Stop 04/15/19 11:32:00 Block Timeout w04/15/19 09:18:00 Anesthesia Last Modified By: Merari SILVA, TYRA, Lanie Oliveros 04/15/19 11:32:35 General Comments: 0911 [...] Mandy Hendrix DPM, Marc D Dolce DPM, Gokul Mahajan Role Performed Anesthesiologist Surgeon - Primary Surgeon - Assist 1 Manager Of Training And Development Time In 04/15/19 10:01:00 04/15/19 10:01:00 04/15/19 [...] Kiki Jordan Role Performed Scrub - Primary Electric Blanket Wirer - Primary Electric Blanket Wirer - Primary Time In 04/15/19 10:01:00 04/15/19 [...] Jaziel Bowman Role Performed Scrub - Primary Electric Blanket Wirer - Relief Time In 04/15/19 10:01:00 04/15/19 11:00:00 Time Out 04/15/19 10:25:00 04/15/19 11:32:00 Procedure ANKLE LATERAL ANKLE LATERAL STABILIZATION(Right), STABILIZATION(Right), ANKLE ANKLE MANIPULATION(Right) MANIPULATION(Right) Comments assisting at start LUNCH RELIEF Last Modified By: Jessie SILVA, Kiki Hill RN 04/15/19 11:32:37 04/15/19 11:32:37 General Comments: [facility] - 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 SHIRA AGUDELOgear roller Protocols FT Pre-Care Text: Implements protective measures [...] X-ray Applicable) PreOp Antibiotic Yes Time Out Martínez AVITIA, Mandy M, Given Participants Jomar Mercado DPM, Faith CUADRA, Gena Zuleta CST, Shanice Christine [...] Barbee RN, Kimberly Y Woodworth RN, Jaziel L Outcomes Met? Yes Yes Last Modified By: [...] Destination PACU Transported By Kiki Roman RN, Woodworth RN, Tonda L Patient Status Stable Skin. Condition Other/See Comments [...] safely administered during the perioperative period For [place] please see scanned medication reconcilliation form for medications used at the field during the procedure. Tourniquet FT Pre-Care Text: Implements protective measures to prevent skin/tissue injury due to mechanical sources Entry 1 Tourniquet Type TOURNIQUET CUFF NAVOnLive Setting 350 mmHg BLUE 44 X 4 [[id number]][F] Equipment Number D Placement Right Upper Thigh [...] BLANKET MISTRAL AIR Quantity 1 Aid TORSO [[id number]][F] Fluid/Gilchrist Unit Mistral warming system Setting HIGH/43C Body Site Upper anterior torso Last Modified By: Kiki Roman RN 04/15/19 10:36:21 Case Comments Finalized By: Kiki Roman RN Document Signatures Signed By: Kiki Roman RN 04/15/19 11:33 Kiki Roman RN 04/15/19 11:59 Merari SILVA, CHONOR, Lanie Oliveros 04/19/19 08:42 Merari SILVA, CHONOR, Lanie Oliveros 04/19/19 08:53 Kiki Roman RN 04/19/19 11:26 Normal [facility] Operative Reporton 07-- 9 Operative Report Date of Surgery: 04/15/2019 [...] undergo general anesthesia for the proposed procedure. Vincenzojosiane Kim Jr., D.O. lkr Dictated: 04/15/2019 #[id number] Typed: 04/15/2019 #[id number] cc: Vincenzo Kim Jr., D.O. [facility] Comment on above: Result Comment: Elec tronically Signed By: Vincenzo Kim JR, DO.br\Date and Time Signed: 04/17/19 09:47 EDT Operative Reporton 9 Operative Report Date of Surgery: 04/15/2019 SURGEON: Jomar Mercado DPM,FACFAS CABLE INSTALLATION MANAGER: Gokul Mercado DPM PREOPERATIVE DIAGNOSIS: 1. Lateral [...] performed by myself as well as Dr. Thosmon. Dr. Thomson's procedure failed and he still [...] Jomar Mercado DPM, FACFAS lkr Dictated: 04/15/2019 #[id number] Typed: 04/15/2019 #[id number] cc: Jomar Mercado DPM, FACFAS [facility] Comment on above: Result Comment: Elec tronically Signed By: Jomar Mercado DPM\.br\Date and Time Signed: 04/16/19 08:44 EDT Inpatient Patient Summaryon 04-15-2019 Inpatient Patient Summary [facility] Clinical Discharge Instructions PERSON INFORMATION Name: JOSE ROLDAN [facility]#:[id number] PHYSICIANS Admitting Physician: Jomar Mercado DPM Attending Physician: Jomar Mercado DPM PCP: MEGAN BIRD DO Discharge Diagnosis: Comment: PATIENT EDUCATION INFORMATION Instructions: Foot Cryocuff Patient Instructions - FT (CUSTOM); Faith - Post Operative Instructions (Revised 06/02/14) (Custom) Medication Leaflets: Follow up: With: Address: When: Jomar Mercado [facility], [facility], [address], [place] [address] 0 Business (1) Within 3 to 5 days Type Location Start Finish [facility] Cardiology Follow Up (FT) FT.Cardiology Clinic 04/23/2019 2:45 PM 04/23/2019 3:00 PM Confirmed MEDICATION LIST Comment: [facility] Main OR PACU I Recordon 04-05 Main OR PACU I Record PACU Phase I Docum ent Type FT Summary Primary Physician: Jomar Mercado DPM Finalized Date/Time: 04/15/19 12:13:38 Pt. Name: JAMARJOSE./Sex: 1975 Male Med Rec #: [id number] Physician: Jomar Mercado DPM Financial #: [id number] Pt. Type: A Room/Bed: [facility] Admit/Disch: 04/15/19 07:59:08 - Institution: Case [...] Outcomes Met? Yes Last Modified By: Alanis Gohsh RN 04/15/19 12:13:36 Post-Care Text: The patient [...] By: Alanis Ghosh RN 04/15/19 12:13 Normal [facility] Main OR PACU II Recordon Main OR PACU II Record PACU Phase II Document Type FT Summary Primary Physician: Jomar Mercado DPM Finalized Date/Time: 04/15/19 13:49:29 Pt. Name: JOSE ROLDAN/Sex: 1975 Male Med Rec #: [id number] Physician: Jomar Mercado DPM Financial #: [id number] Pt. Type: A Room/Bed: [facility]/ Admit/Disch: 04/15/19 07:59:08 - Institution: Case Times [...] By: Eufemia Pelayo RN 04/15/19 13:49 Normal [facility] Main OR Preoperative Recordo n 04-15-2019 Main OR Preoperative Record PreOp Document Type FT Summary Primary Physician: Jomar Mercado DPM Finalized Date/Time: 04/15/19 10:19:53 Pt. Name: JOSE ROLDAN/Sex: 1975 Male Med Rec #: [id number] Physician: Jomar Mercado DPM Financial #: [id number] Pt. Type: A Room/Bed: Admit/Disch: 04/15/19 07:59:08 - Institution: Case Times [...] By: Kiki Roman RN 04/15/19 10:19 Normal [facility] Patient Education - Texton 0 04-15-2019 Patient Education - Text [place], [place] Jomar Mercado DPM, FACFAS POST OPERATIVE [...] feel free to call the doctor at: [phone] or [phone] Mercado paged. Patient signature Date Dr. Jomar Mercado DPM, FACFAS Date Revised: 11-13 Normal [facility] Progress Note-Physicianon Progress Note-Physician Patient: JOSE ROLDAN [...] day(s), # 30 tab(s), Refills(s) 0, Pharmacy: [facility] #72 Documented Medications Documented Dulera 100 mcg-5 [...] All Problems Apnea, sleep / SNOMED CT 921893524 / Confirmed Ankle instability / SNOMED CT 3120831 / Confirmed right Asthma / SNOMED CT 6456440891 / Confirmed Back pain / SNOMED CT 466286768 / Confirmed Acid reflux / SNOMED CT 5276059758 / Confirmed Pleurisy / SNOMED CT 028701198 / Confirmed Prediabetes / SNOMED CT 0045932386 / Confirmed Knee pain / SNOMED CT 225449439 / Confirmed Hypothyroidism / SNOMED CT 571256225 / Confirmed Chest pain / SNOMED CT 03700299 / Confirmed center of chest- feels like [...] right on 12/19/2016 at 41 Years. Appendectomy ([id number]). bilateral carpal tunnel release. removal foreign body (bb) rt hand- cyst formedaround. cyst excision above right eye. excision rt neck cyst- benign. Social History Social & Psychosocial Habits Alcohol 12/09/2016 Risk Assessment: Denies Alcohol Use Comment: denies - 04/05/2019 17:03 - Camacho Soraya SILVA Substance Abuse 12/09/2016 Risk Assessment: Denies Substance Abuse Comment: denies - 04/05/2019 17:03 - Camacho RNSoraya Tobacco 12/09/2016 Risk Assessment: Denies Tobacco Use 04/05/2019 Tobacco Use: Never (less than 100 in l Comment: tomas - 04/05/2019 17:03 - Camacho RNSoraya. Physical Examination Vital Signs (last 24 hrs) Last Charted Temp Oral 37.2 DegC (APR 15:18) Heart Rate Apical 96 bpm (APR 15:18) Resp Rate 20 br/min (APR 15:18) SBP 105 mmHg (APR 15:) DBP 70 mmHg (APR 15:) SpO2 93 % (APR 15:) Airway: Normal oral/pharyngeal anatomy.. Respiratory: Adequate air exchange.. Cardiovascular: Adequate perfusion and function. Review / Management Results review: No qualifying data available. Plan [place] [employer] Anesthesiologists (ASA) physical status classification: Class III. Anesthetic Preoperative Plan Anesthesia: General. , Regional ATTEMPT POPLITEAL BLOCK. ANATOMY MAY LIMIT ABILITY. Anesthetic plan, risks, benefits, and alternatives discussed with the patient and/or family. Pt. and/or family present and agree to proceed as planned.. Discussed the importance of abstaining from tobacco products, and offered counseling if desired. Normal [facility] Comment on above: Result Comment: Elec tronically [...] day(s), # 30 tab(s), Refills(s) 0, Pharmacy: [facility] #72 Documented Medications Documented Dulera 100 mcg-5 [...] All Problems Apnea, sleep / SNOMED CT 146468035 / Confirmed Ankle instability / SNOMED CT 3090227 / Confirmed right Asthma / SNOMED CT 1679722737 / Confirmed Back pain / SNOMED CT 605126306 / Confirmed Acid reflux / SNOMED CT 0432476156 / Confirmed Pleurisy / SNOMED CT 926721095 / Confirmed Prediabetes / SNOMED CT 4227617548 / Confirmed Knee pain / SNOMED CT 442448873 / Confirmed Hypothyroidism / SNOMED CT 721570659 / Confirmed Chest pain / SNOMED CT 76925630 / Confirmed center of chest- feels like [...] right on 12/19/2016 at 41 Years. Appendectomy ([id number]). bilateral carpal tunnel release. removal foreign body [...] (APR 15 08:18) Resp Rate 20 br/min (APR 15:18) SBP 105 mmHg (APR 15:) DBP 70 mmHg (APR 15:) SpO2 93 % (APR 15:) Airway: Normal oral/pharyngeal anatomy.. Respiratory: Adequate air exchange.. Cardiovascular: Adequate perfusion and function. Review / Management Results review: No qualifying data available. Plan [place] [employer] Anesthesiologists (ASA) physical status classification: Class III. Anesthetic Preoperative Plan Anesthesia: General. . Anesthetic plan, risks, benefits, and alternatives discussed with the patient and/or family. Pt. and/or family present and agree to proceed as planned.. Discussed the importance of abstaining from tobacco products, and offered counseling if desired. Normal [facility] Comment on above: Result Comment: Elec tronically Signed By: Vincenzo Kim JR, DO\.br\Date and Time Signed: 04/15/19 09:05 EDT Coding Summary.on 04-12-2019 Coding Summary. CODING DATE: 04/12/2019 FINAL [facility] STATUS: Home (Routine OR) PAYOR: Medicaid EA DESCRIPTION 0457 VENIPUNCTURE 0471 PLAIN FILM 0407 [...] Revised Date Saved: 04/12/2019 10:22 am Normal [facility] NM Myocardial Spect Rest/Str ess 1 Dayon [...] (Electronic Signature): 04/12/2019 12:24 pm Signed by: Lalita ALONSO, Antonio Nieves Transcribed by: gunner Technologist: LAUREN Technical Comments Rest Dose (mCi Tc99m Cardiolite): 30.3 Stress Dose (mCi Tc99M Cardiolite): 30.3 Normal [facility] Coding Summary.on 04-09-2019 Coding Summary. CODING DATE: 04/09/2019 FINAL [facility] STATUS: Still a Patient PAYOR: Medicaid [...] Martinez CphT Date Saved: 04/09/2019 08:23 am [facility] Stress ECG Dictationon NM Stress ECG Dictation [...] Dorman MD Transcribed by: gunner Technologist: LAUREN [facility] Echo Transthoracic Completeo n 04-08-2019 Echo Transthoracic Complete Echocardiology Procedure Exam Date/Time Accession # Ordering Echo Transthoracic 04/06/2019 10:21 EDT [id number] SHELLEY ALONSO, Ronny Duncan Complete CPT code 79138 Reason for Exam (Echo Transthoracic Complete) Shortness [...] Ordering Dr. Echevarria Transthoracic 04/06/2019 10:21 EDT [id number] SHELLEY ALONSO, Ronny Duncan Complete Report 6. [...] MD Transcribed by: gunner Technologist: SAMMY Javier [facility] Inpatient Clinical Summaryon 04-07-2019 Inpatient Clinical Summary [address] [address] Clinical Summary Person Information: Name: JOSE ROLDAN Age: 43 Years : 1975 12:00 AM Sex: Male PCP: MEGAN BIRD DO Marital Status: Phone: [phone] Race: White Ethnicity: Non- or Language: Mauritanian Visit Id: Visit Reason: Chest pain; CHEST PAIN Speciality: Acuity: 3 Enc Type: Observation Med Service: Medical Arrival: 04/05/2019 4:31 PM Discharge: Dispo Type: Admitted as IP to this Hosp Address: [address] [place] [address] [place] [id number] Provider Notes: Addendum by SHELLEY ALONSO, Ronny [...] up: With: Address: When: Isreal Dorman [address] [place] [address] Scality (1) 04/23/2019 2:45 PM With: Address: When: [place] [address] Scality () 04/13/2019 11:40 AM Type Location Start [facility] Surgical Services 04/15/2019 12:45 PM 04/15/2019 1:45 PM Confirmed [facility] 04/23/2019 2:45 PM 04/23/2019 3:00 PM Confirmed Patient Education Information: Chest Pain (Nonspecific) Normal [facility] Inpatient Patient Summaryon 04-07-2019 Inpatient Patient Summary [address] [address] Patient Discharge Instructions PERSON INFORMATION Name: JOSE ROLDAN Date of : 1975 12:00 AM Current Date: 04/07/19 16:17:07 PHYSICIANS Admitting Physician: Ronny ROSA MD Primary Care Physician: MEGAN BIRD DO PCP Comment: Discharge Diagnosis: 1:Chest pain; 2:Unstable angina; 3:Morbidly obese; 4:Dyspnea on exertion; 5:Bipolar disorder; 6:Hypertension; 7:Prediabetes; 8:No contraindication to deep vein thrombosis (DVT) prophylaxis Condition at Discharge: Stable JOSE ROLDAN has been given the following [...] Follow up: With: Address: When: Isreal Dorman [address] [place] [address] Business (1) 04/23/2019 2:45 PM With: Address: When: MEGAN BIRD [address] [place] [id number] Business (1) 04/13/2019 11:40 AM In the event that this physician does not participate in your insurance network, please consult with your insurance company to find a nearby participating provider. Type Location Start [facility] Surgical Services 04/15/2019 12:45 PM 04/15/2019 1:45 PM Confirmed Cardiology Follow Up (FT) FT[facility]Cardiology Clinic 04/23/2019 2:45 PM 04/23/2019 3:00 PM Confirmed Comment: I, JAMAR, JOSE E, have received the attached patient education materials/instruction s and have verbalized understanding: Patient Signature Date Clinican/Nurse Signature Date HERE ARE THE MEDICATION CHANGES THAT OCCURRED DURING YOUR HOSPITAL STAY New Medications [facility], [address] [place] [id number], [phone] aspirin (aspirin 81 mg Oral EC Tab) [...] a day (at bedtime). Pharmacy Information: Other: [facility] Comment: PATIENT EDUCATION INFORMATION Instructions: Chest [...] Document Reviewed: 04/27/2009 ExitCare? Patient Information ?2014 [employer]. This information is not intended to replace advice given to you by your health care provider. Make sure you discuss any questions you have with your health care provider. Medication Leaflets: Thank you for choosing [facility] Normal [facility] Interdisciplinary Note - Sanjay e Manageron 04-07-2019 INR Coag (Bld) [Relative time] Rounding with Dr. Lenka WATKINS, Elfego [facility], and Kitty SILVA with another patient. No family in room. Patient is alert and oriented and participates in plan of care. Whiteboard updated. Discussed will have 2nd part of stress test today, will wait cardiology recommendations. If stress test negative will dc home later today. Patient states Dr called in RX for FWW as he will have ankle surgery soon. Normal [facility] Auto Diffon 04-06-2019 Basophils/100 WBC (Bld) 0.3 % Normal 0.0-2.0 [facility] Comment on above: Order Comment: Order Added by Discern Expert. Performed By: #### 2 870121, 3531055, 9997837, 49194005, 9205744, 7239059 #### [facility] [address] [place] [address] Basophils/Leukocytes Auto (Bld) [Pure # fraction] 0.0 E9/L Normal 0.0-0.2 [facility] Comment on above: Order Comment: Order Added by Discern Expert. Performed By: #### 2 006811, 6914145, 6514997, 25163913, 7631940, 5132188 #### [facility] [address] [place] [address] Eosinophils/100 WBC (Bld) 5.1 % Normal 0.0-8.0 [facility] Comment on above: Order Comment: Order Added by Discern Expert. Performed By: #### 2 850574, 6775159, 4671722, 64098928, 5244634, 7608040 #### [facility] [address] [place] [address] Eosinophils/Leukocyte s Auto (Bld) [Pure # fraction] 0.4 E9/L Normal 0.0-0.5 [facility] Comment on above: Order Comment: Order Added by Discern Expert. Performed By: #### 2 742704, 1934102, 3618258, 43375237, 8753377, 9706460 #### [facility] [address] [place] [address] Lymphocytes/100 WBC (Bld) 40.4 % Normal 14.0-50.0 [facility] Comment on above: Order Comment: Order Added by Discern Expert. Performed By: #### 2 474686, 6008159, 5456298, 67968947, 1700522, 5033214 #### [facility] [address] [place] [address] Lymphocytes/Leukocyte s Auto (Bld) [Pure # fraction] 3.0 E9/L Normal 1.0-4.0 [facility] Comment on above: Order Comment: Order Added by Discern Expert. Performed By: #### 2 537172, 8818831, 6730891, 50542743, 9571860, 3107018 #### [facility] [address] [place] [address] Monocytes/100 WBC (Bld) 10.7 % Normal 4.0-14.0 [facility] Comment on above: Order Comment: Order Added by Discern Expert. Performed By: #### 2 933692, 9705868, 6518259, 65813263, 1169463, 6524306 #### [facility] [address] [place] [address] Monocytes/Leukocytes Auto (Bld) [Pure # fraction] 0.8 E9/L Normal 0.2-1.0 [facility] Comment on above: Order Comment: Order Added by Ezio Expert. Performed By: #### 2 786792, 0494164, 7945344, 76580544, 6202191, 3561064 #### [facility] [address] [place] [address] Neutrophils/100 WBC (Bld) 43.5 % Normal 36.0-75.0 [facility] Comment on above: Order Comment: Order Added by Ezio Expert. Performed By: #### 2 952681, 1748167, 2092344, 10403485, 7358862, 6531171 #### [facility] [address] [place] [address] Neutrophils/Leukocyte s Auto (Bld) [Pure # fraction] 3.2 E9/L Normal 2.0-7.5 [facility] Comment on above: Order Comment: Order Added by Ezio Expert. Performed By: #### 2 693379, 1499692, 4582496, 87380260, 1902613, 0243894 #### [facility] [address] [place] [address] BMPon 04-06-2019 Anion gap [Moles/Vol] 14 mmol/L Normal 6-16 [facility] Comment on above: Performed By: #### 2 982432, 8806473, 7805960, 91079409, 1874625, 1999459 #### [facility] [address] [place] [address] Calcium [Mass/Vol] 8.6 mg/dL Low 8.9-11.1 [facility] Comment on above: Performed By: #### 2 403665, 9134681, 1207635, 93893357, 8856277, 8569410 #### [facility] [address] [place] [address] Chloride [Moles/Vol] 107 mmol/L Normal 101-111 [facility] Comment on above: Performed By: #### 2 960483, 9482893, 4146577, 37016696, 6941121, 9928421 #### [facility] [address] [place] [address] CO2 [Moles/Vol] 24 mmol/L Normal 21-31 [facility] Comment on above: Performed By: #### 2 172985, 8852566, 8059507, 67544809, 5157299, 0271352 #### [facility] [address] [place] [address] Creatinine [Mass/Vol] 1.1 mg/dL Normal 0.5-1.3 [facility] Comment on above: Performed By: #### 2 801859, 9102681, 3643110, 89494526, 8599072, 0907449 #### [facility] [address] [place] [address] Glucose [Mass/Vol] 109 mg/dL Normal 55-199 [facility] Comment on above: Result Comment: If t his glucose result represents a fasting glucose, interpretation should refer to the following reference range: 55-99 mg/dL Performed By: #### 2 404548, 3504886, 0701090, 28453170, 2468410, 8026056 #### [facility] [address] [place] [address] Potassium [Moles/Vol] 3.9 mmol/L Normal 3.5-5.3 [facility] Comment on above: Performed By: #### 2 376851, 3324203, 6476125, 55290744, 1131463, 6644938 #### [facility] [address] [place] [address] Sodium [Moles/Vol] 141 mmol/L Normal 135-145 [facility] Comment on above: Performed By: #### 2 042993, 4154606, 9108047, 17361114, 2897561, 6524246 #### [facility] [address] [place] [address] Urea nitrogen [Mass/Vol] 18 mg/dL Normal 5-21 [facility] Comment on above: Performed By: #### 2 551537, 6239629, 4484221, 13254451, 1998857, 6814986 #### [facility] [address] [place] [address] Urea nitrogen/Creatinine [Mass ratio] 16 No Units Normal 10-20 [facility] Comment on above: Performed By: #### 2 320328, 3401470, 2984422, 78169041, 1066059, 8273858 #### [facility] [address] [place] [address] CBC w/ Auto Diffon 9 Erythrocyte distribution width (RBC) [Ratio] 14.7 % High 10.9-14.2 [facility] Comment on above: Performed By: #### 2 569051, 8859532, 6595114, 78871054, 2937890, 4954709 #### [facility] [address] [place] [address] Hematocrit (Bld) [Volume fraction] 42.4 % Normal 37.7-49.0 [facility] Comment on above: Performed By: #### 2 745997, 4155561, 3822624, 19477187, 3364409, 0686611 #### [facility] [address] [place] [address] Hemoglobin (Bld) [Mass/Vol] 14.3 g/dL Normal 13.5-17.5 [facility] Comment on above: Performed By: #### 2 829860, 5389699, 9918989, 43435231, 2628389, 1061902 #### [facility] [address] [place] [address] MCH (RBC) [Entitic mass] 29.1 pg Normal 27.0-34.0 [facility] Comment on above: Performed By: #### 2 456245, 1560339, 1866298, 12707063, 5024558, 4182869 #### [facility] [address] [place], [place] [address] MCHC (RBC) [Mass/Vol] 33.8 g/dL Normal 33.3-35.7 [facility] Comment on above: Performed By: #### 2 273710, 5970672, 2245657, 59186799, 6632825, 7120256 #### [facility] [address] [place], [place] [address] MCV (RBC) [Entitic vol] 86.2 fL Normal 80.0-100.0 [facility] Comment on above: Performed By: #### 2 832071, 9343414, 6218852, 67691239, 8469386, 6967366 #### [facility] [address] [place] [address] Platelet mean volume (Bld) [Entitic vol] 8.1 fL Normal 6.4-10.8 [facility] Comment on above: Performed By: #### 2 862532, 6419803, 2774799, 77601579, 3058060, 4843126 #### [facility] [address] [place] [address] Platelets (Bld) [#/Vol] 356.0 E9/L Normal 150.0-500.0 [facility] Comment on above: Performed By: #### 2 530946, 5091698, 2304757, 23250106, 6056233, 7694244 #### [facility] [address] [place] [address] [place] [address] RBC (Bld) [#/Vol] 4.9 E12/L Normal 4.3-5.9 [facility] Comment on above: Performed By: #### 2 875769, 6574871, 8676900, 46473650, 1078451, 1279226 #### [facility] [address] [place] [address] WBC corrected for nucl RBC Auto (Bld) [#/Vol] 7.3 E9/L Normal 4.0-11.0 [facility] Comment on above: Performed By: #### 2 709754, 6341308, 8341789, 04752001, 3175328, 3016931 #### [facility] [address] [place] [address] Consultation Noteon 04-06-20 Consultation Note Patient: JOSE ROLDAN Age: 43 years Sex: Male : 1975 Associated Diagnoses: None Author: Isreal Dorman MD Chief Complaint 04/05/2019 19:32 EDT Chest pain in pre-surgery 04/05/2019 16:25 EDT Pt arrives from pre surgical testing for chest pain x 1 week. Pt states midsternal, feels like pleurisy . Pt had EKG done [employer] in pre surg, SR. Pt denies any [...] All Problems Acid reflux / SNOMED CT 0854599155 / Confirmed Ankle instability / SNOMED CT 6551754 / Confirmed right Apnea, sleep / SNOMED CT 023706499 / Confirmed Asthma / SNOMED CT 5111744472 / Confirmed Back pain / SNOMED CT 862964924 / Confirmed Chest pain / SNOMED CT 28509568 / Confirmed center of chest- feels like a bruise/ 4/10 on pain scale - reminds him of the pain he had when he had Pleurisy. Instructed to go to ER- wants to finish PST testing first stated pain down to 2/10 Hypothyroidism / SNOMED CT 213006490 / Confirmed Knee pain / SNOMED CT 713411432 / Confirmed Pleurisy / SNOMED CT 035948813 / Confirmed Prediabetes / SNOMED CT 3079624451 / Confirmed, Active Problems (10) Acid reflux [...] right on 12/19/2016 at 41 Years. Appendectomy ([id number]). bilateral carpal tunnel release. removal foreign body [...] 07:31) Heart Rate Peripheral 87 bpm (APR 05:38) Resp Rate 18 br/min (APR 06 07:31) SBP H 141 mmHg (APR 06 07:31) DBP H 93 mmHg (APR 06 07:31) SpO2 95 % (APR 06 07:31) Height 185 cm (APR 05 19:38) Weight 143.1 kg (APR 06 05:43) BMI 41.52 kg/m2 (ALEXA 01 19:38) Measurements from flowsheet : Measurements 04/06/2019 05:43 EDT Weight Measured 143.1 kg 04/05/2019 19:38 EDT Height/Length Measured 185 cm Zuni Body Weight Calculated 79.52 kg BSA Measured [...] 04/05/2019 15:14 EDT Height/Length Measured 181.5 cm Zuni Body Weight Calculated 76.35 kg BSA Measured [...] Recommend Lexiscan nuclear stress testing. Thank you [facility] Comment on above: Result Comment: Elec tronically Signed By: Lakia ALONSO, Isreal Kevin\Date and Time Signed: 04/06/19 09:43 EDT ED Note-Physicianon 04-06-20 ED Note-Physician Basic Information Time Seen: Eduarda Israel, Lucila Chaparro 04/05/2019 16:50 Chief Complaint Pt arrives from pre surgical testing for chest pain x 1 week. Pt states midsternal, feels like pleurisy . Pt had EKG done [employer] in pre surg, SR. Pt denies any [...] changes. The cases discussed with Dr. Dorman legal adviser who recommends patient be admitted for unstable [...] CONSIDER NORMAL VARIANT rate 83 BPM Normal [facility] Comment on above: Result Comment: Elec tronically Signed By: Eduarda Israel, Lucila Chaparro\.kana\Date and Time Signed: 04/06/19 07:18 EDT Interdisciplinary Note - Sanjay e Manageron 04-06-2019 Interdisciplinary Note - Core Winder Rounds done at this time with Dr Rosa, Dipti WATKINS, [facility], and Es Rn in another [...] hospital, they use [facility] in [place]. I spoke with Dr Cope office and they will send a script over on Friday when Dr Mercado returns. Normal [facility] Interdisciplinary Note - PTo n 04-06-2019 Interdisciplinary Note - PT PT Evaluation completed with an MA PAC score of 24/24. Pt functioning at [place] level at this time with no dizziness or chest pain. Pt does have an upcomming ankle surgery on 04/15/19 in which he would benefit from a FWW d/t he will be NWB on right LE. Pt would need a script for a FWW for his upcomming surgery Normal [facility] Lipid Panelon 04-06-2019 Cholesterol [Mass/Vol] 184 mg/dL Normal 120-200 [facility] Comment on above: Performed By: #### 2 778736, 5012604, 4521062, 69388626, 1097635, 0614636 #### [facility] [address] [place] [address] Cholesterol in HDL [Mass/Vol] 33 mg/dL [facility] Comment on above: Result Comment: HDL > or equal to 60 mg/dL: Low cardiovascular risk HDL < 40 mg/dL : High cardiovascular risk Performed By: #### 2 396252, 7482954, 6570259, 84391124, 6595535, 5246189 #### [facility] [address] [place] [address] Cholesterol in LDL [Mass/Vol] 120 mg/dL Normal <=129 [facility] Comment on above: Performed By: #### 2 407091, 9031251, 3632245, 12569056, 0905659, 6734681 #### [facility] [address] [place] [address] Cholesterol in VLDL [Mass/Vol] 40 mg/dL Normal 7-40 [facility] Comment on above: Performed By: #### 2 324812, 5552630, 8058220, 38842571, 4818584, 3007893 #### [facility] [address] [place] [address] Triglyceride [Mass/Vol] 201 mg/dL High <=149 [facility] Comment on above: Performed By: #### 2 412228, 5460206, 8929897, 91107407, 7874730, 3575196 #### [facility] [address] [place] [address] Patient Education - Texton 0 04-06-2019 Patient Education - Text Normal [facility] Troponin 6 Hr.on 04-06-2019 Troponin I.cardiac [Mass/Vol] ng/mL Normal <=0.03 [facility] Comment on above: Result Comment: New Troponin Assay 02/17/14 JENN[place]ER [place] Cutoff value > or = 0.03 ng/mL in conjunction with clinical conditions of myocardial infarction. (www.escardio.org/guidelines) Performed By: #### 2 915986, 1619784, 5389990, 00542498, 2661408, 7560050 #### [facility] [address] [place] [address] Troponin 9 Hr.on 04-06-2019 Troponin I.cardiac [Mass/Vol] ng/mL Normal <=0.03 [facility] Comment on above: Result Comment: New Troponin Assay 02/17/14 [place] Cutoff value > or = 0.03 ng/mL in conjunction with clinical conditions of myocardial infarction. (www.escardio.org/guidelines) Performed By: #### 2 012302, 1805187, 4700199, 18570286, 3199266, 0614966 #### [facility] [address] [place] [address] eGFRon 04-06-2019 GFR/1.73 sq M predicted among blacks MDRD (S/P/Bld) [Vol rate/Area] mL/min/{1.73_m2} Normal >=59 [facility] Comment on above: Order Comment: Order added by Discern Expert. Result Comment: eGFR is race adjusted. AA=. Performed By: #### 2 448166, 7488686, 4612317, 23787625, 0623516, 0038764 #### [facility] [address] [place] [address] GFR/1.73 sq M predicted among non-blacks MDRD (S/P/Bld) [Vol rate/Area] mL/min/{1.73_m2} Normal >=59 [facility] Comment on above: Order Comment: Order added by Discern Expert. Result Comment: Glassware Selector saida kidney disease could be indicated at eGFR's of less than 60 mL/min/1.73m2. Kidney failure is indicated at less than 15 mL/min/1.73m2. Performed By: #### 2 573143, 4409196, 2389531, 65282651, 4478049, 0636508 #### [facility] [address] [place] [address] BUNon 04-05-2019 Urea nitrogen [Mass/Vol] 16 mg/dL Normal 5-21 [facility] Comment on above: Performed By: #### 2 297209, 7036990, 8122571, 38723729, 1241060, 9764962 #### [facility] [address] [place] [address] CBC w/Indiceson 04-05-2019 Erythrocyte distribution width (RBC) [Ratio] 14.6 % High 10.9-14.2 [facility] Comment on above: Performed By: #### 2 854544, 0313975, 6559763, 30731486, 1582562, 2065383 #### [facility] [address] [place] [address] Hematocrit (Bld) [Volume fraction] 40.9 % Normal 37.7-49.0 [facility] Comment on above: Performed By: #### 2 891473, 3553760, 5094667, 88481476, 3721693, 3908826 #### [facility] [address] [place] [address] Hemoglobin (Bld) [Mass/Vol] 13.9 g/dL Normal 13.5-17.5 [facility] Comment on above: Performed By: #### 2 734427, 1238987, 9004610, 55106363, 3539579, 3478412 #### [facility] [address] [place], [place] [address] MCH (RBC) [Entitic mass] 28.9 pg Normal 27.0-34.0 [facility] Comment on above: Performed By: #### 2 911697, 2786177, 6624344, 57597810, 2132919, 5099789 #### [facility] [address] [place] [address] MCHC (RBC) [Mass/Vol] 33.8 g/dL Normal 33.3-35.7 [facility] Comment on above: Performed By: #### 2 923156, 7303271, 4745223, 83514935, 5057576, 7933207 #### [facility] [address] [place], [place] [address] MCV (RBC) [Entitic vol] 85.4 fL Normal 80.0-100.0 [facility] Comment on above: Performed By: #### 2 183710, 0863676, 4296051, 17803065, 4902719, 5287487 #### [facility] [address] [place] [address] Platelet mean volume (Bld) [Entitic vol] 7.5 fL Normal 6.4-10.8 [facility] Comment on above: Performed By: #### 2 134843, [id number], [id number], [id number], [id number], [id number] #### [facility] [address] [place] [address] Platelets (Bld) [#/Vol] 372.0 E9/L Normal 150.0-500.0 [facility] Comment on above: Performed By: #### 2 [id number], [id number], 3134792, 10632466, 8181861, 4553272 #### [facility] [address] [place] [address] RBC (Bld) [#/Vol] 4.8 E12/L Normal 4.3-5.9 [facility] Comment on above: Performed By: #### 2 376901, 8757004, 5246125, 70566264, 1258656, 7536047 #### [facility] [address] [place] [address] WBC corrected for nucl RBC Auto (Bld) [#/Vol] 7.8 E9/L Normal 4.0-11.0 [facility] Comment on above: Performed By: #### 2 [id number], 4468841, 8499886, 82452462, 7995633, 5592175 #### [facility] [address] [place] [address] Creatinineon 04-05-2019 Creatinine [Mass/Vol] 1.0 mg/dL Normal 0.5-1.3 [facility] Comment on above: Performed By: #### 2 583420, 2007678, 9439644, 58515707, 6280599, 9244338 #### [facility] [address] [place] [address] D-Dimeron 04-05-2019 Fibrin D-dimer FEU (PPP) [Mass/Vol] 297 ng/mL Normal 215-500 [facility] Comment on above: Result Comment: This D-Dimer [...] infections Liver cirrhosis Performed By: #### 2 317352, 3359544, 3201695, 60843226, 7497494, 4614213 #### [facility] [address] [place] [address] ED Clinical Summaryon 2018 ED Clinical Summary [address] [address] ED Clinical Summary Person Information Name: JOSE ROLDAN/[facility]_[place] Age: 43 Years : 1975 12:00 AM Sex: Male Language: Mauritanian PCP: MEGAN BIRD DO Marital Status: Phone: [phone] Visit Id: Visit Reason: Chest pain; CHEST PAIN Speciality: Acuity: 3 Enc Type: Observation Med Service: Medical Arrival: 04/05/2019 4:31 PM Discharge: LOS: 000 02:27 Checkin: 04/05/2019 4:31 PM Checkout: 04/05/2019 6:58 PM Dispo Type: Admitted as IP to this [facility] EVENTS: Event Name Event Status Request [...] Patient Care Request 04/05/2019 6:41 PM ADDRESS: [address] [place] [id number] PHYS DOC NOTES: MEDICAL INFORMATION: Prescriptions Given: PATIENT EDUCATION INFORMATION: Instructions: Follow up: DIAGNOSIS: 1:Chest pain; 2:Unstable angina; 3:Morbidly obese; 4:Dyspnea on exertion; 5:Bipolar disorder; 6:Hypertension; 7:Prediabetes; 8:No contraindication to deep vein thrombosis (DVT) prophylaxis Normal [facility] ED Clinical Summary [address], [place] [address] ED Clinical Summary Person Information Name: JOSE ROLDAN/Kristian Age: 43 Years : 1975 12:00 AM Sex: Male Language: Mauritanian PCP: NONE, XXXX Marital Status: Visit Id: [...] PM 04/05/2019 4:49 PM ADDRESS: [place] [id number] [facility] DOC NOTES: MEDICAL INFORMATION: Prescriptions Given: Home [...] EDUCATION INFORMATION: Instructions: Follow up: DIAGNOSIS: Normal [facility] ED Note-Nursingon 04-05-2019 ED Note-Nursing Pt. arrives [...] and EKG times are not skewed. Normal [facility] ED Patient Education Noteon 04-05-2019 ED Patient Education Note Normal [facility] ED Patient Education Note Normal [facility] ED Patient Summaryon 019 ED Patient Summary [place] [id number] Patient Discharge Instructions Person Information Name: JOSE ROLDAN Age: 43 Years Arrival Date: 04/05/2019 4:31 PM Discharge Diagnosis: 1:Chest pain; 2:Unstable angina; 3:Morbidly obese; 4:Dyspnea on exertion; 5:Bipolar disorder; 6:Hypertension; 7:Prediabetes; 8:No contraindication to deep vein thrombosis (DVT) prophylaxis Primary Care Physician: MEGAN BIRD DO Provider Information Primary Provider: Lucila Lerner M.D. Advanced Assistant Athletic Trainer:None The exam and treatment you received in the Emergency Department were for an urgent problem and are not intended as complete care. It is important that you follow up with a doctor, nurse practitioner, or physician?s special events assistant for ongoing care. If your symptoms become worse or you do not improve as expected and you are unable to reach your usual health care provider, you should return to the Emergency Department. We are available 24 hours a day. JAMARJOSE LAWSON has been given the following list of [...] opioids can be used to help relieve gvxtvizw-gr-yfcaff pain and are often prescribed following a [...] be struggling with addiction, tell your health residential care facility manager and ask for guidance or call [employer]?S National Helpline at 8-591-048-FTEP. v Source: [place] Department of Health and Human Services/Center for Disease Control & Prevention [facility] Medications Given: Medication Dose Route [...] Comment: Pharmacy Information: Thank you for choosing [facility] Patient Education Materials: JAMAR Patel THOMAS E , have received the following patient education materials/instruction s and have verbalized understanding: Patient Education Materials: Follow-up Instructions: Prescriptions: Patient Signature Date Clinician/Nurse Signature Date 04/05/19 18:58:35 Normal [facility] ED Patient Summary [place] [id number] Patient Discharge Instructions Person Information Name: JOSE ROLDAN Age: 43 Years Arrival Date: 04/05/2019 3:12 PM Discharge Diagnosis: Primary Care Physician: NONE, XXXX Provider Information Primary Provider: Advanced Assistant Athletic Trainer:None The exam and treatment you received in the Emergency Department were for an urgent problem and are not intended as complete care. It is important that you follow up with a doctor, nurse practitioner, or physician?s special events assistant for ongoing care. If your symptoms [...] opioids can be used to help relieve qerfvpgq-gs-qhoszj pain and are often prescribed following a [...] be struggling with addiction, tell your health residential care facility manager and ask for guidance or call [facility]?S National Helpline at 1-100-322-HTTC. e Source: US Department of Health and Human Services/Center for Disease Control & Prevention [facility] Medications Given: Medication Dose Route [...] bedtime). Comment: Pharmacy Information: [facility] Thank you for choosing [facility] Patient Education Materials: JAMAR Patel THOMAS E , have received the following patient education materials/instruction s and have verbalized understanding: Patient Education Materials: Follow-up Instructions: Prescriptions: Patient Signature Date Clinician/Nurse Signature Date 04/05/19 16:50:00 Normal [facility] Glucoseon 04-05-2019 Glucose [Mass/Vol] 108 mg/dL Normal 55-199 [facility] Comment on above: Performed By: #### 2 567873, 5739157, 5871976, 84826512, 2365932, 8618213 #### [facility] [address] [place] [address] [id number] 04-05-2019 HbA1c (Bld) [Mass fraction] 6.1 % High <=5.9 [facility] Comment on above: Order Comment: Add-o n if possible Performed By: #### 2 047859, 2845809, 4789583, 72582903, 7220146, 2922311 #### [facility] [address] [place] [address] History and Physicalon 04-05 History and Physical Basic Information Accompanied by: Family member Source of History: Self Present at Bedside: Family member Referral Source: Self History Limitation: None Chief Complaint Pt arrives from pre surgical testing for chest pain x 1 week. Pt states midsternal, feels like pleurisy . Pt had EKG done [employer] in pre surg, SR. Pt denies any [...] initial set of cardiac enzymes were negative. Detention Deputy was consult did via phone and and [...] 2. Unstable angina(I20.0: Unstable angina) As per legal adviser Clinically unclear ? Stress test versus left [...] made to ensure accuracy, however, inadvertently computerized business agent mistakes may be present. Ronny Rosa Hospitalist [...] 100 in lifetime) Tobacco Use:., 04/05/2019 Normal [facility] Comment on above: Result Comment: Elec tronically Signed By: SHELLEY ALONSO, Ronny Duncan\.br\Date and Time Signed: 04/05/19 18:32 EDT Jameson 04-05-2019 Anion gap [Moles/Vol] 12 mmol/L Normal 6-16 [facility] Comment on above: Performed By: #### 2 829432, 4573339, 5969022, 01859376, 2351125, 1148637 #### [facility] [address] [place] [address] Chloride [Moles/Vol] 107 mmol/L Normal 101-111 [facility] Comment on above: Performed By: #### 2 222710, 2562097, 1313993, 13285823, 9356425, 2672884 #### [facility] [address] [place] [address] CO2 [Moles/Vol] 24 mmol/L Normal 21-31 [facility] Comment on above: Performed By: #### 2 234174, 1516133, 8228344, 98673294, 8237815, 8519740 #### [facility] [address] [place] [address] Potassium [Moles/Vol] 4.0 mmol/L Normal 3.5-5.3 [facility] Comment on above: Performed By: #### 2 579843, 2800320, 7700497, 67107673, 5685322, 0947238 #### [facility] [address] [place] [address] Sodium [Moles/Vol] 139 mmol/L Normal 135-145 [facility] Comment on above: Performed By: #### 2 384426, 1522062, 8964832, 23588344, 9222121, 6503161 #### [facility] [address] [place] [address] PT & PTTon 04-05-2019 aPTT Coag (PPP) [Time] 29.1 second(s) Normal 25.1-36.5 [facility] Comment on above: Result Comment: Hepa rin therapeutic range (represented by Anti-Factor Xa activity of 0.2 - 0.4 U/mL) corresponds to PTT of 56.6 - 109.0 sec. Performed By: #### 2 657029, 5711446, 3525264, 05754262, 6237127, 6695701 #### [facility] [address] [place] [address] INR Coag (PPP) [Relative time] 1.0 {INR} [facility] Comment on above: Result Comment: INR results are specifically intended to assess patients stabilized on long-term Anticoagulation therapy suggested INR?s ?Less Intensive Anticoagulation? 2.0 ? 3.0 Conventional Range 3.0 ? 4.5 Performed By: #### 2 572287, 7504623, 8809910, 99281712, 6591039, 0727064 #### [facility] [address] [place] [address] PT Coag (PPP) [Time] 11.6 second(s) Normal 10.2-12.9 [facility] Comment on above: Performed By: #### 2 628781, 3837516, 2005937, 94464827, 2494248, 1995567 #### [facility] [address] [place] [address] Pre-Arrival Noteon 9 Pre-Arrival Note Pre-Arrival Summary Name: pre surg- chest pain, Current Date: 04/05/2019 16:18:44 EDT Gender: Male Date of : Age: Pre-Arrival Type: EMS ETA: 04/05/2019 16:45:00 EDT Primary Care Physician: Presenting Problem: chest pain Pre-Arrival User: Dafne Smith RN Referring Source: Location: [place] Completion Date/Time: 04/05/19 16:15:00 [facility] Emergency [facility] Pre-Hospital Report Form Vital Signs: Pre-Hospital Report: Treatment in Route: Response to Treatment: Misc. Issues: Normal [facility] Troponin 0 Hr.on 04-05-2019 Troponin I.cardiac [Mass/Vol] ng/mL Normal <=0.03 [facility] Comment on above: Result Comment: New Troponin Assay 02/17/14 JENNIFER [place] Cutoff value > or = 0.03 ng/mL in conjunction with clinical conditions of myocardial infarction. (www.escardio.org/guidelines) Performed By: #### 2 278152, 2818480, 7903160, 41389297, 0308113, 4880369 #### [facility] [address] [place] [address] Troponin 3 Hr.on 04-05-2019 Troponin I.cardiac [Mass/Vol] ng/mL Normal <=0.03 [facility] Comment on above: Result Comment: New Troponin Assay 02/17/14 [place]ENN[place]ER [place] Cutoff value > or = 0.03 ng/mL in conjunction with clinical conditions of myocardial infarction. (www.escardio.org/guidelines) Performed By: #### 2 695918, 8657137, 6119169, 72572990, 8274994, 9951306 #### [facility] [address] [place] [address] XR Chest Single Viewon 04-05 XR Chest [...] Jason MD Transcribed by: LISA Technologist: PATRICIA Javier [facility] eGFRon 04-05-2019 GFR/1.73 sq M predicted among blacks MDRD (S/P/Bld) [Vol rate/Area] mL/min/{1.73_m2} Normal >=59 [facility] Comment on above: Order Comment: Order added by Discern Expert. Result Comment: eGFR is race adjusted. AA=. Performed By: #### 2 559661, 8739929, 2000656, 81985135, 4384781, 5254164 #### [facility] [address] [place] [address] GFR/1.73 sq M predicted among non-blacks MDRD (S/P/Bld) [Vol rate/Area] mL/min/{1.73_m2} Normal >=59 [facility] Comment on above: Order Comment: Order added by Discern Expert. Result Comment: Glassware Selector saida kidney disease could be indicated at eGFR's of less than 60 mL/min/1.73m2. Kidney failure is indicated at less than 15 mL/min/1.73m2. Performed By: #### 2 324973, 4004636, 1010071, 79958646, 6168089, 0219277 #### [facility] [address] [place] [address] Vital Signs Date Time Vital Sign Value Performing Clinician Facility 03-16-2025 13:-0400 Body height 177.8 cm Megan Bird DO Work Phone: [facility] 03-16-2025 13:26-0400 Body mass index (BMI) [Ratio] 51.17 kg/m2 Megan Bird DO Work Phone: [facility] 03-16-2025 13:26-0400 Body temperature 98.1 [degF] Megan Lopezs DO Work Phone: [facility] 03-16-2025 13:26-0400 Body weight 161.75 kg Megan Lopezs DO Work Phone: [facility] 03-16-2025 13:26-0400 Diastolic blood pressure 70 mm[Hg] Megan Lopezs DO Work Phone: [facility] 03-16-2025 13:26-0400 Heart rate 88 /min Megan Lopezs DO Work Phone: [facility] 03-16-2025 13:26-0400 Respiratory rate 20 /min Megan Lopezs DO Work Phone: [facility] 03-16-2025 13:26-0400 SaO2% (BldA) [Mass fraction] 94 % Megan Lopezs DO Work Phone: [facility] 03-16-2025 13:26-0400 Systolic blood pressure 124 mm[Hg] Megan Lopezs DO Work Phone: [facility] 12-09-2024 13:08-0500 Body height 177.8 cm Megan Lopezs DO Work Phone: [facility] 12-09-2024 13:08-0500 Body mass index (BMI) [Ratio] 51.31 kg/m2 Megan Lopezs DO Work Phone: [facility] 12-09-2024 13:08-0500 Body temperature 97.59 [degF] Megan Lopezs DO Work Phone: [facility] 12-09-2024 13:08-0500 Body weight 162.21 kg Megan Lopezs DO Work Phone: [facility] 12-09-2024 13:08-0500 Diastolic blood pressure 70 mm[Hg] Megan Joneshas DO Work Phone: [facility] 12-09-2024 13:08-0500 Heart rate 87 /min Megan Joneshas DO Work Phone: [facility] 12-09-2024 13:08-0500 SaO2% (BldA) [Mass fraction] 97 % Megan Joneshas DO Work Phone: [facility] 12-09-2024 13:08-0500 Systolic blood pressure 110 mm[Hg] Megan Yuhas DO Work Phone: [facility] 10-20-2024 15:24-0500 Body height 179.8 cm Megan Joneshas DO Work Phone: [facility] 10-20-2024 15:24-0500 Body mass index (BMI) [Ratio] 48.61 kg/m2 Megan Joneshas DO Work Phone: [facility] 10-20-2024 15:24-0500 Body temperature 97.39 [degF] Megan Joneshas DO Work Phone: [facility] 10-20-2024 15:24-0500 Body weight 157.22 kg Megan Joneshas DO Work Phone: [facility] 10-20-2024 15:24-0500 Diastolic blood pressure 60 mm[Hg] Megan Joneshas DO Work Phone: [facility] 10-20-2024 15:24-0500 Heart rate 101 /min Megan Joneshas DO Work Phone: [facility] 10-20-2024 15:24-0500 Respiratory rate 20 /min Megan Joneshas DO Work Phone: [facility] 10-20-2024 15:24-0500 SaO2% (BldA) [Mass fraction] 97 % Megan Joneshas DO Work Phone: [facility] 10-20-2024 15:24-0500 Systolic blood pressure 136 mm[Hg] Megan Yuhas DO Work Phone: [facility] 05-05-2024 15:30-0400 Body height 180.3 cm Megan Lopezs DO Work Phone: [facility] 05-05-2024 15:30-0400 Body mass index (BMI) [Ratio] 46.86 kg/m2 Megan Lopezs DO Work Phone: [facility] 05-05-2024 15:30-0400 Body temperature 98.49 [degF] Megan Lopezs DO Work Phone: [facility] 05-05-2024 15:30-0400 Body weight 152.32 kg Megan Lopezs DO Work Phone: [facility] 05-05-2024 15:30-0400 Diastolic blood pressure 62 mm[Hg] Megan Lopezs DO Work Phone: [facility] 05-05-2024 15:30-0400 Heart rate 86 /min Megan Lopezs DO Work Phone: [facility] 05-05-2024 15:30-0400 Respiratory rate 20 /min Megan Lopezs DO Work Phone: [facility] 05-05-2024 15:30-0400 SaO2% (BldA) [Mass fraction] 95 % Megan Lopezs DO Work Phone: [facility] 05-05-2024 15:30-0400 Systolic blood pressure 122 mm[Hg] Megan Lopezs DO Work Phone: [facility] 10-29-2023 13:10-0500 Body height 180.3 cm Megan Joneshas DO Work Phone: [facility] 10-29-2023 13:10-0500 Body mass index (BMI) [Ratio] 50.23 kg/m2 Megan Lopezs DO Work Phone: [facility] 10-29-2023 13:10-0500 Body temperature 97.81 [degF] Megan Bird DO Work Phone: [facility] 10-29-2023 13:10-0500 Body weight 163.29 kg Megan Bird DO Work Phone: [facility] 10-29-2023 13:10-0500 Diastolic blood pressure 62 mm[Hg] Megan Bird DO Work Phone: [facility] 10-29-2023 13:10-0500 Heart rate 87 /min Megan Bird DO Work Phone: [facility] 10-29-2023 13:10-0500 Respiratory rate 22 /min Megan Bird DO Work Phone: [facility] 10-29-2023 13:10-0500 SaO2% (BldA) [Mass fraction] 95 % Megan Bird DO Work Phone: [facility] 10-29-2023 13:10-0500 Systolic blood pressure 118 mm[Hg] Megan Bird DO Work Phone: [facility] Encounters Encounter Date Encounter Type Care Provider Facility Start: 03-16-2025 End: 03-16-2025 ambulatory [facility] Start: 03-16-2025 End: 03-16-2025 Office outpatient visit 25 minutes Megan Bird DO Work Phone: [facility] Comment on above: Type 2 diabetes vivian itus without complication, without long- term current use of insulin ([facility]) (Primary Dx); 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; 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; Mild persistent asthma without complication; Special screening for malignant neoplasm of colon Start: 03-15-2025 ambulatory Nabeel Spencer acility:[facility] Start: 12-29-2024 End: 12-29-2024 Telephone encounter Krysta Awad CMA [facility] Start: 12-10-2024 End: 12-10-2024 Orders Only Megan Bird DO [facility] Phone[facility] Comment on above: Hypothyroidism due t o Gabby's thyroiditis Start: 12-09-2024 End: 12-09-2024 [facility] Start: 12-09-2024 End: 12-09-2024 ambulatory [facility] Start: 12-09-2024 End: 12-09-2024 Office outpatient visit 25 minutes Megan Bird DO Work Phone[facility] Comment on above: 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 ([facility]) (Primary Dx); 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; Mild persistent asthma without complication; 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; Plantar fasciitis, right; Impaired fasting glucose Start: 10-20-2024 End: 10-20-2024 [facility] Start: 10-20-2024 End: 10-20-2024 Office outpatient visit 25 minutes Megan Bird DO Work Phone: [facility] Comment on above: 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 ([facility]) (Primary Dx); SONIA (obstructive sleep apnea); 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; Class 3 drug-induced obesity with serious comorbidity and body mass index (BMI) of 45.0 to 49.9 in adult ([facility]); Pain in unspecified wrist; Encounter for immunization Start: 10-20-2024 End: 10-20-2024 ambulatory [facility] Start: 10-14-2024 End: 10-14-2024 Refill Krysta Awad [facility] Comment on above: Impaired fasting glu cose; Pain in unspecified wrist; Gastro-esophageal reflux disease with esophagitis, without bleeding Start: 06-21-2024 End: 06-21-2024 Refill Donald Saucedo [facility] Comment on above: Impaired fasting glu cose Start: 06-16-2024 End: 06-16-2024 Refill Megan Bird DO Work Phone: [facility] Comment on above: Pain in unspecified wrist; 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; Gastro-esophageal reflux disease with esophagitis, without bleeding; Mild persistent asthma, uncomplicated Start: 05-05-2024 End: 05-05-2024 ambulatory [facility] Start: 05-05-2024 End: 05-05-2024 ambulatory [facility] Start: 05-05-2024 End: 05-05-2024 Office outpatient visit 25 minutes Megan Bowman Marge DO Work Phone: [facility] Comment on above: Hypothyroidism due t o Gabby's thyroiditis (Primary Dx); Mild persistent asthma without complication; Impaired fasting glucose; Hyperlipidemia, unspecified hyperlipidemia type Start: 05-03-2024 End: 05-03-2024 ambulatory JOM[facility] D DOLCE Not Available Start: 03-25-2024 End: 03-25-2024 Refill Megan Bird DO Work Phone: [facility] Comment on above: Impaired fasting glu cose Start: 02-20-2024 End: 02-20-2024 ambulatory JOMAR D DOLCE Not Available Start: 01-13-2024 End: 01-13-2024 Orders Only Megan Jonesgregg DO Work Phone: [facility] Start: 12-12-2023 End: 12-12-2023 ambulatory JOMAR D DOLCE Not Available Start: 11-19-2023 Refill Jomar D Dolce D PM FACFAS Work Phone: [facility] Comment on above: Pain in right ankle and joints of right foot Start: 10-29-2023 End: 10-29-2023 Office outpatient visit 25 minutes Megan Gracie Marge DO Work Phone: [facility] - [facility] Comment on above: Impaired fasting glu cose (Primary Dx); Mild persistent asthma without complication; Class 3 drug-induced obesity with serious comorbidity and body mass index (BMI) of 45.0 to 49.9 in adult ([facility]); 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; Sinus tarsitis of right foot; Hyperlipidemia, unspecified hyperlipidemia type Start: 10-21-2023 Refill Megan Rodriguez O Work Phone: [facility] Comment on above: Mild persistent asth ma, uncomplicated; Pain in unspecified wrist Start: 09-24-2023 End: 09-24-2023 ambulatory JOMAR D DOLCE Not Available Start: 08-20-2023 End: 08-20-2023 ambulatory JOMAR D DOLCE Not Available Start: 12-04-2022 End: 12-05-[address] MEGAN BIRD Facility:[facility] Start: 11-27-2022 End: 12-13-[address] MEGAN BIRD Facility:[facility] Procedures Date Procedure Procedure Detail Performing Clinician Start: 03-16-2025 Comprehensive metabo lic panel Megan Bird DO Work Phone: Start: 03-16-2025 Lipid panel Megan hughes DO Work Phone: Start: 03-16-2025 Adult depression scr eening assessment Megan Bird DO Work Phone: Start: 12-09-2024 Adult depression scr eening assessment Megan Bird DO Work Phone: Start: 10-20-2024 Adult depression scr eening assessment Megan Joneswilliamlashae DO Work Phone: Start: 10-20-2024 Microalbumin [Mass/v olume] in Urine by Test strip Megan Joneswilliamlashae DO Work Phone: Start: 05-17-2024 Diabetic retinal eye exam Megan Bird DO Work Phone: Start: 05-05-2024 Adult depression scr eening assessment Megan Bird DO Work Phone: Start: 08-18-2023 Adult depression scr eening assessment Megan Bird DO Work Phone: Plan of Treatment Date Care Activity Detail Author Start: 03-20-2032 DTaP,Tdap and Td Vaccines (2 - Td or Tdap) DTaP,Tdap and Td Vaccines (2 - Td or Tdap) [facility] Start: 03-20-2032 DTaP,Tdap and Td Vaccines (3 - Td or Tdap) DTaP,Tdap and Td Vaccines (3 - Td or Tdap) [facility] Start: 03-16-2026 Adult BMI Screening Adult BMI Screen ing [facility] Start: 03-16-2026 Depression Screening Depression Scre ening [facility] Start: 03-16-2026 Tobacco Screening Tobacco Screening [facility] Start: 12-09-2025 Adult BMI Screening Adult BMI Screen ing [facility] Start: 12-09-2025 Depression Screening Depression Scre ening [facility] Start: 12-09-2025 Tobacco Screening Tobacco Screening [facility] Start: 10-20-2025 Adult BMI Screening Adult BMI Screen ing [facility] Start: 10-20-2025 Depression Screening Depression Scre ening [facility] Start: 10-20-2025 Tobacco Screening Tobacco Screening [facility] Start: 10-20-2025 Urine screening for protein Urine Microalbumin [facility] Start: 07-18-2025 End: 07-18-2025 Patient encounter procedure 07/18/2025 2:00 PM EDT Office Visit [facility] [address] [place] [address] Megan Bird, DO [address] [place] [address] [facility] Start: 06-06-2025 Influenza vaccination Influenza Vacc ine [facility] Start: 05-17-2025 Glaucoma screening Diabetic Op hthalmology Exam [facility] Start: 05-05-2025 Adult BMI Screening Adult BMI Screen ing [facility] Start: 05-05-2025 Depression Screening Depression Scre ening [facility] Start: 05-05-2025 Tobacco Screening Tobacco Screening [facility] Start: 03-16-2025 End: 03-16-2026 XR Wrist - right 3 Views X-ray wrist right minimum 3 views Imaging Routine 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 Expected: 03/16/2025, Expires: 03/16/2026 [facility] Work Phone: Comment on above: Expected: 03/16/2025 , Expires: 03/16/2026 Start: 03-16-2025 End: 03-16-2025 Patient encounter procedure 03/16/2025 1:00 PM EDT Office Visit [facility] [address] [place] [id number] Megan Bird, DO [address] [place] [address] [facility] Start: 01-01-2025 Screening for malign ant neoplasm of colon Colon Cancer Screening 3 Year Cologuard [facility] Start: 10-29-2024 Adult BMI Screening Adult BMI Screen ing [facility] Start: 10-29-2024 Tobacco Screening Tobacco Screening [facility] Start: 10-20-2024 End: 10-20-2024 Patient encounter procedure 10/20/2024 3:30 PM EST [facility] [address] [place] [address] Megan Bird, DO [address] [place] [address] [facility] Start: 08-18-2024 Adult BMI Screening Adult BMI Screen ing [facility] Start: 08-18-2024 Depression Screening Depression Scre ening [facility] Start: 08-18-2024 Tobacco Screening Tobacco Screening [facility] Start: 06-06-2024 COVID-19 Vaccine ( season) COVID-19 Vaccine ( season) [facility] Start: 06-06-2024 Influenza vaccination Influenza Vacc ine [facility] Start: 03-31-2024 End: 03-31-2024 Patient encounter procedure 03/31/2024 2:15 PM EDT Office Visit [facility] - Family [facility] [address] [place] [address] Megan Bird, DO [address] [place] [address] [facility] Start: 12-25-2023 End: 12-25-2023 Patient encounter procedure 12/25/2023 3:30 PM EDT Office Visit [facility] Internal [facility] [address] [place] [address] [facility] Start: 12-12-2023 End: 12-12-2023 Patient encounter procedure 12/12/2023 11:00 AM EST Office Visit [facility] [address] [place] [address] Jomar Mercado, DPM FACFAS [address] [place] [address] [facility] Start: 10-29-2023 End: 10-29-2023 Patient encounter procedure 10/29/2023 1:00 PM EST Office Visit [facility] [address] [place] [address] Megan Bird, DO [address] [place] [address] [facility] Start: 2023 Administration of varicella zoster vaccine Zoster (Shingles) Vaccine (1 of 2) [facility] Start: 06-06-2023 Influenza vaccination Influenza Vacc ine [facility] Start: 1991 Adult BMI Follow Up Plan Adult BMI F ollow Up Plan [employer] Start: 1991 Diabetic foot examination Diabetic Foot Ex[facility] Start: 1973 Urine screening for protein Urine Microalbumin [facility] Lab Routine Special screening for malignant neoplasm of colon Ordered: 03/16/2025 [employer] Comment on above: Ordered: 03/16/2025 End: 10-20-2025 Comprehensive metabolic 2000 panel - Serum or Plasma Comprehensive metabolic panel Lab Routine Type II diabetes mellitus with neurological manifestations ([facility]) 1 Occurrences starting 10/20/2024 until 10/20/2025 [employer] Work Phone: Comment on above: 1 Occurrences starti ng 10/20/2024 until 10/20/2025 End: 05-05-2025 Comprehensive metabolic 2000 panel - Serum or Plasma Comprehensive metabolic panel Lab Routine Hyperlipidemia, unspecified hyperlipidemia type 1 Occurrences starting 05/05/2024 until 05/05/2025 [employer] Comment on above: 1 Occurrences starti ng 05/05/2024 until 05/05/2025 End: 12-09-2025 Comprehensive metabolic 2000 panel - Serum or Plasma Comprehensive metabolic panel Lab Routine Type II diabetes mellitus with neurological manifestations ([facility]) 1 Occurrences starting 12/09/2024 until 12/09/2025 [employer] Work Phone: Comment on above: 1 Occurrences starti ng 12/09/2024 until 12/09/2025 End: 10-20-2025 Hemoglobin A1c/Hemoglobin.total in Blood Hemoglobin A1c Lab Routine Type II diabetes mellitus with neurological manifestations ([facility]) 1 Occurrences starting 10/20/2024 until 10/20/2025 [employer] Comment on above: 1 Occurrences starti ng 10/20/2024 until 10/20/2025 End: 10-29-2024 Hemoglobin A1c/Hemoglobin.total in Blood Hemoglobin A1c Lab Routine Impaired fasting glucose 1 Occurrences starting 10/29/2023 until 10/29/2024 [employer] Work Phone: Comment on above: 1 Occurrences starti ng 10/29/2023 until 10/29/2024 Hemoglobin A1c/Hemoglobin.total in Blood Hemoglobin A1c Lab Routine Impaired fasting glucose 10/29/2023 10:08 PM EST [employer] End: 05-05-2025 Hemoglobin A1c/Hemoglobin.total in Blood Hemoglobin A1c Lab Routine Impaired fasting glucose 1 Occurrences starting 05/05/2024 until 05/05/2025 [facility] Comment on above: 1 Occurrences starti ng 05/05/2024 until 05/05/2025 End: 05-05-2025 Lipid 1996 panel - Serum or Plasma Lipid profile Lab Routine Hyperlipidemia, unspecified hyperlipidemia type 1 Occurrences starting 05/05/2024 until 05/05/2025 [facility] Comment on above: 1 Occurrences starti ng 05/05/2024 until 05/05/2025 End: 10-20-2025 Microalbumin - Albumin: Creatinine Urine Ratio Microalbumin - Albumin: Creatinine Urine Ratio Lab Routine Type II diabetes mellitus with neurological manifestations ([facility]) 1 Occurrences starting 10/20/2024 until 10/20/2025 [facility] Comment on above: 1 Occurrences starti ng 10/20/2024 until 10/20/2025 End: 10-29-2024 Microalbumin - Albumin: Creatinine Urine Ratio Microalbumin - Albumin: Creatinine Urine Ratio Lab Routine Impaired fasting glucose 1 Occurrences starting 10/29/2023 until 10/29/2024 [facility] Comment on above: 1 Occurrences starti ng 10/29/2023 until 10/29/2024 End: 10-20-2025 Thyroid profile includes TSH FT4 Thyroid profile includes TSH FT4 Lab Routine 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 1 Occurrences starting 10/20/2024 until 10/20/2025 [facility] Comment on above: 1 Occurrences starti ng 10/20/2024 until 10/20/2025 End: 05-05-2025 Thyroid profile includes TSH FT4 Thyroid profile includes TSH FT4 Lab Routine 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 1 Occurrences starting 05/05/2024 until 05/05/2025 [employer] Phone: Comment on above: 1 Occurrences starti ng 05/05/2024 until 05/05/2025 End: 12-09-2025 Thyroid profile includes TSH FT4 Thyroid profile includes TSH FT4 Lab Routine 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 1 Occurrences starting 12/09/2024 until 12/09/2025 [employer] Comment on above: 1 Occurrences starti ng 12/09/2024 until 12/09/2025 Immunizations Immunization Date Immunization Notes Care Provider Iam prasad 10-20-2024 influenza, seasonal, injectable, preservative free Megan Bird DO Work Phone: [facility] 10-20-2024 Immunization, In Clinic,; Translations: [Drug or medicament (substance)] Megan Bird DO Work Phone: [facility] 10-20-2024 influenza virus vaccine, unspecified formulation Megan Bird DO Work Phone: [facility] Payers Date Payer Category Payer Medicare O [facility] [id number] 2024 Unknown [id number] 2023 Medicare [id number] 2023 Self-pay 2022 Medicare [id number] 2022 Medicare [id number] 2021 Medicaid [id number]. [id number] 2017 Unknown [id number] 1973 Unknown [id number] 1973 Unknown [id number] [id number] 1973 Unknown [id number] 2.16.840.1.412988.3.579.2.9 1973 Unknown [id number] [id number] 1973 Unknown [id number] 2.16.840.1.743253.3.579.2.9 1973 Unknown [id number] [id number] 1973 Unknown [id number] 2.16.840.1.626728.3.579.2.9 1973 Unknown [id number] [id number] 1973 Unknown [id number] [id number] 1973 Unknown [id number] [id number] 1973 Unknown [id number] [id number] 1973 Unknown [id number] 2.16.840.1.766597.3.579.2.1285 1973 Unknown [id number] [id number] 1973 Unknown [id number] [id number] 1959 Medicaid [id number] Unknown [id number] Social History Date Type Detail Facility Start: 10-10-2022 End: 04-04-2023 Tobacco smoking status NHIS Ex-smoker [facility] History of tobacco use Current smoker [facility] History of tobacco use Cigarette Smoker P [facility] Start: 10-10-2022 End: 04-04-2023 Tobacco use and exposure Smokeless tobacco non-user [facility] Start: 09-24-2023 Alcohol intake Lifetime non-d chasity (finding) [facility] Start: 11-16-2020 End: 09-24-2023 History of Social function [facility] Start: 11-16-2020 End: 09-24-2023 Tobacco use panel [facility] Start: 03-13-2023 Alcohol Comment caffeine: 2-3 cups per day [facility] Start: 1975 Sex Assigned At Not on file P [facility] Start: 05-05-2024 End: 03-16-2025 Alcoholic beverage intake Ex-drinker (finding) [facility] Adolescent depressio n screening assessment 13 [facility] Start: 09-27-2015 Sex Male (finding) [facility] Clinical Notes 12-04-2022 to 03-16-2025 Megan Bird, DO - 03/16/2025 1:00 PM EDTTelephone Encounter - Krysta Awad, [facility] - 12/29/2024 2:28 PM EDTTelephone Encounter - Krysta Awad, [facility] - 12/29/2024 2:28 PM EDT Note Date & Type Note Facility 03-16-2025 History of Presen t illness Narrative IM PROGRESS NOTE Patient - Jose Roldan Age - 49 y.o. - 1975 ASSESSMENT & PLAN 1. Type 2 diabetes mellitus without complication, without long-term current use of insulin ([facility]) (Primary) -goals of treatment reviewed with the patient -repeat A1c to assess efficacy of current treatment -in spite of A1c being controlled with current dose of semaglutide, continues to have problems with weight control -consider change to Mounjaro at next refill - Comprehensive metabolic panel; Future - Hemoglobin A1c; Future - Lipid profile; Future - Lipid profile - Hemoglobin A1c - Comprehensive metabolic panel 2. 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 -ongoing problems with thumb and wrist pain -is causing problems with ADLs -proceed with x-ray of the right wrist -if pain continues, will probably need orthopedic evaluation for injection - X-ray wrist right minimum 3 views; Future 3. 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 Mild persistent asthma without complication -currently on Breo 100-25 daily -no flare-ups requiring ED visit or hospitalization -no changes 5. Special screening for malignant neoplasm of colon -has been 3 years since last Cologuard -this was ordered today for repeat testing - [facility]ologuard [facility] Subjective DIABETIC VISIT This is a follow up of a pre-existing problem. Patient self monitoring includes Not checking BG at home. Patient experiences hypoglycemia None. Patient symptoms of hyperglycemia include: none. Current prescribed diet is consistent carbohydrate. Patient is following the prescribed diet plan. Home activity includes: The patient does not participate in regular exercise at present.. Patient does not experience numbness or burning in their hands or feet. Patient does not have vision changes. Last eye exam was: 2024 Patient BP monitoring is done sporadically, and can't recall values. Patient reports: taking medications as instructed, no medication side effects noted, no chest pain on exertion, no dyspnea on exertion, no swelling of ankles, no orthostatic dizziness or lightheadedness, no palpitations, no intermittent claudication symptoms, and no erectile dysfunction Issues affecting compliance with diabetic self management include: Lack of ability to exercise due to orthopedic problems A review of systems was negative except for the following: Psychiatric: anxiety, depression, and recently had change in medications Musculoskeletal: joint pain and especially right base of the thumb. 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 Exam BP 124/70 (BP Site: Left Arm, BP Postition: Sitting, BP CUFF SIZE: L (13-17 inches)) Pulse 88 Temp 36.7 C (98.1 F) (Oral) Resp 20 Ht 177.8 cm (5' 10 ) Wt (!) 161.8 kg (356 lb 9.6 oz) SpO2 94% BMI 51.17 kg/m Physical Exam Vitals reviewed. Constitutional: General: He is not in acute [...] normal. Breath sounds: No wheezing or rales. Abdominal: Palpations: Abdomen is soft. Musculoskeletal: General: Tenderness (CMC joint right wrists) present. Right lower leg: No edema (Trace at ankle). Left lower leg: No edema (Trace at ankle). Skin: General: Skin is warm and dry. Coloration: Skin is not jaundiced. Findings: No bruising. Neurological: Mental Status: He is alert and oriented to person, place, and time. Sensory: No sensory deficit (Normal monofilament testing bilaterally feet and ankles). Motor: No weakness. Coordination: Coordination normal. Deep Tendon Reflexes: Reflexes are normal and symmetric. Psychiatric: Mood and Affect: Mood normal. Behavior: Behavior normal. Comments: Flat affect Left: Pulses Posterior Tibial: present Vibratory sensation normal Filament test present Right: Pulses Posterior Tibial: present Vibratory sensation normal Filament test present Meds Current Outpatient Medications: albuterol (PROVENTIL,VENTOLIN) 2.5 [...] total) by mouth in the morning., Disp: 135 tablet, Rfl: 1 meloxicam (MOBIC) 15 mg tablet, TAKE ONE TABLET BY MOUTH DAILY AT 9 AM, Disp: 90 tablet, Rfl: 1 mirtazapine (REMERON) 30 mg tablet, , Disp: , Rfl: omeprazole (PriLOSEC) 20 mg capsule, TAKE ONE CAPSULE BY MOUTH DAILY AT 9 AM, Disp: 90 capsule, Rfl: 1 prazosin (MINIPRESS) 5 mg capsule, , Disp: , Rfl: QUEtiapine (SEROquel) 200 mg tablet, , Disp: , Rfl: QUEtiapine (SEROquel) 50 mg tablet, , Disp: , Rfl: semaglutide (OZEMPIC) 2 mg/dose (8 mg/3 mL) pen injector, Inject 2 mg under the skin once a week., Disp: 12 mL, Rfl: 0 sertraline (ZOLOFT) 100 mg tablet, Take 2 tablets (200 mg total) by mouth in the morning., Disp: , Rfl: traZODone (DESYREL) 100 mg tablet, , Disp: , Rfl: VRAYLAR 6 mg capsule, , Disp: , Rfl: zolpidem (AMBIEN) 10 mg tablet, Take 1 tablet (10 mg total) by mouth., Disp: , Rfl: Lab Results No visits with results within 1 Month(s) from this visit. Latest known visit with results is: Hospital Outpatient Visit on 12/09/2024 Component Date Value Ref Range Status TSH 12/09/2024 3.80 0.49 - 4.67 uIU/mL Final T4, free 12/09/2024 0.81 0.61 - 1.60 ng/dL Final Sodium 12/09/2024 139 134 - 146 mmol/L Final Potassium, Bld 12/09/2024 4.1 3.5 - 5.0 mmol/L Final Chloride 12/09/2024 102 98 - 109 mmol/L Final CO2 12/09/2024 29 22 - 32 mmol/L Final Anion gap 12/09/2024 8 5 - 15 mmol/L Final BUN 12/09/2024 14 5 - 23 mg/dL Final Creatinine 12/09/2024 0.94 0.60 - 1.30 mg/dL Final Glucose 12/09/2024 115 (H) 65 - 99 mg/dL Final Calcium 12/09/2024 9.6 8.5 - 10.5 mg/dL Final Total Protein 12/09/2024 7.7 6.0 - 8.0 g/dL Final Albumin 12/09/2024 4.4 3.2 - 5.3 g/dL Final Alkaline Phosphatase 12/09/2024 74 39 - 130 U/L Final AST 12/09/2024 21 0 - 41 U/L Final ALT 12/09/2024 20 0 - 40 U/L Final Total bilirubin 12/09/2024 0.3 0.3 - 1.2 mg/dL Final eGFR (CKD-EPI)non-race dependent 12/09/2024 >90 >59 ml/min/1.73sq.m Final Other Testing No results found. Megan Bird DO., [facility] Office: [phone] documented in this encounter [facility] 12-29-2024 Miscellaneous Notes Formattin g of this note might be different from the original. Pt called states he was approved for Ozempic. What next.? I talked to donald and then I called him back and said he may come by office and pick it up anytime before 430 documented in this encounter [facility] 12-29-2024 Telephone encount er Note Pt called states he was approved for Ozempic. What next.? I talked to donald and then I called him back and said he may come by office and pick it up anytime before 430 [facility] 12-09-2024 History of Presen t illness Narrative IM PROGRESS NOTE Patient - Jose Roldan Age - 49 y.o. - 1975 ASSESSMENT & PLAN 1. Type II diabetes mellitus with neurological manifestations (CMS-HCC) (Primary) - Goals of treatment reviewed with patient - Last A1c 5.7% - Needs to restart Ozempic. Rx refilled today - Comprehensive metabolic panel; Future - semaglutide (OZEMPIC) 2 mg/dose (8 mg/3 mL) pen injector; Inject 2 mg under the skin once a week. Dispense: 12 mL; Refill: 0 2. 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 Mild persistent asthma without complication - Currently on Breo daily - No exacerbations requiring ED or urgent care 4. 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 - Intermittent problem - Is not limiting at this time - Continue Meloxicam 15 mg daily - If becomes more persistent or limiting, then ortho referral for injection 5. Plantar fasciitis, right - Home plantar fascia stretches and exercises printed and given to patient - Ice massage at least twice daily - If not improving with conservative treatment, then needs podiatry referral Subjective DIABETIC VISIT This is a follow up of a pre-existing problem. Patient self monitoring includes Not checking BG at home. Patient experiences hypoglycemia None. Patient symptoms of hyperglycemia include: none. Current prescribed diet is consistent carbohydrate. Patient is following the prescribed diet plan. At least partially Home activity includes: The patient does not participate in regular exercise at present.. Patient does not experience numbness or burning in their hands or feet. Patient does not have vision changes. Last eye exam was: 2023 Patient BP monitoring is done sporadically, and can't recall values. Patient reports: taking medications as instructed, no medication side effects noted, patient does not perform home BP monitoring, no chest pain on exertion, no dyspnea on exertion, no swelling of ankles, no orthostatic dizziness or lightheadedness, no palpitations, and no intermittent claudication symptoms Issues affecting compliance with diabetic self management include: Has been out of Ozempic for the past month. A review of systems was negative except for the following: General: weight gain Endocrine: Currently taking levothyroxine 225 mcg daily. Musculoskeletal: Having problems with pain at the base of his right thumb. Generally worse with more activity. 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 No swelling. Does not radiate. Does take meloxicam on a daily basis. Is intermittent, but happening more frequently. In addition, has been experiencing sharp, stabbing pain on the heel of his right foot. Generally happens when he 1st steps on his foot after laying or sitting for an extended period of time. Will resolve partially with activity. Does not radiate. No burning, no swelling and no new injuries.. Exam BP 110/70 (BP Site: Left Arm, BP Postition: Sitting) Pulse 87 Temp 36.4 C (97.6 F) (Tympanic) Ht 177.8 cm (5' 10 ) Wt (!) 162.2 kg (357 lb 9.6 oz) SpO2 97% BMI 51.31 kg/m Physical Exam Vitals reviewed. Germination Testing Manager present: . Constitutional: General: He is not [...] No edema (Trace at ankle). Comments: Right foot and ankle: Exquisite tenderness at the insertion of the plantar fascia in the calcaneus on the right sole. Tenderness along the Achilles tendon of the right foot. No redness or erythema or skin changes. Skin: General: Skin is warm and dry. Coloration: Skin is not jaundiced. Findings: No bruising. Neurological: Mental Status: He is alert and oriented to person, place, and time. Sensory: No sensory deficit (Normal monofilament testing bilaterally feet and ankles). Motor: No weakness. Coordination: Coordination normal. Deep Tendon Reflexes: Reflexes are normal and symmetric. Psychiatric: Mood and Affect: Mood normal. Behavior: Behavior normal. Comments: Flat affect Left: Pulses Posterior Tibial: diminished Vibratory sensation normal Filament test present Right: Pulses Posterior Tibial: diminished Vibratory sensation normal Filament test present Meds Current Outpatient Medications: albuterol (PROVENTIL,VENTOLIN) 2.5 [...] the morning., Disp: 60 tablet, Rfl: 1 meloxicam (MOBIC) 15 mg tablet, TAKE ONE TABLET BY MOUTH DAILY AT 9 AM, Disp: 90 tablet, Rfl: 1 mirtazapine (REMERON) 30 mg [...] 200 mg tablet, , Disp: , Rfl: sertraline (ZOLOFT) 100 mg tablet, Take 2 tablets (200 mg total) by mouth in the morning., Disp: , Rfl: traZODone (DESYREL) 100 mg tablet, , Disp: , Rfl: VRAYLAR 6 mg capsule, , Disp: , Rfl: zolpidem (AMBIEN) 5 mg tablet, Take 1 tablet (5 mg total) by mouth nightly., Disp: , Rfl: semaglutide (OZEMPIC) 2 mg/dose (8 mg/3 mL) pen injector, Inject 2 mg under the skin once a week., Disp: 12 mL, Rfl: 0 Lab Results No visits with results within 1 Month(s) from this visit. Latest known visit with results is: Hospital Outpatient Visit on 10/20/2024 Component Date Value Ref Range Status TSH 10/20/2024 14.27 (H) 0.49 - 4.67 uIU/mL Final T4, free 10/20/2024 0.64 0.61 - 1.60 ng/dL Final Microalbumin urine 10/20/2024 <0.7 0.0 - 1.9 mg/dL Final Urine creat 10/20/2024 138.17 mg/dL Final Alb/creat ratio 10/20/2024 NOT CALCULATED 0.0 - 30.0 mg/g creat Final Hemoglobin A1C 10/20/2024 5.7 (H) 4.4 - 5.6 % Final Average glucose 10/20/2024 117 mg/dL Final Sodium 10/20/2024 141 134 - 146 mmol/L Final Potassium, Bld 10/20/2024 4.3 3.5 - 5.0 mmol/L Final Chloride 10/20/2024 102 98 - 109 mmol/L Final CO2 10/20/2024 32 22 - 32 mmol/L Final Anion gap 10/20/2024 7 5 - 15 mmol/L Final BUN 10/20/2024 18 5 - 23 mg/dL Final Creatinine 10/20/2024 1.05 0.60 - 1.30 mg/dL Final Glucose 10/20/2024 88 65 - 99 mg/dL Final Calcium 10/20/2024 9.5 8.5 - 10.5 mg/dL Final Total Protein 10/20/2024 7.8 6.0 - 8.0 g/dL Final Albumin 10/20/2024 4.3 3.2 - 5.3 g/dL Final Alkaline Phosphatase 10/20/2024 71 39 - 130 U/L Final AST 10/20/2024 21 0 - 41 U/L Final ALT 10/20/2024 21 0 - 40 U/L Final Total bilirubin 10/20/2024 0.2 (L) 0.3 - 1.2 mg/dL Final eGFR (CKD-EPI)non-race dependent 10/20/2024 86 >59 ml/min/1.73sq.m Final Other Testing No results found. Megan Bird DO., [facility] Office: [phone] [facility] History of Presen t illness Narrative IM PROGRESS NOTE Patient - Jose Roldan Age - 49 y.[facility]. [facility] 1975 [id number] ASSESSMENT & PLAN 1. Type II diabetes mellitus with neurological manifestations ([facility]) (Primary) -goals of treatment reviewed with the [...] (BMI) of 45.0 to 49.9 in adult ([facility]) -not much change since last visit -continue monitoring and adjusting thyroid replacement as needed -continue G LP 1 agent 5. Pain in unspecified wrist -refill meloxicam - meloxicam (MOBIC) 15 mg tablet; TAKE ONE TABLET BY MOUTH DAILY AT 9 AM Dispense: 90 tablet; Refill: 1 6. Encounter for immunization -flu vaccination today - FLU VACCINE TS 2023-(6MOS UP)(PF) 45 MCG(15MCG X3)/0.5 ML IM SYRINGE [...] BMI 48.61 kg/m Physical Exam Vitals reviewed. Germination Testing Manager present: . Constitutional: General: He is not [...] Testing No results found. Megan Bird DO., [facility] Office: [phone] documented in this encounter [facility] 10-14-2024 Miscellaneous Notes Formattin g of this note might be different from the original. Pt called and would like refills on pended medications. Pharmacy is listed and correct documented in this encounter [facility] 10-14-2024 Telephone encount er Note Pt called and would like refills on pended medications. Pharmacy is listed and correct [facility] 05-05-2024 History of Presen t illness Narrative IM PROGRESS NOTE Patient - Jose Roldan Age - 48 y.o. - 1975 ASSESSMENT & PLAN 1. 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 Mild persistent asthma without complication -currently taking Dulera without problems -no flare-ups since last visit -no changes today 3. Impaired fasting glucose -last A1c was excellent at 5.9% -currently on Ozempic 1 mg weekly with good results for glucose control and weight loss -no change today - Hemoglobin A1c; Future 4. Hyperlipidemia, unspecified hyperlipidemia type -not currently taking statin -repeat lipid panel to assess 10 year CV risk - Comprehensive metabolic panel; Future - Lipid profile; Future Subjective 48-year-old male presents for recheck visit on several medical conditions including: -asthma. Overall has been stable using Dulera 100-5 b.i.d.. Has had some mild chest tightness during very hot weather, but has not had to use his rescue inhaler. Has been trying to stay indoors during humidity/heat alerts. Does not feel limited by his asthma at this time -continues to lose weight. Is using Ozempic, and tolerating without problems. Has dropped 10 kg and does feel better. He is not checking blood sugars at home. Denies any hypoglycemia. -his PTSD is worse. Had a flare-up after hearing a recording of his son's voice. In addition, is having push back from his landlord about having an animal in the apartment. He uses the dog as a comfort animal, but the animal has never been designated as such. -overall his joints feel better with the weight loss. Is limited to walking no more than about 100 yd before having to rest -no problems with his thyroid medication. This did require adjustment in the dose last visit. A review of systems was negative except for the following: General: weight loss and this is anticipated Psychiatric: concentration difficulties, depression, obsessive thoughts, and has not seen his psychiatrist in several months. Does have an appointment in several days. Musculoskeletal: joint pain, joint stiffness, and pain in back - bilateral and knee - bilateral. Exam BP 122/62 (BP Site: Left Arm, BP Postition: Sitting) Pulse 86 Temp 36.9 C (98.5 F) (Oral) Resp 20 Ht 180.3 cm (5' 10.98 ) Wt (!) 152.3 kg (335 lb 12.8 oz) SpO2 95% BMI 46.86 kg/m Physical Exam Vitals reviewed. Exam conducted with a machine packaging technician present (). Constitutional: General: He is not [...] Abdomen is soft. Musculoskeletal: General: Tenderness (Right ankle. Bilateral knee joints.) present. Right lower leg: No edema (Trace [...] 1 mg tablet, , Disp: , Rfl: ketoconazole (NIZORAL) 2 % shampoo, , Disp: , Rfl: lamoTRIgine (LaMICtal) 150 mg tablet, , Disp: , Rfl: levothyroxine (SYNTHROID, LEVOTHROID) 150 MCG tablet, Take 2 tablets (300 mcg total) by mouth in the morning., Disp: 180 tablet, Rfl: 1 meloxicam (MOBIC) 15 mg tablet, TAKE 1 TABLET BY MOUTH DAILY, Disp: 90 tablet, Rfl: 1 mirtazapine (REMERON) 45 MG tablet, , Disp: , Rfl: mometasone-formoterol (DULERA) 100-5 mcg/actuation inhaler, INHALE 2 PUFFS BY MOUTH TWICE DAILY, Disp: 39 g, Rfl: 1 omeprazole (PriLOSEC) 20 mg capsule, TAKE 1 CAPSULE BY MOUTH DAILY, Disp: 90 capsule, Rfl: 1 OZEMPIC 2 mg/dose (8 mg/3 mL) pen injector, {BULK] INJECT 2MG UNDER THE SKIN EVERY 7 DAYS, Disp: 6 mL, Rfl: 1 prazosin (MINIPRESS) 5 mg capsule, , Disp: , Rfl: QUEtiapine (SEROquel) 200 mg tablet, , Disp: , Rfl: sertraline (ZOLOFT) 100 mg tablet, Take 2 tablets (200 mg total) by mouth in the morning., Disp: , Rfl: traZODone (DESYREL) 100 mg tablet, , Disp: , Rfl: VRAYLAR 6 mg capsule, , Disp: , Rfl: zolpidem (AMBIEN) 5 mg tablet, Take 1 tablet (5 mg total) by mouth nightly., Disp: , Rfl: Lab Results No visits with results within 1 Month(s) from this visit. Latest known visit with results is: Hospital Outpatient Visit on 10/29/2023 Component Date Value Ref Range Status TSH 10/29/2023 9.30 (H) 0.49 - 4.67 uIU/mL Final T4, free 10/29/2023 0.80 0.61 - 1.60 ng/dL Final Cholesterol 10/29/2023 165 150 - 200 mg/dL Final Triglycerides 10/29/2023 257 (H) 27 - 150 mg/dL Final HDL Cholesterol 10/29/2023 43 >39 mg/dL Final VLDL 10/29/2023 51 (H) 0 - 30 mg/dL Final LDL (calc) 10/29/2023 71 <130 mg/dL Final Cholesterol:HDL Ratio 10/29/2023 3.8 1.0 - 5.0 Final Hemoglobin A1C 10/29/2023 6.0 (H) 4.4 - 5.6 % Final Average glucose 10/29/2023 126 mg/dL Final Sodium 10/29/2023 139 134 - 146 mmol/L Final Potassium, Bld 10/29/2023 4.0 3.5 - 5.0 mmol/L Final Chloride 10/29/2023 103 98 - 109 mmol/L Final CO2 10/29/2023 28 22 - 32 mmol/L Final Anion gap 10/29/2023 8 5 - 15 mmol/L Final BUN 10/29/2023 14 5 - 23 mg/dL Final Creatinine 10/29/2023 1.02 0.60 - 1.30 mg/dL Final Glucose 10/29/2023 88 65 - 99 mg/dL Final Calcium 10/29/2023 9.1 8.5 - 10.5 mg/dL Final Total Protein 10/29/2023 7.2 6.0 - 8.0 g/dL Final Albumin 10/29/2023 4.1 3.2 - 5.3 g/dL Final Alkaline Phosphatase 10/29/2023 70 39 - 130 U/L Final AST 10/29/2023 21 0 - 41 U/L Final ALT 10/29/2023 29 0 - 40 U/L Final Total bilirubin 10/29/2023 0.2 (L) 0.3 - 1.2 mg/dL Final eGFR (CKD-EPI)non-race dependent 10/29/2023 90 >59 ml/min/1.73sq.m Final Other Testing No results found. Megan Bird DO., [facility] Office: [phone] documented in this encounter [facility] 10-29-2023 History of Presen t illness Narrative [...] (BMI) of 45.0 to 49.9 in adult ([facility]) -weight all the same perhaps up slightly [...] Exam Vitals reviewed. Exam conducted with a machine packaging technician present (). Constitutional: General: He is not [...] Testing No results found. Megan Bird DO., [facility] Office: [phone] documented in this encounter [facility] 12-04-2022 Note PROCEDURE: XR KNEE R T 1_2 V COMPARISON: None. HISTORY: Pain of right knee joint FINDINGS: BONES:No fracture, acute abnormality, or significant arthropathy. Corticated calcific density identified along the medial femoral condyle, remote injury favored. SOFT TISSUES:Negative. No visible soft tissue swelling. EFFUSION:None visible. OTHER: Negative. IMPRESSION: No acute abnormality Electronically authenticated by: VAISHNAVI JOHNSON Date: 2022-12-04 18:07 [facility] Evaluation note Diagnosis Pain in right ankle and joints of right foot documented in this encounter [facility] HealthcareEvaluation note* Diagnosis Impaired fasting glucose Pain in unspecified wrist Gastro-esophageal reflux disease with esophagitis, without bleeding documented in [facility]* Diagnosis Type II diabetes mellitus with neurological manifestations ([facility] Primary Type II or unspecified type diabetes mellitus with neurological manifestations, not stated as uncontrolled SONIA (obstructive sleep apnea) Obstructive sleep apnea (adult) (pediatric) 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 and body mass index (BMI) of 45.0 to 49.9 in adult ([facility]) Pain in unspecified wrist Encounter for immunization documented in this encounter [facility]* Diagnosis Mild persistent asthma, uncomplicated Pain in unspecified wrist documented in this encounter [facility]* Diagnosis Impaired fasting glucose- Primary Mild persistent asthma without complication Class 3 drug-induced obesity with serious comorbidity and body mass index (BMI) of 45.0 to 49.9 in adult ([facility]) 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 Sinus tarsitis of right foot Hyperlipidemia, unspecified hyperlipidemia type [facility] Diagnosis Impaired fasting glucose [facility]* Diagnosis 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- Primary Mild persistent asthma without complication Impaired fasting glucose Hyperlipidemia, unspecified hyperlipidemia type [facility]* Diagnosis Pain in unspecified wrist 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 Gastro-esophageal reflux disease with esophagitis, without bleeding Mild persistent asthma, uncomplicated [facility]* Diagnosis Impaired fasting glucose [facility]* Diagnosis Type II diabetes mellitus with neurological manifestations ([facility] Primary Type II or unspecified type diabetes mellitus with neurological manifestations, not stated as uncontrolled 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 Mild persistent asthma without complication 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 Plantar fasciitis, right Impaired fasting glucose [facility]* Diagnosis 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 [facility]* Diagnosis Type 2 diabetes mellitus without complication, without long-term current use of insulin ([facility])- Primary 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 Mild persistent asthma without complication Special screening for malignant neoplasm of colon Special screening for malignant neoplasms, colon [facility] filed[facility]ed in [facility] filedocumented in this encounter [facility] filedocumented in this encounter [facility] filedocumented in this encounter [facility] on filedocumented in this encounter [facility] filedocumented in this encounter [facility] on filedocumented in this encounter [facility] on filedocumented in this encounter [facility]* Attachments The following attachments cannot be sent through Care Everywhere. * Plantar Fasciitis Exercises (Mauritanian) [facility] Summary Purpose Family History No Family [...] day(s), # 30 tab(s), Refills(s) 0, Pharmacy: [facility] Documented Medications Documented Dulera 100 mcg-5 [...] made to ensure accuracy, however, inadvertently computerized business agent mistakes may be present. Physical Exam Vitals [...] made to ensure accuracy, however, inadvertently computerized business agent mistakes may be present. Physical Exam Vitals [...] right foot Megan Bird, DO [address] [place] [address] [facility] [address] [place] [address] Referral ID Status Reason Start Date Expiration Date V isits Requested Visits Authorized [id number] Pending Review 10/29/2023 10/28/2024 1 1 Additional Source Comments (unrecognized sect ion and content) No Status Records FoundNo Status Records FoundNo Status Records FoundNo Status Records FoundNo Status Records FoundNo Status Records FoundNo Status Records Found INFORMATION SOURCE (unrecogn ized section and content) DATE CREATED AUTHOR 06/04/2019 [facility] DATE CREATED AUTHOR AUTHOR'S ORGANIZ ATION 02/23/2022 [facility] DATE CREATED AUTHOR AUTHOR'S ORGANIZ ATION 01/11/2023 [facility] DATE CREATED AUTHOR AUTHOR'S ORGANIZ ATION 05/04/2024 [facility] DATE CREATED AUTHOR AUTHOR'S ORGANIZ ATION 12/12/2024 [facility] DATE CREATED AUTHOR AUTHOR'S ORGANIZ ATION 03/19/2025 [facility] DATE CREATED AUTHOR AUTHOR'S ORGANIZ ATION 03/20/2025 [facility] Reason for Visit (unrecogniz ed section and content) Reason Comments Med Refill Reason Comments thyroid blood work check/cold congestion -2 weeks green phlem Reason Comments Diabetes Reason Comments 6 month check up Pt states would like to have his dog be a emotional support animal.Maybe there was a old note on this? Reason Onset Date Comments Med Refill 06/21/2024 Reason Comments Diabetes Care Teams (unrecognized sec tion and content) Creative Strategist Relationship Specialty Start Date End Date Megan Bird MD [address] [place] [address] PCP - General Internal Medicine 04/04/23 Creative Strategist Relationship Specialty Start Date End Date Megan Bird DO [address] [place] [address] PCP - General Internal Medicine 09/04/22 Creative Strategist Relationship Specialty Start Date End Date Megan Bird DO [address] [place] [address] PCP - General Internal Medicine 09/04/22 Creative Strategist Relationship Specialty Start Date End Date Megan Bird DO [address] [place] [address] PCP - General Internal Medicine 09/04/22 Creative Strategist Relationship Specialty Start Date End Date Megan Bird DO [address] [place] [address] PCP - General Internal Medicine 09/04/22 Creative Strategist Relationship Specialty Start Date End Date Megan Bird DO [address] [place] [address] PCP - General Internal Medicine 09/04/22 Creative Strategist Relationship Specialty Start Date End Date Megan Bird DO [address] [place] [address] PCP - General Internal Medicine 09/04/22 Creative Strategist Relationship Specialty Start Date End Date Megan Bird DO [address] [place] [address] PCP - General Internal Medicine 09/04/22 Creative Strategist Relationship Specialty Start Date End Date Megan Bird DO [address] [place] [address] PCP - General Internal Medicine 09/04/22 Creative Strategist Relationship Specialty Start Date End Date Megan Bird DO [address] [place] [address] PCP - General Internal Medicine 09/04/22 Creative Strategist Relationship Specialty Start Date End Date Megan Bird DO [address] [place] [address] PCP - General Internal Medicine 09/04/22 FOR [...] BE BASED ON THE PRIMARY CLINICAL RECORDS. [employer] provides no warranty or guarantee of the accuracy or completeness of information in this document.
== END 2025-04-07 14:20 | disposition home or self-care (01) ==
LOC: RAD 14:22
PROVIDERS: PCP Internal Medicine; Visit Provider Internal Medicine
DX: M19.031 Primary osteoarthritis, right wrist (principal)
CPT/HCPCS: 73110